=== PATIENT | female | born 1945 | race Caucasian/White ===

== ENCOUNTER → 2017-07-08 08:20 | Outpatient (CLI) | payer MEDICARE, SELFPAY ==
[2017-07-08 13:17] LABS: Absolute Lymphocyte Count 3.07 X10^3/ul (0.83-4.51); Absolute Neutrophil Count 3.6 X10^3/uL (2.0-7.7); Basophil# 0.02 X10^3/uL; Basophil% 0.3 % (0-1); Eosinophil# 0.11 X10^3/uL; Eosinophils% 1.4 % (0-5); Hematocrit 42.1 % (37-47); Hemoglobin 13.4 g/dl (12.0-15.0); Lymphocyte # 3.07 X10^3/ul (4.0); Lymphocyte % 39.2 % (19-41); Mean Corp Hgb Conc 31.8 g/gl (32-36); Mean Corpuscular Hgb 28.9 pg (27.0-32.0); Mean Corpuscular Volume 90.9 fL (81-99); Mean Platelet Vol. 11.3 fl (6.2-12.0); Monocyte# 1.02 X10^3/uL; Neutrophil # 3.61 X10^3/uL (2.7-7.7); Platelet Count 270 K/mm3 (150-450); RBC Distribution Width CV 14.2 % (11.6-14.6); RBC Distribution Width SD 46.9 fl (35.1-43.9); Red Blood Count 4.63 M/mm3 (4.2-5.4); White Blood Count 7.8 K/mm3 (4.4-11.0)
[2017-07-08 13:20] LABS: POSITIVE COUNT NO; POSITIVE DIFFERENTIAL NO; POSITIVE MORPHOLOGY NO
[2017-07-08 13:24] LABS: Vitamin D,25 Hydroxy 22.6 ng/mL (29.95-100.01)
[2017-07-08 13:27] LABS: ALB/GLOB Ratio 0.8 RATIO (0.9-2.4); AST(SGOT) 20 U/L (15-37); Alanine Aminotransfer ALT/SGPT 28 U/L (13-56); Albumin, Serum 3.5 g/dL (3.2-5.0); Alkaline Phosphatase 62 U/L (45-117); Anion Gap 8 (5-15); BUN 11 mg/dL (7-18); BUN/Creat Ratio 15.7 RATIO (10-20); Calcium,Total 8.4 mg/dL (8.5-10.1); Chloride 104 mmol/L (98-107); Cholesterol 199 mg/dL (200); EST Glomerular Filtration Rate 87 mL/min (>60); Est Glom Filt Rate - Afr Amer 106 mL/min (>60); Globulin 4.2 g/dL (2.2-4.2); Glucose 97 mg/dL (74-106); High Density Lipoprotein 60 mg/dL; Potassium 3.9 mmol/L (3.5-5.1); Protein, Total 7.7 g/dL (6.4-8.2); Sodium Level 141 mmol/L (136-145); Thyroid Stim Hormone (TSH) 3.62 uIU/mL (0.358-3.74); Triglycerides 157 mg/dL; Very Low Density Lipoprotein 31 mg/dL (5-40)
[2017-07-09 14:37] LABS: Hep C Antibodies <0.1 s/co ratio (0.0-0.9)
== END ==
PROVIDERS: Family Provider Student in an Organized Health Care Education/Training Program; PCP Student in an Organized Health Care Education/Training Program; Visit Provider Nurse Practitioner Adult Health
DX: E78.5 Hyperlipidemia, unspecified (principal); E55.9 Vitamin D deficiency, unspecified; Z11.59 Encounter for screening for other viral diseases; Z79.899 Other long term (current) drug therapy
CPT/HCPCS: 80053; 80061; 82306; 84443; 85025; 86803

== ENCOUNTER → 2018-04-23 10:14 | Outpatient (CLI) | payer MEDICARE, SELFPAY ==
--- NOTE | 2018-04-23 10:21 | BI_ITS ---
MAMMOGRAPHY - BILATERAL SCREENING REASON FOR EXAM: Female, 72 years old. Routine annual screening examination. PERTINENT HISTORY: Non-contributory. TECHNIQUE: Digital bilateral breast rodrigo (3D mammographic acquisition) in the CC and MLO projections. 2-D mediolateral oblique (MLO) and craniocaudad (CC) views of both breasts were obtained. CAD: Full Field Digital Mammography with Computer Added Detection was performed. COMPARISON: Comparison is made with prior study dated December 14, 2016 and November 09, 2015. FINDINGS: Breast Composition: There are scattered areas of fibroglandular density. There are no dominant masses or suspicious calcifications. Stable bilateral axillary lymph nodes. This morning at 7 No other significant abnormalities are identified. There has been no significant change since the prior study. BI/SCREENING MAMM (CAD), BILAT IMPRESSION: Stable bilateral screening mammogram. Yearly follow-up mammogram recommended. (A) ASSESSMENT CATEGORY: BIRADS Category 2: Benign. A letter regarding these results will be sent to the patient by the facility within 30 days. Approximately 10% of breast cancers are not detected by mammography. A normal mammogram should not delay biopsy of a clinically suspicious abnormality. [id number] Electronically Signed: Ricardo Brenner MD at 11:29 EST Tel [phone], Service support ,
--- OUTSIDE RECORDS SUMMARY | 2018-06-28 04:49 | XMS RPT_ITS ---
:1945 Author Organization OHIP Care Team Providers Name Role Phone ROSEY LEYVA (COBOL APPLICATION DEVELOPER) Referring Unavailable ROSEY LEYVA (COBOL APPLICATION DEVELOPER) Attending Unavailable SHIRLENE JUAN (APPLE PEELER OPERATOR) Attending Unavailable ANGIE SERRATO Admitting Unavailable ANGIE SERRATO Attending Unavailable ROSEY CHRISTIE (PA) Referring Unavailable ROSEY CHRISTIE (PA) Attending Unavailable GALILEO LOPES Referring Unavailable LOPES GALILEO L Attending Unavailable LOPES GALILEO L Referring Unavailable LOPES GALILEO L Referring Unavailable Lopes Galileo Attending Unavailable Lopes, Galileo Primary Care Unavailable Rosey Leyva AUTOMOBILE DAMAGE APPRAISER-C Attending Unavailable Rosey Leyva AUTOMOBILE DAMAGE APPRAISER-C Referring Unavailable Fredi, Galileo Primary Care Unavailable PROBLEMS PROBLEMS DATE TYPE CONDITION / CODE ATTENDING STATUS SOURCE 01/10/2018 Active Unspecified NA Active [facility] injury of right [place] wrist, hand and Repository finger(s), initial encounter / S69.91XA(ICD-10) 09/11/2017 Active Encounter for ANGIE SERRATO Active [facility] screening for [facility] malignant Repository neoplasm of colon / Z12.11(ICD-10) 03/14/2015 Active Hyperlipidemia, NA Active [facility] unspecified / [place] E78.5(ICD-10) Repository 12/21/2009 Active Vitamin D NA Active [facility] deficiency, [place] unspecified / Repository E55.9(ICD-10) 07/08/2017 Active Other long term care administrator NA Active [facility] (current) drug [place] therapy / Repository Z79.899(ICD-10) 07/08/2017 Active Encounter for NA Active [facility] screening for [place] other viral Repository diseases / Z11.59(ICD-10) 07/08/2017 Unknown E78.5 - [place], Active [facility] Hyperlipidemia, Rosey AUTOMOBILE DAMAGE APPRAISER-C Community unspecified / Hospital E78.5(ICD-10) Repository 07/08/2017 Unknown E55.9 - Vitamin D [place], Active [place] deficiency, Rosey AUTOMOBILE DAMAGE APPRAISER-C Community unspecified / Hospital E55.9(ICD-10) Repository PROCEDURES PROCEDURES No Procedure Records FoundRESULTS RESULTS SCREENING MAMM (CAD), Observed: 04/23/2018 Status: F Source: [place] BILAT 10:21 AM [facility] Imaging Services [address] [place] [address] SCREENING MAMM (CAD), BILAT MR#: [id number] Acct: [id number] Name: LAISHA SANDERSON Rep #: [id number] : 1945 F 72 From: Ricardo Brenner MD PCP: Galileo Rosales DO Status: REG CLI Study: SCREENING MAMM (CAD), BILAT Date of Exam: 04/23/18 Exam# [id number] Ordering Dr: Galileo Lopes DO MAMMOGRAPHY - BILATERAL SCREENING REASON FOR EXAM: Female, 72 years old. Routine annual screening examination. PERTINENT HISTORY: Non-contributory. TECHNIQUE: Digital bilateral breast rodrigo (3D mammographic acquisition) in the CC and MLO projections. 2-D mediolateral oblique (MLO) and craniocaudad (CC) views of both breasts were obtained. CAD: Full Field Digital Mammography with Computer Added Detection was performed. COMPARISON: Comparison is made with prior study dated December 14, 2016 and November 09, 2015. FINDINGS: Breast Composition: There are scattered areas of fibroglandular density. There are no dominant masses or suspicious calcifications. Stable bilateral axillary lymph nodes. This morning at 7 No other significant abnormalities are identified. There has been no significant change since the prior study. BI/SCREENING MAMM (CAD), BILAT IMPRESSION: Stable bilateral screening mammogram. Yearly follow-up mammogram recommended. (A) ASSESSMENT CATEGORY: BIRADS Category 2: Benign. A letter regarding these results will be sent to the patient by the facility within 30 days. Approximately 10% of breast cancers are not detected by mammography. A normal mammogram should not delay biopsy of a clinically suspicious abnormality. [id number] Electronically Signed: Ricardo Brenner MD at 11:29 EST Tel [phone], Service support , CC: Galileo Rosales DO Medicare Nurse: Signed XR HAND 3V PA/LAT/OBL Observed: 01/10/2018 Status: F Source: [facility] 3:00 PM [facility] REPOSITORY * * *Final Report* * * DATE OF EXAM: Jan 10 2018 3:00PM WOX [id number] - XR HAND 3V PA/LAT/OBL RT / PROCEDURE REASON: Injury of right hand, initial encounter * * * * Physician Interpretation * * * * Right hand HISTORY: 72 years old Clinical information: Injury of right hand, initial encounter pt states was at a golf range couple of weeks ago and jammed the iron into the ground pain is prox 3rd MC dorsal side marked by the arrow TECHNIQUE: Images: XR HAND 3V PA/LAT/OBL RT Comparison: None. RESULT: Findings: Moderate narrowing involving interphalangeal joints. Moderate narrowing of the radiocarpal joint. No fractures or dislocations are seen. IMPRESSION: Degenerative changes as discussed. Medicare Nurse: LASHONDA Transcribe Date/Time: Jan 10 2018 3:10P Dictated by : CAROL MUÑIZ DO This examination was interpreted and the report reviewed and electronically signed by: CAROL MUÑIZ DO on Jan 10 2018 3:11PM EST [id number] PROGRESS Observed: 01/10/2018 Status: COMPLETED Source: [place] 2:50 PM [facility] REPOSITORY HNO ID: [id number] Author: Kristen Arceo (Rt) Emiliana Galeano Service: (none) Author Type: Furniture Inspector Type: Progress Notes Filed: 01/10/2018 3:00 PM Note Text: Radiology Service Progress Note PATIENT NAME: Laisha Sanderson DATE OF SERVICE: January 10, 2018 TIME: 2:50 PM PATIENT IDENTITY VERIFICATION COMPLETED USING TWO (2) METHODS: Patient confirmed name verbally and Date of . PATIENT GENDER DATA: Female. status: : No status: NO. PATIENT RELEVANT IMPLANT DATA REVIEWED: Not Applicable RADIOLOGY DEPARTMENT: General X-ray: Exam(s) Completed: Upper Extremity X-Ray(s): Hand, right : PERIPHERAL IV DATA: Not applicable SIGNED BY: RT Gautam January 10, 2018 2:50 PM PROGRESS Observed: 01/10/2018 Status: COMPLETED Source: [place] 2:46 PM [facility] REPOSITORY HNO ID: [id number] Author: Rosey Leyva Service: (none) Author Type: Nurse Practitioner Type: Progress Notes Filed: 01/10/2018 2:55 PM Note Text: HPI/CC: Laisha Sanderson is a 72 year old female who presents for R wrist pain x 3 weeks. Jammed hand during golf. Pain is achy 2/10 with sharp pain at times. Bump to area. Decreased grasp and strength, + numbness and tingling noted over the last week. Had attempted nothing. ROS as above, otherwise non-contributory. Reviewed PMHx, PSHx, social Hx, medications and allergies. PHYSICAL EXAMINATION: BP 138/100 Pulse 96 Resp 16 Wt 76.2 kg (168 lb) BMI 30.24 kg/m? General appearance: Well appearing, alert, in no acute distress, well-hydrated, well nourished. Right hand+ lump to 2-3rd metacarpal space at wrist, no erythema or edema. +Point tenderness ASSESSMENT/PLAN: 1. Injury of right hand, initial encounter - ICD9: 959.4, ICD10: S69.91XA - XR HAND GENERAL 3V PA/LAT/OBL RT Rosey Leyva APRN.TONY CNOV Observed: 01/10/2018 Status: COMPLETED Source: [place] 2:40 PM [facility] REPOSITORY Office Visit (FAMPWS) LAISHA SANDERSON ([id number]) 1945 F Date Time Provider Department 01/10/18 2:40 PM ROESY LEYVA (TONY) SOLANGEPWS During your visit today, we recorded the following information about you: Pulse Respiration Blood pressure Weight 96/minute 16/minute 138/100 76.2 kg Rosey Leyva APRN.CNP 01/10/2018 2:55 PM Addendum HPI/CC: Laisha Sanderson is a 72 year old female who presents for R wrist pain x 3 weeks. Jammed hand during golf. Pain is achy 2/10 with sharp pain at times. Bump to area. Decreased grasp and strength, + numbness and tingling noted over the last week. Had attempted nothing. ROS as above, otherwise non-contributory. Reviewed PMHx, PSHx, social Hx, medications and allergies. PHYSICAL EXAMINATION: BP 138/100 Pulse 96 Resp 16 Wt 76.2 kg (168 lb) BMI 30.24 kg/m? General appearance: Well appearing, alert, in no acute distress, well-hydrated, well nourished. Right hand+ lump to 2-3rd metacarpal space at wrist, no erythema or edema. +Point tenderness ASSESSMENT/PLAN: 1. Injury of right hand, initial encounter - ICD9: 959.4, ICD10: S69.91XA - XR HAND GENERAL 3V PA/LAT/OBL RT Rosey Leyva APRN.CNP Referring Provider: SELF [200] Allergies As of Date: 01/10/2018 Noted Allergy Reaction AMOXIL (AMOXICILLIN) 01/06/2007 2 - Rash Comments: gets bright red rash BEE STING 11/09/2014 10 - Anaphylaxis TOPICAL AGENT COMBINATION NO.1 06/17/2013 2 - Rash Comments: Hair treatment - Date Reviewed: 01/10/2018 Reviewed by: Chente Diaz LPN - Fully Assessed Reason for Visit: Wrist Pain [1580] Cmt: R wrist x 3 weeks; Primary Visit Diagnosis:Injury of right hand, initial encounter [S69.91XA] Order(s):XR HAND GENERAL 3V PA/LAT/OBL RT [[id number]] Order #: [id number] FUTURE Prescriptions as of 01/10/2018 Sig: CETIRIZINE 10 MG TABLET Take 1 tablet by mouth once d* CHOLECALCIFEROL (VITAMIN D3) * Take 2,000 Units by mouth onc* CALCIUM CARB-ERGOCALCIFEROL (* Take 1 tablet by mouth twice * POTASSIUM 99 MG TABLET Take by mouth. EPINEPHRINE 0.3 MG/0.3 ML INJ* Inject 0.3 mL intramuscularly* TRIAMCINOLONE ACETONIDE 0.1 %* Apply 1 application to affect* PROBIOTIC AND ACIDOPHILUS ORAL Take by mouth. RESTASIS OPHTHALMIC Use in eyes. * COQ-10 100 MG CAPSULE one tablet daily * OMEGA-3 FATTY ACIDS 1,250 MG * one tablet daily Problem List As Of Date 01/10/2018 Noted Resolved GASTRITIS NEC W/O HEMORRH [K29.60] More... DDD (degenerative disc disease), lumbar [M51.36] More... BONE AND CARTILAGE DIS NOS [M89.9, M94.9] More... 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] INVALID FOR* Obstructive sleep apnea syndrome [G47.33] INVALID FOR* Psoriasis of scalp [L40.9] INVALID FOR* Actinic keratoses [L57.0] INVALID FOR* Encounter Status:Closed by ROSEY LEYVA CNP on 01/10/18 PROGRESS Observed: 09/20/2017 Status: COMPLETED Source: [place] 3:27 PM [facility] REPOSITORY HNO ID: [id number] Author: Shirlene Juan (Cns) Service: (none) Author Type: Nurse Specialist Type: Progress Notes Filed: 09/20/2017 3:32 PM Note Text: OUTPATIENT VISIT DATE September 20, 2017 OUTPATIENT VISIT TYPE ESTABLISHED PRIMARY CARE PHYSICIAN: Galileo Lopes DO CHIEF COMPLAINT: Patient presents with: Insect Bite History of Present Illness: Laisha Sanderson is a 71 year old female who was last seen 07/2017 by Galileo Lopes DO. She has been seen in the past for ACTIVE PROBLEM LIST Other Specified Gastritis Without Mention of Hemorrhage Ddd (Degenerative Disc Disease), Lumbar Disorder of Bone and Cartilage, Unspecified Vitamin D Deficiency Sleep Apnea Hyperlipidemia With Target Ldl Less Than 130 Female Pattern Hair Loss Obstructive Sleep Apnea Syndrome Psoriasis of Scalp Actinic Keratoses Presents today for bug bites, likely mosquito, that are red and swollen and itchy. Hive type rash surrounding bites on right forearm x 3. . She has taken Benadryl and use topical triamcinolone cream with minimal results. No recent hospital or ED visits. No new medical problems or medications. Able to obtain medications. No problems with taking medications or note side effects. PAST MEDICAL HISTORY Diagnosis Date - Abnormal mammogram, unspecified 05/2007 right breast, due for repeat 11/13 - Degeneration of intervertebral disc, site unspecified 1999 cervical and lumbar; not having any pain now - Disorder of bone and cartilage, unspecified osteopenia on DXA in 2001, but was normal in 2007 so bisphosphonates stopped - Other and unspecified hyperlipidemia 2001 - Other specified acquired hypothyroidism 2005 ?borderline - Other specified gastritis without mention of hemorrhage 2007 found on EGD, symptom free on PPI - Sleep apnea 10/02/2011 on CPAP - Snoring - Vitamin D deficiency 12/21/2009 PAST SURGICAL HISTORY Procedure Laterality Date - COLONOSCOP W/ OR W/O [facility] SPEC 09/11/2017 Colonoscopy - LASER SURGERY OF EYE 1995 vision correction - VAGINAL HYSTERECTOMY 1985 precancerous pap smear - no cancer on path from surgery FAMILY HISTORY Problem Relation Age of Onset - Stroke Mother - Hypertension Mother age 89 - Heart Father CHF - age 63 - impaired fasting glucose [OTHER] Sister - Lipids Sister - Hypertension Sister Social History Substance Use Topics - Smoking status: Never Smoker - Smokeless tobacco: Never Used - Alcohol use 4.5 oz/week 3 Glasses of Wine (5oz) per week ALLERGIES: ALLERGIES Allergen Reactions - Amoxil [Amoxicillin] Rash gets bright red rash - Bee Sting Anaphylaxis - Topical Agent Combi* Rash Hair treatment - MEDICATIONS cetirizine (ZYRTEC) 10 mg tablet Take 1 tablet by mouth once daily. famotidine (PEPCID) 20 mg tablet Take 1 tablet by mouth at bedtime as needed. Cholecalciferol, Vitamin D3, (VITAMIN D-3) 2,000 unit cap Take 2,000 Units by mouth once daily. calcium carbonate-vitamin D (OS-EMMA 250 W/D) 250 (625)-125 mg-unit tab Take 1 tablet by mouth twice daily. Potassium 99 mg tab Take by mouth. EPINEPHrine (EPIPEN 2-TREMAYNE) 0.3 mg/0.3 mL auto-injector Inject 0.3 mL intramuscularly as needed. triamcinolone acetonide (KENALOG) 0.1 % cream Apply 1 application to affected area twice daily as needed. Use only for 14 days at a time, Apply sparingly to area for rash/itching. LACTOBAC CMB #3/FOS/PANTETHINE (PROBIOTIC AND ACIDOPHILUS ORAL) Take by mouth. CYCLOSPORINE (RESTASIS OPHTHALMIC) Use in eyes. ubidecarenone(COQ-10 100 MG CAP) one tablet daily OMEGA-3 FATTY ACIDS 1,250 MG CAP one tablet daily REVIEW OF SYSTEMS: GENERAL: Negative for: Weight loss or gain, Fever or Chills, Weakness and Sleep difficulties. Physical Examination: BP 138/84 Pulse 84 Resp 12 BP w/Orthostatic Vitals Date and Time Orthostatic BP Orthostatic Pulse BP Pulse BP Position BP Site BP Cuff Size 09/20/17 1513 -- -- 138/84 84 Sitting Left Arm Regular Adult Peak Flow Date and Time PF Resp 09/20/17 1513 -- 12 General appearance: Well appearing, alert, in no acute distress, well-hydrated, well nourished. Skin: Skin color, texture, turgor normal, + erythema surrounding three bites right forearm, ~2 diameter Lungs: Lungs clear to auscultation. No wheezing, rhonchi, rales Heart: RRR without murmur, gallop, or rubs. No ectopy Neuro: Gait normal.Sensation grossly intact. Reviewed chart, outside records, tests I personally interviewed, confirmed and edited the above information if obtained by others. TESTING: Glucose (mg/dL) Date Value 07/08/2017 Test sent to [facility]. Potassium (mmol/L) Date Value 07/08/2017 Test sent to [facility]. Sodium (mmol/L) Date Value 07/08/2017 Test sent to [facility]. Chloride (mmol/L) Date Value 07/08/2017 Test sent to [facility]. CO2 (mmol/L) Date Value 07/08/2017 Test sent to [facility]. Creatinine (mg/dL) Date Value 07/08/2017 Test sent to [facility]. BUN (mg/dL) Date Value 07/08/2017 Test sent to [facility]. Anion Gap (mmol/L) Date Value 07/08/2017 Test sent to [facility]. Calcium (mg/dL) Date Value 07/08/2017 Test sent to [facility]. Glucose (mg/dL) Date Value 07/08/2017 Test sent to [facility]. Potassium (mmol/L) Date Value 07/08/2017 Test sent to [facility]. Sodium (mmol/L) Date Value 07/08/2017 Test sent to [facility]. Chloride (mmol/L) Date Value 07/08/2017 Test sent to [facility]. CO2 (mmol/L) Date Value 07/08/2017 Test sent to [facility]. Creatinine (mg/dL) Date Value 07/08/2017 Test sent to [facility]. BUN (mg/dL) Date Value 07/08/2017 Test sent to [facility]. Anion Gap (mmol/L) Date Value 07/08/2017 Test sent to [facility]. Calcium (mg/dL) Date Value 07/08/2017 Test sent to [facility]. Protein, Total (g/dL) Date Value 07/08/2017 Test sent to [facility]. Albumin (g/dL) Date Value 07/08/2017 Test sent to [facility]. Bilirubin, Total (mg/dL) Date Value 07/08/2017 Test sent to [facility]. Alkaline Phosphatase (U/L) Date Value 07/08/2017 Test sent to [facility]. AST (U/L) Date Value 07/08/2017 Test sent to [facility]. ALT (U/L) Date Value 07/08/2017 Test sent to [facility]. Hemoglobin (g/dL) Date Value 07/08/2017 Test sent to [facility]. Hematocrit (%) Date Value 07/08/2017 Test sent to [facility]. WBC (k/uL) Date Value 07/08/2017 Test sent to [facility]. Cholesterol, Total (mg/dL) Date Value 07/08/2017 Test sent to [facility]. HDL Cholesterol (mg/dL) Date Value 07/08/2017 Test sent to [facility]. LDL Cholesterol (mg/dL) Date Value 07/08/2017 Test sent to [facility]. Triglyceride (mg/dL) Date Value 07/08/2017 Test sent to [facility]. No results found for: HBA1C Ejection Fraction: No results found IMPRESSION: Ms. Sanderson is a 71 year old woman presents for bug bites not helped with home treatments After my examination and review of data, I make the following recommendations. PLAN AND RECOMMENDATIONS: 1. Insect bite, initial encounter - ICD9: 919.4, E906.4, ICD10: W57.XXXA (primary diagnosis) Prefers to avoid prednisone oral if she can - CETIRIZINE 10 MG TABLET - FAMOTIDINE 20 MG TABLET 2. Bee sting allergy - ICD9: V15.06, ICD10: Z91.038 - CONSULT TO ALLERGY/IMMUNOLOGY 3. Family history of severe allergy - ICD9: V19.6, ICD10: Z84.89 - CONSULT TO ALLERGY/IMMUNOLOGY Advise: Take cetirizine once daily for redness swelling and itching at the bite sites If not improving may add famotidine once daily. Continue with triamcinolone cream If not improving call office, may need to add prednisone To ER for severe symptoms if occur Consider appointment with slasher operator. Consult placed Advised to go to ER if develops chest pain, shortness of breath, or severe worsening of symptoms. Discussed risks, benefits, alternatives, and potential side effects of medications. Ms. Sanderson expressed understanding and agreed with the plan. Shirlene Juan APRN.CNS CNOV Observed: 09/20/2017 Status: COMPLETED Source: [place] 3:00 PM [facility] REPOSITORY Office Visit (INTMWS) LAISHA SANDERSON ([id number]) 1945 F Date Time Provider Department 09/20/17 3:00 PM SHIRLENE JUAN ([facility]) INTMWS During your visit today, we recorded the following information about you: Pulse Respiration Blood pressure 84/minute 12/minute 138/84 Shirlene Juan APRN.CNS 09/20/2017 3:15 PM Signed Take cetirizine once daily for redness swelling and itching at the bite sites If not improving may add famotidine once daily. Continue with triamcinolone cream If not improving call office, may need to add prednisone To ER for severe symptoms if occur Consider appointment with slasher operator. Consult placed Shirlene Juan APRN.CNS 09/20/2017 3:32 PM Signed OUTPATIENT VISIT DATE September 20, 2017 OUTPATIENT VISIT TYPE ESTABLISHED PRIMARY CARE PHYSICIAN: Galileo Lopes DO CHIEF COMPLAINT: Patient presents with: Insect Bite History of Present Illness: Laisha Sanderson is a 71 year old female who was last seen 07/2017 by Galileo Lopes DO. She has been seen in the past for ACTIVE PROBLEM LIST Other Specified Gastritis Without Mention of Hemorrhage Ddd (Degenerative Disc Disease), Lumbar Disorder of Bone and Cartilage, Unspecified Vitamin D Deficiency Sleep Apnea Hyperlipidemia With Target Ldl Less Than 130 Female Pattern Hair Loss Obstructive Sleep Apnea Syndrome Psoriasis of Scalp Actinic Keratoses Presents today for bug bites, likely mosquito, that are red and swollen and itchy. Hive type rash surrounding bites on right forearm x 3. . She has taken Benadryl and use topical triamcinolone cream with minimal results. No recent hospital or ED visits. No new medical problems or medications. Able to obtain medications. No problems with taking medications or note side effects. PAST MEDICAL HISTORY Diagnosis Date - Abnormal mammogram, unspecified 05/2007 right breast, due for repeat 11/13 - Degeneration of intervertebral disc, site unspecified 1999 cervical and lumbar; not having any pain now - Disorder of bone and cartilage, unspecified osteopenia on DXA in 2001, but was normal in 2007 so bisphosphonates stopped - Other and unspecified hyperlipidemia 2001 - Other specified acquired hypothyroidism 2005 ?borderline - Other specified gastritis without mention of hemorrhage 2007 found on EGD, symptom free on PPI - Sleep apnea 10/02/2011 on CPAP - Snoring - Vitamin D deficiency 12/21/2009 PAST SURGICAL HISTORY Procedure Laterality Date - COLONOSCOP W/ OR W/O [facility] SPEC 09/11/2017 Colonoscopy - LASER SURGERY OF EYE 1995 vision correction - VAGINAL HYSTERECTOMY 1985 precancerous pap smear - no cancer on path from surgery FAMILY HISTORY Problem Relation Age of Onset - Stroke Mother - Hypertension Mother age 89 - Heart Father CHF - age 63 - impaired fasting glucose [OTHER] Sister - Lipids Sister - Hypertension Sister Social History Substance Use Topics - Smoking status: Never Smoker - Smokeless tobacco: Never Used - Alcohol use 4.5 oz/week 3 Glasses of Wine (5oz) per week ALLERGIES: ALLERGIES Allergen Reactions - Amoxil [Amoxicillin] Rash gets bright red rash - Bee Sting Anaphylaxis - Topical Agent Combi* Rash Hair treatment - MEDICATIONS cetirizine (ZYRTEC) 10 mg tablet Take 1 tablet by mouth once daily. famotidine (PEPCID) 20 mg tablet Take 1 tablet by mouth at bedtime as needed. Cholecalciferol, Vitamin D3, (VITAMIN D-3) 2,000 unit cap Take 2,000 Units by mouth once daily. calcium carbonate-vitamin D (OS-EMMA 250 W/D) 250 (625)-125 mg-unit tab Take 1 tablet by mouth twice daily. Potassium 99 mg tab Take by mouth. EPINEPHrine (EPIPEN 2-TREMAYNE) 0.3 mg/0.3 mL auto-injector Inject 0.3 mL intramuscularly as needed. triamcinolone acetonide (KENALOG) 0.1 % cream Apply 1 application to affected area twice daily as needed. Use only for 14 days at a time, Apply sparingly to area for rash/itching. LACTOBAC CMB #3/FOS/PANTETHINE (PROBIOTIC AND ACIDOPHILUS ORAL) Take by mouth. CYCLOSPORINE (RESTASIS OPHTHALMIC) Use in eyes. ubidecarenone(COQ-10 100 MG CAP) one tablet daily OMEGA-3 FATTY ACIDS 1,250 MG CAP one tablet daily REVIEW OF SYSTEMS: GENERAL: Negative for: Weight loss or gain, Fever or Chills, Weakness and Sleep difficulties. Physical Examination: BP 138/84 Pulse 84 Resp 12 BP w/Orthostatic Vitals Date and Time Orthostatic BP Orthostatic Pulse BP Pulse BP Position BP Site BP Cuff Size 09/20/17 1513 -- -- 138/84 84 Sitting Left Arm Regular Adult Peak Flow Date and Time PF Resp 09/20/17 1513 -- 12 General appearance: Well appearing, alert, in no acute distress, well-hydrated, well nourished. Skin: Skin color, texture, turgor normal, + erythema surrounding three bites right forearm, ~2 diameter Lungs: Lungs clear to auscultation. No wheezing, rhonchi, rales Heart: RRR without murmur, gallop, or rubs. No ectopy Neuro: Gait normal.Sensation grossly intact. Reviewed chart, outside records, tests I personally interviewed, confirmed and edited the above information if obtained by others. TESTING: Glucose (mg/dL) Date Value 07/08/2017 Test sent to [facility]. Potassium (mmol/L) Date Value 07/08/2017 Test sent to [facility]. Sodium (mmol/L) Date Value 07/08/2017 Test sent to [facility]. Chloride (mmol/L) Date Value 07/08/2017 Test sent to [facility]. CO2 (mmol/L) Date Value 07/08/2017 Test sent to [facility]. Creatinine (mg/dL) Date Value 07/08/2017 Test sent to [facility]. BUN (mg/dL) Date Value 07/08/2017 Test sent to [facility]. Anion Gap (mmol/L) Date Value 07/08/2017 Test sent to [facility]. Calcium (mg/dL) Date Value 07/08/2017 Test sent to [facility]. Glucose (mg/dL) Date Value 07/08/2017 Test sent to [facility]. Potassium (mmol/L) Date Value 07/08/2017 Test sent to [facility]. Sodium (mmol/L) Date Value 07/08/2017 Test sent to [facility]. Chloride (mmol/L) Date Value 07/08/2017 Test sent to [facility]. CO2 (mmol/L) Date Value 07/08/2017 Test sent to [facility]. Creatinine (mg/dL) Date Value 07/08/2017 Test sent to [facility]. BUN (mg/dL) Date Value 07/08/2017 Test sent to [facility]. Anion Gap (mmol/L) Date Value 07/08/2017 Test sent to [facility]. Calcium (mg/dL) Date Value 07/08/2017 Test sent to [facility]. Protein, Total (g/dL) Date Value 07/08/2017 Test sent to [facility]. Albumin (g/dL) Date Value 07/08/2017 Test sent to [facility]. Bilirubin, Total (mg/dL) Date Value 07/08/2017 Test sent to [facility]. Alkaline Phosphatase (U/L) Date Value 07/08/2017 Test sent to [facility]. AST (U/L) Date Value 07/08/2017 Test sent to [facility]. ALT (U/L) Date Value 07/08/2017 Test sent to [facility]. Hemoglobin (g/dL) Date Value 07/08/2017 Test sent to [facility]. Hematocrit (%) Date Value 07/08/2017 Test sent to [facility]. WBC (k/uL) Date Value 07/08/2017 Test sent to [facility]. Cholesterol, Total (mg/dL) Date Value 07/08/2017 Test sent to [facility]. HDL Cholesterol (mg/dL) Date Value 07/08/2017 Test sent to [facility]. LDL Cholesterol (mg/dL) Date Value 07/08/2017 Test sent to [facility]. Triglyceride (mg/dL) Date Value 07/08/2017 Test sent to [facility]. No results found for: HBA1C Ejection Fraction: No results found IMPRESSION: Ms. Sanderson is a 71 year old woman presents for bug bites not helped with home treatments After my examination and review of data, I make the following recommendations. PLAN AND RECOMMENDATIONS: 1. Insect bite, initial encounter - ICD9: 919.4, E906.4, ICD10: W57.XXXA (primary diagnosis) Prefers to avoid prednisone oral if she can - CETIRIZINE 10 MG TABLET - FAMOTIDINE 20 MG TABLET 2. Bee sting allergy - ICD9: V15.06, ICD10: Z91.038 - CONSULT TO ALLERGY/IMMUNOLOGY 3. Family history of severe allergy - ICD9: V19.6, ICD10: Z84.89 - CONSULT TO ALLERGY/IMMUNOLOGY Advise: Take cetirizine once daily for redness swelling and itching at the bite sites If not improving may add famotidine once daily. Continue with triamcinolone cream If not improving call office, may need to add prednisone To ER for severe symptoms if occur Consider appointment with slasher operator. Consult placed Advised to go to ER if develops chest pain, shortness of breath, or severe worsening of symptoms. Discussed risks, benefits, alternatives, and potential side effects of medications. Ms. Sanderson expressed understanding and agreed with the plan. Shirlene Juan APRN.APPLE PEELER OPERATOR Referring Provider: SELF [[id number]] Allergies As of Date: 09/20/2017 Noted Allergy Reaction AMOXIL (AMOXICILLIN) 01/06/2007 2 - Rash Comments: gets bright red rash BEE STING 11/09/2014 10 - Anaphylaxis TOPICAL AGENT COMBINATION NO.1 06/17/2013 2 - Rash Comments: Hair treatment - Date Reviewed: 09/20/2017 Reviewed by: Radu Cifuentes LPN - Fully Assessed Reason for Visit: Insect Bite [929] Primary Visit Diagnosis:Insect bite, initial encounter [W57.XXXA] Other Visit Diagnoses:Bee sting allergy [Z91.038] Family history of severe allergy [Z84.89] Order(s):cetirizine (ZYRTEC) 10 mg tabletTake 1 tablet by mouth once daily.Disp: 30 tabletRfl: 2 famotidine (PEPCID) 20 mg tabletTake 1 tablet by mouth at bedtime as needed.Disp: 30 tabletRfl: 2 CONSULT TO ALLERGY/IMMUNOLOGY [9001] Order #: [id number]: 1 Prescriptions as of 09/20/2017 Sig: CETIRIZINE 10 MG TABLET Take 1 tablet by mouth once d* FAMOTIDINE 20 MG TABLET Take 1 tablet by mouth at bed* CHOLECALCIFEROL (VITAMIN D3) * Take 2,000 Units by mouth onc* CALCIUM CARB-ERGOCALCIFEROL (* Take 1 tablet by mouth twice * POTASSIUM 99 MG TABLET Take by mouth. EPINEPHRINE 0.3 MG/0.3 ML INJ* Inject 0.3 mL intramuscularly* TRIAMCINOLONE ACETONIDE 0.1 %* Apply 1 application to affect* PROBIOTIC AND ACIDOPHILUS ORAL Take by mouth. RESTASIS OPHTHALMIC Use in eyes. * COQ-10 100 MG CAPSULE one tablet daily * OMEGA-3 FATTY ACIDS 1,250 MG * one tablet daily Problem List As Of Date 09/20/2017 Noted Resolved GASTRITIS NEC W/O HEMORRH [K29.60] More... DDD (degenerative disc disease), lumbar [M51.36] More... BONE AND CARTILAGE DIS NOS [M89.9, M94.9] More... 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 Continue with triamcinolone cream If not improving call office, may need to add prednisone To ER for severe symptoms if occur Consider appointment with slasher operator. Consult placed Prescriptions ordered this encounter Disp Refills Start End CETIRIZINE 10 MG TABLET 30 t* 2 09/20/2017 Route: ORAL Sig: Take 1 tablet by mouth once daily. FAMOTIDINE 20 MG TABLET 30 t* 2 09/20/2017 2017 Route: ORAL Sig: Take 1 tablet by mouth at bedtime as needed. Encounter Status:Closed by SHIRLENE CONDE on 09/20/17 NURSING PROG Observed: 09/11/2017 Status: COMPLETED Source: [place] 8:59 AM [facility] REPOSITORY HNO ID: [id number] Author: Nathaniel (Rn) Ken RN Service: Nursing Author Type: Registered Nurse Type: Nursing Progress Note Filed: 09/11/2017 8:59 AM Note Text: Dressed to go home with spouse, no complaints, all safety maintained. NURSING PROG Observed: 09/11/2017 Status: COMPLETED Source: [place] 8:59 AM [facility] REPOSITORY HNO ID: [id number] Author: Nathaniel OrdonezRn) Ken, RN Service: Nursing Author Type: Registered Nurse Type: Nursing Progress Note Filed: 09/11/2017 9:03 AM Note Text: Patient did not experience a fall prior to discharge. Patient did not experience a burn prior to discharge. Nathaniel Rogers RN NURSING PROG Observed: 09/11/2017 Status: COMPLETED Source: [place] 8:42 AM [facility] REPOSITORY HNO ID: [id number] Author: Nathaniel OrdonezRn) AISHA Rogers Service: Nursing Author Type: Registered Nurse Type: Nursing Progress Note Filed: 09/11/2017 8:45 AM Note Text: Dr Serrato to visit. PT ED Observed: 09/11/2017 Status: COMPLETED Source: [place] 8:36 AM [facility] REPOSITORY HNO ID: [id number] Author: Nathaniel OrdonezRn) AISHA Rogers Service: Nursing Author Type: Registered Nurse Type: Patient Education Filed: 09/11/2017 8:37 AM Note Text: POST OP LEARNING RESPONSE INSTRUCTION PROVIDED TO: Patient and family member METHOD OF INSTRUCTION: Individual instruction Written instruction - handouts Verbal instruction PATIENT / FAMILY RESPONSE: Information received as demonstrated by interest and questions FOLLOW-UP PLAN: Patient instructed to call with any further issues SUPPLEMENTAL MATERIAL: None REFERRAL (RECOMMENDATION): None Electronically Signed By: Nathaniel Rogers RN In Department: AMBULATORY SURGERY NURSING PROG Observed: 09/11/2017 Status: COMPLETED Source: [place] 8:36 AM [facility] REPOSITORY HNO ID: [id number] Author: Nathaniel OrdonezRn) AISHA Rogers Service: Nursing Author Type: Registered Nurse Type: Nursing Progress Note Filed: 09/11/2017 8:36 AM Note Text: Spouse, William to her side, tolerating snack, waiting to talk to Dr Serrato. NURSING PROG Observed: 09/11/2017 Status: COMPLETED Source: [place] 8:10 AM [facility] REPOSITORY HNO ID: [id number] Author: Nathaniel Bello) AISHA Rogers Service: Nursing Author Type: Registered Nurse Type: Nursing Progress Note Filed: 09/11/2017 8:14 AM Note Text: Pt into Endo recovery room in satisfactory condition. Resting on left side. Pt. sleepy but arousable. Abdomen soft, no complaints, all safety maintained. Will continue to monitor. NURSING PROG Observed: 09/11/2017 Status: COMPLETED Source: [place] 8:08 AM [facility] REPOSITORY HNO ID: [id number] Author: Marianne Schwartz RN Service: Nursing Author Type: Registered Nurse Type: Nursing Progress Note Filed: 09/11/2017 8:08 AM Note Text: Patient did not experience a fall within the Intraoperative area. Patient did not experience a burn within the Intraoperative area. Marianne Schwartz RN PT ED Observed: 09/11/2017 Status: COMPLETED Source: [place] 7:35 AM [facility] REPOSITORY HNO ID: [id number] Author: Mary Ang RN Service: (none) Author Type: Registered Nurse Type: Patient Education Filed: 09/11/2017 7:36 AM Note Text: Discharge Instructions were reviewed pre-operatively with the patient. All questions and concerns were addressed. Mary Ang RN PRE OP LEARNING ASSESSMENT PROCEDURE/SURGERY: GI PROCEDURES: Colonoscopy READINESS TO LEARN COGNITIVE ABILITY: Alert and oriented MOTIVATION TO LEARN: Interested FAMILY SUPPORT: Unable to assess - Family not present PATIENT LEARNS BEST BY: Multiple Methods FACTORS AFFECTING LEARNING: None PHYSICAL LIMITATIONS AFFECTING LEARNING: None Electronically Signed By: Mary Ang RN In Department: AMBULATORY SURGERY NURSING PROG Observed: 09/11/2017 Status: COMPLETED Source: [place] 7:33 AM [facility] REPOSITORY HNO ID: [id number] Author: Mary Ang RN Service: (none) Author Type: Registered Nurse Type: Nursing Progress Note Filed: 09/11/2017 7:37 AM Note Text: [facility] PRE-OP NURSING HAND OFF NOTE SBAR Hand off given to Marianne Schwartz RN. Hand off was communicated verbally and at the patient's bedside and all questions were answered. FALLS/POLK Patient did not experience a fall within the Preoperative area. Patient did not experience a burn within the Preoperative area. Mary Ang RN HISTORY PHYSICAL Observed: 09/10/2017 Status: COMPLETED Source: [place] 8:08 PM [facility] REPOSITORY HNO ID: [id number] Author: Angie Serrato Service: (none) Author Type: Physician Type: HANDP Filed: 09/10/2017 8:08 PM Note Text: HISTORY AND PHYSICAL ? Laisha Sanderson 1945 ? REFERRING PHYSICIAN: Galileo Lopes, DO ? CHIEF COMPLAINT: Consult ? HPI: The patient is a 71 year old female referred for endoscopy. Laisha notes no major colon complaints. She does note that she will sometimes have very small BMs in the morning which regulate later in the day. Notes a history of acid reflux which is well controlled. Notes she takes a probiotic which helps with this. Denies any blood in stools, black stools or abdominal pain. ? Laisha has undergone prior endoscopy 10 years ago in [place], we do not currently have access to these records. Patient denies a history of polyps or other colon abnormalities. ? The patient is being seen by me today at the request of Dr. Lopes for my opinion and advice regarding screening colonoscopy. Past medical history is significant for hyperlipidemia, sleep apnea, degenerative disc disease. Denies any cardiac issues. Denies problems with sedation in the past. ? ? PAST MEDICAL HISTORY PAST MEDICAL HISTORY Diagnosis Date - Abnormal mammogram, unspecified 05/2007 ? right breast, due for repeat 11/13 - Degeneration of intervertebral disc, site unspecified 1999 ? cervical and lumbar; not having any pain now - Disorder of bone and cartilage, unspecified ? ? osteopenia on DXA in 2001, but was normal in 2007 so bisphosphonates stopped - Other and unspecified hyperlipidemia 2001 - Other specified acquired hypothyroidism 2005 ? ?borderline - Other specified gastritis without mention of hemorrhage 2007 ? found on EGD, symptom free on PPI - Sleep apnea 10/02/2011 ? on CPAP - Vitamin D deficiency 12/21/2009 ? PAST SURGICAL HISTORY PAST SURGICAL HISTORY Procedure Laterality Date - LASER SURGERY OF EYE ? 1995 ? vision correction - VAGINAL HYSTERECTOMY ? 1985 ? precancerous pap smear - no cancer on path from surgery ? ? ? CURRENT MEDICATIONS ? Current Outpatient Prescriptions: Cholecalciferol, Vitamin D3, (VITAMIN D-3) 2,000 unit cap Take 2,000 Units by mouth once daily. calcium carbonate-vitamin D (OS-EMMA 250 W/D) 250 (625)-125 mg-unit tab Take 1 tablet by mouth twice daily. Potassium 99 mg tab Take by mouth. EPINEPHrine (EPIPEN 2-TREMAYNE) 0.3 mg/0.3 mL auto-injector Inject 0.3 mL intramuscularly as needed. LACTOBAC CMB #3/FOS/PANTETHINE (PROBIOTIC AND ACIDOPHILUS ORAL) Take by mouth. CYCLOSPORINE (RESTASIS OPHTHALMIC) Use in eyes. ubidecarenone(COQ-10 100 MG CAP) one tablet daily OMEGA-3 FATTY ACIDS 1,250 MG CAP one tablet daily cholecalciferol, Vitamin D3, (VITAMIN D3) 50,000 unit cap capsule Take 1 capsule by mouth once each week. (Patient not taking: Reported on 08/28/2017 ) triamcinolone acetonide (KENALOG) 0.1 % cream Apply 1 application to affected area twice daily as needed. Use only for 14 days at a time, Apply sparingly to area for rash/itching. (Patient not taking: Reported on 08/28/2017 ) Cyanocobalamin (VITAMIN B-12) 1,000 mcg subl Dissolve under the tongue. PEG 400-Propylene Glycol (SYSTANE) 0.4-0.3 % drop ? ? No current facility-administered medications for this visit. ? ALLERGIES: Amoxil [Amoxicillin]; Bee Sting; Topical Agent Combination No.1 ? PERSONAL HISTORY: SOCIAL HISTORY Social History Marital status: Spouse name: Years of education: Number of children: 1 ? Social History Main Topics Smoking status: Never Smoker ? Smokeless tobacco: Never Used Alcohol use: Yes 4.5 oz/week Glasses of Wine (5oz): 3 per week Drug use: No ? FAMILY HISTORY: FAMILY HISTORY FAMILY HISTORY Problem Relation Age of Onset - Stroke Mother ? - Hypertension Mother ? ? ? age 89 - Heart Father ? ? ? CHF - age 63 - impaired fasting glucose [OTHER] Sister ? - Lipids Sister ? - Hypertension Sister ? ? ? REVIEW OF SYMPTOMS: The review of systems data was entered by the nurse and reviewed by me ? Nursing Notes: Veronica Del Castillo LPN 08/30/2017 3:36 PM Signed REVIEW OF SYSTEMS: General: The patient denies fatigue, denies weight loss, denies weight gain, denies feeling hot, and denies feelings of cold. Eyes: The patient denies glaucoma, NOTES eye injury/surgery, wears glasses or contacts. Ear/Nose/Throat: The patient denies allergies, denies hayfever, denies ear infections, and denies bloody noses. Cardiovascular: The patient denies chest pain, denies heart disease, denies high blood pressure,denies cardiac stent, denies prior heart attack, denies irregular heart beat, denies high cholesterol, denies poor circulation, denies heart failure, other cardiac issues, denies claudication, denies cold feet, denies peripheral arterial stent. Respiratory: The patient denies tuberculosis, denies pneumonia, denies frequent cough, denies pulmonary embolism, denies shortness of breath, and denies coughing up blood. Gastrointestinal: The patient denies difficulty swallowing, denies acid reflux, denies ulcers, denies vomiting, denies jaundice/hepatitis, denies gallbladder problems, denies black or tarry stools, denies hemorrhoids, denies bleeding from rectum, denies diverticulitis, denies constipation, denies diarrhea, denies loss of stool control, and denies hernias. Kidney/Bladder: The patient denies kidney stones, denies urine infections, and denies bloody urine. Skin: The patient denies a history of skin cancer, denies bleeding/changing moles, and denies a history of skin rash. Neurologic: The patient denies a history of epilepsy/convulsions, denies headaches, denies head/spinal injuries, and denies stroke/TIA. Psychiatric: The patient denies psychiatric medications, denies depression, and denies voices, denies substance abuse. Endocrine: The patient denies thyroid disorders, denies diabetes, and denies hormonal problems. Hematologic: The patient denies a history of bruising, denies bleeding, and denies anemia, denies blood clots. Infections: The patient denies a history of measles and mumps, denies rheumatic fever, and denies sexually transmitted diseases. Musculoskeletal: The patient denies back pain/injury, denies back problems, denies sciatica, denies knee/foot trouble, denies arthritis, or denies gout. ? ? When was patient's last Mammogram screening? N/A ? Last Colonoscopy: none ? Veronica Del Castillo LPN I have confirmed and edited as necessary, the PFSH and ROS obtained by others. ? ? PHYSICAL EXAMINATION: ? General: The patient is 71 year old female, well nourished, well hydrated in no acute distress. The patient is oriented to time, place, and person. ? VITALS: Blood pressure 132/84, pulse 78, weight 74.6 kg (164 lb 6.4 oz). Body mass index is 29.59 kg/m?. ? HEENT: Normal cephalic, ataumatic, pupils are equally round, sclera are anicteric, mucous membranes are moist, oropharynx is clear. Neck has no masses, asymmetry or lymphadenopathy. ? Respiratory: Clear to auscultation and percussion. Normal respiratory excursion and pattern. ? Cardiac: Examination is regular rate and rhythm. ? Abdominal exam: Soft, nontender, with no palpable masses. No hepatosplenomegaly. No palpable hernias. ? Rectal exam: exam deferred ? Extremities: no clubbing, cyanosis or edema. No adenopathy. ? Other: ? LABORATORY VALUES: As Noted ? RADIOLOGIC STUDIES: As Noted ? Assessment IMPRESSION: encounter for screening colonoscopy ? PLAN: We will plan for screening colonoscopy. We discussed the risks and benefits of the planned endoscopy. I have informed the patient that complications can occur including failure to complete the endoscopy and perforation. The patient had the opportunity to ask questions concerning the planned endoscopy. My staff has also explained the procedure to the patient in understandable terms and has given the patient printed material concerning the procedure. The patient freely consents to surgery. ? I plan to use golytely bowel preparation for endoscopy ? Diagnoses: (Z12.11) Encounter for screening for malignant neoplasm of colon (primary encounter diagnosis) ? My findings have been communicated to Dr. Lopes via shared medical record. This note will be forwarded to Dr. Galileo Lopes DO. Return to Clinic: The patient is instructed to follow-up with me 1 week post operatively. ? Rosey Christie PA-C PROGRESS Observed: 09/06/2017 Status: COMPLETED Source: [place] 5:37 PM [facility] REPOSITORY HNO ID: [id number] Author: Luz Bach) [facility] Service: (none) Author Type: Nurse Practitioner Type: Progress Notes Filed: 09/06/2017 5:49 PM Note Text: Subjective HPI Laisha Sanderson is a 71 year old female who presents with an insect bite on her right elbow that is swollen, red, and warm since yesterday. She has taken Benadryl and used anti itch cream. Review of Systems Constitutional: Negative. Negative for chills and fever. Musculoskeletal: Negative. Negative for myalgias. Skin: Positive for itching and rash. BP 130/84 Pulse 84 Temp 37.2 ?C (98.9 ?F) (Left Tympanic) Resp 16 Wt 74.8 kg (165 lb) BMI 29.70 kg/m? PAST MEDICAL HISTORY Diagnosis Date - Abnormal mammogram, unspecified 05/2007 right breast, due for repeat 11/13 - Degeneration of intervertebral disc, site unspecified 1999 cervical and lumbar; not having any pain now - Disorder of bone and cartilage, unspecified osteopenia on DXA in 2001, but was normal in 2007 so bisphosphonates stopped - Other and unspecified hyperlipidemia 2001 - Other specified acquired hypothyroidism 2005 ?borderline - Other specified gastritis without mention of hemorrhage 2007 found on EGD, symptom free on PPI - Sleep apnea 10/02/2011 on CPAP - Vitamin D deficiency 12/21/2009 PAST SURGICAL HISTORY Procedure Laterality Date - LASER SURGERY OF EYE 1995 vision correction - VAGINAL HYSTERECTOMY 1985 precancerous pap smear - no cancer on path from surgery ALLERGIES Amoxil [Amoxicillin]; Bee Sting; Topical Agent Combination No.1 MEDICATIONS Cholecalciferol, Vitamin D3, (VITAMIN D-3) 2,000 unit cap Take 2,000 Units by mouth once daily. calcium carbonate-vitamin D (OS-EMMA 250 W/D) 250 (625)-125 mg-unit tab Take 1 tablet by mouth twice daily. Potassium 99 mg tab Take by mouth. EPINEPHrine (EPIPEN 2-TREMAYNE) 0.3 mg/0.3 mL auto-injector Inject 0.3 mL intramuscularly as needed. cholecalciferol, Vitamin D3, (VITAMIN D3) 50,000 unit cap capsule Take 1 capsule by mouth once each week. triamcinolone acetonide (KENALOG) 0.1 % cream Apply 1 application to affected area twice daily as needed. Use only for 14 days at a time, Apply sparingly to area for rash/itching. Cyanocobalamin (VITAMIN B-12) 1,000 mcg subl Dissolve under the tongue. LACTOBAC CMB #3/FOS/PANTETHINE (PROBIOTIC AND ACIDOPHILUS ORAL) Take by mouth. CYCLOSPORINE (RESTASIS OPHTHALMIC) Use in eyes. PEG 400-Propylene Glycol (SYSTANE) 0.4-0.3 % drop ubidecarenone(COQ-10 100 MG CAP) one tablet daily OMEGA-3 FATTY ACIDS 1,250 MG CAP one tablet daily FAMILY HISTORY Problem Relation Age of Onset - Stroke Mother - Hypertension Mother age 89 - Heart Father CHF - age 63 - impaired fasting glucose [OTHER] Sister - Lipids Sister - Hypertension Sister Social History Substance Use Topics - Smoking status: Never Smoker - Smokeless tobacco: Never Used - Alcohol use 4.5 oz/week 3 Glasses of Wine (5oz) per week Objective Physical Exam Constitutional: She is well-developed, well-nourished, and in no distress. Musculoskeletal: Right elbow: She exhibits swelling. No tenderness found. Arms: Neurological: She is alert. Skin: Skin is warm and dry. No rash noted. There is erythema. Nursing note and vitals reviewed. ASSESSMENT/PLAN: 1. Insect bite, initial encounter - ICD9: 919.4, E906.4, ICD10: W57.XXXA - PREDNISONE 20 MG TABLET - may use triamcinolone cream that she has at home - cool compresses/epsom salt soaks TID. - Observe for increasing redness, pain, fever and seek care if occurs - Follow-up with your PCP in 3-5 days if symptoms have not improved or sooner if symptoms worsen - Discussed red flags and need for immediate medical evaluation if any occur. - Discussed supportive care treatment with fluids, rest and analgesia. - Discussed expected course of illness Luz Jimenez APRN.CNP CNOV Observed: 09/06/2017 Status: COMPLETED Source: [place] 5:30 PM [facility] REPOSITORY Office Visit ([facility]) KINLAISHA Nancie ([id number]) 1945 F Date Time Provider Department 09/06/17 5:30 PM LUZ JIMENEZ ([facility] During your visit today, we recorded the following information about you: Temperature Pulse Respiration Blood pressure 98.9 degrees 84/minute 16/minute 130/84 Weight 74.8 kg Luz Jimenez APRN.CNP 09/06/2017 5:49 PM Signed Subjective HPI Laishaazael Sanderson is a 71 year old female who presents with an insect bite on her right elbow that is swollen, red, and warm since yesterday. She has taken Benadryl and used anti itch cream. Review of Systems Constitutional: Negative. Negative for chills and fever. Musculoskeletal: Negative. Negative for myalgias. Skin: Positive for itching and rash. BP 130/84 Pulse 84 Temp 37.2 ?C (98.9 ?F) (Left Tympanic) Resp 16 Wt 74.8 kg (165 lb) BMI 29.70 kg/m? PAST MEDICAL HISTORY Diagnosis Date - Abnormal mammogram, unspecified 05/2007 right breast, due for repeat 11/13 - Degeneration of intervertebral disc, site unspecified 1999 cervical and lumbar; not having any pain now - Disorder of bone and cartilage, unspecified osteopenia on DXA in 2001, but was normal in 2007 so bisphosphonates stopped - Other and unspecified hyperlipidemia 2001 - Other specified acquired hypothyroidism 2005 ?borderline - Other specified gastritis without mention of hemorrhage 2007 found on EGD, symptom free on PPI - Sleep apnea 10/02/2011 on CPAP - Vitamin D deficiency 12/21/2009 PAST SURGICAL HISTORY Procedure Laterality Date - LASER SURGERY OF EYE 1995 vision correction - VAGINAL HYSTERECTOMY 1985 precancerous pap smear - no cancer on path from surgery ALLERGIES Amoxil [Amoxicillin]; Bee Sting; Topical Agent Combination No.1 MEDICATIONS Cholecalciferol, Vitamin D3, (VITAMIN D-3) 2,000 unit cap Take 2,000 Units by mouth once daily. calcium carbonate-vitamin D (OS-EMMA 250 W/D) 250 (625)-125 mg-unit tab Take 1 tablet by mouth twice daily. Potassium 99 mg tab Take by mouth. EPINEPHrine (EPIPEN 2-TREMAYNE) 0.3 mg/0.3 mL auto-injector Inject 0.3 mL intramuscularly as needed. cholecalciferol, Vitamin D3, (VITAMIN D3) 50,000 unit cap capsule Take 1 capsule by mouth once each week. triamcinolone acetonide (KENALOG) 0.1 % cream Apply 1 application to affected area twice daily as needed. Use only for 14 days at a time, Apply sparingly to area for rash/itching. Cyanocobalamin (VITAMIN B-12) 1,000 mcg subl Dissolve under the tongue. LACTOBAC CMB #3/FOS/PANTETHINE (PROBIOTIC AND ACIDOPHILUS ORAL) Take by mouth. CYCLOSPORINE (RESTASIS OPHTHALMIC) Use in eyes. PEG 400-Propylene Glycol (SYSTANE) 0.4-0.3 % drop ubidecarenone(COQ-10 100 MG CAP) one tablet daily OMEGA-3 FATTY ACIDS 1,250 MG CAP one tablet daily FAMILY HISTORY Problem Relation Age of Onset - Stroke Mother - Hypertension Mother age 89 - Heart Father CHF - age 63 - impaired fasting glucose [OTHER] Sister - Lipids Sister - Hypertension Sister Social History Substance Use Topics - Smoking status: Never Smoker - Smokeless tobacco: Never Used - Alcohol use 4.5 oz/week 3 Glasses of Wine (5oz) per week Objective Physical Exam Constitutional: She is well-developed, well-nourished, and in no distress. Musculoskeletal: Right elbow: She exhibits swelling. No tenderness found. Arms: Neurological: She is alert. Skin: Skin is warm and dry. No rash noted. There is erythema. Nursing note and vitals reviewed. ASSESSMENT/PLAN: 1. Insect bite, initial encounter - ICD9: 919.4, E906.4, ICD10: W57.XXXA - PREDNISONE 20 MG TABLET - may use triamcinolone cream that she has at home - cool compresses/epsom salt soaks TID. - Observe for increasing redness, pain, fever and seek care if occurs - Follow-up with your PCP in 3-5 days if symptoms have not improved or sooner if symptoms worsen - Discussed red flags and need for immediate medical evaluation if any occur. - Discussed supportive care treatment with fluids, rest and analgesia. - Discussed expected course of illness DONNY Manriquez APRN.CNP 09/06/2017 5:42 PM Signed Take medications as prescribed. Use topical cream as directed. If not improving in 3-5 days, or you have worsening symptoms, see your primary care provider for recheck. Insect Bites Insect bites can cause red bumps in people who are allergic to them, but they cause no visible skin changes in people who are not allergic. Therefore, only one or two people in a family usually get red bumps from insect bites, even though everyone may have been bitten. Children are especially likely to react to insect bites. Although red bumps are the most common sign of' insect bites, people who are very allergic and people with tender skin, such as children, may develop blisters over the bites as well. Most often, insect bites are itchy. The most common insects to cause bites are fleas and mosquitoes. Flea bites are usually painless, so people are often unaware of being bitten. Mosquito bites are often noticed by adults but are sometimes overlooked by busy children until the bumps and itching appear. Horseflies and deerflies can cause insect bites, but the bite is painful, so most people notice and remember being bitten. The treatment of insect bites includes avoidance of the insects in the future. Defleaing an animal rids the animal of the fleas, but then fleas may be more likely to bite people. Be sure to deflea the house and yard as well. Susceptible people should wear an insect repellant such as Off, Cutter, or 6-12 until the fleas are gone. People sensitive to mosquito bites should avoid being outdoors in the evening, when mosquitoes are most active. Insect repellents can be useful for the prevention of the bites as well. Removal of obvious breeding areas of standing water can be helpful. Insect bites, especially flea bites, can sometimes be very long lasting, with bumps persisting for several weeks. This is especially common when the spots are being scratched. Also, bites can become infected when scratched often, especially in children. You may have been given a cortisone cream to put on the bumps to help stop the itching, or an antibiotic if your bites look infected. If you have problems sleeping at night because of itching, you can take diphenhydramine (Benadryl), an kumm-ort-denptho medication. Adults may need 50 or 75 mg, and children may need two or three times the child's dose printed on the bottle. Often, brown spots remain after the bumps heal. This is just a temporary color change, and scarring generally does not occur except when bites become infected. Referring Provider: SELF [[id number]] Allergies As of Date: 09/06/2017 Noted Allergy Reaction AMOXIL (AMOXICILLIN) 01/06/2007 2 - Rash Comments: gets bright red rash BEE STING 11/09/2014 10 - Anaphylaxis TOPICAL AGENT COMBINATION NO.1 06/17/2013 2 - Rash Comments: Hair treatment - Date Reviewed: 09/06/2017 Reviewed by: Luz ([facility]) Barbara - Fully Assessed Reason for Visit: Insect Bite [929] Primary Visit Diagnosis:Insect bite, initial encounter [W57.XXXA] Order(s):predniSONE (DELTASONE) 20 mg tabletTake 1 tablet by mouth once daily for 4 days. Take daily with food.Disp: 4 tabletRfl: 0 Prescriptions as of 09/06/2017 Sig: CHOLECALCIFEROL (VITAMIN D3) * Take 2,000 Units by mouth onc* CALCIUM CARB-ERGOCALCIFEROL (* Take 1 tablet by mouth twice * POTASSIUM 99 MG TABLET Take by mouth. EPINEPHRINE 0.3 MG/0.3 ML INJ* Inject 0.3 mL intramuscularly* CHOLECALCIFEROL (VITAMIN D3) * Take 1 capsule by mouth once * TRIAMCINOLONE ACETONIDE 0.1 %* Apply 1 application to affect* CYANOCOBALAMIN (VIT B-12) 1,0* Dissolve under the tongue. PROBIOTIC AND ACIDOPHILUS ORAL Take by mouth. RESTASIS OPHTHALMIC Use in eyes. PEG 400-PROPYLENE GLYCOL 0.4 * * COQ-10 100 MG CAPSULE one tablet daily * OMEGA-3 FATTY ACIDS 1,250 MG * one tablet daily PREDNISONE 20 MG TABLET Take 1 tablet by mouth once d* Problem List As Of Date 09/06/2017 Noted Resolved GASTRITIS NEC W/O HEMORRH [K29.60] More... DDD (degenerative disc disease), lumbar [M51.36] More... BONE AND CARTILAGE DIS NOS [M89.9, M94.9] More... 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 Use topical cream as directed. If not improving in 3-5 days, or you have worsening symptoms, see your primary care provider for recheck. Insect Bites Insect bites can cause red bumps in people who are allergic to them, but they cause no visible skin changes in people who are not allergic. Therefore, only one or two people in a family usually get red bumps from insect bites, even though everyone may have been bitten. Children are especially likely to react to insect bites. Although red bumps are the most common sign of' insect bites, people who are very allergic and people with tender skin, such as children, may develop blisters over the bites as well. Most often, insect bites are itchy. The most common insects to cause bites are fleas and mosquitoes. Flea bites are usually painless, so people are often unaware of being bitten. Mosquito bites are often noticed by adults but are sometimes overlooked by busy children until the bumps and itching appear. Horseflies and deerflies can cause insect bites, but the bite is painful, so most people notice and remember being bitten. The treatment of insect bites includes avoidance of the insects in the future. Defleaing an animal rids the animal of the fleas, but then fleas may be more likely to bite people. Be sure to deflea the house and yard as well. Susceptible people should wear an insect repellant such as Off, Cutter, or 6-12 until the fleas are gone. People sensitive to mosquito bites should avoid being outdoors in the evening, when mosquitoes are most active. Insect repellents can be useful for the prevention of the bites as well. Removal of obvious breeding areas of standing water can be helpful. Insect bites, especially flea bites, can sometimes be very long lasting, with bumps persisting for several weeks. This is especially common when the spots are being scratched. Also, bites can become infected when scratched often, especially in children. You may have been given a cortisone cream to put on the bumps to help stop the itching, or an antibiotic if your bites look infected. If you have problems sleeping at night because of itching, you can take diphenhydramine (Benadryl), an ypck-vgf-cbatsfa medication. Adults may need 50 or 75 mg, and children may need two or three times the child's dose printed on the bottle. Often, brown spots remain after the bumps heal. This is just a temporary color change, and scarring generally does not occur except when bites become infected. Prescriptions ordered this encounter Disp Refills Start End PREDNISONE 20 MG TABLET 4 ta* 0 09/06/2017 09/10/2017 Route: ORAL Sig: Take 1 tablet by mouth once daily for 4 days. Take daily with food. Encounter Status:Closed by LUZ JIMENEZ on 09/06/17 PROGRESS Observed: 08/30/2017 Status: COMPLETED Source: [place] 3:24 PM [facility] REPOSITORY HNO ID: [id number] Author: Rosey Christie (Pa) Service: (none) Author Type: Physician Custodial Foreman Type: Progress Notes Filed: 08/30/2017 4:42 PM Note Text: HISTORY AND PHYSICAL Laisha Sanderson 1945 REFERRING PHYSICIAN: Galileo Lopes DO CHIEF COMPLAINT: Consult HPI: The patient is a 71 year old female referred for endoscopy. Laisha notes no major colon complaints. She does note that she will sometimes have very small BMs in the morning which regulate later in the day. Notes a history of acid reflux which is well controlled. Notes she takes a probiotic which helps with this. Denies any blood in stools, black stools or abdominal pain. Laisha has undergone prior endoscopy 10 years ago in [place], we do not currently have access to these records. Patient denies a history of polyps or other colon abnormalities. The patient is being seen by me today at the request of Dr. Lopes for my opinion and advice regarding screening colonoscopy. Past medical history is significant for hyperlipidemia, sleep apnea, degenerative disc disease. Denies any cardiac issues. Denies problems with sedation in the past. PAST MEDICAL HISTORY Diagnosis Date - Abnormal mammogram, unspecified 05/2007 right breast, due for repeat 11/13 - Degeneration of intervertebral disc, site unspecified 1999 cervical and lumbar; not having any pain now - Disorder of bone and cartilage, unspecified osteopenia on DXA in 2001, but was normal in 2007 so bisphosphonates stopped - Other and unspecified hyperlipidemia 2001 - Other specified acquired hypothyroidism 2005 ?borderline - Other specified gastritis without mention of hemorrhage 2007 found on EGD, symptom free on PPI - Sleep apnea 10/02/2011 on CPAP - Vitamin D deficiency 12/21/2009 PAST SURGICAL HISTORY Procedure Laterality Date - LASER SURGERY OF EYE 1995 vision correction - VAGINAL HYSTERECTOMY 1985 precancerous pap smear - no cancer on path from surgery Current Outpatient Prescriptions: Cholecalciferol, Vitamin D3, (VITAMIN D-3) 2,000 unit cap Take 2,000 Units by mouth once daily. calcium carbonate-vitamin D (OS-EMMA 250 W/D) 250 (625)-125 mg-unit tab Take 1 tablet by mouth twice daily. Potassium 99 mg tab Take by mouth. EPINEPHrine (EPIPEN 2-TREMAYNE) 0.3 mg/0.3 mL auto-injector Inject 0.3 mL intramuscularly as needed. LACTOBAC CMB #3/FOS/PANTETHINE (PROBIOTIC AND ACIDOPHILUS ORAL) Take by mouth. CYCLOSPORINE (RESTASIS OPHTHALMIC) Use in eyes. ubidecarenone(COQ-10 100 MG CAP) one tablet daily OMEGA-3 FATTY ACIDS 1,250 MG CAP one tablet daily cholecalciferol, Vitamin D3, (VITAMIN D3) 50,000 unit cap capsule Take 1 capsule by mouth once each week. (Patient not taking: Reported on 08/28/2017 ) triamcinolone acetonide (KENALOG) 0.1 % cream Apply 1 application to affected area twice daily as needed. Use only for 14 days at a time, Apply sparingly to area for rash/itching. (Patient not taking: Reported on 08/28/2017 ) Cyanocobalamin (VITAMIN B-12) 1,000 mcg subl Dissolve under the tongue. PEG 400-Propylene Glycol (SYSTANE) 0.4-0.3 % drop No current facility-administered medications for this visit. ALLERGIES: Amoxil [Amoxicillin]; Bee Sting; Topical Agent Combination No.1 PERSONAL HISTORY: Social History Marital status: Spouse name: Years of education: Number of children: 1 Social History Main Topics Smoking status: Never Smoker Smokeless tobacco: Never Used Alcohol use: Yes 4.5 oz/week Glasses of Wine (5oz): 3 per week Drug use: No FAMILY HISTORY: FAMILY HISTORY Problem Relation Age of Onset - Stroke Mother - Hypertension Mother age 89 - Heart Father CHF - age 63 - impaired fasting glucose [OTHER] Sister - Lipids Sister - Hypertension Sister REVIEW OF SYMPTOMS: The review of systems data was entered by the nurse and reviewed by ma Nursing Notes: Veronica Del Castillo LPN 08/30/2017 3:36 PM Signed REVIEW OF SYSTEMS: General: The patient denies fatigue, denies weight loss, denies weight gain, denies feeling hot, and denies feelings of cold. Eyes: The patient denies glaucoma, NOTES eye injury/surgery, wears glasses or contacts. Ear/Nose/Throat: The patient denies allergies, denies hayfever, denies ear infections, and denies bloody noses. Cardiovascular: The patient denies chest pain, denies heart disease, denies high blood pressure,denies cardiac stent, denies prior heart attack, denies irregular heart beat, denies high cholesterol, denies poor circulation, denies heart failure, other cardiac issues, denies claudication, denies cold feet, denies peripheral arterial stent. Respiratory: The patient denies tuberculosis, denies pneumonia, denies frequent cough, denies pulmonary embolism, denies shortness of breath, and denies coughing up blood. Gastrointestinal: The patient denies difficulty swallowing, denies acid reflux, denies ulcers, denies vomiting, denies jaundice/hepatitis, denies gallbladder problems, denies black or tarry stools, denies hemorrhoids, denies bleeding from rectum, denies diverticulitis, denies constipation, denies diarrhea, denies loss of stool control, and denies hernias. Kidney/Bladder: The patient denies kidney stones, denies urine infections, and denies bloody urine. Skin: The patient denies a history of skin cancer, denies bleeding/changing moles, and denies a history of skin rash. Neurologic: The patient denies a history of epilepsy/convulsions, denies headaches, denies head/spinal injuries, and denies stroke/TIA. Psychiatric: The patient denies psychiatric medications, denies depression, and denies voices, denies substance abuse. Endocrine: The patient denies thyroid disorders, denies diabetes, and denies hormonal problems. Hematologic: The patient denies a history of bruising, denies bleeding, and denies anemia, denies blood clots. Infections: The patient denies a history of measles and mumps, denies rheumatic fever, and denies sexually transmitted diseases. Musculoskeletal: The patient denies back pain/injury, denies back problems, denies sciatica, denies knee/foot trouble, denies arthritis, or denies gout. When was patient's last Mammogram screening? N/A Last Colonoscopy: none Veronica Del Castillo LPN I have confirmed and edited as necessary, the PFSH and ROS obtained by others. PHYSICAL EXAMINATION: General: The patient is 71 year old female, well nourished, well hydrated in no acute distress. The patient is oriented to time, place, and person. VITALS: Blood pressure 132/84, pulse 78, weight 74.6 kg (164 lb 6.4 oz). Body mass index is 29.59 kg/m?. HEENT: Normal cephalic, ataumatic, pupils are equally round, sclera are anicteric, mucous membranes are moist, oropharynx is clear. Neck has no masses, asymmetry or lymphadenopathy. Respiratory: Clear to auscultation and percussion. Normal respiratory excursion and pattern. Cardiac: Examination is regular rate and rhythm. Abdominal exam: Soft, nontender, with no palpable masses. No hepatosplenomegaly. No palpable hernias. Rectal exam: exam deferred Extremities: no clubbing, cyanosis or edema. No adenopathy. Other: LABORATORY VALUES: As Noted RADIOLOGIC STUDIES: As Noted Assessment IMPRESSION: encounter for screening colonoscopy PLAN: We will plan for screening colonoscopy. We discussed the risks and benefits of the planned endoscopy. I have informed the patient that complications can occur including failure to complete the endoscopy and perforation. The patient had the opportunity to ask questions concerning the planned endoscopy. My staff has also explained the procedure to the patient in understandable terms and has given the patient printed material concerning the procedure. The patient freely consents to surgery. I plan to use golytely bowel preparation for endoscopy Diagnoses: (Z12.11) Encounter for screening for malignant neoplasm of colon (primary encounter diagnosis) My findings have been communicated to Dr. Lopes via shared medical record. This note will be forwarded to Dr. Galileo Lopes DO. Return to Clinic: The patient is instructed to follow-up with me 1 week post operatively. FÉLIX Bray Observed: 08/28/2017 Status: COMPLETED Source: [place] 8:00 AM [facility] REPOSITORY Office Visit (GENSWS) LAISHA SANDERSON ([id number]) 1945 F Date Time Provider Department 08/28/17 8:00 ROSEY LY (PA) During your visit today, we recorded the following information about you: Pulse Blood pressure Weight 78/minute 132/84 74.6 kg Rosey Christie PA-C 08/30/2017 4:42 PM Signed HISTORY AND PHYSICAL Laisha Sanderson 1945 REFERRING PHYSICIAN: Galileo Lopes DO CHIEF COMPLAINT: Consult HPI: The patient is a 71 year old female referred for endoscopy. Laisha notes no major colon complaints. She does note that she will sometimes have very small BMs in the morning which regulate later in the day. Notes a history of acid reflux which is well controlled. Notes she takes a probiotic which helps with this. Denies any blood in stools, black stools or abdominal pain. Laisha has undergone prior endoscopy 10 years ago in [place], we do not currently have access to these records. Patient denies a history of polyps or other colon abnormalities. The patient is being seen by me today at the request of Dr. Lopes for my opinion and advice regarding screening colonoscopy. Past medical history is significant for hyperlipidemia, sleep apnea, degenerative disc disease. Denies any cardiac issues. Denies problems with sedation in the past. PAST MEDICAL HISTORY Diagnosis Date - Abnormal mammogram, unspecified 05/2007 right breast, due for repeat 11/13 - Degeneration of intervertebral disc, site unspecified 1999 cervical and lumbar; not having any pain now - Disorder of bone and cartilage, unspecified osteopenia on DXA in 2001, but was normal in 2007 so bisphosphonates stopped - Other and unspecified hyperlipidemia 2001 - Other specified acquired hypothyroidism 2005 ?borderline - Other specified gastritis without mention of hemorrhage 2007 found on EGD, symptom free on PPI - Sleep apnea 10/02/2011 on CPAP - Vitamin D deficiency 12/21/2009 PAST SURGICAL HISTORY Procedure Laterality Date - LASER SURGERY OF EYE 1995 vision correction - VAGINAL HYSTERECTOMY 1985 precancerous pap smear - no cancer on path from surgery Current Outpatient Prescriptions: Cholecalciferol, Vitamin D3, (VITAMIN D-3) 2,000 unit cap Take 2,000 Units by mouth once daily. calcium carbonate-vitamin D (OS-EMMA 250 W/D) 250 (625)-125 mg-unit tab Take 1 tablet by mouth twice daily. Potassium 99 mg tab Take by mouth. EPINEPHrine (EPIPEN 2-TREMAYNE) 0.3 mg/0.3 mL auto-injector Inject 0.3 mL intramuscularly as needed. LACTOBAC CMB #3/FOS/PANTETHINE (PROBIOTIC AND ACIDOPHILUS ORAL) Take by mouth. CYCLOSPORINE (RESTASIS OPHTHALMIC) Use in eyes. ubidecarenone(COQ-10 100 MG CAP) one tablet daily OMEGA-3 FATTY ACIDS 1,250 MG CAP one tablet daily cholecalciferol, Vitamin D3, (VITAMIN D3) 50,000 unit cap capsule Take 1 capsule by mouth once each week. (Patient not taking: Reported on 08/28/2017 ) triamcinolone acetonide (KENALOG) 0.1 % cream Apply 1 application to affected area twice daily as needed. Use only for 14 days at a time, Apply sparingly to area for rash/itching. (Patient not taking: Reported on 08/28/2017 ) Cyanocobalamin (VITAMIN B-12) 1,000 mcg subl Dissolve under the tongue. PEG 400-Propylene Glycol (SYSTANE) 0.4-0.3 % drop No current facility-administered medications for this visit. ALLERGIES: Amoxil [Amoxicillin]; Bee Sting; Topical Agent Combination No.1 PERSONAL HISTORY: Social History Marital status: Spouse name: Years of education: Number of children: 1 Social History Main Topics Smoking status: Never Smoker Smokeless tobacco: Never Used Alcohol use: Yes 4.5 oz/week Glasses of Wine (5oz): 3 per week Drug use: No FAMILY HISTORY: FAMILY HISTORY Problem Relation Age of Onset - Stroke Mother - Hypertension Mother age 89 - Heart Father CHF - age 63 - impaired fasting glucose [OTHER] Sister - Lipids Sister - Hypertension Sister REVIEW OF SYMPTOMS: The review of systems data was entered by the nurse and reviewed by ma Nursing Notes: Veronica Del Castillo LPN 08/30/2017 3:36 PM Signed REVIEW OF SYSTEMS: General: The patient denies fatigue, denies weight loss, denies weight gain, denies feeling hot, and denies feelings of cold. Eyes: The patient denies glaucoma, NOTES eye injury/surgery, wears glasses or contacts. Ear/Nose/Throat: The patient denies allergies, denies hayfever, denies ear infections, and denies bloody noses. Cardiovascular: The patient denies chest pain, denies heart disease, denies high blood pressure,denies cardiac stent, denies prior heart attack, denies irregular heart beat, denies high cholesterol, denies poor circulation, denies heart failure, other cardiac issues, denies claudication, denies cold feet, denies peripheral arterial stent. Respiratory: The patient denies tuberculosis, denies pneumonia, denies frequent cough, denies pulmonary embolism, denies shortness of breath, and denies coughing up blood. Gastrointestinal: The patient denies difficulty swallowing, denies acid reflux, denies ulcers, denies vomiting, denies jaundice/hepatitis, denies gallbladder problems, denies black or tarry stools, denies hemorrhoids, denies bleeding from rectum, denies diverticulitis, denies constipation, denies diarrhea, denies loss of stool control, and denies hernias. Kidney/Bladder: The patient denies kidney stones, denies urine infections, and denies bloody urine. Skin: The patient denies a history of skin cancer, denies bleeding/changing moles, and denies a history of skin rash. Neurologic: The patient denies a history of epilepsy/convulsions, denies headaches, denies head/spinal injuries, and denies stroke/TIA. Psychiatric: The patient denies psychiatric medications, denies depression, and denies voices, denies substance abuse. Endocrine: The patient denies thyroid disorders, denies diabetes, and denies hormonal problems. Hematologic: The patient denies a history of bruising, denies bleeding, and denies anemia, denies blood clots. Infections: The patient denies a history of measles and mumps, denies rheumatic fever, and denies sexually transmitted diseases. Musculoskeletal: The patient denies back pain/injury, denies back problems, denies sciatica, denies knee/foot trouble, denies arthritis, or denies gout. When was patient's last Mammogram screening? N/A Last Colonoscopy: none Veronica Del Castillo LPN I have confirmed and edited as necessary, the PFSH and ROS obtained by others. PHYSICAL EXAMINATION: General: The patient is 71 year old female, well nourished, well hydrated in no acute distress. The patient is oriented to time, place, and person. VITALS: Blood pressure 132/84, pulse 78, weight 74.6 kg (164 lb 6.4 oz). Body mass index is 29.59 kg/m?. HEENT: Normal cephalic, ataumatic, pupils are equally round, sclera are anicteric, mucous membranes are moist, oropharynx is clear. Neck has no masses, asymmetry or lymphadenopathy. Respiratory: Clear to auscultation and percussion. Normal respiratory excursion and pattern. Cardiac: Examination is regular rate and rhythm. Abdominal exam: Soft, nontender, with no palpable masses. No hepatosplenomegaly. No palpable hernias. Rectal exam: exam deferred Extremities: no clubbing, cyanosis or edema. No adenopathy. Other: LABORATORY VALUES: As Noted RADIOLOGIC STUDIES: As Noted Assessment IMPRESSION: encounter for screening colonoscopy PLAN: We will plan for screening colonoscopy. We discussed the risks and benefits of the planned endoscopy. I have informed the patient that complications can occur including failure to complete the endoscopy and perforation. The patient had the opportunity to ask questions concerning the planned endoscopy. My staff has also explained the procedure to the patient in understandable terms and has given the patient printed material concerning the procedure. The patient freely consents to surgery. I plan to use golytely bowel preparation for endoscopy Diagnoses: (Z12.11) Encounter for screening for malignant neoplasm of colon (primary encounter diagnosis) My findings have been communicated to Dr. Lopes via shared medical record. This note will be forwarded to Dr. Galileo Lopes DO. Return to Clinic: The patient is instructed to follow-up with me 1 week post operatively. FÉLIX Bray LPN 08/30/2017 3:36 PM Signed REVIEW OF SYSTEMS: General: The patient denies fatigue, denies weight loss, denies weight gain, denies feeling hot, and denies feelings of cold. Eyes: The patient denies glaucoma, NOTES eye injury/surgery, wears glasses or contacts. Ear/Nose/Throat: The patient denies allergies, denies hayfever, denies ear infections, and denies bloody noses. Cardiovascular: The patient denies chest pain, denies heart disease, denies high blood pressure,denies cardiac stent, denies prior heart attack, denies irregular heart beat, denies high cholesterol, denies poor circulation, denies heart failure, other cardiac issues, denies claudication, denies cold feet, denies peripheral arterial stent. Respiratory: The patient denies tuberculosis, denies pneumonia, denies frequent cough, denies pulmonary embolism, denies shortness of breath, and denies coughing up blood. Gastrointestinal: The patient denies difficulty swallowing, denies acid reflux, denies ulcers, denies vomiting, denies jaundice/hepatitis, denies gallbladder problems, denies black or tarry stools, denies hemorrhoids, denies bleeding from rectum, denies diverticulitis, denies constipation, denies diarrhea, denies loss of stool control, and denies hernias. Kidney/Bladder: The patient denies kidney stones, denies urine infections, and denies bloody urine. Skin: The patient denies a history of skin cancer, denies bleeding/changing moles, and denies a history of skin rash. Neurologic: The patient denies a history of epilepsy/convulsions, denies headaches, denies head/spinal injuries, and denies stroke/TIA. Psychiatric: The patient denies psychiatric medications, denies depression, and denies voices, denies substance abuse. Endocrine: The patient denies thyroid disorders, denies diabetes, and denies hormonal problems. Hematologic: The patient denies a history of bruising, denies bleeding, and denies anemia, denies blood clots. Infections: The patient denies a history of measles and mumps, denies rheumatic fever, and denies sexually transmitted diseases. Musculoskeletal: The patient denies back pain/injury, denies back problems, denies sciatica, denies knee/foot trouble, denies arthritis, or denies gout. When was patient's last Mammogram screening? N/A Last Colonoscopy: none Veronica Del Castillo LPN Referring Provider: GALILEO LOPES [[id number]] Allergies As of Date: 08/28/2017 Noted Allergy Reaction AMOXIL (AMOXICILLIN) 01/06/2007 2 - Rash Comments: gets bright red rash BEE STING 11/09/2014 10 - Anaphylaxis TOPICAL AGENT COMBINATION NO.1 06/17/2013 2 - Rash Comments: Hair treatment - Date Reviewed: 08/28/2017 Reviewed by: Rosey Christie (Pa) - Fully Assessed Reason for Visit: Consult [502] Primary Visit Diagnosis:Encounter for screening for malignant neoplasm of colon [Z12.11] Order(s):[] peg 3350-Electrolytes (GOLYTELY) 236-22.74-6.74 -5.86 gram suspensionTake 4,000 mL by mouth one time only for 1 dose.Disp: 1 BottleRfl: 0 COLONOSCOPY SCRN NOT HIGH RISK [[id number]] Order #: [id number] FUTURE Prescriptions as of 08/28/2017 Sig: CHOLECALCIFEROL (VITAMIN D3) * Take 2,000 Units by mouth onc* CALCIUM CARB-ERGOCALCIFEROL (* Take 1 tablet by mouth twice * POTASSIUM 99 MG TABLET Take by mouth. EPINEPHRINE 0.3 MG/0.3 ML INJ* Inject 0.3 mL intramuscularly* PROBIOTIC AND ACIDOPHILUS ORAL Take by mouth. RESTASIS OPHTHALMIC Use in eyes. * COQ-10 100 MG CAPSULE one tablet daily * OMEGA-3 FATTY ACIDS 1,250 MG * one tablet daily PEG 3350-ELECTROLYTES 236 GRA* Take 4,000 mL by mouth one ti* CHOLECALCIFEROL (VITAMIN D3) * Take 1 capsule by mouth once * Patient not taking: Reported on 08/28/2017 TRIAMCINOLONE ACETONIDE 0.1 %* Apply 1 application to affect* Patient not taking: Reported on 08/28/2017 CYANOCOBALAMIN (VIT B-12) 1,0* Dissolve under the tongue. PEG 400-PROPYLENE GLYCOL 0.4 * Problem List As Of Date 08/28/2017 Noted Resolved GASTRITIS NEC W/O HEMORRH [K29.60] More... DDD (degenerative disc disease), lumbar [M51.36] More... BONE AND CARTILAGE DIS NOS [M89.9, M94.9] More... 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 Eyes: The patient denies glaucoma, NOTES eye injury/surgery, wears glasses or contacts. Ear/Nose/Throat: The patient denies allergies, denies hayfever, denies ear infections, and denies bloody noses. Cardiovascular: The patient denies chest pain, denies heart disease, denies high blood pressure,denies cardiac stent, denies prior heart attack, denies irregular heart beat, denies high cholesterol, denies poor circulation, denies heart failure, other cardiac issues, denies claudication, denies cold feet, denies peripheral arterial stent. Respiratory: The patient denies tuberculosis, denies pneumonia, denies frequent cough, denies pulmonary embolism, denies shortness of breath, and denies coughing up blood. Gastrointestinal: The patient denies difficulty swallowing, denies acid reflux, denies ulcers, denies vomiting, denies jaundice/hepatitis, denies gallbladder problems, denies black or tarry stools, denies hemorrhoids, denies bleeding from rectum, denies diverticulitis, denies constipation, denies diarrhea, denies loss of stool control, and denies hernias. Kidney/Bladder: The patient denies kidney stones, denies urine infections, and denies bloody urine. Skin: The patient denies a history of skin cancer, denies bleeding/changing moles, and denies a history of skin rash. Neurologic: The patient denies a history of epilepsy/convulsions, denies headaches, denies head/spinal injuries, and denies stroke/TIA. Psychiatric: The patient denies psychiatric medications, denies depression, and denies voices, denies substance abuse. Endocrine: The patient denies thyroid disorders, denies diabetes, and denies hormonal problems. Hematologic: The patient denies a history of bruising, denies bleeding, and denies anemia, denies blood clots. Infections: The patient denies a history of measles and mumps, denies rheumatic fever, and denies sexually transmitted diseases. Musculoskeletal: The patient denies back pain/injury, denies back problems, denies sciatica, denies knee/foot trouble, denies arthritis, or denies gout. When was patient's last Mammogram screening? N/A Last Colonoscopy: none Veronica Del Castillo LPN Prescriptions ordered this encounter Disp Refills Start End PEG 3350-ELECTROLYTES 236 GRAM-22.74* 1 Melvin* 0 08/28/2017 08/28/2017 Route: ORAL Sig: Take 4,000 mL by mouth one time only for 1 dose. Follow-up and Disposition History Recorded Encounter Status:Closed by ROSEY CHRISTIE PA-C on 08/30/17 HOSP Observed: 08/28/2017 Status: COMPLETED Source: [facility] 12:00 AM [facility] RE[facility] Patient:Laisha Sanderson MRN: <[id number]> Height:5' 2.5(1.588 m) Weight:165 lb (74.844 kg) Outpatient Medications as of 09/11/17: Cholecalciferol, Vitamin D3, (VITAMIN D-3) 2,000 unit cap calcium carbonate-vitamin D (OS-EMMA 250 W/D) 250 (625)-125 mg-unit tab Potassium 99 mg tab EPINEPHrine (EPIPEN 2-TREMAYNE) 0.3 mg/0.3 mL auto-injector triamcinolone acetonide (KENALOG) 0.1 % cream LACTOBAC CMB #3/FOS/PANTETHINE (PROBIOTIC AND ACIDOPHILUS ORAL) CYCLOSPORINE (RESTASIS OPHTHALMIC) ubidecarenone(COQ-10 100 MG CAP) OMEGA-3 FATTY ACIDS 1,250 MG CAP Admission/Clinic Administered Medications as of 09/11/17: lactated ringers infusion Problem List: Other specified gastritis without mention of hemorrhage [K29.60] DDD (degenerative disc disease), lumbar [M51.36] Disorder of bone and cartilage, unspecified [M89.9, M94.9] Vitamin D deficiency [E55.9] Sleep apnea [G47.30] Hyperlipidemia with target LDL less than 130 [E78.5] 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 She has taken Benadryl and used anti itch cream. Review of Systems Constitutional: Negative. Negative for chills and fever. Musculoskeletal: Negative. Negative for myalgias. Skin: Positive for itching and rash. BP 130/84 Pulse 84 Temp 37.2 ?C (98.9 ?F) (Left Tympanic) Resp 16 Wt 74.8 kg (165 lb) BMI 29.70 kg/m? PAST MEDICAL HISTORY Diagnosis Date - Abnormal mammogram, unspecified 05/2007 right breast, due for repeat 11/13 - Degeneration of intervertebral disc, site unspecified 1999 cervical and lumbar; not having any pain now - Disorder of bone and cartilage, unspecified osteopenia on DXA in 2001, but was normal in 2007 so bisphosphonates stopped - Other and unspecified hyperlipidemia 2001 - Other specified acquired hypothyroidism 2005 ?borderline - Other specified gastritis without mention of hemorrhage 2007 found on EGD, symptom free on PPI - Sleep apnea 10/02/2011 on CPAP - Vitamin D deficiency 12/21/2009 PAST SURGICAL HISTORY Procedure Laterality Date - LASER SURGERY OF EYE 1995 vision correction - VAGINAL HYSTERECTOMY 1985 precancerous pap smear - no cancer on path from surgery ALLERGIES Amoxil [Amoxicillin]; Bee Sting; Topical Agent Combination No.1 MEDICATIONS Cholecalciferol, Vitamin D3, (VITAMIN D-3) 2,000 unit cap Take 2,000 Units by mouth once daily. calcium carbonate-vitamin D (OS-EMMA 250 W/D) 250 (625)-125 mg-unit tab Take 1 tablet by mouth twice daily. Potassium 99 mg tab Take by mouth. EPINEPHrine (EPIPEN 2-TREMAYNE) 0.3 mg/0.3 mL auto-injector Inject 0.3 mL intramuscularly as needed. cholecalciferol, Vitamin D3, (VITAMIN D3) 50,000 unit cap capsule Take 1 capsule by mouth once each week. triamcinolone acetonide (KENALOG) 0.1 % cream Apply 1 application to affected area twice daily as needed. Use only for 14 days at a time, Apply sparingly to area for rash/itching. Cyanocobalamin (VITAMIN B-12) 1,000 mcg subl Dissolve under the tongue. LACTOBAC CMB #3/FOS/PANTETHINE (PROBIOTIC AND ACIDOPHILUS ORAL) Take by mouth. CYCLOSPORINE (RESTASIS OPHTHALMIC) Use in eyes. PEG 400-Propylene Glycol (SYSTANE) 0.4-0.3 % drop ubidecarenone(COQ-10 100 MG CAP) one tablet daily OMEGA-3 FATTY ACIDS 1,250 MG CAP one tablet daily FAMILY HISTORY Problem Relation Age of Onset - Stroke Mother - Hypertension Mother age 89 - Heart Father CHF - age 63 - impaired fasting glucose [OTHER] Sister - Lipids Sister - Hypertension Sister Social History Substance Use Topics - Smoking status: Never Smoker - Smokeless tobacco: Never Used - Alcohol use 4.5 oz/week 3 Glasses of Wine (5oz) per week Objective Physical Exam Constitutional: She is well-developed, well-nourished, and in no distress. Musculoskeletal: Right elbow: She exhibits swelling. No tenderness found. Arms: Neurological: She is alert. Skin: Skin is warm and dry. No rash noted. There is erythema. Nursing note and vitals reviewed. ASSESSMENT/PLAN: 1. Insect bite, initial encounter - ICD9: 919.4, E906.4, ICD10: W57.XXXA - PREDNISONE 20 MG TABLET - may use triamcinolone cream that she has at home - cool compresses/epsom salt soaks TID. - Observe for increasing redness, pain, fever and seek care if occurs - Follow-up with your PCP in 3-5 days if symptoms have not improved or sooner if symptoms worsen - Discussed red flags and need for immediate medical evaluation if any occur. - Discussed supportive care treatment with fluids, rest and analgesia. - Discussed expected course of illness DONNY Manriquez APRN.CNP 09/06/2017 5:42 PM Signed Take medications as prescribed. Use topical cream as directed. If not improving in 3-5 days, or you have worsening symptoms, see your primary care provider for recheck. Insect Bites Insect bites can cause red bumps in people who are allergic to them, but they cause no visible skin changes in people who are not allergic. Therefore, only one or two people in a family usually get red bumps from insect bites, even though everyone may have been bitten. Children are especially likely to react to insect bites. Although red bumps are the most common sign of' insect bites, people who are very allergic and people with tender skin, such as children, may develop blisters over the bites as well. Most often, insect bites are itchy. The most common insects to cause bites are fleas and mosquitoes. Flea bites are usually painless, so people are often unaware of being bitten. Mosquito bites are often noticed by adults but are sometimes overlooked by busy children until the bumps and itching appear. Horseflies and deerflies can cause insect bites, but the bite is painful, so most people notice and remember being bitten. The treatment of insect bites includes avoidance of the insects in the future. Defleaing an animal rids the animal of the fleas, but then fleas may be more likely to bite people. Be sure to deflea the house and yard as well. Susceptible people should wear an insect repellant such as Off, Cutter, or 6-12 until the fleas are gone. People sensitive to mosquito bites should avoid being outdoors in the evening, when mosquitoes are most active. Insect repellents can be useful for the prevention of the bites as well. Removal of obvious breeding areas of standing water can be helpful. Insect bites, especially flea bites, can sometimes be very long lasting, with bumps persisting for several weeks. This is especially common when the spots are being scratched. Also, bites can become infected when scratched often, especially in children. You may have been given a cortisone cream to put on the bumps to help stop the itching, or an antibiotic if your bites look infected. If you have problems sleeping at night because of itching, you can take diphenhydramine (Benadryl), an goor-yym-zbgwkae medication. Adults may need 50 or 75 mg, and children may need two or three times the child's dose printed on the bottle. Often, brown spots remain after the bumps heal. This is just a temporary color change, and scarring generally does not occur except when bites become infected. Progress Notes ([facility]): Chente Hutchison Surg Coord 08/28/2017 4:49 PM Signed Kendall Hutchison Surg Coord PROGRESS Observed: 07/13/2017 Status: COMPLETED Source: [facility] 8:24 AM [facility] REPOSITORY HNO ID: [id number] Author: Galileo Lopes Service: (none) Author Type: Physician Type: Progress Notes Filed: 07/13/2017 8:57 AM Note Text: CC Laisha L Sanderson is a 71 year old female who presents to the office for lab follow up HPI: Labs recently including CMP, TSH and Lipid panel, glucose, CBC and hepatitis C were overall all normal limits. Mildly elevated LDL cholesterol, otherwise normal. She is overall feeling well, Some stress recently with her niece passing away and going to visit [place], Had 3 week vacation in [place] recently with her , refreshing get away. Joint pains in neck and right knee resolved with chiropractic adjustments. HM: refusing colonoscopy and Pneumonia vaccines at this time and tdap vaccine PAST MEDICAL HISTORY Diagnosis Date - Abnormal mammogram, unspecified 05/2007 right breast, due for repeat 11/13 - Degeneration of intervertebral disc, site unspecified 1999 cervical and lumbar; not having any pain now - Disorder of bone and cartilage, unspecified osteopenia on DXA in 2001, but was normal in 2007 so bisphosphonates stopped - Other and unspecified hyperlipidemia 2001 - Other specified acquired hypothyroidism 2005 ?borderline - Other specified gastritis without mention of hemorrhage 2007 found on EGD, symptom free on PPI - Sleep apnea 10/02/2011 on CPAP - Vitamin D deficiency 12/21/2009 PAST SURGICAL HISTORY Procedure Laterality Date - LASER SURGERY OF EYE 1995 vision correction - VAGINAL HYSTERECTOMY 1985 precancerous pap smear - no cancer on path from surgery Current Outpatient Prescriptions: calcium carbonate-vitamin D (OS-EMMA 250 W/D) 250 (625)-125 mg-unit tab Take 1 tablet by mouth twice daily. Potassium 99 mg tab Take by mouth. EPINEPHrine (EPIPEN 2-TREMAYNE) 0.3 mg/0.3 mL auto-injector Inject 0.3 mL intramuscularly as needed. cholecalciferol, Vitamin D3, (VITAMIN D3) 50,000 unit cap capsule Take 1 capsule by mouth once each week. LACTOBAC CMB #3/FOS/PANTETHINE (PROBIOTIC AND ACIDOPHILUS ORAL) Take by mouth. CYCLOSPORINE (RESTASIS OPHTHALMIC) Use in eyes. ubidecarenone(COQ-10 100 MG CAP) one tablet daily OMEGA-3 FATTY ACIDS 1,250 MG CAP one tablet daily triamcinolone acetonide (KENALOG) 0.1 % cream Apply 1 application to affected area twice daily as needed. Use only for 14 days at a time, Apply sparingly to area for rash/itching. Cyanocobalamin (VITAMIN B-12) 1,000 mcg subl Dissolve under the tongue. PEG 400-Propylene Glycol (SYSTANE) 0.4-0.3 % drop No current facility-administered medications for this visit. ALLERGIES Allergen Reactions - Amoxil [Amoxicillin] Rash gets bright red rash - Bee Sting Anaphylaxis - Topical Agent Combi* Rash Hair treatment - Social History Marital status: Spouse name: Years of education: Number of children: 1 Social History Main Topics Smoking status: Never Smoker Smokeless status: Never Used Alcohol use: Yes 4.5 oz/week 3 Glasses of Wine (5oz) per week Drug use: No ROS: See hPI. PE: BP 172/98 Pulse 80 Resp 16 Wt 163 lb (73.9kg) Gen: AANDOX3, NAD, non-toxic appearing, cooperative, pleasant HEENT: PERRLA, EOMs intact b/l, nares without drainage, pharynx without erythema, exudate, lesions, or drainage. Uvula midline. MMM, torus tuberious defect upper palate, EAC and TM normal b/l, wearing glasses, Neck: No LAD, no thyromegaly, no meningismus. CV: RRR, 2/6 HSM RUSB murmur, normal s1s2 Lungs: CTA b/l, no wheezing Abd: overweight, NT, ND, normal BS No edema, normal pulses, varicose veins b/l legs Skin: psoriasis scalp, improving ASSESSMENT/PLAN: 1. Vitamin D deficiency - ICD9: 268.9, ICD10: E55.9 (primary diagnosis) - increase dose of supplement to 2,000 IU bid dosing, f/u in office for recheck 2. Obstructive sleep apnea syndrome - ICD9: 327.23, ICD10: G47.33 - continue CPAP 3. Hyperlipidemia with target LDL less than 130 - ICD9: 272.4, ICD10: E78.5 - good control - Encouraged following a low fat, low cholesterol diet. - Discussed the benefits of regular aerobic exercise and weight loss. - Check fasting lipid panel and ALT in 1 year. 4. Psoriasis of scalp - ICD9: 696.1, ICD10: L40.9 - stable, continue topical therpay Galileo Lopes DO Return if no improvement. Follow up with Galileo Lopes DO. Discussed risks, benefits, alternatives, and potential side effects of medications. Patient/Guardian expressed understanding and agreed with the plan. See patient instructions. Galileo Lopes DO [address] [place] [address] TARI Observed: 07/13/2017 Status: COMPLETED Source: [facility] 8:20 AM [facility] REPOSITORY Office Visit (FAMPWS) LAISHA SANDERSON ([id number]) 1945 F Date Time Provider Department 07/13/17 8:20 AM GALILEO LOPES FAMPWS During your visit today, we recorded the following information about you: Pulse Respiration Blood pressure Weight 80/minute 16/minute 138/88 73.9 kg Galileo Lopes DO 07/13/2017 8:57 AM Signed CC Laisha Sanderson is a 71 year old female who presents to the office for lab follow up HPI: Labs recently including CMP, TSH and Lipid panel, glucose, CBC and hepatitis C were overall all normal limits. Mildly elevated LDL cholesterol, otherwise normal. She is overall feeling well, Some stress recently with her niece passing away and going to visit her [place], Had 3 week vacation in [place] recently with her , refreshing get away. Joint pains in neck and right knee resolved with chiropractic adjustments. HM: refusing colonoscopy and Pneumonia vaccines at this time and tdap vaccine PAST MEDICAL HISTORY Diagnosis Date - Abnormal mammogram, unspecified 05/2007 right breast, due for repeat 11/13 - Degeneration of intervertebral disc, site unspecified 1999 cervical and lumbar; not having any pain now - Disorder of bone and cartilage, unspecified osteopenia on DXA in 2001, but was normal in 2007 so bisphosphonates stopped - Other and unspecified hyperlipidemia 2001 - Other specified acquired hypothyroidism 2005 ?borderline - Other specified gastritis without mention of hemorrhage 2007 found on EGD, symptom free on PPI - Sleep apnea 10/02/2011 on CPAP - Vitamin D deficiency 12/21/2009 PAST SURGICAL HISTORY Procedure Laterality Date - LASER SURGERY OF EYE 1995 vision correction - VAGINAL HYSTERECTOMY 1985 precancerous pap smear - no cancer on path from surgery Current Outpatient Prescriptions: calcium carbonate-vitamin D (OS-EMMA 250 W/D) 250 (625)-125 mg-unit tab Take 1 tablet by mouth twice daily. Potassium 99 mg tab Take by mouth. EPINEPHrine (EPIPEN 2-TREMAYNE) 0.3 mg/0.3 mL auto-injector Inject 0.3 mL intramuscularly as needed. cholecalciferol, Vitamin D3, (VITAMIN D3) 50,000 unit cap capsule Take 1 capsule by mouth once each week. LACTOBAC CMB #3/FOS/PANTETHINE (PROBIOTIC ANDamp; ACIDOPHILUS ORAL) Take by mouth. CYCLOSPORINE (RESTASIS OPHTHALMIC) Use in eyes. ubidecarenone(COQ-10 100 MG CAP) one tablet daily OMEGA-3 FATTY ACIDS 1,250 MG CAP one tablet daily triamcinolone acetonide (KENALOG) 0.1 % cream Apply 1 application to affected area twice daily as needed. Use only for 14 days at a time, Apply sparingly to area for rash/itching. Cyanocobalamin (VITAMIN B-12) 1,000 mcg subl Dissolve under the tongue. PEG 400-Propylene Glycol (SYSTANE) 0.4-0.3 % drop No current facility-administered medications for this visit. ALLERGIES Allergen Reactions - Amoxil [Amoxicillin] Rash gets bright red rash - Bee Sting Anaphylaxis - Topical Agent Combi* Rash Hair treatment - Social History Marital status: Spouse name: Years of education: Number of children: 1 Social History Main Topics Smoking status: Never Smoker Smokeless status: Never Used Alcohol use: Yes 4.5 oz/week 3 Glasses of Wine (5oz) per week Drug use: No ROS: See hPI. PE: BP 172/98 Pulse 80 Resp 16 Wt 163 lb (73.9kg) Gen: AANDamp;OX3, NAD, non-toxic appearing, cooperative, pleasant HEENT: PERRLA, EOMs intact b/l, nares without drainage, pharynx without erythema, exudate, lesions, or drainage. Uvula midline. MMM, torus tuberious defect upper palate, EAC and TM normal b/l, wearing glasses, Neck: No LAD, no thyromegaly, no meningismus. CV: RRR, 2/6 HSM RUSB murmur, normal s1s2 Lungs: CTA b/l, no wheezing Abd: overweight, NT, ND, normal BS No edema, normal pulses, varicose veins b/l legs Skin: psoriasis scalp, improving ASSESSMENT/PLAN: 1. Vitamin D deficiency - ICD9: 268.9, ICD10: E55.9 (primary diagnosis) - increase dose of supplement to 2,000 IU bid dosing, f/u in office for recheck 2. Obstructive sleep apnea syndrome - ICD9: 327.23, ICD10: G47.33 - continue CPAP 3. Hyperlipidemia with target LDL less than 130 - ICD9: 272.4, ICD10: E78.5 - good control - Encouraged following a low fat, low cholesterol diet. - Discussed the benefits of regular aerobic exercise and weight loss. - Check fasting lipid panel and ALT in 1 year. 4. Psoriasis of scalp - ICD9: 696.1, ICD10: L40.9 - stable, continue topical therpay Galileo Lopes DO Return if no improvement. Follow up with Galileo Lopes DO. Discussed risks, benefits, alternatives, and potential side effects of medications. Patient/Guardian expressed understanding and agreed with the plan. See patient instructions. Galileo Lopes DO [address] [place] [address] Galileo Lopes DO 07/13/2017 8:36 AM Signed Vitamin D3 2,000 -5,000 IU once a day supplement Referring Provider: GALILEO LOPES [[id number]] Allergies As of Date: 07/13/2017 Noted Allergy Reaction AMOXIL (AMOXICILLIN) 01/06/2007 2 - Rash Comments: gets bright red rash BEE STING 11/09/2014 10 - Anaphylaxis TOPICAL AGENT COMBINATION NO.1 06/17/2013 2 - Rash Comments: Hair treatment - Date Reviewed: 01/05/2017 Reviewed by: Chente Diaz LPN - Fully Assessed Reason for Visit: Recheck [92] Cmt: follow up with review labs Primary Visit Diagnosis:Vitamin D deficiency [E55.9] Other Visit Diagnoses:Obstructive sleep apnea syndrome [G47.33] Hyperlipidemia with target LDL less than 130 [E78.5] Psoriasis of scalp [L40.9] Order(s):CMP (EXTERNAL) [3679511] Order #: [id number] LIPID PANEL (EXTERNAL) [4743155] Order #: [id number] VITAMIN D (OUTSIDE) [3415528] Order #: [id number] TSH (EXTERNAL) [4417466] Order #: [id number] CBC W/DIFF/PLT (EXTERNAL LAB [facility]) [6300252] Order #: [id number] Prescriptions as of 07/13/2017 Sig: CALCIUM CARB-ERGOCALCIFEROL (* Take 1 tablet by mouth twice * POTASSIUM 99 MG TABLET Take by mouth. EPINEPHRINE 0.3 MG/0.3 ML INJ* Inject 0.3 mL intramuscularly* CHOLECALCIFEROL (VITAMIN D3) * Take 1 capsule by mouth once * PROBIOTIC AND ACIDOPHILUS ORAL Take by mouth. RESTASIS OPHTHALMIC Use in eyes. * COQ-10 100 MG CAPSULE one tablet daily * OMEGA-3 FATTY ACIDS 1,250 MG * one tablet daily TRIAMCINOLONE ACETONIDE 0.1 %* Apply 1 application to affect* CYANOCOBALAMIN (VIT B-12) 1,0* Dissolve under the tongue. PEG 400-PROPYLENE GLYCOL 0.4 * Problem List As Of Date 07/13/2017 Noted Resolved GASTRITIS NEC W/O HEMORRH [K29.60] More... DDD (degenerative disc disease), lumbar [M51.36] More... BONE AND CARTILAGE DIS NOS [M89.9, M94.9] More... 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 Result Comment: Account Credited ULISESE CBC AND DIFFERENTIAL Collected: 07/08/2017 Status: F Source: [place] 8:17 AM [facility] REPOSITORY TYPE CODE TESTS RESULT OUT OF REFERENCE UNITS RANGE LAB WBC 3.70-11.00 k/uL Test WBC sent to [facility]. Result Comment: Account Credited HIDE LAB RBC 3.90-5.20 m/uL Test sent RBC to [facility]. Result Comment: Account Credited HIDE LAB HGB 11.5-15.5 g/dL Hemoglobin Test sent to [facility]. Result Comment: Account Credited HIDE LAB HCT 36.0-46.0 % Hematocrit Test sent to [facility]. Result Comment: Account Credited HIDE LAB MCV 80.0-100.0 fL Test sent MCV to [facility]. Result Comment: Account Credited HIDE LAB MCH 26.0-34.0 pG Test sent MCH to [facility]. Result Comment: Account Credited HIDE LAB MCHC 30.5-36.0 g/dL Test MCHC sent to [facility]. Result Comment: Account Credited HIDE LAB RDWCV 11.5-15.0 % Test RDW-CV sent to [facility]. Result Comment: Account Credited HIDE LAB PLTCT 150-400 k/uL Test Platelet Count sent to [facility]. Result Comment: Account Credited HIDE LAB MPV 9.0-12.7 fL Test sent MPV to [facility]. Result Comment: Account Credited HIDE LAB SILKE Recheck Test sent to [facility]. Result Comment: Account Credited HIDE LAB [facility]EUT [facility] Result Comment: Account Credited HIDE LAB AANEUT 1.45-7.50 k/uL Test Abs sent to [facility]. Result Comment: Account Credited HIDE LAB ALYMP % [facility] Result Comment: Account Credited HIDE LAB AALYMP 1.00-4.00 k/uL Test Abs Lymph sent to [facility]. Result Comment: Account Credited HIDE LAB AMONO % [facility] Result Comment: Account Credited HIDE LAB AAMONO <0.87 k/uL Test sent Abs Otoe to [facility]. Result Comment: Account Credited HIDE LAB AEOS % Test sent to Eosin% [facility]. Result Comment: Account Credited HIDE LAB AAEOS <0.46 k/uL Test sent Abs Eosin to [facility]. Result Comment: Account Credited HIDE LAB ABASO % Test sent to Baso% [facility]. Result Comment: Account Credited HIDE LAB AABASO <0.11 k/uL Test sent Abs Baso to [facility]. Result Comment: Account Credited HIDE LAB REVW Test sent to Review [facility]. Result Comment: Account Credited HIDE LAB CBCCOM Comment Test sent to [facility]. Result Comment: Account Credited ULISESE COMP METABOLIC PANEL Collected: 07/08/2017 Status: F Source: [place] 8:17 AM [facility]IN [facility]AMP[facility] REPOSITORY TYPE CODE TESTS RESULT OUT OF REFERENCE UNITS RANGE LAB TP 6.3-8.0 g/dL Test sent to [facility]. Result Comment: Account Credited HIDE LAB ALB 3.9-4.9 g/dL Test Albumin sent to [facility]. Result Comment: Account Credited HIDE LAB CA 8.5-10.2 mg/dL Test Calcium, Total sent to [facility]. Result Comment: Account Credited HIDE LAB TBIL 0.2-1.3 mg/dL Bilirubin, Test Total sent to [facility]. Result Comment: Account Credited HIDE LAB ALKP 32-117 U/L Alkaline Test Phosphatase sent to [facility]. Result Comment: Account Credited HIDE LAB AST 13-35 U/L Test sent AST to [facility]. Result Comment: Account Credited HIDE LAB GLU 74-99 mg/dL Test sent Glucose to [facility]. Result Comment: Account Credited HIDE LAB BUN 7-21 mg/dL Test sent BUN to [facility]. Result Comment: Account Credited HIDE LAB CRET 0.58-0.96 mg/dL Creatinine Test sent to [facility]. Result Comment: Account Credited HIDE LAB NA 136-144 mmol/L Test Sodium sent to [facility]. Result Comment: Account Credited HIDE LAB K 3.7-5.1 mmol/L Test Potassium sent to [facility]. Result Comment: Account Credited ULISESE LAB CL 97-105 mmol/L Test Chloride sent to [facility]. Result Comment: Account Credited ULISESE LAB CO2 22-30 mmol/L Test sent CO2 to [facility]. Result Comment: Account Credited HIDE LAB AGAP 9-18 mmol/L Test sent Anion Gap to [facility]. Result Comment: Account Credited HIDE LAB ALT 7-38 U/L Test sent to ALT [facility]. Result Comment: Account Credited HIDE LAB GFRAA eGFR- Amer. Test sent to [facility]. Result Comment: Account Credited ULISESE LAB GFRNAA . eGFR-All Test sent Other Races to [facility]. Result Comment: Account Credited ULISESE LAB GFRPED eGFR-Ped. Test sent Factor to [facility]. Result Comment: Account Credited THEE LIPID PANEL, BASIC Collected: 07/08/2017 Status: F Source: [place] 8:17 AM [facility] REPOSITORY TYPE CODE TESTS RESULT OUT OF REFERENCE UNITS RANGE LAB CHOL <200 mg/dL Cholesterol Test sent to [facility]. Result Comment: Account Credited ULISESE LAB TRIGLY <150 mg/dL Triglyceride Test sent to [facility]. Result Comment: Account Credited ULISESE LAB HDL >39 mg/dL HDL-Cholesterol Test sent to [facility]. Result Comment: Account Credited ULISESE LAB LDL <100 mg/dL LDL-Cholesterol Test sent to [facility]. Result Comment: Account Credited ULISESE LAB NONHDL 90-159 mg/dL Non HDL Test Cholesterol sent to [facility]. Result Comment: Account Credited ULISESE LAB FT hrs Fasting Time 10 LAB VLDL <30 mg/dL VLDL Cholesterol Test sent to [facility]. Result Comment: Account Credited ULISESE LAB TCHDL <5.10 Test sent TC:HDL Ratio to [facility]. Result Comment: Account Credited ULISESE LAB LDLHDL <2.54 Test sent LDL:HDL Ratio to [facility]. Result Comment: Account Credited ULISESE VITAMIN D 25 HYDROXY Collected: 07/08/2017 Status: F Source: [place] 8:17 AM [facility] REPOSITORY TYPE CODE TESTS RESULT OUT OF REFERENCE UNITS RANGE LAB VITD 31.0-80.0 ng/mL Test Vitamin D 25 sent to [facility]. Result Comment: Account Credited HIDFreya TSH Collected: 07/08/2017 Status: F Source: [place] 8:17 AM [facility] [place] REPOSITORY TYPE CODE TESTS RESULT OUT OF REFERENCE UNITS RANGE LAB TSH 0.400-5.500 uU/mL Test TSH sent to [facility]. Result Comment: Account Credited ULISESE CBC W/DIFF, AUTOMATED Collected: 07/08/2017 Status: F Source: [place] 12:[facility] AM [facility] TYPE CODE TESTS RESULT OUT OF RANGE REFERENCE UNITS LAB L100.1000 4.4-11.0 K/mm3 Normal WBC 7.8 LAB L100.1200 4.2-5.4 M/mm3 Normal RBC 4.63 LAB L100.1300 12.0-15.0 g/dl Normal HGB 13.4 LAB L100.1400 37-47 % Normal HCT 42.1 LAB L100.1500 81-99 fL Normal MCV 90.9 LAB L100.1600 27.0-32.0 pg Normal MCH 28.9 LAB L100.1700 32-36 g/gl Low MCHC 31.8 LAB L100.1810 11.6-14.6 % Normal RDW CV 14.2 LAB L100.1820 35.1-43.9 fl High RDW SD 46.9 LAB L100.1900 150-450 K/mm3 Normal PLT 270 LAB L100.2000 6.2-12.0 fl Normal MPV 11.3 LAB L100.2100 47-70 % Low NEUT% 46.0 LAB L100.2200 19-41 % Normal LY% 39.2 LAB L100.2300 0-10 % High MONO% 13.0 LAB L100.2400 0-5 % Normal EO% 1.4 LAB L100.2500 0-1 % Normal BASO% 0.3 LAB L100.2550 0.0-0.9 % Normal IM GRAN % 0.100 Result Comment: IG% - Immature Granulocytes (promyelocytes, myelocytes and metamyelocytes) > 1% indicates that a LEFT SHIFT is Present. LAB L100.2620 2.0-7.7 X10 3/uL Normal Absolute Neut 3.6 LAB L100.2720 0.83-4.51 X10 3/ul Normal Absolute Lymph 3.07 Performed By: #### L100.0100 #### [facility] [address] [place], [address] VITAMIN D,25 HYDROXY Collected: 07/08/2017 Status: F Source: [place] 12:00 AM [facility] TYPE CODE TESTS RESULT OUT OF REFERENCE UNITS RANGE LAB L506.1000 29.95-100.01 ng/mL Low Vitamin D 22.6 25-OH Result Comment: Vitamin D 25(OH) Status Range Deficiency <20 ng/mL (50nmol/L) Insuffciency 20 - 30 ng/mL (50 - 75 nmol/L) Sufficiency 30 - 100 ng/mL (75 - 250 nmol/L) Toxicity >100 ng/mL (>250 nmol/L) Performed By: #### L506.1000 #### [facility] [address] [place], [address] COMPREHENSIVE METABOLIC Collected: 07/08/2017 Status: F [facility] TYPE CODE TESTS RESULT OUT OF RANGE REFERENCE UNITS LAB L501.0100 74-106 mg/dL Normal GLU 97 Result Comment: Please note revised GLUCOSE reference range effective 2017. LAB L501.1000 7-18 mg/dL Normal BUN 11 LAB L501.1100 0.55-1.02 mg/dL Normal CREAT,SERUM 0.70 Result Comment: The validity of the calculated GFR AND GFRAA in patients over 70 years has not been determined. Clinical correlation is essential. LAB L501.1110 >60 mL/min Normal EST GFR 87 Result Comment: Non- GFR Calc LAB L501.1115 >60 mL/min Normal EST GFR - AA 106 Result Comment: GFR Calc LAB L501.1300 10-20 RATIO Normal BUN/CRE 15.7 LAB L501.1500 6.4-8.2 g/dL T Normal PROT 7.7 LAB L501.1800 3.2-5.0 g/dL Normal ALB 3.5 LAB L501.1950 2.2-4.2 g/dL Normal GLOB 4.2 LAB L501.2000 0.9-2.4 RATIO Low A/G 0.8 LAB L501.2200 8.5-10.1 mg/dL Low CA 8.4 LAB L501.4100 15-37 U/L Normal AST 20 LAB L501.4305 45-117 U/L Normal ALK P 62 LAB L501.4405 13-56 U/L Normal ALT 28 Result Comment: Please note revised ALT reference range effective 2017. LAB L501.4600 0.20-1.00 mg/dL Normal T BILI 0.30 LAB L501.5300 136-145 mmol/L Normal NA 141 LAB L501.5600 3.5-5.1 mmol/L Normal K 3.9 LAB L501.5900 98-107 mmol/L Normal CL 104 LAB L501.6100 21.0-32.0 mmol/L Normal CO2 29.0 LAB L501.6200 5-15 Normal GAP 8 Performed By: #### L500.4050, L500.4100, L501.9520 #### [facility] [address], [place], [id number] LIPID PROFILE Collected: 07/08/2017 Status: F Source: [place] 12:00 AM [facility] TYPE CODE TESTS RESULT OUT OF RANGE REFERENCE UNITS LAB L501.4900 200 mg/dL Normal CHOL 199 Result Comment: <200 mg/dL Desirable 200-240 mg/dL Borderline >240 mg/dL High Risk LAB L501.5000 mg/dL Normal TRIG 157 Result Comment: The drugs N-Acetylcysteine and Metamizole may falsely depress this assay. Serum Triglycerides Reference Interval Normal <150 mg/dL Borderline high 150 - 199 mg/dL High 200 - 499 mg/dL Very High > or = 500 mg/dL LAB L501.6400 mg/dL Normal HDL 60 Result Comment: The drugs N-Acetylcysteine and Metamizole may falsely depress this assay. Reference Range HDL <40 mg/dL Low HDL Cholesterol HDL >or= 60 mg/dL High HDL Cholesterol LAB L501.6500 0-130 mg/dL Normal LDL 108 LAB L501.6600 5-40 mg/dL Normal VLDL 31 Performed By: #### L500.4050, L500.4100, L501.9520 #### [facility] [address], [place], [id number] THYROID STIM HORMONE Collected: 07/08/2017 Status: F Source: [place] ([facility]) 12:00 AM [facility] TYPE CODE TESTS RESULT OUT OF RANGE REFERENCE UNITS LAB L501.9520 0.358-3.74 uIU/mL Normal TSH 3.62 Performed By: #### L500.4050, L500.4100, L501.9520 #### [facility] [address], [place], [address] HEPATITIS C ANTIBODIES Collected: 07/08/2017 Status: F Source: [place] 12:00 AM [facility] TYPE CODE TESTS RESULT OUT OF RANGE REFERENCE UNITS LAB L3100.0650 0.0-0.9 s/co ratio Normal HEP C AB <0.1 Result Comment: Negative: < 0.8 Indeterminate: 0.8 - 0.9 Positive: > 0.9 The CDC recommends that a positive HCV antibody result be followed up with a HCV Nucleic Acid Amplification test ([id number]). Performed at: [facility] [address] [id number] Registered Nurse Cardiac Telemetry: Anant Gordon PhD, Phone: [phone] Performed By: #### L3100.0625 #### [facility] (refer to report for specific site) refer to report for address and phone number CNCO Observed: 06/21/2017 Status: COMPLETED Source: [place] 12:00 AM [facility] REPOSITORY Letter Text Laisha Sanderson [address] [place] [id number] 06/21/2017 CCF #: [id number] Dear JaquelinKin, Due to a change in the provider's schedule it has been necessary to reschedule your Appointment. Your original appointment was scheduled for 07/20/2017 at 8:20 AM with Galileo Lopes DO. Your new appointment is now scheduled on 07/13/2017 at 8:20 AM with Galileo Lopes DO. If this new appointment is not convenient for you, please contact our office at [phone]. Thank you for choosing the [facility] as your Healthcare Provider . Sincerely, Family Medicine Appointment Office PROGRESS Observed: 06/20/2017 Status: COMPLETED Source: [place] 9:58 AM [facility] REPOSITORY HNO ID: [id number] Author: Claudia Ramos [facility] Service: (none) Author Type: (none) Type: Progress Notes Filed: 06/21/2017 9:13 AM Note Text: Spoke with Laisha. Appoingment scheduled 07/20/17. Please file labs so patient can get done prior to appointment. Thanks! The patient has been identified by name and date of : YES I have scheduled the patient for an appointment on 07/20/17 The patient will report to the lab prior to the visit. I have pended the following lab orders: Pended Orders ID Status Description Pended By When Reason [id number] Pended LIPID PANEL BASIC Claudia Ramos [facility] 06/20/17 0954 [id number] Pended HEP C AB IA W/CONF SCRN Claudia Ramos [facility] 06/20/17 0954 PHMA Documentation 06/20/2017 Opts out of [facility] No Appointments Scheduled Scheduled PCP Appt Claudia Ramos [facility] PROGRESS Observed: 06/20/2017 Status: COMPLETED Source: [place] 9:52 AM [facility] [place] RE[facility]ITORY HNO ID: [id number] Author: Claudia Ramos [facility] Service: (none) Author Type: (none) Type: Progress Notes Filed: 06/21/2017 9:13 AM Note Text: PHMA TEAMLET DOCUMENTATION Provider Action/FYI: Last office notes state recheck lipid and ALT around 05/07/17 Labs pending PSR Action/FYI: Teamlet has identified patient by name and date of . Team: Rosey, Chente, Fidelina, Jaz, Myself ? Last Office Visit:Visit date not found ? Next Office Visit: Visit date not found ? Last BP/Labs: Blood Pressure: Last 3 Encounter BP Readings: Date: BP: 01/05/2017 142/80 04/25/2016 134/81[BP Tyler average[ 04/11/2016 160/104 Lipids: Cholesterol, Total (mg/dL) Date Value 04/25/2016 Test sent to [facility]. 06/09/2013 226 HDL Cholesterol (mg/dL) Date Value 04/25/2016 Test sent to [facility]. 06/09/2013 64 LDL Cholesterol (mg/dL) Date Value 04/25/2016 Test sent to [facility]. 06/09/2013 141 Triglyceride (mg/dL) Date Value 04/25/2016 Test sent to [facility]. 06/09/2013 103 HGB A1C: No results found for: HBA1C TSH: TSH (uU/mL) Date Value 06/09/2013 2.340 07/08/2012 4.210 ) Care Gap: BP elevated at last visit Plan: ? 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 Labs, HM and Immunization: Health Maintenance Due: HEPATITIS C SCREENING due on 1988 - order pending TETANUS due on 04/08/2009 ADULT PREVNAR-13 due on 2009 PNEUMOVAX AGE 65 AND OVER WITH 5YR LOOKBACK(1) due on 04/08/2012 INFLUENZA(1) due on 12/07/2016 COLORECTAL CANCER SCREENING,SEE MODIFIER due on 07/05/2017 Claudia Ramos [facility] CNPTOUTREACH Observed: 06/20/2017 Status: COMPLETED Source: [place] 12:00 AM [facility] REPOSITORY Patient Outreach (INTMWS) LAISHA SANDERSON ([id number]) 1945 F Date Time Provider Department 06/20/17 CLAUDIA RAMOS) INTMWS During your visit today, we recorded the following information about you: Claudia Ramos Cma 06/21/2017 9:13 AM Signed PHMA TEAMLET DOCUMENTATION Provider Action/FYI: Last office notes state recheck lipid and ALT around 05/07/17 Labs pending PSR Action/FYI: Teamlet has identified patient by name and date of . Team: Chente Khan, Fidelina, Jaz, Myself ? Last Office Visit:Visit date not found ? Next Office Visit: Visit date not found ? Last BP/Labs: Blood Pressure: Last 3 Encounter BP Readings: Date: BP: 01/05/2017 142/80 04/25/2016 134/81[BP Tyler average[ 04/11/2016 160/104 Lipids: Cholesterol, Total (mg/dL) Date Value 04/25/2016 Test sent to [facility]. 06/09/2013 226 HDL Cholesterol (mg/dL) Date Value 04/25/2016 Test sent to [facility]. 06/09/2013 64 LDL Cholesterol (mg/dL) Date Value 04/25/2016 Test sent to [facility]. 06/09/2013 141 Triglyceride (mg/dL) Date Value 04/25/2016 Test sent to [facility]. 06/09/2013 103 HGB A1C: No results found for: HBA1C TSH: TSH (uU/mL) Date Value 06/09/2013 2.340 07/08/2012 4.210 ) Care Gap: BP elevated at last visit Plan: ? 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 Labs, HM and Immunization: Health Maintenance Due: HEPATITIS C SCREENING due on 1988 - order pending TETANUS due on 04/08/2009 ADULT PREVNAR-13 due on 2009 PNEUMOVAX AGE 65 AND OVER WITH 5YR LOOKBACK(1) due on 04/08/2012 INFLUENZA(1) due on 12/07/2016 COLORECTAL CANCER SCREENING,SEE MODIFIER due on 07/05/2017 Claudia Sebastian [facility] Claudia [facility] 06/21/2017 9:13 AM Signed Spoke with Laisha. Appoingment scheduled 07/20/17. Please file labs so patient can get done prior to appointment. Thanks! The patient has been identified by name and date of : YES I have scheduled the patient for an appointment on 07/20/17 The patient will report to the lab prior to the visit. I have pended the following lab orders: Pended Orders ID Status Description Pended By When Reason [id number] Pended LIPID PANEL BASIC Claudia Sebastian [facility] 06/20/17 0954 [id number] Pended HEP C AB IA W/CONF SCRN Claudia Ramos [facility] 06/20/17 0954 PHMN Documentation 06/20/2017 Opts out of [facility] No Appointments Scheduled Scheduled PCP Appt Claudia Ramos [employer] Allergies As of Date: 06/20/2017 Noted Allergy Reaction AMOXIL (AMOXICILLIN) 01/06/2007 2 - Rash Comments: gets bright red rash BEE STING 11/09/2014 10 - Anaphylaxis TOPICAL AGENT COMBINATION NO.1 06/17/2013 2 - Rash Comments: Hair treatment - Date Reviewed: 01/05/2017 Reviewed by: Chente Diaz LPN - Fully Assessed Reason for Visit: PHMA/Care Gap Outreach [[id number]] Primary Visit Diagnosis:Hyperlipidemia with target LDL less than 130 [E78.5] Other Visit Diagnoses:Need for hepatitis C screening test [Z11.59] Vitamin D deficiency [E55.9] Order(s):LIPID PANEL BASIC [SQLIPB] Order #: [id number] FUTURE HEP C AB IA W/CONF SCRN [ERAADS6K] Order #: [id number] FUTURE COMP METABOLIC PANEL [SQCMP] Order #: [id number] FUTURE VITAMIN D 25 HYDROXY [SQVITD] Order #: [id number] FUTURE CBC + DIFF [SQCBCDIF] Order #: [id number] FUTURE Prescriptions as of 06/20/2017 Sig: CALCIUM CARB-ERGOCALCIFEROL (* Take 1 tablet by mouth twice * POTASSIUM 99 MG TABLET Take by mouth. EPINEPHRINE 0.3 MG/0.3 ML INJ* Inject 0.3 mL intramuscularly* CHOLECALCIFEROL (VITAMIN D3) * Take 1 capsule by mouth once * TRIAMCINOLONE ACETONIDE 0.1 %* Apply 1 application to affect* CYANOCOBALAMIN (VIT B-12) 1,0* Dissolve under the tongue. PROBIOTIC AND ACIDOPHILUS ORAL Take by mouth. RESTASIS OPHTHALMIC Use in eyes. PEG 400-PROPYLENE GLYCOL 0.4 * * COQ-10 100 MG CAPSULE one tablet daily * OMEGA-3 FATTY ACIDS 1,250 MG * one tablet daily Problem List As Of Date 06/20/2017 Noted Resolved GASTRITIS NEC W/O HEMORRH [K29.60] More... DDD (degenerative disc disease), lumbar [M51.36] More... BONE AND CARTILAGE DIS NOS [M89.9, M94.9] More... 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] INVALID FOR* Obstructive sleep apnea syndrome [G47.33] INVALID FOR* Psoriasis of scalp [L40.9] INVALID FOR* Actinic keratoses [L57.0] INVALID FOR* Encounter Status:Closed by CLAUDIA RAMOS CMA on 06/21/17 ALLERGIES ALLERGIES DATE TYPE / NAME / CODE REACTION SEVERITY SOURCE CODE 04/22/2017 Drug Penicillins/F0010 Other Unknown [place] Allergy/41 94941(RXNORM) [facility]ly [facility] [id number]([facility]) Repository 04/22/2017 Drug amoxicillin/F0060 Other Unknown Eyad Allergy/41 47470(RXNORM) Formerly [facility] [id number]([facility]) Repository 11/09/2014 Environ/42 BEE STING ANAPHYLAXIS [facility] [id number]([facility] OME CT) Repository 06/17/2013 DRUG TOPICAL AGENT RASH [facility]/41 COMBINATION [address] Main [place] [id number]( Repository OMED CT) 01/06/2007 DRUG AMOXICILLIN RASH [facility]/ Main [place] [id number]( Repository OMED CT) ENCOUNTERS ENCOUNTERS ADMIT/DISCHARGE ACCOUNT ADMITTING ENCOUNTER LOCATION SOURCE NUMBER CLASS 04/23/2018 [id number] [facility] ing:OPBI Repository 01/10/2018/01/11/20 [id number] Ambulatory [address] [place] Repository 01/10/2018/01/14/20 [id number] Ambulatory [address] [place] Repository 09/20/2017/09/25/19 [id number] Ambulatory [address] [place] Repository 09/11/2017/09/12/19 [id number] ANGIE SERRATO Ambulatory [address] [place] Repository 09/06/2017/09/10/19 [id number] Ambulatory [address] [place] Repository 08/28/2017/09/04/19 [id number] Ambulatory [address] [place] Repository 07/13/2017/07/16/19 [id number] Ambulatory [address] [place] Repository 07/08/2017/07/09/19 [id number] Ambulatory [address] Repository 07/08/2017 [id number] Ambulatory Eyad [facility] ing:LABSPEC Repository PAYERS PAYERS ENCOUNTER GUARANTOR PAYER SUBSCRIBER SOURCE 04/23/2018 LAISHA PEREZ Primary LAISHA L [place] [facility] [facility] [place] [id number] [address]Nca: (239) Number: Repository [phone] () [id number] Date:[id number] [place] [address] [id number]: 04/23/2018 Secondary NOT GIVENUNK [place] Insurance:SELF PAY [facility] Number: Effective Repository Date:2018-02-26 07/08/2017 Laisha Moffettyi231 Primary LAISHA L [place]ad [place] [facility] [place] [id number] [address]Tjd: ([phone]) Number: Repository [phone] () [id number] Date:[id number] [place] [address] [id number]: 07/08/2017 Secondary NOT GIVENUNK [place] Insurance:SELF PAY [facility] Number: Effective Repository Date:2017-07-08
== END ==
PROVIDERS: Family Provider Student in an Organized Health Care Education/Training Program; PCP Student in an Organized Health Care Education/Training Program; Visit Provider Student in an Organized Health Care Education/Training Program
DX: Z12.31 Encounter for screening mammogram for malignant neoplasm of breast (principal)
CPT/HCPCS: 77063; 77067

== ENCOUNTER → 2019-02-06 16:20 | Outpatient (CLI) | payer MEDICARE, SELFPAY ==
[2017-04-22 09:13] VITALS: BMI 30.7
[2019-02-06 16:49] LABS: Bacteria 0 SEEN /hpf (None Seen); Mucous, Urine 0 SEEN /hpf (<or=2+)
[2019-02-06 17:02] LABS: Absolute Lymphocyte Count 3.29 X10^3/uL (0.83-4.51); Absolute Neutrophil Count 3.7 X10^3/uL (2.0-7.7); Basophil# 0.03 X10^3/uL; Basophil% 0.4 % (0-1); Eosinophil# 0.07 X10^3/uL; Eosinophils% 0.9 % (0-5); Hematocrit 41.2 % (37-47); Hemoglobin 12.9 g/dL (12.0-15.0); Lymphocyte # 3.29 X10^3/ul (4.0); Lymphocyte % 41.9 % (19-41); Mean Corp Hgb Conc 31.3 g/dL (32-36); Mean Corpuscular Hgb 28.7 pg (27.0-32.0); Mean Corpuscular Volume 91.6 fL (81-99); Mean Platelet Vol. 11.1 fl (6.2-12.0); Monocyte# 0.76 X10^3/uL; Monocyte% 9.7 % (0-10); NRBC Flagged by Analyzer 0 % (0-5); Neutrophil # 3.68 X10^3/uL (2.7-7.7); Neutrophil % 46.8 % (47-70); Platelet Count 244 K/mm3 (150-450); RBC Distribution Width CV 14.2 % (11.6-14.6); RBC Distribution Width SD 47.8 fl (35.1-43.9); White Blood Count 7.9 K/mm3 (4.4-11.0)
[2019-02-06 17:10] LABS: Color, Urine Yellow (Yellow); Glucose, Dipstick Normal (Normal); Ketone-Dipstick Negative (Negative); Leukocyte Esterase-Dipstick Negative /ul (Negative); Nitrite-Dipstick Negative (Negative); Occult Blood-Urine Negative /ul (Negative); Protein-Dipstick Negative (Negative); Specific Gravity, Urine 1.015 (1.002-1.030); Urine Bilirubin Dipstick Negative (Negative); Urine Clarity Clear (Clear); Urine Urobilinogen Normal (Normal); Urine pH 6.5 (5.0 - 8.0)
[2019-02-06 17:24] LABS: Squamous Epithelial Cells - UA 0-5 SEEN /hpf (5-10)
[2019-02-06 17:25] LABS: White Blood Cells 0-5 SEEN /hpf (0-5)
[2019-02-06 17:26] LABS: ALB/GLOB Ratio 0.9 RATIO (0.9-2.4); AST(SGOT) 30 U/L (15-37); Alanine Aminotransfer ALT/SGPT 49 U/L (13-56); Albumin, Serum 3.7 g/dL (3.2-5.0); Alkaline Phosphatase 56 U/L (45-117); Anion Gap 7 (5-15); BUN 14 mg/dL (7-18); BUN/Creat Ratio 22.4 RATIO (10-20); Calcium,Total 8.8 mg/dL (8.5-10.1); Chloride 104 mmol/L (98-107); Cholesterol 208 mg/dL (200); Creatinine, Serum 0.62 mg/dL (0.55-1.02); EST Glomerular Filtration Rate 99 mL/min (>60); Est Glom Filt Rate - Afr Amer 120 mL/min (>60); Globulin 3.9 g/dL (2.2-4.2); Glucose 87 mg/dL (74-106); High Density Lipoprotein 62 mg/dL; Potassium 3.8 mmol/L (3.5-5.1); Protein, Total 7.6 g/dL (6.4-8.2); Red Blood Cells-Urine 0-5 SEEN /hpf (0-5); Sodium Level 140 mmol/L (136-145); T4 Free Direct 0.81 ng/dL (0.76-1.46); Thyroid Stim Hormone (TSH) 2.71 uIU/mL (0.358-3.74); Triglycerides 91 mg/dL; Very Low Density Lipoprotein 18 mg/dL (5-40)
== END ==
PROVIDERS: Family Provider Student in an Organized Health Care Education/Training Program; PCP Student in an Organized Health Care Education/Training Program; Referring Provider Registered Nurse; Visit Provider Registered Nurse
DX: I10 Essential (primary) hypertension (principal); R53.83 Other fatigue; E78.5 Hyperlipidemia, unspecified
CPT/HCPCS: 80053; 80061; 81001; 84439; 84443; 85025

== ENCOUNTER 2019-03-21 22:22 | Emergency (ER) | payer MEDICARE, SELFPAY ==
[2019-03-21 22:24] VITALS: BP 114/65; PULSE 88; RESP 18; TEMP 36.3; O2SAT 95; BMI 28.4
--- NOTE | 2019-03-21 22:33 | EKG12_ITS ---
Test Reason : DYSRHYTHMIA Blood Pressure : / mmHG Vent. Rate : 084 BPM Atrial Rate : 084 BPM P-R Int : 182 ms QRS Dur : 086 ms QT Int : 414 ms P-R-T Axes : 038 018 045 degrees QTc Int : 489 ms Normal sinus rhythm Normal ECG Confirmed by GHASSAN GARCIA, CONSTANTINE ([id number]), make up editor BOB BENTLEY ([id number]) on 03/25/2019 2:22:31 PM Referred By: Confirmed By:CONSTANTINE FERRELL MD
--- NOTE | 2019-03-21 22:58 | ED.DCSUM_ITS ---
- ER Visit Summary Date of Service: 03/21/19 Chief Complaint: Traumatic left arm and posterior neck History of Present Illness: The patient is a 73 F complaining of atraumatic left bicep tricep and posterior neck pain. No falls injury or trauma. No recent injury of any type or carrying anything heavy in that arm. Never had any like this before. This started around 830 this evening. She is had no chest pain. No shortness of breath. She has had no recent exertional chest pain or exertional shortness of breath. She has no known cardiac history. The only makes the pain worse is trying to lift her arm. She has normal strength. She has no numbness, weakness or tingling in her hand. She is right-hand dominant. Physical Examination: Older female no acute distress vital signs are stable afebrile. Pulse is 95% room air no signs hypoxia. H EENT exam unremarkable. Neck left trapezius tenderness. Trachea midline no lymphadenopathy. Lungs clear to auscultation bilaterally. Heart regular rhythm no murmur. Rate about 85. Chest were nontender. Abdomen soft nontender. Patient is moving all 4 extremities. Neurovascular intact. No edema. The left arm her forearm wrist and hand are nontender. Strong radial pulse. 5/5 access director strength. Normal sensation. No swelling. No discoloration. She has mild biceps and triceps tenderness. But primarily left trapezius tenderness. She can move the arm and hurts more to move it and she can raise it overhead but with more discomfort. There is no redness. There is no lymphadenopathy. There is no swelling. Neurologically she is awake and alert with no focal motor deficits. Test Results: Due to her complaint of left arm pain a EKG was obtained by nursing staff. She was a sinus rhythm rate 84 with no signs of LA or ischemia. Clinically this is not cardiac because it is reproducible pain. Emergency Department Course and Treatment: Discussed with patient and her is a chiropractor. She was started on a Skelaxin as a muscle relax ant. She did not want any ibuprofen and did not want to try Valium. Treatment Plan: Skelaxin 3 times daily. Motrin for pain and inflammation. Hot shower warm bath to the shoulder. Follow-up as needed. Disposition: Discharge Impression: Acute left arm and shoulder pain secondary to muscle spasm This note was generated with Dragon dictation software. It may contain incorrect words, spelling, and punctuation that were not noted in review of the chart prior to signing ED Disposition - Plan for ED Patient: Referrals: Galileo Rai DO [Primary Care Provider] -
--- NOTE | 2019-03-21 23:01 | ED.DEP ---
ED Disposition - Plan for ED Patient: Disposition: Home or Assisted Living Instructions: Muscle Spasm Prescriptions: Metaxalone [Skelaxin] 800 mg PO 4X/DAY #28 tab Prescription Printed Referrals: Galileo Rai DO [Primary Care Provider] - 3-5 Days if not improving Additional Instructions: Hot shower, warm bath, heating pad and massage to the left shoulder. Motrin and Tylenol for pain. Skelaxin as a muscle relaxant. Follow-up if not improving. Return if other symptoms develop or you feel a lot worse.
[2019-03-21 23:14] VITALS: BP 101/87; PULSE 86; RESP 16; O2SAT 94
[2019-03-21] MEDS: Metaxalone 800 MG Tablet PO (23:32)
== END 2019-03-21 23:34 | disposition home or self-care (01) ==
PROVIDERS: Emergency Provider Emergency Medicine; Family Provider Student in an Organized Health Care Education/Training Program; PCP Student in an Organized Health Care Education/Training Program
DX: M62.838 Other muscle spasm (principal); M79.602 Pain in left arm; M25.512 Pain in left shoulder; M54.2 Cervicalgia; I10 Essential (primary) hypertension; Z79.899 Other long term (current) drug therapy
CPT/HCPCS: 93005; 99283

== ENCOUNTER → 2019-12-31 | Outpatient (CLI) | payer MEDICARE, SELFPAY ==
[2019-12-31 12:49] LABS: Vitamin D,25 Hydroxy 63.1 ng/mL
[2019-12-31 12:55] LABS: Cholesterol 192 mg/dL (200); Ferritin 44 ng/mL (8-252); Free T3 2.5 pg/mL (2.18-3.98); High Density Lipoprotein 84 mg/dL; Iron Binding Capacity,Total 330 ug/dL (250-450); Thyroid Stim Hormone (TSH) 4.07 uIU/mL (0.358-3.74); Triglycerides 40 mg/dL; Very Low Density Lipoprotein 8 mg/dL (5-40)
== END | disposition home or self-care (01) ==
LOC: LAB 12:14 → LABSPEC 12:14
PROVIDERS: PCP Student in an Organized Health Care Education/Training Program; Referring Provider Nurse Practitioner Family; Visit Provider Nurse Practitioner Family
DX: R53.83 Other fatigue (principal); E78.5 Hyperlipidemia, unspecified; E55.9 Vitamin D deficiency, unspecified; F41.8 Other specified anxiety disorders; K29.50 Unspecified chronic gastritis without bleeding
CPT/HCPCS: 80061; 82306; 82728; 83550; 84443; 84481

== ENCOUNTER → 2020-01-20 07:43 | Outpatient (CLI) | payer MEDICARE, SELFPAY ==
--- NOTE | 2020-01-20 07:45 | BI_ITS ---
MAMMOGRAPHY - BILATERAL SCREENING REASON FOR EXAM: Female, 74 years old. Routine annual screening examination. PERTINENT HISTORY: Non-contributory. TECHNIQUE: Digital bilateral breast lenka (3D mammographic acquisition) in the CC and MLO projections. 2-D mediolateral oblique (MLO) and craniocaudad (CC) views of both breasts were obtained. CAD: Full Field Digital Mammography with Computer Added Detection was performed. COMPARISON: Comparison is made with prior examination dated 04/23/2018 and 12/14/2016. FINDINGS: Breast Composition: There are scattered areas of fibroglandular density. There are no dominant masses or suspicious calcifications. No other significant abnormalities are identified. There has been no significant change since the prior study. BI/SCREEN MAMM (CAD) W/LENKA BILAT IMPRESSION: Stable bilateral screening mammogram. Yearly follow-up mammogram recommended. (A) ASSESSMENT CATEGORY: BIRADS Category 1: Negative. A letter regarding these results will be sent to the patient by the facility within 30 days. Approximately 10% of breast cancers are not detected by mammography. A normal mammogram should not delay biopsy of a clinically suspicious abnormality. [id number] Electronically Signed: Ricardo Brenner, at 8:33 EDT , Service support ,
== END ==
PROVIDERS: PCP Student in an Organized Health Care Education/Training Program; Referring Provider Student in an Organized Health Care Education/Training Program; Visit Provider Student in an Organized Health Care Education/Training Program
CPT/HCPCS: 77063; 77067

== ENCOUNTER 2020-11-14 07:47 | Day surgery (SDC) | payer MEDICARE, SELFPAY ==
[2020-11-14 08:33] VITALS: BP 142/81; PULSE 75; RESP 16; TEMP 36.6; O2SAT 97; BMI 27.5
[2020-11-14] MEDS: Lactated Ringers 1,000 ML 100 ML IV (08:43)
[2020-11-14 09:54] VITALS: BP 116/66; BP 142/81; PULSE 67; RESP 16; TEMP 36.2; O2SAT 95
[2020-11-14 10:00] VITALS: BP 136/75; BP 142/81; PULSE 65; RESP 16; O2SAT 97
[2020-11-14 10:05] VITALS: BP 140/76; BP 142/81; PULSE 65; RESP 16; O2SAT 94
[2020-11-14 10:10] VITALS: BP 128/69; BP 142/81; PULSE 61; RESP 16; TEMP 36.3; O2SAT 94
[2020-11-14 11:02] VITALS: BP 134/64; BP 142/81; PULSE 73; RESP 16; TEMP 36.6; O2SAT 95
--- NOTE | 2020-11-14 11:51 | OP.PCM_ITS ---
Report of Operation Date of Procedure: 11/14/20 Pre-Operative Diagnosis: Right CTS Post-Operative Diagnosis: same Surgery/Procedure Performed:: RDTCL right Description of Surgical Findings:: Report of Operation Date of Procedure: 11/14/20 Preoperative Diagnosis: Right Carpal Tunnel Syndrome Postoperative Diagnosis: same Procedure Performed: Right Carpal Tunnel Release Anesthesia: Block, Kp Anesthesiologist: Lenny Christina M.D. Description of Procedure: With appropriate informed consent, the patient was taken to the operative suite. After the induction of Kp block, the right upper extremity was prepared and draped sterilely. Subsequently, a midline longitudinal incision was made in the base of the right palm, in line with the fourth ray with #15 blade scalpel. Hemostasis was perfected with bipolar electrocautery. Scissor dissection was carried down through the subcutaneous tissue to the palmar fascia. A self-retaining retractor was placed. In sequence, the hernandez fascia, then the deep transverse carpal ligament was divided with the scalpel under direct visualization. Thereafter, the most proximal and distal aspects of the deep transverse carpal ligament were divided with scissors under direct visualization. The wound was copiously irrigated and closed with interrupted sutures of 4-0 nylon. A sterile well-padded dressing and Rex wrap were applied. The tourniquet was released. Excellent blood flow was returned to the right upper extremity. The patient was transferred to the PACU in stable and satisfactory condition. Andreas Crane DO Surgeon: Andreas Crane field support rep: None Type of Anesthesia: Block,Kp Anesthesiologist: Lenny Christina Admit VTE Documentation VTE Present on Admission: No VTE Mechan Device Prophylaxis: SCD's VTE Pharm Prophylaxis ordered?: No Reason prophylaxis not ordered:: Treatment Not Indicated
== END 2020-11-14 11:27 ==
LOC: SDC 07:48 → AC 07:48
PROVIDERS: PCP Student in an Organized Health Care Education/Training Program; Referring Provider Orthopaedic Surgery; Visit Provider Orthopaedic Surgery
PROC: (CPT 64721; principal; 2020-11-14 09:05)
DX: G56.01 Carpal tunnel syndrome, right upper limb (principal); Z20.822 Contact with and (suspected) exposure to COVID-19; I10 Essential (primary) hypertension; M19.90 Unspecified osteoarthritis, unspecified site; G47.30 Sleep apnea, unspecified; Z79.899 Other long term (current) drug therapy
CPT/HCPCS: 64721; 87426; C9803; J7120

== ENCOUNTER 2021-09-17 15:33 | Emergency (ER) | payer MEDICARE, SELFPAY ==
[2021-09-17] VITALS (9 sets, daily range): BP systolic 74–147; BP diastolic 43–85; PULSE 58–96; RESP 14–20; TEMP 36.3; O2SAT 95–100; BMI 28.3
--- NOTE | 2021-09-17 15:46 | RAD_ITS ---
STUDY: X-RAY - LEFT FOOT CLINICAL: Female, 75 years old. fall TECHNIQUE: 3 view(s) of the foot. COMPARISON: None. FINDINGS: Normal talus, and tarsal bones. Small plantar calcaneal spur is noted. Normal visualized subtalar, talonavicular, calcaneocuboid, tarsal and tarsometatarsal articulations. Normal metatarsi. Mild degenerative changes of the metatarsophalangeal joint of the great toe. Normal tibial and fibular sesamoid bones. Normal interphalangeal joint of the great toe. Normal phalanges of the great toe. Normal second through fifth metatarsophalangeal joints. Normal phalanges of the lesser toes. Mild degenerative changes of the DIP joints The soft tissue structures are unremarkable. RAD/Foot min 3 Views IMPRESSION: No acute fracture or dislocation. Electronically Signed: Remigio Qiu MD at 17:23 EDT ,
--- NOTE | 2021-09-17 15:46 | RAD_ITS ---
STUDY: X-RAY - RIGHT WRIST REASON FOR EXAM: Female, 75 years old. fall TECHNIQUE: Tree view(s) of the wrist were obtained. COMPARISON: None. FINDINGS: Acute impacted comminuted fracture of the distal radial shaft with mild overlapping and volar angulation of fracture fragments. There is also transversely oriented fracture of the ulnar styloid with mild separation of fracture fragments.. Normal radiocarpal articulation. Normal distal radioulnar articulation. Normal carpal bones. Normal carpal articulations. Normal carpometacarpal articulation of the thumb. Normal second through fifth carpometacarpal articulations. Normal visualized metacarpal bones. Diffuse soft tissue swelling of the distal forearm.. RAD/Wrist min 3 Views IMPRESSION: Acute fractures of the distal radius and ulna styloid Electronically Signed: Remigio Qiu MD at 17:26 EDT ,
--- NOTE | 2021-09-17 15:46 | RAD_ITS ---
STUDY: X-RAY - RIGHT HAND REASON FOR EXAM: Female, 75 years old. Pain after fall TECHNIQUE: 3 view(s) of the hand. COMPARISON: None. FINDINGS: Please see the impression. RAD/Hand Min 3 Views IMPRESSION: No acute fracture or dislocation in the right hand. Impacted intra-articular fracture of distal radius. Mildly displaced fracture of the ulnar styloid. Polyarticular osteoarthritis. Diffuse osteopenia. No radiopaque foreign body. Electronically Signed: Buster Mcmahan MD at 18:22 EDT ,
--- NOTE | 2021-09-17 15:47 | CT_ITS ---
STUDY: CT BRAIN WITHOUT CONTRAST REASON FOR EXAM: Female, 75 years old. fall RADIATION DOSAGE (If Supplied By Facility): CTDIvol = ( 44.99 ) mGy, DLP = ( 796.11 ) mGycm TECHNIQUE: Transaxial CT imaging of the brain was performed without administration of intravenous contrast material. Individualized dose optimization techniques were used for this CT. COMPARISON: 04/22/2017. FINDINGS: Normal soft tissue structures. Normal calvarium. Mild atrophy and periventricular white matter ischemic changes.. Normal basal ganglia and thalami. Normal brainstem. Normal cerebellum. There is no intracranial hemorrhage. There are no findings of an acute ischemic infarction. 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 No evidence for acute intracranial hemorrhage. Electronically Signed: Remigio Qiu MD at 17:21 EDT ,
--- NOTE | 2021-09-17 15:49 | EDS_ITS ---
HPI <URIEL Escalante - Last Filed: 09/17/21 18:26> History of Present Illness Chief Complaint: Fall Narrative Narrative: 75-year-old female with history of hypertension presents to the emergency department after mechanical fall. Patient states that she tripped over a cord, falling forwards. She had braced her fall with her right hand. Patient is deformity of the right wrist, pain to the right hand, she also is pain of the right elbow. Patient does have a superficial laceration to the chin. She denies any LOC however states when she got up she did feel lightheaded and did have some vision changes. Patient on arrival felt dizzy, did have a low blood pressure 74/43. Once patient was back to the room her pressure increased to 97/65. Patient is alert and orient x4. Patient did have 1 beer today. Patient denies any neck pain, back pain. PFSH <URIEL Escalante - Last Filed: 09/17/21 18:26> [facility] Medical History (Updated 09/17/21 @ 18:23 by URIEL Escalante) Alcohol use Arthritis CPAP (continuous positive airway pressure) dependence History of echocardiogram History of stress test Hypertension Injury of head and neck Non-smoker Sleep apnea Wears contact lenses Wears glasses Home Medications amlodipine 10 mg PO DAILY 03/21/19 [History Last Taken 11/14/20 07:15] Lactobacillus acidophilus [Probiotic] 10,000 mmu cells PO DAILY 11/07/20 [History Last Taken Unknown] calcium acetate-magnesium carb 1 tab PO DAILY 11/07/20 [History Last Taken Unknown] cholecalciferol (vitamin D3) [Vitamin D3] 250 mcg PO DAILY 11/07/20 [History Last Taken Unknown] coenzyme Q10 [CoQ-10] 200 mg PO DAILY 11/07/20 [History Last Taken Unknown] rftqtnpf-karhn-lhc5-C-giuliana-bor [Ogzklrqa-Ofyuu-MOP(with boron)] 1 tab PO DAILY 11/07/20 [History Last Taken Unknown] multivitamin with minerals 1 cap PO DAILY 11/07/20 [History Last Taken Unknown] omega 0-gjr-dfl-fish oil [[place]-3] 2 cap PO DAILY 11/07/20 [History Last Taken Unknown] hydrocodone-acetaminophen 1 tab PO Q6H PRN 3 Days #10 tab 09/17/21 [Rx Last Taken Unknown] Allergy/AdvReac Type Severity Reaction Status Date / Time amoxicillin [Amoxicillin] Allergy Other Verified 09/17/21 15:37 bee venom protein (honey bee) Allergy Swelling Verified 09/17/21 15:37 Penicillins Allergy Other Verified 09/17/21 15:37 LOTION Allergy Rash Uncoded 09/17/21 15:37 SHAMPOO Allergy Rash Uncoded 09/17/21 15:37 Surgical History History of partial hysterectomy Hx of colonoscopy Social History Smoking Status: Never smoker ROS <URIEL Escalante - Last Filed: 09/17/21 18:26> ROS ED ROS Narrative Constitutional: Negative for fever, chills, weight loss, weakness Eyes: Negative for vision loss, vision change, double vision ENT: Negative for any sore throat, ear pain, congestion. Positive for chin pain Cardiovascular: Negative for any chest pain, tightness, palpitations Respiratory: Negative for any cough, sputum production, hemoptysis, dyspnea, dyspnea on exertion, orthopnea Gastrointestinal: Negative for any abdominal pain, nausea, vomiting, diarrhea, constipation, blood in stool, blood in vomit : Negative for any urinary frequency, dysuria, retention, blood in urine Muscle skeletal: Negative for any muscle joint pain, stiffness, myalgias, arthralgias, neck pain, back pain. Positive right wrist pain, right hand pain, right elbow, left foot Neurological: Negative for any syncope, numbness or tingling, dizziness. Positive for headache Skin: Negative for any rashes, lumps, itching, abrasions, lacerations Psychiatric: Negative for any depression, anxiety, stress, suicidal ideation, homicidal ideation Hematologic: Negative for any easy bruising, excessive bruising, easy bleeding Allergies: Negative for any eczema, hives, rash EXAM <URIEL Esclaante - Last Filed: 09/17/21 18:26> Physical Exam Narrative Exam Narrative: Vital signs reviewed. Alert and orient x4. GCS 15 HEET: Head normocephalic atraumatic, TMs clear bilaterally. Posterior pharynx is clear, moist mucous membranes. Nares clear bilaterally. Pupils are equal round reactive to light. Negative for any hemotympanum, septal hematoma. Patient does have a superficial laceration to the chin. Neck: Supple with no lymphadenopathy or tenderness. No signs of meningismus, negative jolt sign. Cardiac: Regular rate and rhythm no murmurs gallops or rubs, equal peripheral pulses bilaterally. Respiratory: Lungs clear to auscultation bilaterally. No chest tenderness. Abdomen: Soft, nontender, nondistended. No abdominal bruit or pulsatile masses. No hepatosplenomegaly Extremities: Patient does have deformity to the distal radial ulnar. +2 radial pulse. Patient is full range of motion of the hand. Patient also planes of pain to the right thumb. Patient has pain to the dorsal aspect of the left foot, patient has no ecchymosis or edema in that area. Painful on palpation. +2 pedal pulse. Able to dorsiflex, plantarflex left foot. Neuro: Cranial nerves II through XII intact, no focal neurological deficits. Skin: Clean dry and intact with no rash, purpura, petechiae, vesicles or pustules. Backs/flank: No CVA tenderness, no midline spinal tenderness, no deformity. Psych: Normal mood and affect. No SI, HI or acute psychosis. Const Vital Signs: 09/17/21 15:34 09/17/21 15:41 09/17/21 17:17 Temperature 97.4 F L Temperature Source Temporal Pulse Rate 58 L 75 89 Pulse Rate [1 (Initial Baseline)] Pulse Rate [2] Respiratory Rate 14 16 18 Respiratory Rate [1 (Initial Baseline)] Respiratory Rate [2] Blood Pressure 74/43 L 97/65 142/74 H Blood Pressure [1 (Initial Baseline)] Blood Pressure [2] Blood Pressure Mean 53 75 96 Pulse Ox 99 97 96 Oxygen Delivery Method Room Air Room Air Room Air Oxygen Delivery Method [1 (Initial Baseline)] Oxygen Delivery Method [2] Oxygen Flow Rate (L/min) Oxygen Flow Rate (L/min) [1 (Initial Baseline)] Oxygen Flow Rate (L/min) [2] 09/17/21 17:44 09/17/21 17:52 09/17/21 18:03 Temperature Temperature Source Pulse Rate 88 Pulse Rate [1 (Initial Baseline)] 93 Pulse Rate [2] 89 Respiratory Rate 18 Respiratory Rate [1 (Initial Baseline)] 16 Respiratory Rate [2] 20 H Blood Pressure 147/75 H Blood Pressure [1 (Initial Baseline)] 132/72 H Blood Pressure [2] 143/77 H Blood Pressure Mean Pulse Ox 100 Oxygen Delivery Method Nasal Cannula Room Air Oxygen Delivery Method [1 (Initial Baseline)] Nasal Cannula Oxygen Delivery Method [2] Nasal Cannula Oxygen Flow Rate (L/min) 6 Oxygen Flow Rate (L/min) [1 (Initial Baseline)] 6 Oxygen Flow Rate (L/min) [2] 6 09/17/21 18:08 09/17/21 18:13 Temperature Temperature Source Pulse Rate Pulse Rate [1 (Initial Baseline)] Pulse Rate [2] Respiratory Rate Respiratory Rate [1 (Initial Baseline)] Respiratory Rate [2] Blood Pressure Blood Pressure [1 (Initial Baseline)] Blood Pressure [2] Blood Pressure Mean Pulse Ox Oxygen Delivery Method Room Air Room Air Oxygen Delivery Method [1 (Initial Baseline)] Oxygen Delivery Method [2] Oxygen Flow Rate (L/min) Oxygen Flow Rate (L/min) [1 (Initial Baseline)] Oxygen Flow Rate (L/min) [2] Positive well nourished and well developed General Appearance ED: well developed <Dr. Amanda Hickey, DO - Last Filed: 09/17/21 18:36> Physical Exam Const Vital Signs: 09/17/21 15:34 09/17/21 15:41 09/17/21 17:17 Temperature 97.4 F L Temperature Source Temporal Pulse Rate 58 L 75 89 Pulse Rate [1 (Initial Baseline)] Pulse Rate [2] Respiratory Rate 14 16 18 Respiratory Rate [1 (Initial Baseline)] Respiratory Rate [2] Blood Pressure 74/43 L 97/65 142/74 H Blood Pressure [1 (Initial Baseline)] Blood Pressure [2] Blood Pressure Mean 53 75 96 Pulse Ox 99 97 96 Oxygen Delivery Method Room Air Room Air Room Air Oxygen Delivery Method [1 (Initial Baseline)] Oxygen Delivery Method [2] Oxygen Flow Rate (L/min) Oxygen Flow Rate (L/min) [1 (Initial Baseline)] Oxygen Flow Rate (L/min) [2] 09/17/21 17:44 09/17/21 17:52 09/17/21 18:03 Temperature Temperature Source Pulse Rate 88 Pulse Rate [1 (Initial Baseline)] 93 Pulse Rate [2] 89 Respiratory Rate 18 Respiratory Rate [1 (Initial Baseline)] 16 Respiratory Rate [2] 20 H Blood Pressure 147/75 H Blood Pressure [1 (Initial Baseline)] 132/72 H Blood Pressure [2] 143/77 H Blood Pressure Mean Pulse Ox 100 Oxygen Delivery Method Nasal Cannula Room Air Oxygen Delivery Method [1 (Initial Baseline)] Nasal Cannula Oxygen Delivery Method [2] Nasal Cannula Oxygen Flow Rate (L/min) 6 Oxygen Flow Rate (L/min) [1 (Initial Baseline)] 6 Oxygen Flow Rate (L/min) [2] 6 09/17/21 18:08 09/17/21 18:13 Temperature Temperature Source Pulse Rate Pulse Rate [1 (Initial Baseline)] Pulse Rate [2] Respiratory Rate Respiratory Rate [1 (Initial Baseline)] Respiratory Rate [2] Blood Pressure Blood Pressure [1 (Initial Baseline)] Blood Pressure [2] Blood Pressure Mean Pulse Ox Oxygen Delivery Method Room Air Room Air Oxygen Delivery Method [1 (Initial Baseline)] Oxygen Delivery Method [2] Oxygen Flow Rate (L/min) Oxygen Flow Rate (L/min) [1 (Initial Baseline)] Oxygen Flow Rate (L/min) [2] [facility] <URIEL Escalante - Last Filed: 09/17/21 18:26> [facility] Narrative Medical decision making narrative: Patient arrives in moderate distress secondary to right wrist pain. Patient mechanical fall, deformity to the right wrist, left foot pain, patient does have laceration to the chin. Patient did receive multiple x-rays and CT scans. Patient's vital signs remained stable. Patient foot x-ray shows no acute fracture. Brain CT was unremarked for any acute process. Patient's elbow x-ray was a normal x-ray, read by ER attending. Patient's x-ray of the right wrist shows an acute fracture the distal radius and ulnar styloid, this was read by ER attending, radiology agrees. I was able to place 2 sutures to the patient's chin for closure, edges approximated nicely, patient tolerated well. ER attending did speak with orthopedic, they prefer that the patient be reduced for better splinting. Patient will need to follow- up outpatient. Patient again refuses analgesia at this time Patient did receive procedural sedation for closed reduction of the right wrist. This was completed by ER attending. Post reduction x-rays were completed, markedly improved and of the distal radius. Patient will follow up with Dr. Hutchison orthopedics. She will be given pain medicine for home. She will also be given a sling. Patient was placed in a fiberglass AP splint. She is instructed to maintain elevation, to continue to ice. She is instructed to return here for any worsening pain, fever chills nausea vomit. She will have the sutures removed from her chin in 5 to 7 days. Patient is happy with the plan of care and is stable for discharge. Patient will be discharged for: 1. Fall 2. Right wrist fracture 3. Left foot contusion 4. Chin laceration Radiography Diagnostic Testing: Clinical Impression(s) from Imaging Studies Foot X-Ray 09/17/21 15:46 IMPRESSION: No acute fracture or dislocation. Electronically Signed: Remigio Qiu MD at 17:23 EDT , Hand X-Ray 09/17/21 15:46 IMPRESSION: No acute fracture or dislocation in the right hand. Impacted intra-articular fracture of distal radius. Mildly displaced fracture of the ulnar styloid. Polyarticular osteoarthritis. Diffuse osteopenia. No radiopaque foreign body. Electronically Signed: Buster Mcmahan MD at 18:22 EDT , Wrist X-Ray 09/17/21 15:46 IMPRESSION: Acute fractures of the distal radius and ulna styloid Electronically Signed: Remigio Qiu MD at 17:26 EDT , Brain CT 09/17/21 15:47 IMPRESSION: Mild atrophy and periventricular white matter ischemic change. No evidence for acute intracranial hemorrhage. Electronically Signed: Remigio Qiu MD at 17:21 EDT , Elbow X-Ray 09/17/21 15:49 IMPRESSION: Normal x-ray examination of the elbow. Electronically Signed: Remigio Qiu MD at 17:21 EDT , <Dr. Amanda Hickey, DO - Last Filed: 09/17/21 18:36> [facility] Narrative Medical decision making narrative: I have personally performed a face to face assessment of the patient and have reviewed the JULIETA Note. I performed a substantive portion of the visit including all aspects of the following. My silva findings include: History is [patient presents with a fall after tripping over the chains of her dog. Patient did hit her chin and sustained a small laceration. She also injured her right wrist. She complains of right elbow pain left foot pain. She denies neck pain. She denies chest pain or abdominal pain. She denies recent illness. Her last tetanus shot was about 6 years ago.] Exam is [HEENT-PERRLA, EOMI. Cranial nerves II through XII grossly intact. TMs clear. Mucous membranes moist. No adenopathy. Patient has a 1.5 cm laceration underneath her chin. No bony tenderness to the mandible and no malocclusion. Cardiovascular-regular rate and rhythm without murmur or ectopy Lungs-clear to auscultation, chest wall stable without crepitus or subcu emphysema Abdomen-normoactive bowel sounds, soft, nontender, no rebound or rigidity, no peritoneal signs. Extremities-intact ?4, normal range of motion, normal pulses. Left wrist- patient does have diffuse soft tissue swelling with some pain ecchymosis noted. There is mild deformity noted. She has normal range of motion of all digits. She is neurovascular intact distally. She has some mild diffuse tenderness palpation over the elbow and some mild pain with flexion extension of the elbow.] Medical Decison Making [patient had a CT scan of her brain that was unremarkable. X-rays of the left foot and right elbow were unremarkable. Patient had x-ray of the right wrist that showed a distal radius fracture that was displaced. I did discuss case with orthopedics Dr. Néstor Hutchison who recommended attempted reduction and splinting in outpatient follow-up with him. Patient was consented for procedural sedation with propofol. Patient received 120 mg total of propofol with good sedation obtained. I was able to easily reduce the fracture. Patient was placed in an AP splint. Post reduction x-rays obtained interpreted by myself as good reduction. Patient neurovascular intact afterwards. Patient will be given a prescription for [place] for pain and referral to Dr. Néstor Hutchison. Patient was seen in conjunction with physician document control assistant who repaired the patient's laceration under her chin. She is to have sutures removed in 5 to 7 days. Time for procedural sedation of 20 minutes.] Other additions or changes: [None] Radiography Diagnostic Testing: Clinical Impression(s) from Imaging Studies Foot X-Ray 09/17/21 15:46 IMPRESSION: No acute fracture or dislocation. Electronically Signed: Remigio Qiu MD at 17:23 EDT , Hand X-Ray 09/17/21 15:46 IMPRESSION: No acute fracture or dislocation in the right hand. Impacted intra-articular fracture of distal radius. Mildly displaced fracture of the ulnar styloid. Polyarticular osteoarthritis. Diffuse osteopenia. No radiopaque foreign body. Electronically Signed: Buster Mcmahan MD at 18:22 EDT , Wrist X-Ray 09/17/21 15:46 IMPRESSION: Acute fractures of the distal radius and ulna styloid Electronically Signed: Remigio Qiu MD at 17:26 EDT , Brain CT 09/17/21 15:47 IMPRESSION: Mild atrophy and periventricular white matter ischemic change. No evidence for acute intracranial hemorrhage. Electronically Signed: Remigio Qiu MD at 17:21 EDT , Elbow X-Ray 09/17/21 15:49 IMPRESSION: Normal x-ray examination of the elbow. Electronically Signed: Remigio Qiu MD at 17:21 EDT Reading Location ID and State: [address] [place] [address] , Service support , Procedures <URIEL Escalante - Last Filed: 09/17/21 18:26> Lacerations Laceration: Length: 0.59 in Depth: Skin Shape: Flap Prep: Sterile Conditions and Shure-Clens Laceration repair: Lidocaine Irrigated (ml): 200 Number of Sutures/Qasim: 2 Suture Information: Ethilon Comment: Sterile gloves, sterile drapes were used. No foreign body noted. Edges approximate nicely. Discharge Plan Triage Chief Complaint: Fall ED Midlevel Provider: Nikhil Carney ED Provider: Amanda Hickey Dx/Rx/DC Orders Clinical Impression: Fracture of wrist, Chin laceration, Contusion of foot Instructions: Treating Wrist Fractures, ED Foot Contusion, ED Laceration, Face: Skin Glue, ED Fracture, Wrist, General Prescriptions: New hydrocodone-acetaminophen 5-325 mg tablet 1 tab PO Q6H PRN (Reason: pain) 3 Days Qty: 10 RF: 0 No Action amlodipine 5 MG tablet 10 mg PO DAILY RF: 0 calcium acetate-magnesium carb 450-200 mg Tablet 1 tab PO DAILY RF: 0 multivitamin with minerals Capsule 1 cap PO DAILY RF: 0 coenzyme Q10 [CoQ-10] 100 mg Capsule 200 mg PO DAILY RF: 0 cholecalciferol (vitamin D3) [Vitamin D3] 125 mcg (5,000 unit) Tablet 250 mcg PO DAILY RF: 0 ryjutvju-tknsa-jml4-C-giuliana-bor [Unusnkoy-Glwsv-BUH(with boron)] 398-709-77-1 mg Tablet 1 tab PO DAILY RF: 0 Probiotic 10 billion cell Capsule 10,000 mmu cells PO DAILY RF: 0 [place]-3 350 mg-235 mg- 90 mg-597 mg Capsule,Delayed Release(Dr/Ec) 2 cap PO DAILY RF: 0 Primary Care Provider: Galielo Rai Referrals: Galileo Rai DO [Primary Care Provider] - Néstor Hutchison MD [STAFF PHYSICIAN] - Activity Restrictions/Additional Instructions: Please take [place] for any severe pain. Keep the extremity elevated, you may ice. Use in a sling when ambulatory. The sutures on your chin need to come out in 5 to 7 days. He will follow-up with orthopedics. Please return here for any pain out of proportion, numbness or tingling. Print Language: Persian Disposition Disposition: Home, Self Care
--- NOTE | 2021-09-17 15:49 | RAD_ITS ---
STUDY: X-RAY - RIGHT ELBOW REASON FOR EXAM: Female, 75 years old. fall TECHNIQUE: 3 view(s) of the elbow. COMPARISON: None. FINDINGS: Normal visualized humerus, radius and ulna. Normal radiocapitellar and ulnotrochlear articulations. The soft tissue structures are unremarkable. RAD/Elbow min 3 Views IMPRESSION: Normal x-ray examination of the elbow. Electronically Signed: Remigio Qiu MD at 17:21 EDT ,
--- NOTE | 2021-09-17 18:10 | RAD_ITS ---
STUDY: X-RAY - RIGHT WRIST REASON FOR EXAM: Female, 75 years old. post reduction TECHNIQUE: 3 view(s) of the wrist were obtained. COMPARISON: Earlier same day FINDINGS: Please see the impression. RAD/Wrist min 3 Views IMPRESSION: Osseous details obscured by the overlying cast. Interval reduction of distal radial fracture. Fracture fragments in anatomic alignment. No significant change in alignment of the fracture fragments involving the ulnar styloid. Diffuse osteopenia. Electronically Signed: Buster Mcmahan MD at 19:27 EDT ,
[2021-09-17] MEDS: Propofol 200 MG/20 ML Vial IV BOLUS (18:16)
[2021-09-17] MEDS: Diphth,Pertuss(Acell),Tet Vac 0.5 ML Vial IM (18:38)
== END 2021-09-17 19:00 | disposition home or self-care (01) ==
PROVIDERS: Emergency Provider Emergency Medicine; PCP Student in an Organized Health Care Education/Training Program; Visit Provider Emergency Medicine
DX: S52.301A Unspecified fracture of shaft of right radius, initial encounter for closed fracture (principal); S52.611A Displaced fracture of right ulna styloid process, initial encounter for closed fracture; S01.81XA Laceration without foreign body of other part of head, initial encounter; S90.32XA Contusion of left foot, initial encounter; Z23 Encounter for immunization; M79.641 Pain in right hand; M25.521 Pain in right elbow; M25.532 Pain in left wrist; I10 Essential (primary) hypertension; I95.9 Hypotension, unspecified; G47.30 Sleep apnea, unspecified
CPT/HCPCS: 25605; 12011; 70450; 73080; 73110; 73130; 73630; 90715; 99284; J7030; A4216; J2405

== ENCOUNTER 2021-10-04 09:58 | Day surgery (SDC) | payer MEDICARE, SELFPAY ==
--- NOTE | 2021-10-03 12:59 | EKG12_ITS ---
Test Reason : PREOP Blood Pressure : / mmHG Vent. Rate : 073 BPM Atrial Rate : 073 BPM P-R Int : 180 ms QRS Dur : 084 ms QT Int : 420 ms P-R-T Axes : 014 037 041 degrees QTc Int : 462 ms Normal sinus rhythm Normal ECG Confirmed by GHASSAN GARCIA, CONSTANTINE ([id number]), editor dictionary ROSEY OBRIEN ([id number]) on 10/04/2021 8:52:49 AM Referred By: Kei Monge Confirmed By:CONSTANTINE FERRELL MD
--- NOTE | 2021-10-03 12:59 | RAD_ITS ---
EXAM: XR CHEST, 2 VIEWS CLINICAL INDICATION: PRE OP TECHNIQUE: Frontal and lateral views of the chest. This report was created using [employer] report generation technology. COMPARISON: 04/22/2017 FINDINGS: LUNGS AND PLEURAL SPACES: Unremarkable. No consolidation or edema. No pneumothorax. No effusion. HEART: Unremarkable. Cardiac silhouette not enlarged. MEDIASTINUM: Central airways and mediastinal contour are unremarkable. BONES/JOINTS: Unremarkable. SOFT TISSUES: Unremarkable. RAD/Chest PA and Lateral IMPRESSION: No radiographic evidence of acute cardiopulmonary disease. Electronically Signed: Ramin Vaz MD at 0:50 EDT ,
[2021-10-03 13:44] LABS: Absolute Lymphocyte Count 2.44 X10^3/uL (0.83-4.51); Absolute Neutrophil Count 3.4 X10^3/uL (2.0-7.7); Basophil# 0.04 X10^3/uL; Basophil% 0.6 % (0-1); Eosinophil# 0.05 X10^3/uL; Eosinophils% 0.7 % (0-5); Hematocrit 42.3 % (37-47); Hemoglobin 13.5 g/dL (12.0-15.0); Lymphocyte # 2.44 X10^3/ul (0.83-4.51); Lymphocyte % 36.4 % (19-41); Mean Corp Hgb Conc 31.9 g/dL (32-36); Mean Corpuscular Hgb 29.2 pg (27.0-32.0); Mean Corpuscular Volume 91.6 fL (81-99); Mean Platelet Vol. 10.4 fl (6.2-12.0); Monocyte# 0.73 X10^3/uL; Monocyte% 10.9 % (0-10); NRBC Flagged by Analyzer 0 % (0-5); Neutrophil # 3.42 X10^3/uL (2.7-7.7); Neutrophil % 51.1 % (47-70); Platelet Count 335 K/mm3 (150-450); RBC Distribution Width CV 14.4 % (11.6-14.6); RBC Distribution Width SD 48.4 fl (35.1-43.9); Red Blood Count 4.62 M/mm3 (4.2-5.4); White Blood Count 6.7 K/mm3 (4.4-11.0)
[2021-10-03 14:01] LABS: Anion Gap 7 (5-15); BUN 12 mg/dL (7-18); Calcium,Total 9.2 mg/dL (8.5-10.1); Chloride 104 mmol/L (98-107); Creatinine, Serum 0.67 mg/dL (0.55-1.02); EST Glomerular Filtration Rate 91 mL/min (>60); Est Glom Filt Rate - Afr Amer 110 mL/min (>60); Glucose 98 mg/dL (74-106); Potassium 3.9 mmol/L (3.5-5.1); Sodium Level 138 mmol/L (136-145)
[2021-10-04] VITALS (7 sets, daily range): BP systolic 120–132; BP diastolic 67–91; PULSE 72–84; RESP 16–18; TEMP 36.1–36.8; O2SAT 92–98; BMI 28.2
[2021-10-04] MEDS: Lactated Ringers 1,000 ML 15 ML IV ×2 (10:48→14:03)
--- NOTE | 2021-10-04 11:00 | RAD_ITS ---
EXAM: XR RIGHT WRIST, 2 VIEWS CLINICAL INDICATION: FX TECHNIQUE: Frontal and lateral views of the right wrist. This report was created using [employer] report generation technology. COMPARISON: None. FINDINGS: BONES/JOINTS: Intraoperative images show placement of an orthopedic plate and screw across a distal radius fracture. Alignment is anatomic. Preservation of the joint space. No sclerotic or destructive changes observed. SOFT TISSUES: Unremarkable. No soft tissue swelling or gas. No radiopaque foreign body. RAD/Wrist 2 Views IMPRESSION: ORIF of a distal radius fracture. Electronically Signed: Ramin Vaz MD at 23:20 EDT ,
[2021-10-04] MEDS: Cefazolin 2 GM in 0.9% Normal Saline 100 ML IV (12:16)
--- NOTE | 2021-10-04 13:23 | DCINST_ITS ---
Discharge Instructions Follow Up Care Test Results: Test results from this visit will be discussed in further detail at your follow- up appointment, if applicable. Discharge Plan Admission Attending Provider: Kei Monge Primary Care Provider: Galileo Rai Instructions Additional Instructions / Restrictions: Follow preprinted instructions from your surgeons office. Discharge Orders/Prescriptions Prescriptions: No Action amlodipine 5 MG tablet 10 mg PO DAILY Label Comments: TAKE 1 TABLET BY MOUTH EVERY DAY ibuprofen [Advil] 200 mg Tablet 400 mg PO Q6H PRN (Reason: Pain) Referrals / Follow Up: Galileo Rai DO [Primary Care Provider] - Kei Monge DO [STAFF PHYSICIAN] - Within 2 Weeks Disposition Disposition (needs filled in before D/C Order can be placed): Home, Self Care
--- NOTE | 2021-10-04 13:30 | OP.PCM_ITS ---
Report of Operation Date of Procedure: 10/04/21 Description of Surgical Findings:: Preoperative diagnosis: Right extra-articular distal radius fracture Postoperative diagnosis: Right extra-articular distal radius fracture Procedure: Open reduction internal fixation right distal radius fracture Surgeon: Kei Monge DO Anesthesia: General LMA with postoperative axillary block Anesthesiologist: Dr. Lee Schwartz CRNA Complications: None apparent Drains: None Estimated blood loss: 25 cc Urinary output: None recorded IV fluids: 1 L crystalloid Specimens: None Surgical implants: Arthrex narrow right volar locking distal radius plate and screws Surgical indications: This is a 75-year-old [id number] female who sustained a fall on an outstretched right hand on 09/17/2021. Closed reduction in the emergency department was performed at that time. Patient was seen in our office. There was slight dorsal angulation with significant dorsal comminution noted. Operative versus nonoperative management were reviewed with the patient at that time. I recommended initial management with nonoperative management with a well molded splint, but given the dorsal comminution I explained that loss of reduction may occur. We followed the patient in the coming weeks and worsening dorsal angulation was noted with the carpus drifting dorsal to the volar cortex of the distal radius. I explained that the fracture may continue to settle in a worsened position and this is likely to limit her long-term function. We again discussed the risk, benefits, alternatives to operative versus nonoperative management. Joint decision making was utilized to settle on operative intervention in the form of distal radius open reduction internal fixation. We reviewed the risks. The risks included but were not limited to bleeding, flexion, loss of life or limb, persistent pain, nonhealing wound or bone, neurovascular injury, DVT or PE. Patient expressed understands risk versus proceed with surgery. Description of procedure: Patient was seen in preoperative holding area. He was identified by name, medical record number, date of . The operative extremity was marked with a surgical marker. We confirmed informed consent with the patient and all questions were answered to his satisfaction. At time of her procedure, patient was brought to the operative suite and positioned supine on a standard operating table. All bony prominences were well-padded. General anesthesia was administered. After adequate anesthesia, a well-padded pneumatic tourniquet was applied to the upper arm of the operative extremity. We then spun the bed 90 degrees. We prepped and draped the op erative extremity in a normal, sterile orthopedic fashion. We then performed a timeout with all parties in attendance in agreement the side, site, and operation be performed. No concerns were voiced and we elected to proceed. 2 g Ancef was administered for antibiotic prophylaxis prior to the incision by anesthesia staff. I first exsanguinated the operative extremity with an Esmarch bandage. T ourniquet was inflated to 250 mmHg. Esmarch was removed. I planned a standard FCR approach over the flexor carpi radialis tendon along the volar wrist. Skin was sharply incised with a 15 blade scalpel down to the level of the tendon sheath. The FCR tendon sheath was identified and split longitudinally in line with the incision. I then retracted the FCR tendon ulnarly, split the floor of the tendon sheath in line with the incision. The flexor pollicis longus muscle belly was then encountered and retracted ulnarly. The pronator quadratus was then encountered. A self-retaining retractor was placed deep. Performed an L- shaped tenotomy of the pronator quadratus and subperiosteally elevated it ulnarly. This exposed the fracture site. Fracture was significantly dorsally angulated and slightly dorsally translated. I placed a freer elevator through the fracture site to free any early callus. I then utilized a freer to lever on the distal segment and regain volar tilt. Acceptable reduction was confirmed on fluoroscopy. I then selected a narrow volar locking plate from [employer]. This was pinned in appropriate position. There was still approximately 5 degrees of dorsal angulation. I then proceeded with a kickstand technique by locking the distal segment with locking screws prior to compressing the plate to bone in the metadiaphysis. Distal row locking screws were placed in appropriate position unit cortically. After securing the distal segment, I drilled a bicortical cortex screw through the oblong hole of the shaft. This levered the plate down to bone bringing the sagittal tilt to neutral. I then proceeded with variable angle locking guide under fluoroscopic guidance through the radial styloid x2. I then placed a locking screw in the distalmost shaft screw and had additional cortical screw in the proximalmost hole of the plate. Final fluoroscopic images were obtained. Acceptable alignment was noted. Appropriate size hardware and position was noted. To urniquet was deflated. Hemostasis was achieved with bipolar cautery. The pronator quadratus was allowed to lay over top of the plate. Dermis was reapproximated buried 3-0 Vicryl suture. Skin was finally closed with 4-0 running subcuticular Monocryl and skin glue. Sterile compression dressing was then applied. A well-padded volar fiberglass splint was then applied to the wrist with the fingers free. Patient tolerated procedure well without apparent complication. She was safely extubated in the operative suite and transferred to PACU in stable condition. Patient is to receive an axillary block in the PACU for postoperative analgesia. Need for skilled entry level assistant manager: Naty Simons PA-C was critical to the outcome of the case. During the course of the procedure the physician entry level assistant manager played a vital role. Her intimate knowledge of my steps in the procedure aided in safe and expedient completion of the procedure. The PA played a vital role in positioning particularly in obtaining the appropriate positioning. The PA was also vital in the retraction of soft tissues during the exposure and protecting vital structures. She was also critical during times of fracture reduction and hardware positioning. She participated in supervised wound closure and splint application with myself. Post Operative Plan: Weightbearing: Nonweightbearing operative extremity Antibiotics: 2 g Ancef x 1 dose preoperatively DVT Prophylaxis: None indicated [place]: None Dressing: Maintain splint, keep it clean dry and intact until follow-up X-Rays: 2 weeks postop in the office Pain Medication: Prescription for oxycodone provided, otherwise [id number] analgesics as needed Follow-up: 2 weeks post-operatively with me in the office
--- NOTE | 2021-10-04 14:38 | SUR.PHASEI ---
family updated via community youth secretary. patient denies pain or nausea. requests more time to rest in pacu.
== END 2021-10-04 15:55 | disposition home or self-care (01) ==
LOC: SDC 09:59 → AC 10:16
PROVIDERS: PCP Student in an Organized Health Care Education/Training Program; Referring Provider Student in an Organized Health Care Education/Training Program; Visit Provider Student in an Organized Health Care Education/Training Program
PROC: (CPT 25607; principal; 2021-10-04 11:40)
DX: S52.551A Other extraarticular fracture of lower end of right radius, initial encounter for closed fracture (principal); W01.0XXA Fall on same level from slipping, tripping and stumbling without subsequent striking against object, initial encounter; Y93.K1 Activity, walking an animal; I10 Essential (primary) hypertension; G47.30 Sleep apnea, unspecified; Z79.899 Other long term (current) drug therapy
CPT/HCPCS: 25607; 01830; 64418; 36415; 71046; 73100; 76000; 80048; 85025; 93005; C1713; J7120; J2405

== ENCOUNTER 2024-02-06 08:25 | Emergency (ER) | payer MEDICARE, SELFPAY ==
[2024-02-06 08:26] VITALS: BP 139/81; PULSE 86; RESP 18; TEMP 36.6; O2SAT 98; BMI 29.4
--- NOTE | 2024-02-06 08:51 | EDS_ITS ---
HPI History of Present Illness Chief Complaint: Allergic Reaction Informant: patient Narrative Narrative: 78-year-old female presenting to the emergency room with a wasp sting right thumb. Patient states that she was in the bathroom today and went to use the washcloth and felt a sting on her hand. 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 She states that she has some mild swelling and redness of the right thumb and feels a little bit hoarse. She has not taken any medications for this. She denies any vomiting or diarrhea. No hives that she is noticed. [facility] Medical History Skin tear History of edema Wears contact lenses Wears glasses Alcohol use Arthritis Injury of head and neck Non-smoker CPAP (continuous positive airway pressure) dependence History of echocardiogram History of stress test Hypertension Home Medications ?Medication ?Instructions ?Recorded ?Last Taken ?Type amlodipine 5 mg tablet 10 mg PO DAILY 03/21/19 10/04/21 History ibuprofen 200 mg tablet (Advil) 400 mg PO Q6H PRN Pain 10/03/21 Unknown History oxycodone 5 mg tablet 5 mg PO Q6H PRN pain 3 days #12 10/04/21 Unknown Rx tabs Allergy/AdvReac Type Severity Reaction Status Date / Time amoxicillin (Amoxicillin) Allergy Other Verified 02/06/24 08:25 bee venom protein (honey bee) Allergy Swelling Verified 02/06/24 08:25 Environmental Allergies: Allergy Rash Verified 02/06/24 08:25 Uncoded Penicillins Allergy Other Verified 02/06/24 08:25 Surgical History History of carpal tunnel surgery of right wrist Hx of colonoscopy History of partial hysterectomy Social History Smoking Status: Never smoker ROS ROS ED Constitutional Constitutional ED: Denies chills or weight loss Eyes Eyes: Denies change in vision or diplopia ENT ENT ED: Reports other Details: Intermittent hoarse voice ; Denies ear pain, rhinorrhea or sore throat Cardiovascular Cardiovascular: Denies chest pain, orthopnea, palpitations or racing heartbeat Respiratory/Chest Respiratory/Chest: Denies cough, dyspnea or orthopnea Gastrointestinal Gastrointestinal: Denies abdominal pain, diarrhea, nausea or vomiting Genitourinary Genitourinary ED: Denies dysuria, hematuria or urinary frequency Musculoskeletal Musculoskeletal: Denies arthralgias or myalgias Integumentary Reports other Details: See history of present illness ; Denies abscess or rash Neurologic Neurologic: Denies headache(s) or weakness Psychiatric Psychiatric: Denies anxiety, depression, suicidal ideation or suicidal thoughts Endocrine Endocrinology: Denies polydipsia, polyphagia or polyuria Allergic/Immunologic Allergic/Immunologic ED: Denies mouth swelling, tongue swelling or urticaria EXAM Physical Exam Const Vital Signs: 02/06/24 08:26 02/06/24 09:25 02/06/24 10:00 Temperature 97.8 F Temperature Source Oral Pulse Rate 86 70 71 Respiratory Rate 18 16 16 Blood Pressure 139/81 H 134/70 H 136/73 H Blood Pressure Mean 100 91 94 Pulse Ox 98 94 93 Oxygen Delivery Method Room Air Room Air Room Air 02/06/24 11:00 02/06/24 11:39 Temperature 98.4 F 98.9 F Temperature Source Temporal Pulse Rate 84 78 Respiratory Rate 16 16 Blood Pressure 126/76 H 142/76 H Blood Pressure Mean 92 98 Pulse Ox 98 99 Oxygen Delivery Method Room Air Positive well nourished and well developed General Appearance ED: well developed HEENT Reports normocephalic, head/scalp atraumatic and moist mucous membranes HEENT Narrative: No stridor. No uvular swelling. No lip or tongue swelling. Handling sec retions normally. Voice sounds normal. Occasionally there is a phlegmy sound to her voice which clears with cough Eyes PERRL and EOMs intact bilaterally Neck no lymphadenopathy, supple and no JVD Resp normal respiratory effort and clear to auscultation bilaterally Cardio regular rate, regular rhythm and no murmurs GI normal to inspection, nondistended, normoactive bowel sounds and non-tender Palpation: soft Back/Spine no CVA tenderness and normal ROM Extremity normal to inspection General Extremety ED: Negative for edema General Extremity: Negative for edema Neuro oriented x3 and CN's II-XII intact bilaterally Sensorium / Orientation: alert Motor Exam: strength 5/5 throughout Psych mental status grossly normal Mood & Affect: Negative for depressed or tearful Skin no wounds Skin Narrative: There is some mild redness along the lateral dorsal surface of the right thumb. Neurovascularly appears intact. I do not appreciate hives. MDM MDM MDM Narrative Medical decision making narrative: Differential diagnosis includes but not limited to localized reaction to insect bite anaphylaxis bronchospasm cellulitis Patient received Benadryl as well as Solu-Medrol. She was observed for 3 hours. She has not developed any more symptomology and is appeared stable. I will recommend oral Benadryl as needed as well as topical hydrocortisone cream. Ice as needed. Return if worsening or concerns History & Record Review Discussion w/independent historian: Patient and Significant other Discharge Plan Triage Chief Complaint: Allergic Reaction ED Provider: Terrance Vences Dx/Rx/DC Orders Clinical Impression: Local reaction to insect sting Instructions: ED Insect Sting, Local Reaction Prescriptions: No Action amlodipine 5 MG tablet 10 mg PO DAILY Patient Comments: TAKE 1 TABLET BY MOUTH EVERY DAY ibuprofen [Advil] 200 mg Tablet 400 mg PO Q6H PRN (Reason: Pain) oxycodone 5 mg tablet 5 mg PO Q6H PRN (Reason: pain) 3 Days Qty: 12 0RF Primary Care Provider: Galileo Rai Referrals: Galileo Rai DO [Primary Care Provider] - As Needed Activity Restrictions/Additional Instructions: I would recommend oral Benadryl as needed for itching and redness. Local hydrocortisone cream as needed Monitor for any late findings of allergic reaction such as hives difficulty breathing throat swelling Ice as needed for swelling Return if any concerns or worsening Print Language: Anguillan Disposition Disposition: Home, Self Care Discharge Date/Time: 02/06/24 11:40
[2024-02-06] MEDS: DiphenhydrAMINE 50 MG/ML Syringe 25 MG IV (08:56)
[2024-02-06] MEDS: MethylPREDNISolone 125 MG/2 ML Vial 60 MG IV (08:58)
[2024-02-06 09:25] VITALS: BP 134/70; PULSE 70; RESP 16; O2SAT 94
[2024-02-06 10:00] VITALS: BP 136/73; PULSE 71; RESP 16; O2SAT 93
[2024-02-06 11:00] VITALS: BP 126/76; PULSE 84; RESP 16; TEMP 36.9; O2SAT 98
[2024-02-06 11:39] VITALS: BP 142/76; PULSE 78; RESP 16; TEMP 37.2; O2SAT 99
== END 2024-02-06 11:40 | disposition home or self-care (01) ==
PROVIDERS: Emergency Provider Emergency Medicine; PCP Student in an Organized Health Care Education/Training Program; Visit Provider Emergency Medicine
DX: T63.461A Toxic effect of venom of wasps, accidental (unintentional), initial encounter (principal); I10 Essential (primary) hypertension; Z79.899 Other long term (current) drug therapy; Z90.711 Acquired absence of uterus with remaining cervical stump
CPT/HCPCS: 96374; 96375; 99283; A4216

== ENCOUNTER 2024-12-27 12:27 | Emergency (ER) | payer MEDICARE, SELFPAY ==
[2024-12-27 12:29] VITALS: BP 124/79; PULSE 68; RESP 18; TEMP 36.3; O2SAT 96; BMI 27.2
[2024-12-27 12:39] VITALS: O2SAT 98
--- NOTE | 2024-12-27 12:45 | RAD_ITS ---
PROCEDURE: HAND MIN 3 VIEWS 12/27/2024 REASON FOR EXAM: TRAUMA TECHNIQUE: Procedure Code: HIWOT Modality: DX Procedure: HAND MIN 3 VIEWS Laterality: Right COMPARISON: 09/17/2021 FINDINGS: BONES: Intra-articular fracture in the head of the 2nd metacarpal with minimal medial displacement of the distal fracture fragment. Fixation hardware in the distal radius. Old ulnar styloid process and 5th proximal phalanx fractures. JOINTS: No dislocation. Arthritic changes in the 1st to 5th interphalangeal joints. SOFT TISSUES: Mild diffuse swelling of the 2nd finger. RAD/Hand Min 3 Views IMPRESSION: Acute 2nd metacarpal head fracture. Reading Location: [id number]
--- NOTE | 2024-12-27 12:46 | EDS_ITS ---
HPI History of Present Illness Chief Complaint: Fall Narrative Narrative: 79-year-old female presents with pain and swelling of her right hand after fall. She states that she was rushing around getting ready to leave the house with her for minda. Her shoe got stuck on the hardwood floor and she tripped forward falling into the end table next to her 's recliner. While she hit her head, she denies any loss of consciousness or neck pain. She does not take blood thinners. She sustained a superficial laceration to her left forehead/christianity area by her orbit. She states she is not concerned about that but she noticed that at brun her right hand started swelling at the base of the right second digit. She denies any wrist pain. Pain is worse with movement of the second digit. She relates history that she has a remote Colles' fracture that she has seen Dr. Monge with orthopedics for previously. Tetanus immunization is current from 2 months ago for cataract surgery. [facility] Medical History Skin tear History of edema Wears contact lenses Wears glasses Alcohol use Arthritis Injury of head and neck Non-smoker CPAP (continuous positive airway pressure) dependence History of echocardiogram History of stress test Hypertension Home Medications ?Medication ?Instructions ?Recorded ?Last Taken ?Type amlodipine 5 mg tablet 10 mg PO DAILY 03/21/1909/07 History ibuprofen 200 mg tablet (Advil) 400 mg PO Q6H PRN Pain 10/03/21 Unknown History oxycodone 5 mg tablet 5 mg PO Q6H PRN pain 3 days #12 10/04/21 Unknown Rx tabs Allergy/AdvReac Type Severity Reaction Status Date / Time amoxicillin (Amoxicillin) Allergy Other Verified 12/27/24 12:29 bee venom protein (honey bee) Allergy Swelling Verified 12/27/24 12:29 Environmental Allergies: Allergy Rash Verified 12/27/24 12:29 Uncoded Penicillins Allergy Other Verified 12/27/24 12:29 Surgical History History of carpal tunnel surgery of right wrist Hx of colonoscopy History of partial hysterectomy Social History Smoking Status: Never smoker ROS ROS ED ROS Narrative Review of systems positive for pain and swelling of right second digit/metacarpal joint. Positive laceration to left forehead. Tetanus immunization current. Denies neck pain, no loss of consciousness, no oral intake of blood thinners. Patient states that she is only concerned with the swelling of her right knuckle second digit. EXAM Physical Exam Narrative Exam Narrative: GCS 15. ABCs are intact. HEENT examination does show a superficial 1.5 cm laceration on the left forehead/molar area without active bleeding. Neck soft and supple without meningismus. Focused examination of the right hand does show mild swelling and tenderness at the base of the right second digit and the metacarpal phalangeal joint area. She appears neurovascular intact distally. Full range of motion of wrist without pain. Const Vital Signs: 12/27/24 12:29 12/27/24 12:39 12/27/24 13:26 Temperature 97.4 F L 98.0 F Temperature Source Temporal Pulse Rate 68 67 Respiratory Rate 18 16 Respiratory Effort Normal Respiratory Depth Normal Respiratory Pattern Normal Blood Pressure 124/79 H 135/72 H Blood Pressure Mean 94 93 Pulse Ox 96 98 100 Oxygen Delivery Method Room Air Room Air PROC Procedures Upper Extremity Splints Upper Extremity Splint: Orthoglass and Volar Splint Fabrication: Fabricated Location: Right MDM MDM MDM Narrative Medical decision making narrative: Differential diagnosis includes but not limited to hand contusion versus fracture versus finger sprain. Regarding the laceration on her christianity, she requested that butterfly bandage to be applied/Steri-Strips. I find is reasonable and I do not feel that suture closure is indicated. X-rays were obtained of the right hand and 3 views and interpreted by myself independently. I had offered the patient analgesia but she declined as well. On my individual interpretation of the x-ray of the right hand, there is an intra-articular fracture of the second digit metacarpal head. There is minimal displacement of the fracture segment medially. I reviewed the radiology report which confirms my independent interpretation. At this point in time, she will be placed in a volar resting splint and follow-up with her orthopedic surgeon, Dr. Kei Monge. She declined any stronger pain medications for her fractured hand and will take [id number] medications as needed. Continue ice and elevation at home. Return instructions reviewed. Disposition is discharged home in stable condition. History & Record Review Discussion w/independent historian: Patient and Family Radiography Diagnostic Testing: Clinical Impression(s) from Imaging Studies Hand X-Ray 12/27/24 12:45 IMPRESSION: Acute 2nd metacarpal head fracture. Reading Location: [facility] Discharge Plan Triage Chief Complaint: Fall ED Provider: Alan Lorenzo Dx/Rx/DC Orders Clinical Impression: Closed fracture of head of metacarpal bone, Forehead laceration Instructions: ED Closed Hand Fracture (Adult), ED Laceration Superficial No Stitch Prescriptions: No Action amlodipine 5 MG tablet 10 mg PO DAILY Patient Comments: TAKE 1 TABLET BY MOUTH EVERY DAY ibuprofen [Advil] 200 mg Tablet 400 mg PO Q6H PRN (Reason: Pain) oxycodone 5 mg tablet 5 mg PO Q6H PRN (Reason: pain) 3 Days Qty: 12 0RF Primary Care Provider: Galileo Rai Referrals: Galileo Rai DO [Primary Care Provider, Medical] Kei Monge DO [Med Staff - Active Staff, Orthopedics] - 5-7 Days Activity Restrictions/Additional Instructions: Do not get splint wet. Follow-up with Dr. Monge with orthopedics in the next 3 to 7 days. Tylenol as needed for pain. Print Language: Turkmen Disposition Disposition: Home, Self Care
--- OUTSIDE RECORDS SUMMARY | 2024-12-27 13:08 | XMS RPT_ITS | CCD ---
Author Organization [facility] Care Team Providers Care Yard Associate Name Role Phone Galileo Rai DO Primary Care Provider Fredi Galileo Primary Care Unavailable Terrance Vences Attending Unavailable Galileo Rai DO Primary Care Provider Samayoa METROLOGY MANAGER.BANQUET COORDINATOR, Sarah Beth Ballard Unavailable Brissa METROLOGY MANAGER.BANQUET COORDINATORBryce Unavailable Harshad METROLOGY MANAGER.Claudia JIMENEZ Unavailable RAI, GALILEO L Primary Care Unavailable JUAN ALBERTO DEVI Attending Unavailable RAI, GALILEO L Primary Care Unavailable FREDIS LUGO Attending Unavailable JAKE KAY Referring Unavailable RAI, GALILEO L Primary Care Unavailable RAI, GALILEO L Primary Care Unavailable RAI, GALILEO L Primary Care Unavailable BRISSA, BRYCE Attending Unavailable RAI, GALILEO L Primary Care Unavailable RAI, GALILEO L Primary Care Unavailable BRANDON ORO Referring Unavailable RAI, GALILEO L Primary Care Unavailable BRANDON ORO Referring Unavailable BRISSA, BRYCE Referring Unavailable RAI, GALILEO L Primary Care Unavailable BRISSA, BRYCE Referring Unavailable RAI, GALILEO L Primary Care Unavailable BRISSA, BRYCE Referring Unavailable RAI, GALILEO L Primary Care Unavailable RAI, GALILEO L Primary Care Unavailable BRISSA, BRYCE Referring Unavailable BRISSA, BRYCE Attending Unavailable RAI, GALILEO L Primary Care Unavailable Allergies Allergy Classification Reported Allergen(s) Allergy Type Date of Onset Reaction(s) Facility Penicillins (antibiotic) (1 source) Amoxicillin Drug Allergy 7 Rash [facility] Work Phone: (20 sources) Amoxicillin; Translations: [AMOXICILLIN] Drug Allergy 7 Rash [facility] Work Phone: (20 sources) Bee Sting; Translations: [BEE STING] Allergy to substance 5 Anaphylaxis [facility] Work Phone: (20 sources) Topical Agent Combination No.1; Translations: [TOPICAL AGENT COMBINATION NO.1] Drug Intolerance 4 [facility] (3 sources) Penicillins; Translations: [Penicillins] Allergy to substance 2 Other [facility] (2 sources) bee venom protein (honey bee) Allergy to substance 2 Swelling [facility] Work Phone: (2 sources) LOTION Allergy to substance 2 Rash [facility] Work Phone: (2 sources) SHAMPOO Allergy to substance 2 Rash [facility] Work Phone: (1 source) Amoxicillin Drug Allergy 4 [facility] (1 source) Environmental Allergies: Uncoded; Translations: [Environmental Allergies: Uncoded] Propensity to adverse reactions (disorder) 4 [facility] (1 source) bee venom protein (honey bee) Drug allergy (disorder) 4 [facility] (3 sources) Enbucrilate; Translations: [ENBUCRILATE] Drug Allergy 5 [facility] Medications Current Medications Medication Drug Class(es) Dates Sig (Normalized) Sig (Original) acetaminophen 325 mg / HYDROcodone bitartrate 5 mg oral tablet (1 source) Opioid Agonist Start: 09-17-2021 take 1 tablet by mouth every six hours Hydrocodone-Aceta minophen Active 1 TABLET PO EVERY 6 HOURS 10 3 September 17, 2021 6:23pm amLODIPine 10 mg oral tablet (20 sources) Dihydropyridine Calcium Channel Micky Start: 11-12-2024 take 1 tablet by mouth once daily amLODIPine (NORVASC) 10 mg tablet Indications: Essential hypertension Take 1 tablet by mouth once daily. 90 tablet 1 11/12/2024 Active Start: 05-16-2021 End: 04-24-2024 take 1 tablet by mouth once daily amLODIPine (NORVASC) 10 mg tablet Indications: Essential hypertension Take 1 tablet by mouth once daily. 90 tablet 1 04/24/2024 Active Start: 06-01-2020 End: 10-12-2020 take 1 tablet by mouth once daily amLODIPine (NORVASC) 10 mg tablet Indications: Essential hypertension Take 1 tablet by mouth once daily. 30 tablet 3 06/01/2020 10/12/2020 Discontinued Start: 03-21-2019 take 10 mg by mouth once daily Amlodipine Active 10 MG PO DAILY March 21, 2019 11:43pm Comment on above: Take 1 tablet by ruth th once daily. Calcium Acetate-Magnesium Carb (1 source) Start: 11-08-19 take 1 tablet by mouth once daily Calcium Acetate-Magnesium Carb Active 1 TABLET PO DAILY November 07, 2020 1:33pm cetirizine hydrochloride 10 mg oral tablet (1 source) Histamine-1 Receptor Antagonist Start: 08-16-19 End: 08-30-19 take 1 tablet by mouth once daily cetirizine (ZYRTEC) 10 mg tablet Indications: Irritant contact dermatitis due to other agents Take 1 tablet by mouth once daily for 14 days. 14 tablet 08/15/2024 08/29/2024 Active cholecalciferol 0.125 mg oral tablet (6 sources) Vitamin D Start: 11-08-19 take 1 tablet by mouth once daily Cholecalciferol (Vitamin D3) (Vitamin D3) 125 mcg (5,000 unit) Tablet Active 250 MCG PO DAILY November 07, 2020 1:33pm End: 09-28-2021 take 1 capsule by mouth once daily Cholecalciferol, Vitamin D3, (VITAMIN D-3) 2,000 unit cap Take 2,000 Units by mouth once daily. 09/28/2021 Discontinued Comment on above: Take 2,000 Units by mouth once daily. [id number] 0.3 ml EPINEPHrine 1 mg/ml auto-injector (20 sources) alpha-Adrenergic Agonist, beta-Adrenergic Agonist, Catecholamine Star t: 12-08 End: 10-25 EPINEPHrine (EPIPEN 2-TREMAYNE) 0.3 mg/0.3 mL auto-injector Inject 0.3 mL intramuscularly as needed. 1 Each 1 09/13/2023 Active Comment on above: Inject 0.3 mL intram uscularly as needed. Scqlrloe-Plfch-Ldw2-C-M ang-Bor (Ixolwipz-Oennm-Csf( h [place])) 368-499-11-1 mg Tablet (1 source) Star t: 08- 21 take 1 tablet by mouth once daily Olwepftd-Coqzt-Vsg4-C- Luis Armando-Bor (Iokhhjnu-Qgpio-Tfo( th [place])) 219-201-43-1 mg Tablet Active 1 TABLET PO DAILY November 07, 2020 1:33pm ibuprofen 200 mg oral tablet (1 source) Nonsteroidal Anti-inflammatory Drug Star t: 09-07 22 take 2 tablets by mouth every six hours Ibuprofen (Advil) 200 mg Tablet Active 400 MG PO EVERY 6 HOURS October 03, 2021 12:00am iv contrast (will be provided with radiology test) (1 source) Star t: 11-06 End: 11-07 24 inject 1 dose intravenously once iv contrast (will be provided with radiology test) MRI Brain Inject, intravenously, once for 1 dose.No IV access, insert saline lock prior to beginning of sedation, infusion, injection of imaging exam.Discontinue saline lock post exam. If Pt. has a central line or IVAD, may access for administration according to line specific nursing protocol.Once exam is complete flush line and de-access according to line specific nursing protocol in the MR contrast administration guidelines link 1 Each 11/25/2023 11/26/2023 Active lactobacillus acidophilus [id number] unt oral capsule (1 source) Star t: 05-28 21 take 10 capsules by mouth once daily Lactobacillus Acidophilus (Probiotic) 10 billion cell Capsule Active 06766 MMU CELLS PO DAILY November 07, 2020 1:33pm methylPREDNISolone (1 source) Corticosteroid Star t: 10-25 25 End: 05-09 25 methylPREDNISolone (MEDROL, TREMAYNE,) 4 mg Dose-Pack Follow dosing instructions, take with food. 21 tablet 05/15/2024 05/21/2024 Active Miscellaneous Medical Supply (BLOOD PRESSURE CUFF) (20 sources) Star t: 05-10 21 Miscellaneous Medical Supply (BLOOD PRESSURE CUFF) Indications: Essential hypertension 1 Each once daily. 1 Each 06/01/2020 Active Start: 06-01-2020 Miscellaneous Medical Supply (BLOOD PRESSURE CUFF) Indications: Essential hypertension 1 Each once daily. 1 Each 0 06/01/2020 Active Comment on above: 1 Each once daily. Multivitamin With Minerals (1 source) Start: 1 take 1 capsule by mouth once daily Multivitamin With Minerals Active 1 CAP PO DAILY November 07, 2020 1:33pm [place] 0-Wmf-Wfn-Fish Oil (Eml[place]-3) 350 mg-235 mg- 90 mg-597 mg Capsule,Delayed Release(Dr/Ec) (1 source) Start: 1 take 2 capsules by mouth once daily [place] 5-Kbw-Wjd-Fish Oil (Eml[place]-3) 350 mg-235 mg- 90 mg-597 mg Capsule,Delayed Release(Dr/Ec) Active 2 CAP PO DAILY November 07, 2020 1:33pm oxyCODONE hydrochloride 5 mg oral tablet (1 source) Opioid Agonist Start: 2 take 5 mg by mouth every six hours Oxycodone Active 5 MG PO EVERY 6 HOURS 12 3 October 04, 2021 perflutren lipid microspheres 1.3 mL in NaCl (PF) 0.9% 10 mL injection (DEFINITY) (6 sources) Start: 2 End: 3 perflutren lipid microspheres 1.3 mL in NaCl (PF) 0.9% 10 mL injection (DEFINITY) predniSONE 20 mg oral tablet (1 source) Start: 5 End: 5 take 2 tablets by mouth once daily predniSONE (DELTASONE) 20 mg tablet Indications: Irritant contact dermatitis due to other agents Take 2 tablets by mouth once daily for 5 days. 10 tablet 08/15/2024 08/20/2024 Active 125 ml sodium chloride 9 mg/ml prefilled syringe (6 sources) Start: 2 End: 3 sodium chloride 0.9 % (flush) 10 mL (BD POSIFLUSH) Completed/Discontinued Medications Medication Drug Class(es) Dates Sig (Normalized) Sig (Original) benzonatate 100 mg oral capsule (5 sources) Non-narcotic Antitussive Start: 05-15-2024 End: 11-25-2024 take 1 capsule by mouth every eight hours as needed benzonatate (TESSALON PERLE) 100 mg capsule Take 1 capsule by mouth three times a day as needed. 21 capsule 05/15/2024 11/25/2024 Discontinued calcium carbonate 625 mg / ergocalciferol 125 unt oral tablet (5 sources) Provitamin D2 Compound Start: 01-05-2017 End: 09-28-2021 take 1 tablet by mouth twice daily calcium carbonate-vitamin D (OS-EMMA 250 W/D) 250 (625)-125 mg-unit tab Take 1 tablet by mouth twice daily. 0 01/05/2017 09/28/2021 Discontinued Comment on above: [facility] cycloSPORINE (5 sources) Calcineurin Inhibitor Immunosuppressant End: 09-28-2021 CYCLOSPORINE (RESTASIS OPHTHALMIC) Use in eyes. 09/28/2021 Discontinued End: 09-28-2021 CYCLOSPORINE (RESTASIS OPHTH ALMIC) Use in eyes. 0 09/28/2021 Discontinued CYCLOSPORINE (RE STASIS OPHTHALMIC) Use in eyes. 0 Active Comment on above: Use in eyes. LACTOBAC CMB #3/FOS/PANTETHINE (PROBIOTIC & ACIDOPHILUS ORAL) (5 sources) End: 09-28-2021 LACTOBAC CMB #3/FOS/PANTETHINE (PROBIOTIC & ACIDOPHILUS ORAL) Take by mouth. 09/28/2021 Discontinued End: 09-28-2021 LACTOBAC CMB #3/FOS/PANTETHI NE (PROBIOTIC & ACIDOPHILUS ORAL) Take by mouth. 0 09/28/2021 Discontinued LACTOBAC CMB #3/ FOS/PANTETHINE (PROBIOTIC & ACIDOPHILUS ORAL) Take by mouth. 0 Active Comment on above: Take by mouth. magnesium oxide 400 mg oral capsule (5 sources) Start: 02-06-2019 End: 09-28-2021 take 1 capsule by mouth once daily magnesium oxide 400 mg magnesium cap Take 1 capsule by mouth once daily. 02/06/2019 09/28/2021 Discontinued Comment on above: Take 1 capsule by mo [facility] once daily. OMEGA-3 FATTY ACIDS 1,250 MG CAP (5 sources) Start: 12-04-2007 End: 09-28-2021 OMEGA-3 FATTY ACIDS 1,250 MG CAP one tablet daily 0 0 12/04/2007 09/28/2021 Discontinued Start: 12-04-2007 OMEGA-3 FATTY ACIDS 1,250 MG CAP one tablet daily 0 0 12/04/2007 Active Comment on above: one tablet daily potassium gluconate 2.5 meq oral tablet (5 sources) Start: 01-05-2017 End: 09-28-2021 Potassium 99 mg tab Take by mouth. 0 01/05/2017 09/28/2021 Discontinued Comment on above: Take by mouth. ubidecarenone 100 mg oral capsule (6 sources) Start: 10-08-2008 End: 09-28-2021 ubidecarenone(COQ-10 100 MG CAP) one tablet daily 0 0 10/08/2008 09/28/2021 Discontinued Comment on above: one tablet daily Problems Active Problems Problem Classification Problem Date Documented Da te Episodic/Chronic Cardiac dysrhythmias (3 sources) Premature beats; Translations: [Other premature depolarization] Onset: 12-02-2023 09-18-2023 Chronic Disorders of lipid metabolism (20 sources) Hyperlipidemia; Translations: [Hyperlipidemia, unspecified] Onset: 06-17-2013 Chronic E Codes: Fall (1 source) Fall; Translations: [Unspecified fall, initial encounter] Episodic Essential hypertension (20 sources) Essential hypertension; Translations: [Essential (primary) hypertension] Onset: 06-01-2020 Chronic Fracture of upper limb (2 sources) Fracture at wrist and/or hand level; Translations: [Fracture of unspecified carpal bone, unspecified wrist, initial encounter for closed fracture] Episodic Gastritis and duodenitis (20 sources) Gastritis; Translations: [Gastritis, unspecified, without bleeding] 01-06-2020 Episodic Genitourinary symptoms and ill-defined conditions (20 sources) Genuine stress incontinence; Translations: [Stress incontinence (female) (male)] Onset: 07-26-2021 Chronic Nutritional deficiencies (20 sources) Vitamin D deficiency; Translations: [Vitamin D deficiency, unspecified] Onset: 12-21-2009 Chronic Open wounds of extremities (2 sources) Laceration of finger without foreign body; Translations: [Laceration without foreign body of right index finger without damage to nail, initial encounter] Onset: 10-10-2024 10-10-2024 Episodic Open wounds of head; neck; and trunk (2 sources) Laceration of chin; Translations: [Laceration without foreign body of other part of head, initial encounter] Episodic Other aftercare (1 source) Removal of sutures done; Translations: [Encounter for removal of sutures] Episodic Other aftercare (1 source) Wound finding; Translations: [Encounter for other specified aftercare] 10-10-2024 Episodic Other aftercare (1 source) Encounter for other specified aftercare; Translations: [Visit for wound check] Onset: 10-10-2024 Episodic Other and ill-defined heart disease (20 sources) Diastolic dysfunction; Translations: [Other ill-defined heart diseases] Onset: 07-26-2021 Chronic Other bone disease and musculoskeletal deformities (20 sources) Disorder of skeletal system; Translations: [Disorder of bone, unspecified] 12-04-2007 Episodic Other connective tissue disease (1 source) Pain in right hand; Translations: [Pain in right hand] 07-02-2020 Episodic Other ear and sense organ disorders (2 sources) Decreased hearing ; Translations: [Unspecified hearing loss, bilateral] 09-18-2023 Chronic Other ear and sense organ disorders (3 sources) Sensorineural hearing loss, unilateral, left ear, with unrestricted hearing on the contralateral side; Translations: [Sensorineural hearing loss, unilateral] Onset: 12-25-2023 11-25-2023 Chronic Other ear and sense organ disorders (1 source) Asymmetrical sensorineural hearing loss; Translations: [Sensorineural hearing loss, bilateral] 11-29-2023 Chronic Other gastrointestinal disorders (4 sources) Acute constipation; Translations: [Constipation, unspecified] 09-18-2023 Episodic Other inflammatory condition of skin (20 sources) Scalp psoriasis; Translations: [Psoriasis, unspecified] Onset: 01-05-2017 01-05-2017 Chronic Other lower respiratory disease (4 sources) Dyspnea on exertion; Translations: [Shortness of breath] 09-18-2023 Episodic Other lower respiratory disease (1 source) Dyspnea; Translations: [Shortness of breath] 09-18-2023 Episodic Other lower respiratory disease (2 sources) Cough; Translations: [Acute cough] 05-15-2024 Episodic Other nervous system disorders (1 source) Postoperative pain ; Translations: [Other acute postprocedural pain] Episodic Other non-traumatic joint disorders (1 source) Acute ankle pain; Translations: [Pain in left ankle and joints of left foot] Episodic Other screening for suspected conditions (not mental disorders or infectious disease) (4 sources) Patient encounter status; Translations: [Encounter for screening for other suspected endocrine disorder] Onset: 11-25-2024 11-25-2024 Episodic Other skin disorders (20 sources) Actinic keratosis; Translations: [Actinic keratosis] Onset: 01-05-2017 Episodic Other upper respiratory infections (1 source) Acute upper respiratory infection; Translations: [Acute upper respiratory infection, unspecified] 05-09-2024 Episodic Residual codes; unclassified (20 sources) Sleep apnea; Translations: [Sleep apnea, unspecified] Onset: 10-02-2011 10-02-2011 Chronic Residual codes; unclassified (20 sources) Obstructive sleep apnea syndrome; Translations: [Obstructive sleep apnea (adult) (pediatric)] Onset: 04-11-2016 04-11-2016 Chronic Residual codes; unclassified (5 sources) Bilateral lower limb edema; Translations: [Localized edema] 09-18-2023 Episodic Screening and history of mental health and substance abuse codes (2 sources) Encounter for screening for depression; Translations: [Encounter for screening examination for other mental health and behavioral disorders] Onset: 11-25-2024 Episodic Spondylosis; intervertebral disc disorders; other back problems (20 sources) Degeneration of lumbar intervertebral disc; Translations: [Other intervertebral disc degeneration, lumbar region] 03-14-2015 Chronic Superficial injury; contusion (2 sources) Contusion of foot; Translations: [Contusion of unspecified foot, initial encounter] Episodic Unclassified (1 source) Acute cough; Translations: [Acute cough] Onset: 05-15-2024 Past or Other Problems Problem Classification Problem Date Documented Da te Episodic/Chronic Allergic reactions (3 sources) Allergy, unspecified, initial encounter; Translations: [Irritant contact dermatitis] Onset: 02-26-2024 08-15-2024 Episodic Cardiac dysrhythmias (5 sources) Tachycardia; Translations: [Tachycardia, unspecified] Onset: 12-02-2023 09-18-2023 Episodic Diabetes mellitus without complication (20 sources) Hyperglycemia; Translations: [Hyperglycemia, unspecified] Onset: 02-27-2023 Episodic Genitourinary symptoms and ill-defined conditions (12 sources) Increased frequency of urination; Translations: [Frequency of micturition] Onset: 12-02-2023 09-18-2023 Episodic Other connective tissue disease (20 sources) Supraspinatus tendinitis; Translations: [Shoulder lesion, unspecified, unspecified shoulder] Onset: 10-02-2011 Resolved: 06-17-2013 06-17-2013 Episodic Other gastrointestinal disorders (20 sources) Chronic constipation; Translations: [Other constipation] Onset: 07-26-2021 Episodic Other gastrointestinal disorders (1 source) Constipation, unspecified; Translations: [Acute constipation] Onset: 12-02-2023 Episodic Other lower respiratory disease (1 source) Shortness of breath; Translations: [SOB (shortness of breath) on exertion] Onset: 12-02-2023 Episodic Other skin disorders (20 sources) Female pattern alopecia; Translations: [Other specified nonscarring hair loss] Onset: 06-17-2013 06-17-2013 Episodic Other skin disorders (1 source) Multiple actinic keratoses; Translations: [Actinic keratosis] Onset: 01-05-2017 01-05-2017 Episodic Other skin disorders (1 source) Actinic keratosis; Translations: [Actinic keratosis] Onset: 07-26-2021 Episodic Residual codes; unclassified (1 source) Localized edema; Translations: [Bilateral leg edema] Onset: 12-02-2023 Episodic Results Test Name Value Interpretation Reference Range Facility HbA1c (Bld)on 11-26-2024 Average glucose Estimated from glycated hemoglobin (Bld) [Mass/Vol] 114 mg/dL [facility] Comment on above: eAG: (Estimated aver age glucose) is a calculated value from HgbA1c and is service support representative of the average blood glucose level in the last 2-3 month period. HbA1c (Bld) [Mass fraction] 5.6 % 4.3 - 5.6 % [facility] Comment on above: Stateless Diabetes As sociation guidelines indicate that patients with HgbA1c in the range 5.7-6.4% are at increased risk for development of diabetes, and intervention by lifestyle modification may be beneficial. HgbA1c greater or equal to 6.5% is considered diagnostic of diabetes. [facility] 25(OH)D3 Chadwick-Babar 2024 25-hydroxyvitamin D3 [Mass/Vol] 33.5 ng/mL Normal 31.0-80.0 [facility] Comment on above: Order Comment: Speci men Type: BLOOD SPECIMENOrdering Facility: [facility] Address: [address] [place] [address] Result Comment: Clas sification of 25 [place] Vitamin D status: Deficiency/Insufficiency: < or = 30 ng/ml. Sufficiency/Optimal Levels: 31-80 ng/mL Toxicity: > 100 ng/mL. Test performed by chemiluminescent immunoassay. Performed By: #### 1 989-3 ####[facility] [id number] [place] [address] [place] 25-hydroxyvitamin D3 [Mass/V ol]on 11-25-2024 Interpretation and review of laboratory results Normal [facility] The reference range interval was based on an analysis of samples from healthy adults and may not pertain to children from 0-18 years old. [facility] CBC panel Auto (Bld)on 11-25 Erythrocyte distribution width (RBC) [Ratio] 14.3 % 11.5 - 15.0 % [facility] Hematocrit (Bld) [Volume fraction] 43.0 % 36.0 - 46.0 % [facility] Hemoglobin (Bld) [Mass/Vol] 13.3 g/dL 11.5 - 15.5 g/dL [facility] Interpretation and review of laboratory results Normal [facility] MCH (RBC) [Entitic mass] 28.9 pg 26.0 - 34.0 pg [facility] MCHC (RBC) [Mass/Vol] 30.9 g/dL 30.5 - 36.0 g/dL [facility] MCV (RBC) [Entitic vol] 93.3 fL 80.0 - 100.0 fL [facility] Nucleated RBC (Bld) [#/Vol] NINF [facility] Platelet mean volume (Bld) [Entitic vol] 11.3 fL 9.0 - 12.7 fL [facility] Platelets (Bld) [#/Vol] 281 10*3/uL [facility] RBC (Bld) [#/Vol] 4.61 10*6/uL 3.90 - 5.2 0 m/uL [facility] WBC (Bld) [#/Vol] 6.15 10*3/uL [facility] Erythrocyte distribution width (RBC) [Ratio] 14.3 % Normal 11.5-15.0 [facility] Comment on above: Order Comment: Speci men Type: BLOOD SPECIMENOrdering Facility: [facility] Address: [address] [place] [address] Performed By: #### 5 8410-2 ####[facility] LABIA [id number] [place] [address] [place] Hematocrit (Bld) [Volume fraction] 43.0 % Normal 36.0-46.0 [facility] Comment on above: Order Comment: Speci men Type: BLOOD SPECIMENOrdering Facility: [facility] Address: [address] [place] [address] Performed By: #### 5 8410-2 ####[facility]IA [id number] [place] [address] [place] Hemoglobin (Bld) [Mass/Vol] 13.3 g/dL Normal 11.5-15.5 [facility] Comment on above: Order Comment: Speci men Type: BLOOD SPECIMENOrdering Facility: [facility] Address: [address] [place] [address] Performed By: #### 5 8410-2 ####[facility]IA [id number] [place] [address] [place] MCH (RBC) [Entitic mass] 28.9 pg Normal 26.0-34.0 [facility] Comment on above: Order Comment: Speci men Type: BLOOD SPECIMENOrdering Facility: [facility] Address: [address] [place] [address] Performed By: #### 5 8410-2 ####[facility] LABIA [id number] [place] [address] [place] MCHC (RBC) [Mass/Vol] 30.9 g/dL Normal 30.5-36.0 [facility] Comment on above: Order Comment: Speci men Type: BLOOD SPECIMENOrdering Facility: [facility] Address: [address] [place] [address] Performed By: #### 5 8410-2 ####[facility] [id number] [address], [facility] [place] MCV (RBC) [Entitic vol] 93.3 fL Normal 80.0-100.0 [facility] Comment on above: Order Comment: Speci men Type: BLOOD SPECIMENOrdering Facility: [facility] Address: [address] [place] [address] Performed By: #### 5 8410-2 ####[facility]IA [id number] [address], [facility] [place] Nucleated RBC (Bld) [#/Vol] 10*3/uL Normal <0.01 [facility] Comment on above: Order Comment: Speci men Type: BLOOD SPECIMENOrdering Facility: [facility] Address: [address] [place] [address] Performed By: #### 5 8410-2 ####[facility] LABIA [id number] [address], [place] [address] [place] Platelet mean volume (Bld) [Entitic vol] 11.3 fL Normal 9.0-12.7 [facility] Comment on above: Order Comment: Speci men Type: BLOOD SPECIMENOrdering Facility: [facility] Address: [address] [place] [address] Performed By: #### 5 8410-2 ####[facility] LABIA [id number] [address], [facility]95 [place] Platelets (Bld) [#/Vol] 281 10*3/uL Normal 150-400 [facility] Comment on above: Order Comment: Speci men Type: BLOOD SPECIMENOrdering Facility: [facility] Address: [address] [place] [address] Performed By: #### 5 8410-2 ####[facility] LABIA [id number] [address], [facility]95 [place] RBC (Bld) [#/Vol] 4.61 10*6/uL Normal 3.90-5.20 [facility] Comment on above: Order Comment: Speci men Type: BLOOD SPECIMENOrdering Facility: [facility] Address: [address] [place] [address] Performed By: #### 5 8410-2 ####[facility] LABCLIA [id number] [address] [place] WBC (Bld) [#/Vol] 6.15 10*3/uL Normal 3.70-11.00 [facility] Comment on above: Order Comment: Speci men Type: BLOOD SPECIMENOrdering Facility: [facility] Address: [address] [place] [address] Performed By: #### 5 8410-2 ####[facility] LABCLIA [id number] [address] [place] CNOVon 11-25-2024 CNOV Office Visit [facility] SANDERSONLAISHA ([id number]) 1945 F Date Time Provider Department 11/25/24 9:00 AM BRYCE BRUMFIELD [facility] During your visit today, we recorded the following information about you: Pulse Blood pressure Weight Height 73/minute 136/78 67.1 kg 1.57 m Bryce Brumfield APRN.BANQUET COORDINATOR 11/27/2024 6:32 AM Signed Laisha Canada Kin is a 78 year old female here for a Medicare wellness visit. Medicare Health Risk Assessment General Health Very good Exercise: Minutes/Day Patient declined Exercise: Days/Week Patient declined Alcohol: Daily Use 2-3 times a week Alcohol: Drinks/Day 1 or 2 Alcohol: 6 or more drinks Never Feel off balance Yes Concerns: Teeth/Dentures Yes Concerns: Sexual function No Troubled by feelings Stressed Frequency: Eating healthy diet Nearly every day ADLs requiring help None of the above Safety precautions in home/vehicle Yes Smoke, vape, chews tobacco No Difficulty hearing Yes Difficulty seeing No (follows up with eye doc) Current Providers Specialists: I have reviewed specialist-related care of the patient in the medical record. Medical/Family history review Reviewed and updated problem list, medical/surgical/famil y/social history, medications, and allergies. Opioid use review Opioid Medications (last 90 days) No data to display Anxiety/Depression screening PHQ-2 Score: 0 (Lower risk for depression) MAURY-7 Score: 0. Recommendation: no further intervention at this time Cognitive screening Mini Cog Score: 5 Cognitive screening reviewed and No further action needed (score 3-5). Functional Observation Was the patient's Timed Up AND Go test unsteady or >= 12 seconds? No Advance Care Planning Sister-Viviana Gutierrez Measurements BP 136/78 (BP Site: Left Arm, BP Position: Sitting, BP Cuff Size: Regular Adult) Pulse 73 Ht 157 cm (5' 1.81) Wt 67.1 kg (148 lb) SpO2 97% BMI 27.24 kg/m? Vision Screening: Follows with optometry/ophthalmolog y Just had cataract surgery last month-only needs readers occasionally. Excited about this because she has had to wear glasses since the fourth grade. Assessment/Plan Medicare annual wellness visit, subsequent (Z00.00) - Counseled on healthy diet and regular exercise - Fall avoidance information provided - Personalized prevention plan provided Bryce Brumfield APRN.TONY 11/27/2024 6:32 AM Signed Chief Complaint Patient presents with: Medicare Wellness Exam Request for general health review and updated labs HPI Laisha Sanderson is a 78 year old female who presents here today for Above Complaints.. Denies c/o concerns today. Would like her normal labs updated. BP-checks periodically at home and BP runs around 130's/80's. Denies CP, Shortness of Breath, h/a, palpitations, dizziness/lightheadedn ess. Diet, Exercise-eating healthy fresher foods, higher protein foods. Does walk regularly for exercise. 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 This seems to be returning and is becoming a bit itchy and flaky. Requesting for this to be frozen off today. Past medical history, appointments, medications, allergies reviewed. Previous Medical History PAST MEDICAL HISTORY Diagnosis Date Abnormal mammogram, unspecified 05/2007 right breast, due for repeat 11/13 Degeneration of intervertebral disc, site unspecified 1999 cervical and lumbar; not having any pain now Disorder of bone and cartilage, unspecified osteopenia on DXA in 2001, but was normal in 2007 so bisphosphonates stopped Other and unspecified hyperlipidemia 2001 Other specified acquired hypothyroidism 2005 ?borderline Other specified gastritis without mention of hemorrhage 2007 found on EGD, symptom free on PPI Sleep apnea 10/02/2011 on CPAP Snoring Vitamin D deficiency 12/21/2009 Previous Surgical History PAST SURGICAL HISTORY Procedure Laterality Date COLONOSCOPY FLX DX W/COLLJ SPEC WHEN PFRMD 09/11/2017 Colonoscopy TRABECULOPLASTY BY LASER SURGERY 1995 vision correction VAGINAL HYSTERECTOMY UTERUS 250 GM/< 1986 precancerous pap smear - no cancer on path from surgery Family History FAMILY HISTORY Problem Relation Age of Onset Stroke Mother Hypertension Mother age 89 Heart Father CHF - age 63 other (impaired fasting glucose) Sister Lipids Sister Hypertension Sister Patient Allergies ALLERGIES Allergen Reactions Bee Sting Anaphylaxis Liquid Bandage [Enb* Rash Topical Agent Combi* Rash Hair treatment Amoxil [Amoxicillin] Rash Current Medications Current Outpatient Medications on File Prior to Visit Medication Sig amLODIPine (NORVASC) 10 mg tablet Take 1 tablet by mouth once daily. EPINEPHrine (EPIPEN 2-TREMAYNE) 0.3 mg/0.3 mL auto-injector Inject 0.3 mL intramuscularly as needed. Miscellaneous Medical Supply (BLOOD PRESSURE C (more content not included)... Normal [facility] Comprehensive metabolic 2000 panelon 11-25-2024 Albumin [Mass/Vol] 4.5 g/dL 3.9 - 4.9 g/dL [facility] ALP [Catalytic activity/Vol] 49 U/L 34 - 123 U/L [facility] ALT [Catalytic activity/Vol] 13 U/L 7 - 38 U/L [facility] Anion gap [Moles/Vol] 13 mmol/L 8 - 15 mmol/L [facility] AST [Catalytic activity/Vol] 19 U/L 13 - 35 U/L [facility] Bilirubin [Mass/Vol] 0.4 mg/dL 0.2 - 1 .3 mg/dL [facility] Calcium [Mass/Vol] 9.2 mg/dL 8.5 - 10. 2 mg/dL [facility] Chloride [Moles/Vol] 103 mmol/L 98 - 10 7 mmol/L [facility] CO2 [Moles/Vol] 25 mmol/L 22 - 30 mmol/L [facility] Creatinine [Mass/Vol] 0.56 mg/dL Low 0.58 - 0.96 mg/dL [facility] GFR/1.73 sq M.predicted among non-blacks MDRD (S/P/Bld) [Vol rate/Area] 93 mL/min/{1.73_m2} - PINF [facility] Comment on above: Estimated Glomerular Filtration Rate (eGFR) is calculated using the 2020 CKD-EPI creatinine equation. This equation utilizes serum creatinine, sex, and age as parameters. The creatinine assay has traceable calibration to isotope dilution-mass spectrometry. Refer to KDIGO guidelines for clinical interpretation. In patients with unstable renal function, e.g. those with acute kidney injury, the eGFR may not accurately reflect actual GFR. Glucose [Mass/Vol] 98 mg/dL 74 - 99 mg/dL [facility] Comment on above: The Stateless Diabete s Association (ADA) provides guidance for cutoff values for fasting glucose and random glucose. The ADA defines fasting as no caloric intake for at least 8 hours. Fasting plasma glucose results between 100 to 125 mg/dL indicate increased risk for diabetes (prediabetes). Fasting plasma glucose results greater than or equal to 126 mg/dL meet the criteria for diagnosis of diabetes. In the absence of unequivocal hyperglycemia, results should be confirmed by repeat testing. In a patient with classic symptoms of hyperglycemia or hyperglycemic crisis, random plasma glucose results greater than or equal to 200 mg/dL meet the criteria for diagnosis of diabetes. Reference: Standards of Medical Care in Diabetes 2016, Stateless Diabetes Association. Diabetes Care. 2016.39(Suppl 1). Potassium [Moles/Vol] 3.9 mmol/L 3.7 - 5.1 mmol/L [facility] Protein [Mass/Vol] 7.7 g/dL 6.3 - 8.0 g/dL [facility] Sodium [Moles/Vol] 141 mmol/L 136 - 144 mmol/L [facility] Urea nitrogen [Mass/Vol] 11 mg/dL 7 - 21 mg/dL [facility] Albumin [Mass/Vol] 4.5 g/dL Normal 3.9-4.9 [facility] Comment on above: Order Comment: Speci men Type: BLOOD SPECIMENOrdering Facility: [facility] Address: [address] [place] [address] Performed By: #### 2 4323-8, 42647-9, 3015-3 ####[facility] LABCLIA [id number] [place] [id number] [place] ALP [Catalytic activity/Vol] 49 U/L Normal 34-123 [facility] Comment on above: Order Comment: Speci men Type: BLOOD SPECIMENOrdering Facility: [facility] Address: [address] [place] [address] Performed By: #### 2 4323-8, 30333-6, 3 ####[facility] LABCLIA [id number] [place] [address] [place] ALT [Catalytic activity/Vol] 13 U/L Normal 7-38 [facility] Comment on above: Order Comment: Speci men Type: BLOOD SPECIMENOrdering Facility: [facility] Address: [address] [place] [address] Performed By: #### 2 4323-8, 58085-3, 3 ####[facility] LABCLIA [id number] [place] [id number] [place] Anion gap [Moles/Vol] 13 mmol/L Normal 8-15 [facility] Comment on above: Order Comment: Speci men Type: BLOOD SPECIMENOrdering Facility: [facility] Address: [address] [place] [address] Performed By: #### 2 4323-8, 01611-1, 3015-3 ####[facility] LABCLIA [id number] [facility] [address] [address] [place] AST [Catalytic activity/Vol] 19 U/L Normal 13-35 [facility] Comment on above: Order Comment: Speci men Type: BLOOD SPECIMENOrdering Facility: [facility] Address: [address] [place] [address] Performed By: #### 2 4323-8, 37017-8, 6-3 ####[facility] LABCLIA [id number] [address] [address] [place] Bilirubin [Mass/Vol] 0.4 mg/dL Normal 0.2-1.3 [facility] Comment on above: Order Comment: Speci men Type: BLOOD SPECIMENOrdering Facility: [facility] Address: [address] [place], [place] [address] Performed By: #### 2 4323-8, 91674-0, 3015-3 ####[facility] LABCLIA [id number] [address] [address] [place] Calcium [Mass/Vol] 9.2 mg/dL Normal 8.5-10.2 [facility] Comment on above: Order Comment: Speci men Type: BLOOD SPECIMENOrdering Facility: [facility] Address: [address] [place], [place] [address] Performed By: #### 2 4323-8, 12335-3, 3 ####[facility] LABCLIA [id number] [address] [address] [place] Chloride [Moles/Vol] 103 mmol/L Normal 98-107 [facility] Comment on above: Order Comment: Speci men Type: BLOOD SPECIMENOrdering Facility: [facility] Address: [address] [place] [address] Performed By: #### 2 4323-8, 03936-9, 3015-3 ####[facility] LABCLIA [id number] [address] [address] [place] CO2 [Moles/Vol] 25 mmol/L Normal 22-30 [facility] Comment on above: Order Comment: Speci men Type: BLOOD SPECIMENOrdering Facility: [facility] Address: [address] [place] [address] Performed By: #### 2 4323-8, 32837-4, 6-3 ####[facility] [id number] [address] [address] [place] Creatinine [Mass/Vol] 0.56 mg/dL Low 0.58-0.96 [facility] Comment on above: Order Comment: Speci men Type: BLOOD SPECIMENOrdering Facility: [facility] Address: [address] [place] [address] Performed By: #### 2 4323-8, 51132-2, 3015-3 ####[facility] [id number] [place] [address] [place] eGFRcr SerPlBld CKD-EPI 2020 93 mL/min/1.73m??? Normal >=60 [facility] Comment on above: Order Comment: Ez men Type: BLOOD SPECIMENOrdering Facility: [facility] Address: [address] [place] [address] Result Comment: Mehreen mated Glomerular Filtration Rate (eGFR) is calculated using the 2020 CKD-EPI creatinine equation. This equation utilizes serum creatinine, sex, and age as parameters. The creatinine assay has traceable calibration to isotope dilution-mass spectrometry. Refer to KDIGO guidelines for clinical interpretation. In patients with unstable renal function, e.g. those with acute kidney injury, the eGFR may not accurately reflect actual GFR. Performed By: #### 2 4323-8, 27354-8, 3015-3 ####[facility] [id number] [address] [address] [place] Glucose [Mass/Vol] 98 mg/dL Normal 74-99 [facility] Comment on above: Order Comment: Speci men Type: BLOOD SPECIMENOrdering Facility: [facility] Address: [address] [place] [address] Result Comment: The Stateless Diabetes Association (ADA) provides guidance for cutoff values for fasting glucose and random glucose. The ADA defines fasting as no caloric intake for at least 8 hours. Fasting plasma glucose results between 100 to 125 mg/dL indicate increased risk for diabetes (prediabetes). Fasting plasma glucose results greater than or equal to 126 mg/dL meet the criteria for diagnosis of diabetes. In the absence of unequivocal hyperglycemia, results should be confirmed by repeat testing. In a patient with classic symptoms of hyperglycemia or hyperglycemic crisis, random plasma glucose results greater than or equal to 200 mg/dL meet the criteria for diagnosis of diabetes. Reference: Standards of Medical Care in Diabetes 2016, Stateless Diabetes Association. Diabetes Care. 2016.39(Suppl 1). Performed By: #### 2 4323-8, 03694-3, 3 ####[facility] LABIA [id number] [place] [address] [place] Potassium [Moles/Vol] 3.9 mmol/L Normal 3.7-5.1 [facility] Comment on above: Order Comment: Speci men Type: BLOOD SPECIMENOrdering Facility: [facility] Address: [address] [place] [address] Performed By: #### 2 4323-8, 37712-7, 3 ####[facility] LABIA [id number] [place] [address] [place] Protein [Mass/Vol] 7.7 g/dL Normal 6.3-8.0 [facility] Comment on above: Order Comment: Speci men Type: BLOOD SPECIMENOrdering Facility: [facility] Address: [address] [place] [address] Performed By: #### 2 4323-8, 88333-8, 3 ####[facility] [id number] [place] [id number] [place] Sodium [Moles/Vol] 141 mmol/L Normal 136-144 [facility] Comment on above: Order Comment: Speci men Type: BLOOD SPECIMENOrdering Facility: [facility] Address: [address] [place], [place] [address] Performed By: #### 2 4323-8, 19666-8, 3016-3 ####[facility] LABCLIA [id number] [address] [address] [place] Urea nitrogen [Mass/Vol] 11 mg/dL Normal 7-21 [facility] Comment on above: Order Comment: Ez iniguez Type: BLOOD SPECIMENOrdering Facility: [facility] Address: [address] [place] [address] Performed By: #### 2 4323-8, 69306-0, 3016-3 ####[facility] LABCLIA [id number] [facility] [address] [address] [place] HbA1c (Bld)on 11-25-2024 Average glucose Estimated from glycated hemoglobin (Bld) [Mass/Vol] 114 mg/dL Normal [facility] Comment on above: Order Comment: Ez [facility] Type: BLOOD SPECIMENOrdering Facility: [facility] Address: [address] [place] [address] Result Comment: eAG: (Estimated average glucose) is a calculated value from HgbA1c and is service support representative of the average blood glucose level in the last 2-3 month period. Performed By: #### 5 5454-3 ####[facility] LABCLIA [id number] [place] [id number] [place] HbA1c (Bld) [Mass fraction] 5.6 % Normal 4.3-5.6 [facility] Comment on above: Order Comment: Ez [facility] Type: BLOOD SPECIMENOrdering Facility: [facility] Address: [address] [place] [address] Result Comment: Amer [place] Diabetes Association guidelines indicate that patients with HgbA1c in the range 5.7-6.4% are at increased risk for development of diabetes, and intervention by lifestyle modification may be beneficial. HgbA1c greater or equal to 6.5% is considered diagnostic of diabetes. Performed By: #### 5 5454-3 ####[facility] LABCLIA [id number] [address] [address] [place] Lipid 1996 panelon 5 Cholesterol [Mass/Vol] 205 mg/dL High NINF - 200 mg/dL [facility] Comment on above: <200 mg/dL, Desirabl e 200-239 mg/dL, Borderline high >239 mg/dL, High Cholesterol in HDL [Mass/Vol] 73 mg/dL 39 - PINF mg/dL [facility] Comment on above: 40-59 mg/dL, Accepta ble >59 mg/dL, High: Negative risk factor for coronary heart disease <40 mg/dL, Low: Positive risk factor for coronary heart disease Cholesterol in LDL [Mass/Vol] 120 mg/dL High NINF - 100 mg/dL [facility] Comment on above: <100 mg/dL, Optimal 100-129 mg/dL, Near optimal/above optimal 130-159 mg/dL, Borderline high 160-189 mg/dL, High >189 mg/dL, Very high Secondary prevention optimal LDL Cholesterol levels are recommended to be <70 mg/dL LDL cholesterol is calculated using the Castro-NIH equation. Cholesterol in LDL/Cholesterol in HDL [Mass ratio] 1.64 {ratio} NINF - 2.54 [facility] Comment on above: Reference: 1. National Cholesterol Education Program ATP III Guideline At-A-Glance Quick Desk Reference: National Heart, Lung, and Blood [place]. National Institutes of Health. 2001: NIH Publication No. 01-3305. 2. An International Atherosclerosis Society position paper: global recommendations for the management of dyslipidemia: executive summary, Atherosclerosis. 2014: 232(2):410-413. Cholesterol in VLDL [Mass/Vol] 11 mg/dL NINF - 30 mg/dL [facility] Cholesterol non HDL [Mass/Vol] 132 mg/dL High NINF - 130 mg/dL [facility] Comment on above: <130 mg/dL, Optimal 130-159 mg/dL, Near optimal/above optimal 160-189 mg/dL, Borderline high 190-219 mg/dL, High >219 mg/dL, Very high Secondary prevention optimal non HDL Cholesterol levels are recommended to be <100 mg/dL Cholesterol.total/Ch olesterol in HDL [Mass ratio] 2.81 {ratio} NINF - 5.10 [facility] Fasting Time 13 hrs [facility] Triglyceride [Mass/Vol] 66 mg/dL NINF - 150 mg/dL [facility] Comment on above: <150 mg/dL, Normal 150-199 mg/dL, Borderline high 200-499 mg/dL, High >499 mg/dL, Very high Cholesterol [Mass/Vol] 205 mg/dL High <200 [facility] Comment on above: Order Comment: Ez iniguez Type: BLOOD SPECIMENOrdering Facility: [facility] Address: [address] [place] [address] Result Comment: <200 mg/dL, Desirable 200-239 mg/dL, Borderline high >239 mg/dL, High Performed By: #### 2 4323-8, 30038-1, 3015-3 ####[facility] LABCLIA [id number] [address] STATES OF [facility] Cholesterol in HDL [Mass/Vol] 73 mg/dL Normal >39 [facility] Comment on above: Order Comment: Ez iniguez Type: BLOOD SPECIMENOrdering Facility: [facility] Address: [address] [place] [address] Result Comment: 40-5 9 mg/dL, Acceptable >59 mg/dL, High: Negative risk factor for coronary heart disease <40 mg/dL, Low: Positive risk factor for coronary heart disease Performed By: #### 2 4323-8, 41997-3, 3015-3 ####[facility] LABCLIA [id number] [address] [place] Cholesterol in LDL [Mass/Vol] 120 mg/dL High <100 [facility] Comment on above: Order Comment: Rosannei hira Type: BLOOD SPECIMENOrdering Facility: [facility] Address: [address] [place] [address] Result Comment: <100 mg/dL, Optimal 100-129 mg/dL, Near optimal/above optimal 130-159 mg/dL, Borderline high 160-189 mg/dL, High >189 mg/dL, Very high Secondary prevention optimal LDL Cholesterol levels are recommended to be <70 mg/dL LDL cholesterol is calculated using the Castro-NIH equation. Performed By: #### 2 4323-8, 10530-9, 3015-3 ####[facility] LABCLIA [id number] [address] OF [facility] Cholesterol in LDL/Cholesterol in HDL [Mass ratio] 1.64 {ratio} Normal <2.54 [facility] Comment on above: Order Comment: Rosannei men Type: BLOOD SPECIMENOrdering Facility: [facility] Address: [address] [place] [address] Result Comment: Refe rence: 1. National Cholesterol Education Program ATP III Guideline At-A-Glance Quick Desk Reference: National Heart, Lung, and Blood [place]. National Institutes of Health. 2001: NIH Publication No. 01-3305. 2. An International Atherosclerosis Society position paper: global recommendations for the management of dyslipidemia: executive summary, Atherosclerosis. 2014: 232(2):410-413. Performed By: #### 2 4323-8, 54650-5, 6-3 ####[facility] LABCLIA [id number] [address] [place] Cholesterol in VLDL [Mass/Vol] 11 mg/dL Normal <30 [facility] Comment on above: Order Comment: Rosannei men Type: BLOOD SPECIMENOrdering Facility: [facility] Address: [address] [place] [address] Performed By: #### 2 4323-8, 06159-8, 3015-3 ####[facility] LABCLIA [id number] [address] [place] Cholesterol non HDL [Mass/Vol] 132 mg/dL High <130 [facility] Comment on above: Order Comment: Speci men Type: BLOOD SPECIMENOrdering Facility: [facility] Address: [address] [place] [address] Result Comment: <130 mg/dL, Optimal 130-159 mg/dL, Near optimal/above optimal 160-189 mg/dL, Borderline high 190-219 mg/dL, High >219 mg/dL, Very high Secondary prevention optimal non HDL Cholesterol levels are recommended to be <100 mg/dL Performed By: #### 2 4323-8, 65848-4, 3016-3 ####[facility] LABCLIA [id number] [address] [place] [address] [place] Cholesterol.total/Ch olesterol in HDL [Mass ratio] 2.81 {ratio} Normal <5.10 [facility] Comment on above: Order Comment: Speci men Type: BLOOD SPECIMENOrdering Facility: [facility] Address: [address] [place] [address] Performed By: #### 2 4323-8, 06100-4, 3016-3 ####[facility] LABIA [id number] [address] [place] [address] [place] FASTING TIME 13 hrs Normal [facility] Comment on above: Order Comment: Speci men Type: BLOOD SPECIMENOrdering Facility: [facility] Address: [address] [place] [address] Performed By: #### 2 4323-8, 25044-8, 6-3 ####[facility] [facility] [id number] [address] [place] [address] [place] Triglyceride [Mass/Vol] 66 mg/dL Normal <150 [facility] Comment on above: Order Comment: Speci men Type: BLOOD SPECIMENOrdering Facility: [facility] Address: [address] [place] [address] Result Comment: <150 mg/dL, Normal 150-199 mg/dL, Borderline high 200-499 mg/dL, High >499 mg/dL, Very high Performed By: #### 2 4323-8, 25458-2, 6-3 ####[facility] [id number] [address] [place] [address] [place] No Panel Informationon 11-25 Interpretation and review of laboratory results Abnormal [facility] THYROID STIMULATING HORMONEo n 11-25-2024 TSH Qn 2.630 m[IU]/L [facility] TSH Qnon 11-25-2024 Interpretation and review of laboratory results Normal [facility] TSH SerPl-aCncon 11-25-2024 TSH Qn 2.630 m[IU]/L Normal 0.270-4.200 [facility] Comment on above: Order Comment: Speci men Type: BLOOD SPECIMENOrdering Facility: [facility] Address: [address] [place] [address] Performed By: #### 2 4323-8, 05291-0, 3016-3 ####[facility] [id number] [address] [facility] [place] [address] [place] VITAMIN D 25 HYDROXYon 11-25 25-hydroxyvitamin D3 [Mass/Vol] 33.5 ng/mL 31.0 - 80.0 ng/mL [facility] Comment on above: Classification of 25 [place] Vitamin D status: Deficiency/Insufficiency: < or = 30 ng/ml. Sufficiency/Optimal Levels: 31-80 ng/mL Toxicity: > 100 ng/mL. Test performed by chemiluminescent immunoassay. CNOVon 10-10-2024 CNOV Office Visit (UCWSTR ) LAISHA SANDERSON ([id number]) 1945 F Date Time Provider Department 10/10/24 11:45 AM JUAN ALBERTO DEVI [facility] During your visit today, we recorded the following information about you: Temperature Pulse Respiration Blood pressure 98.5 degrees 78/minute 18/minute 121/73 Weight 70 kg Juan Alberto Devi PA-C 10/10/2024 12:08 PM Signed This note was created using NoteWriter. Subjective Laisha Sanderson is a 78 year old female. Patient is a 78-year-old female who arrives for evaluation of laceration to the dorsal aspect of her right index finger that she sustained last evening at approximately 1700. Patient reports that she was slicing onions when her distal right index finger struck the sharp edge of a mandolin. Patient cleaned the wound immediately and states she noted no foreign body. Patient applied a bandage last evening which she replaced this morning. Patient does not take anticoagulant medication and has no history of diabetes. Patient states that her last tetanus immunization was received approximately 3 years ago. Patient denies paresthesia or paralysis to right index finger and states she is able to flex and extend same without difficulty. Patient has no additional complaints of pain or injury. Patient is right-hand dominant. Laceration Review of Systems Skin: Positive for wound. Laceration Right Index Finger All other systems reviewed and are negative. Objective BP 121/73 Pulse 78 Temp 36.9 ?C (98.5 ?F) Resp 18 Wt 70 kg (154 lb 5.2 oz) SpO2 97% BMI 28.04 kg/m? Physical Exam Vitals and nursing note reviewed. Constitutional: Appearance: Normal appearance. She is normal weight. HENT: Head: Normocephalic and atraumatic. Nose: Nose normal. Mouth/Throat: Mouth: Mucous membranes are moist. Pharynx: Oropharynx is clear. Eyes: Extraocular Movements: Extraocular movements intact. Conjunctiva/sclera: Conjunctivae normal. Pupils: Pupils are equal, round, and reactive to light. Cardiovascular: Rate and Rhythm: Normal rate. Pulses: Normal pulses. Pulmonary: Effort: Pulmonary effort is normal. Breath sounds: Normal breath sounds. Musculoskeletal: Cervical back: Normal range of motion and neck supple. Skin: General: Skin is warm and dry. Capillary Refill: Capillary refill takes less than 2 seconds. Comments: Superficial 0.5 cm curvilinear laceration is noted to the distal tip of the right and proximal finger. Fingernail to the right index finger is atraumatic and there is no evidence of subungual hematoma. Wound depth is superficial and the underlying fascial structures are fully intact. No bleeding, serous appearing fluid is noted. No foreign bodies present. MSP to the right index finger is fully intact and muscle strength is 5/5. Patient demonstrates full range of motion to the right index finger. Remainder of exam to the right fingers and hand is unremarkable. Neurological: General: No focal deficit present. Mental Status: She is alert and oriented to person, place, and time. Psychiatric: Mood and Affect: Mood normal. Behavior: Behavior normal. Thought Content: Thought content normal. Judgment: Judgment normal. Assessment and Plan Physical exam findings as noted above. Wound is superficial and no suture repair or other intervention is required. Wound care instructions were discussed the patient verbalizes good understanding of same. CLINICAL IMPRESSION: 0.5 cm Superficial Laceration Distal Right Index Finger ASSESSMENT/PLAN: 1. Laceration of right index finger without foreign body without damage to nail, initial encounter - ICD9: 883.0, ICD10: S61.210A (primary diagnosis) 2. Visit for wound check - ICD9: V58.89, ICD10: Z51.89 MDM Risk of Complications, Morbidity, and/or Mortality Presenting problems: low Diagnostic procedures: low Management options: angelita Devi PA-C Allergies As of Date: 10/10/2024 Noted Allergy Reaction BEE STING 11/09/2014 10 - Anaphylaxis LIQUID BANDAGE (ENBUCRILATE) 10/10/2024 2 - Rash TOPICAL AGENT COMBINATION NO.1 06/17/2013 2 - Rash Comments: Hair treatment AMOXIL (AMOXICILLIN) 01/06/2007 2 - Rash Date Reviewed: 10/10/2024 Reviewed by: Katlyn Shepard MA - Fully Assessed Reason for Visit: Laceration [1747] Cmt: R index finger x 5pm last night Primary Visit Diagnosis:Laceration of right index finger without foreign body without damage to nail, initial encounter [S61.210A] Other Visit Diagnosis:Visit for wound check [Z51.89] Prescriptions as of 10/10/2024 - benzonatate (TESSALON PERLE) 100 mg capsule Take 1 capsule by mouth three times a day as needed. - amLODIPine (NORVASC) 10 mg tablet Take 1 tablet by mouth once daily. - EPINEPHrine (EPIPEN 2-TREMAYNE) 0.3 mg/0.3 mL auto-injector Inject 0.3 mL intramuscularly as needed. - Miscellaneous Medical Supply (BLOOD PRESSURE CUFF) (more content not included)... Normal [facility] CNOVon 08-15-2024 CNOV Office Visit (UCWSTR ) LAISHA SANDERSON ([id number]) 1945 F Date Time Provider Department 08/15/24 10:30 AM FREDIS LUGO [facility] During your visit today, we recorded the following information about you: Temperature Pulse Respiration Blood pressure 99.1 degrees 80/minute 18/minute 128/82 Weight 71.3 kg Fredis Lugo APRN.CNP 08/15/2024 10:47 AM Signed This note was created using iWarda. Subjective Laisha Sanderson is a 78 year old female. HPI Patient states she has a history of contact dermatitis. About 2 days ago she wore a T-shirt that she has not worn in the last 10 years and subsequently developed a diffuse urticarial rash over her chest and bilateral armpits. She otherwise denies any fever rash in her mouth difficulty swallowing or breathing. Review of Systems As above Objective BP 128/82 Pulse 80 Temp 37.3 ?C (99.1 ?F) (Tympanic) Resp 18 Wt 71.3 kg (157 lb 3 oz) SpO2 94% BMI 28.56 kg/m? Physical Exam Vitals and nursing note reviewed. Constitutional: General: She is not in acute distress. Appearance: Normal appearance. She is not ill-appearing. HENT: Head: Normocephalic. Mouth/Throat: Mouth: Mucous membranes are moist. Comments: No involvement of the mouth, lips, or tongue. Eyes: Conjunctiva/sclera: Conjunctivae normal. Cardiovascular: Rate and Rhythm: Normal rate and regular rhythm. Pulmonary: Effort: Pulmonary effort is normal. Breath sounds: Normal breath sounds. Musculoskeletal: General: Normal range of motion. Cervical back: Normal range of motion. Skin: General: Skin is warm and dry. Comments: Diffuse urticarial rash over the chest Neurological: General: No focal deficit present. Mental Status: She is alert. Psychiatric: Mood and Affect: Mood normal. Behavior: Behavior normal. Assessment and Plan ASSESSMENT/PLAN: 1. Irritant contact dermatitis due to other agents - ICD9: 692.89, ICD10: L24.89 Patient's presentation does appear consistent with contact dermatitis. She was given prescriptions as noted below. She will ensure that her clothing has been washed thoroughly and will follow-up with PCP if symptoms not improving. - PREDNISONE 20 MG TABLET - CETIRIZINE 10 MG TABLET Fredis Lugo APRN.CNP Allergies As of Date: 08/15/2024 Noted Allergy Reaction BEE STING 11/09/2014 10 - Anaphylaxis TOPICAL AGENT COMBINATION NO.1 06/17/2013 2 - Rash Comments: Hair treatment AMOXIL (AMOXICILLIN) 01/06/2007 2 - Rash Date Reviewed: 08/15/2024 Reviewed by: Fredis Lugo APRN.BANQUET COORDINATOR - Fully Assessed Reason for Visit: Rash [1087] Cmt: Rash on chest x 2 days Primary Visit Diagnosis:Irritant contact dermatitis due to other agents [L24.89] Order(s):predniSONE (DELTASONE) 20 mg tabletTake 2 tablets by mouth once daily for 5 days.Disp: 10 tabletRfl: 0 cetirizine (ZYRTEC) 10 mg tabletTake 1 tablet by mouth once daily for 14 days.Disp: 14 tabletRfl: 0 Prescriptions as of 08/15/2024 - predniSONE (DELTASONE) 20 mg tablet Take 2 tablets by mouth once daily for 5 days. - cetirizine (ZYRTEC) 10 mg tablet Take 1 tablet by mouth once daily for 14 days. - benzonatate (TESSALON PERLE) 100 mg capsule Take 1 capsule by mouth three times a day as needed. - amLODIPine (NORVASC) 10 mg tablet Take 1 tablet by mouth once daily. - EPINEPHrine (EPIPEN 2-TREMAYNE) 0.3 mg/0.3 mL auto-injector Inject 0.3 mL intramuscularly as needed. - Miscellaneous Medical Supply (BLOOD PRESSURE CUFF) 1 Each once daily. 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 CETIRIZINE 10 MG TABLET 14 t* 0 08/15/2024 08/29/2024 Route: ORAL Sig: Take 1 tablet by mouth once daily for 14 days. Encounter Status:Closed by FREDIS LUGO on 08/15/24 [facility] 08-15-2024 [facility] LAISHA SANDERSON ([id number]) 1945 F Date Time Provider Department 08/15/24 [facility] During your visit today, we recorded the following information about you: Nanette Hurst RN 08/15/2024 9:19 AM Signed Patient calls and states that she has history of contact dermatitis. Patient has used a milder detergent because of this. Patient reports that she had pulled out an old t-shirt that she had not worn for a couple of years. Patient reports that she wore shirt which was previously washed by a different detergent. Patient now has a rash under her armpits and across her chest. Patient reports that rash auguste and stings. Advised patient that she should get rash looked at and that she can come into express care and they will look at rash. Patient voiced understanding. Nanetet Hurst RN Allergies As of Date: 08/15/2024 Noted Allergy Reaction BEE STING 11/09/2014 10 - Anaphylaxis TOPICAL AGENT COMBINATION NO.1 06/17/2013 2 - Rash Comments: Hair treatment AMOXIL (AMOXICILLIN) 01/06/2007 2 - Rash Date Reviewed: 05/15/2024 Reviewed by: Katlyn Shepard MA - Fully Assessed Reason for Visit: Patient Update [1234] Prescriptions as of 08/15/2024 - benzonatate (TESSALON PERLE) 100 mg capsule Take 1 capsule by mouth three times a day as needed. - amLODIPine (NORVASC) 10 mg tablet Take 1 tablet by mouth once daily. - EPINEPHrine (EPIPEN 2-TREMAYNE) 0.3 mg/0.3 mL auto-injector Inject 0.3 mL intramuscularly as needed. - Miscellaneous Medical Supply (BLOOD PRESSURE CUFF) 1 Each once daily. 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] 06/17/2013 Obstructive sleep apnea syndrome [G47.33] 04/11/2016 Psoriasis of scalp [L40.9] 01/05/2017 Actinic keratosis [L57.0] 01/05/2017 Essential hypertension [I10] 06/01/2020 Stress incontinence of urine [N39.3] 07/26/2021 Chronic constipation [K59.09] 07/26/2021 Grade I diastolic dysfunction [I51.89] 07/26/2021 IFG (impaired fasting glucose) [R73.01] 02/27/2023 Encounter Status:Closed by NANETTE HURST on 08/15/24 [facility] CNOVon 05-15-2024 CNOV Office Visit (UCWSTR ) LAISHA SANDERSON ([id number]) 1945 F Date Time Provider Department 05/15/24 11:00 AM JAKE KAY [facility] During your visit today, we recorded the following information about you: Temperature Pulse Respiration Blood pressure 97.7 degrees 70/minute 18/minute 139/75 Weight 71.1 kg Jake Kay PA 05/15/2024 11:48 AM Signed This note was created using iWarda. Subjective Laisha Sanderson is a 78 year old female. HPI 78-year-old female presents for cough. Patient states that she has had a cough for the past 10 days. She was here on Saturday for cough and states that she was told it was viral. She states that cough has gotten worse. It seems like it is settled more into her chest. She states cough is dry. No chest pain or shortness of breath. No history of COPD or asthma. She has not had fevers. No nasal congestion. She has taken [place] DM [id number] with some improvement in symptoms. No other complaint. PAST MEDICAL HISTORY Diagnosis Date Abnormal mammogram, unspecified 05/2007 right breast, due for repeat 11/13 Degeneration of intervertebral disc, site unspecified 1999 cervical and lumbar; not having any pain now Disorder of bone and cartilage, unspecified osteopenia on DXA in 2001, but was normal in 2007 so bisphosphonates stopped Other and unspecified hyperlipidemia 2001 Other specified acquired hypothyroidism 2005 ?borderline Other specified gastritis without mention of hemorrhage 2007 found on EGD, symptom free on PPI Sleep apnea 10/02/2011 on CPAP Snoring Vitamin D deficiency 12/21/2009 PAST SURGICAL HISTORY Procedure Laterality Date COLONOSCOPY FLX DX W/COLLJ SPEC WHEN PFRMD 09/11/2017 Colonoscopy TRABECULOPLASTY BY LASER SURGERY 1995 vision correction VAGINAL HYSTERECTOMY UTERUS 250 GM/< 1986 precancerous pap smear - no cancer on path from surgery ALLERGIES Bee Sting, Topical Agent Combination No.1, and Amoxil [Amoxicillin] MEDICATIONS amLODIPine (NORVASC) 10 mg tablet Take 1 tablet by mouth once daily. EPINEPHrine (EPIPEN 2-TREMAYNE) 0.3 mg/0.3 mL auto-injector Inject 0.3 mL intramuscularly as needed. Miscellaneous Medical Supply (BLOOD PRESSURE CUFF) 1 Each once daily. FAMILY HISTORY Problem Relation Age of Onset Stroke Mother Hypertension Mother age 89 Heart Father CHF - age 63 other (impaired fasting glucose) Sister Lipids Sister Hypertension Sister Social History Tobacco Use Smoking status: Never Smokeless tobacco: Never Substance Use Topics Alcohol use: Yes Alcohol/week: 3.0 standard drinks of alcohol Types: 3 Glasses of Wine (5oz) per week Drug use: No Review of Systems Constitutional: Negative for chills and fever. HENT: Negative for congestion, ear pain and sore throat. Respiratory: Positive for cough. Negative for shortness of breath. Cardiovascular: Negative for chest pain. Gastrointestinal: Negative for diarrhea and vomiting. Objective BP 139/75 Pulse 70 Temp 36.5 ?C (97.7 ?F) Resp 18 Wt 71.1 kg (156 lb 12 oz) SpO2 97% BMI 28.48 kg/m? Physical Exam Vitals and nursing note reviewed. Constitutional: General: She is not in acute distress. Appearance: Normal appearance. She is not toxic-appearing. HENT: Right Ear: Tympanic membrane and ear canal normal. Left Ear: Ear canal normal. Nose: Nose normal. Mouth/Throat: Mouth: Mucous membranes are moist. Pharynx: Oropharynx is clear. Eyes: Conjunctiva/sclera: Conjunctivae normal. Cardiovascular: Rate and Rhythm: Normal rate and regular rhythm. Pulmonary: Effort: Pulmonary effort is normal. Breath sounds: Normal breath sounds. No wheezing, rhonchi or rales. Skin: General: Skin is warm and dry. Neurological: Mental Status: She is alert. Assessment and Plan ASSESSMENT/PLAN: 1. Acute cough - ICD9: 786.2, ICD10: R05.1 - XR CHEST 2V FRONTAL/LAT-no acute radiographic abnormality. -Rx for Tessalon Perles, Rx Medrol Dosepak -Advise chest x-ray clear, no pneumonia. No indication for antibiotics at this time. Follow-up with PCP for persistent symptoms Diagnosis and treatment plan were discussed and questions were answered to the patient's satisfaction. Pt acknowledged understanding of concepts and follow up plan. Specific signs and symptoms that would indicate the need for higher level of care were discussed in detail warranting prompt ER evaluation. YRIS Walker Allergies As of Date: 05/15/2024 Noted Allergy Reaction BEE STING 11/09/2014 10 - Anaphylaxis TOPICAL AGENT COMBINATION NO.1 06/17/2013 2 - Rash Comments: Hair treatment AMOXIL (AMOXICILLIN) 01/06/2007 2 - Rash Date Reviewed: 05/15/2024 Reviewed by: Katlyn Shepard MA - Fully Assessed Reason for Visit: Cough [28] Cmt: Chest congestion x11 days, seen 05/09 for same Primary Visit Diagnosis:Acute cough [R05.1] Order(s):XR C (more content not included)... Normal [facility] XR CHEST 2V FRONTAL/LATon XR CHEST 2V FRONTAL/LAT * * *Final Report* * * DATE OF EXAM: May 15 2024 11:16AM WOX [id number] - XR CHEST 2V FRONTAL/LAT / PROCEDURE REASON: Acute cough * * * * Physician Interpretation * * * * EXAMINATION: CHEST RADIOGRAPH (2 VIEW FRONTAL and LATERAL) CLINICAL HISTORY: Acute cough MQ: XC2_6 EXAM DATE/TIME: 05/15/2024 11:16 AM COMPARISON: Chest x-ray 09/18/2023 RESULT: Lines, tubes, and devices: None. Lungs and pleura: No consolidation. No lung mass. No pleural effusion. No pneumothorax. Cardiomediastinal silhouette: Normal cardiomediastinal silhouette. Bones and soft tissues: Unremarkable. IMPRESSION: No acute radiographic abnormality. House Player: [facility] Transcribe Date/Time: May 15 2024 11:38A Dictated by : YUDITH PELAEZ MD This examination was interpreted and the report reviewed and electronically signed by: YUDITH PELAEZ MD on May 15 2024 11:41AM EST [id number] Normal [facility] XR Chest PA and Lateralon IMPRESSION: No acute radiographic abnormality. House Player: [facility] Transcribe Date/Time: May 15 2024 11:38A Dictated by : YUDITH PELAEZ MD This examination was interpreted and the report reviewed and electronically signed by: YUDITH PELAEZ MD on May 15 2024 11:41AM EST DIVISION OF RADIOLOGY * * *Final Report* * * DATE OF EXAM: May 15 2024 11:16AM WOX [id number] - XR CHEST 2V FRONTAL/LAT / PROCEDURE REASON: Acute cough * * * * Physician Interpretation * * * * EXAMINATION: CHEST RADIOGRAPH (2 VIEW FRONTAL & LATERAL) CLINICAL HISTORY: Acute cough MQ: XC2_6 EXAM DATE/TIME: 05/15/2024 11:16 AM COMPARISON: Chest x-ray 09/18/2023 RESULT: Lines, tubes, and devices: None. Lungs and pleura: No consolidation. No lung mass. No pleural effusion. No pneumothorax. Cardiomediastinal silhouette: Normal cardiomediastinal silhouette. Bones and soft tissues: Unremarkable. DIVISION [facility] * * *Final Report* * * DATE OF EXAM: May 15 2024 11:16AM WOX [id number] - XR CHEST 2V FRONTAL/LAT / PROCEDURE REASON: Acute cough * * * * Physician Interpretation * * * * EXAMINATION: CHEST RADIOGRAPH (2 VIEW FRONTAL & LATERAL) CLINICAL HISTORY: Acute cough MQ: XC2_6 EXAM DATE/TIME: 05/15/2024 11:16 AM COMPARISON: Chest x-ray 09/18/2023 RESULT: Lines, tubes, and devices: None. Lungs and pleura: No consolidation. No lung mass. No pleural effusion. No pneumothorax. Cardiomediastinal silhouette: Normal cardiomediastinal silhouette. Bones and soft tissues: Unremarkable. IMPRESSION IMPRESSION: No acute radiographic abnormality. House Player: [facility] Transcribe Date/Time: May 15 2024 11:38A Dictated by : YUDITH PELAEZ MD This examination was interpreted and the report reviewed and electronically signed by: YUDITH PELAEZ MD on May 15 2024 11:41AM EST [facility] Radiology Study observation (narrative) [facility] XR Chest PA and LateralOrder ed By: Cc Provider on 05-15-2024 [facility] CNOVon 05-09-2024 CNOV Office Visit (UCWSTR ) LAISHA SANDERSON ([id number]) 1945 F Date Time Provider Department 05/09/24 12:45 PM MICHELE ALLEN [facility] During your visit today, we recorded the following information about you: Temperature Pulse Respiration Blood pressure 99.1 degrees 85/minute 18/minute 126/77 Weight 74 kg Michele Allne APRN.BANQUET COORDINATOR 05/09/2024 1:01 PM Signed CC: Patient presents with: Cough: Sinus congestion x3 days HPI: Laisha Sanderson is a 78 year old female who presents to the office with complaint of head congestion and cough, nonproductive for 5 days. Symptoms are staying the same. Associated symptoms includes cough. Denies sore throat, ear pain, wheezing, dyspnea, fatigue, nausea, vomiting , and diarrhea. Treatments tried include nothing so far. with no relief of symptoms. Sick contacts: unknown. History of asthma, frequent episodes of bronchitis, chronic bronchitis, bronchiectasis or COPD: No Smoker: No Seasonal/environmental allergies: No The ROS is otherwise negative. The patient's pmh, medications, allergies, and past visits are reviewed. PHYSICAL EXAM: BP 126/77 Pulse 85 Temp 37.3 ?C (99.1 ?F) Resp 18 Wt 74 kg (163 lb 2.3 oz) SpO2 99% BMI 29.64 kg/m? General appearance: alert, cooperative, pleasant, in no acute distress Head: Normocephalic Eyes: EOM's intact, conjunctiva pink and moist, no icterus, sclera white, non-injected Ears: Right ear: External ear/canal- Normal, TM - clear with good landmarks. Left ear: External ear/canal- Normal, TM - clear with good landmarks Oropharynx:moist without lesions, No erythema, exudates or tonsillar hypertrophy. Heart: Negative. RRR without obvious murmur, gallop, or rubs. No ectopy. Lungs: clear to auscultation, without rales or wheeze, good air exchange PAST MEDICAL HISTORY Diagnosis Date Abnormal mammogram, unspecified 05/2007 right breast, due for repeat 11/13 Degeneration of intervertebral disc, site unspecified 2000 cervical and lumbar; not having any pain now Disorder of bone and cartilage, unspecified osteopenia on DXA in 2001, but was normal in 2007 so bisphosphonates stopped Other and unspecified hyperlipidemia 2001 Other specified acquired hypothyroidism 2005 ?borderline Other specified gastritis without mention of hemorrhage 2007 found on EGD, symptom free on PPI Sleep apnea 10/02/2011 on CPAP Snoring Vitamin D deficiency 12/21/2009 PAST SURGICAL HISTORY Procedure Laterality Date COLONOSCOPY FLX DX W/COLLJ SPEC WHEN PFRMD 09/11/2017 Colonoscopy TRABECULOPLASTY BY LASER SURGERY 1995 vision correction VAGINAL HYSTERECTOMY UTERUS 250 GM/< 1986 precancerous pap smear - no cancer on path from surgery ALLERGIES Bee Sting, Topical Agent Combination No.1, and Amoxil [Amoxicillin] MEDICATIONS amLODIPine (NORVASC) 10 mg tablet Take 1 tablet by mouth once daily. EPINEPHrine (EPIPEN 2-TREMAYNE) 0.3 mg/0.3 mL auto-injector Inject 0.3 mL intramuscularly as needed. Miscellaneous Medical Supply (BLOOD PRESSURE CUFF) 1 Each once daily. FAMILY HISTORY Problem Relation Age of Onset Stroke Mother Hypertension Mother age 89 Heart Father CHF - age 63 other (impaired fasting glucose) Sister Lipids Sister Hypertension Sister Social History Tobacco Use Smoking status: Never Smokeless tobacco: Never Substance Use Topics Alcohol use: Yes Alcohol/week: 3.0 standard drinks of alcohol Types: 3 Glasses of Wine (5oz) per week Drug use: No ASSESSMENT/PLAN: 1. URI, acute - ICD9: 465.9, ICD10: J06.9 Supportive care. Viral at this time. Out of window for treatment. Potential red flag symptoms discussed with the patient. Reviewed appropriate action plan to take if red flag symptoms occur. Patient agreeable to treatment plan. Michele Allen APRN.BANQUET COORDINATOR Allergies As of Date: 05/09/2024 Noted Allergy Reaction BEE STING 11/09/2014 10 - Anaphylaxis TOPICAL AGENT COMBINATION NO.1 06/17/2013 2 - Rash Comments: Hair treatment - AMOXIL (AMOXICILLIN) 01/06/2007 2 - Rash Date Reviewed: 05/09/2024 Reviewed by: Katlyn Shepard MA - Fully Assessed Reason for Visit: Cough [28] Cmt: Sinus congestion x3 days Primary Visit Diagnosis:URI, acute [J06.9] Prescriptions as of 05/09/2024 - amLODIPine (NORVASC) 10 mg tablet Take 1 tablet by mouth once daily. - EPINEPHrine (EPIPEN 2-TREMAYNE) 0.3 mg/0.3 mL auto-injector Inject 0.3 mL intramuscularly as needed. - Miscellaneous Medical Supply (BLOOD PRESSURE CUFF) 1 Each once daily. Problem List As Of Date 05/09/2024 Noted Resolved Gastritis [K29.70] DDD (degenerative disc disease), lumbar [M51.36* BONE AND CARTILAGE DIS NOS [M89.9, M94.9] Vitamin D Deficiency [E55.9] 12/21/2009 Sleep apnea [G47.30] 10/02/2011 Supraspinatus tendonitis [M75.90] 10/02/2011 06/17/2013 Hyperlipidemia with target LDL less than 130 [E*06/17/2013 Female pattern moraima (more content not included)... Normal [facility] Emergency Department Summary on 02-06-2024 Emergency Department Summary [facility] Medical Records Department [address] [place] [address] Emergency Department Summary 02/06/24 MR#: [id number] Acct: [id number] Name: LAISHA SANDERSON Rep #: [id number] : 1945 78 From: Terrance Vences DO PCP: Dr. Galileo Rai DO Status:DEP ER Location: ED HPI History of Present Illness Chief Complaint: Allergic Reaction Informant: patient Narrative Narrative: 78-year-old female presenting to the emergency room with a wasp sting right thumb. Patient states that she was in the bathroom today and went to use the washcloth and felt a sting on her hand. 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 She states that she has some mild swelling and redness of the right thumb and feels a little bit hoarse. She has not taken any medications for this. She denies any vomiting or diarrhea. No hives that she is noticed. [facility] Medical History Skin tear History of edema Wears contact lenses Wears glasses Alcohol use Arthritis Injury of head and neck Non-smoker CPAP (continuous positive airway pressure) dependence History of echocardiogram History of stress test Hypertension Home Medications ???Medication ???Instructions ???Recorded ???Last Taken ???Type amlodipine 5 mg tablet 10 mg PO DAILY 03/21/19 10/04/21 History ibuprofen 200 mg tablet (Advil) 400 mg PO Q6H PRN Pain 10/03/21 Unknown History oxycodone 5 mg tablet 5 mg PO Q6H PRN pain 3 days #12 10/04/21 Unknown Rx tabs Allergy/AdvReac Type Severity Reaction Status Date / Time amoxicillin (Amoxicillin) Allergy Other Verified 02/06/24 08:25 bee venom protein (honey bee) Allergy Swelling Verified 02/06/24 08:25 Environmental Allergies: Allergy Rash Verified 02/06/24 08:25 Uncoded Penicillins Allergy Other Verified 02/06/24 08:25 Surgical History History of carpal tunnel surgery of right wrist Hx of colonoscopy History of partial hysterectomy Social History Smoking Status: Never smoker ROS ROS ED Constitutional Constitutional ED: Denies chills or weight loss Eyes Eyes: Denies change in vision or diplopia ENT ENT ED: Reports other Details: Intermittent hoarse voice ; Denies ear pain, rhinorrhea or sore throat Cardiovascular Cardiovascular: Denies chest pain, orthopnea, palpitations or racing heartbeat Respiratory/Chest Respiratory/Chest: Denies cough, dyspnea or orthopnea Gastrointestinal Gastrointestinal: Denies abdominal pain, diarrhea, nausea or vomiting Genitourinary Genitourinary ED: Denies dysuria, hematuria or urinary frequency Musculoskeletal Musculoskeletal: Denies arthralgias or myalgias Integumentary Reports other Details: See history of present illness ; Denies abscess or rash Neurologic Neurologic: Denies headache(s) or weakness Psychiatric Psychiatric: Denies anxiety, depression, suicidal ideation or suicidal thoughts Endocrine Endocrinology: Denies polydipsia, polyphagia or polyuria Allergic/Immunologic Allergic/Immunologic ED: Denies mouth swelling, tongue swelling or urticaria EXAM Physical Exam Const Vital Signs: 02/06/24 08:26 02/06/24 09:25 02/06/24 10:00 Temperature 97.8 F Temperature Source Oral Pulse Rate 86 70 71 Respiratory Rate 18 16 16 Blood Pressure 139/81 H 134/70 H 136/73 H Blood Pressure Mean 100 91 94 Pulse Ox 98 94 93 Oxygen Delivery Method Room Air Room Air Room Air 02/06/24 11:00 02/06/24 11:39 Temperature 98.4 F 98.9 F Temperature Source Temporal Pulse Rate 84 78 Respiratory Rate 16 16 Blood Pressure 126/76 H 142/76 H Blood Pressure Mean 92 98 Pulse Ox 98 99 Oxygen Delivery Method Room Air Positive well nourished and well developed General Appearance ED: well developed HEENT Reports normocephalic, head/scalp atraumatic and moist mucous membranes HEENT Narrative: No stridor. No uvular swelling. No lip or tongue swelling. Handling secretions normally. Voice sounds normal. Occasionally there is a phlegmy sound to her voice which clears with cough Eyes PERRL and EOMs intact bilaterally Neck no lymphadenopathy, supple and no JVD Resp normal respiratory effort and clear to auscultation bilaterally Cardio regular rate, regular rhythm and no murmurs GI normal to inspection, nondistended, normoactive bowel sounds and non-tender Palpation: soft Back/Spine no CVA tenderness and normal ROM Extremity normal to inspection General Extremety ED: Negative for edema General Extremity: Negative for edema Neuro oriented x3 and CN's II-XII intact bilaterally Sensorium / Orientation: alert Motor Exam: strength 5/5 thro (more content not included)... Normal [facility] Bacteria Ur Culton Bacteria identified Cx Nom (U) ORGANISM ID: 1 <10,000 CFU/ml Normal urogenital kayla Normal [facility] Comment on above: Performed By: #### 6 30-4 ####[facility] [id number] [place] [address] [place] CNOVon 02-05-2024 CNOV Office Visit (FAMPWS ) LAISHA SANDERSON ([id number]) 1945 F Date Time Provider Department 02/05/24 12:00 PM BRYCE BRUMFIELD During your visit today, we recorded the following information about you: Pulse Respiration Blood pressure Weight 73/minute 16/minute 128/84 74.5 kg Bryce Brumfield APRN.CNP 02/05/2024 12:42 PM Signed Chief Complaint Patient presents with: Urinary Problem: Urinary Urgency, frequency, itching x 5 days Hair/Scalp Problem HPI Laisha Sanderson is a 78 year old female who presents here today for Above Complaints.. Hair/scalp lesion-area to right side of her scalp, has had this frozen off by PCP Dr. Rai in the past and this goes away for a year or so and then seems to come back. Is dry and itchy. Wants to catch it before it gets too bad. Urine-frequency, urgency, itching x5 days. Getting up at least 2-3x/night and is pretty urgent. About 6 months ago did have some incontinence but was attributed to dehydration and has since resolved. No drainage. Strong odor but no foul odor. Taking amlodipine, started taking it at nighttime rather than the morning and her leg swelling doesn't happen anymore. Past medical history, appointments, medications, allergies reviewed. Previous Medical History PAST MEDICAL HISTORY Diagnosis Date Abnormal mammogram, unspecified 05/2007 right breast, due for repeat 11/13 Degeneration of intervertebral disc, site unspecified 1999 cervical and lumbar; not having any pain now Disorder of bone and cartilage, unspecified osteopenia on DXA in 2001, but was normal in 2007 so bisphosphonates stopped Other and unspecified hyperlipidemia 2001 Other specified acquired hypothyroidism 2005 ?borderline Other specified gastritis without mention of hemorrhage 2007 found on EGD, symptom free on PPI Sleep apnea 10/02/2011 on CPAP Snoring Vitamin D deficiency 12/21/2009 Previous Surgical History PAST SURGICAL HISTORY Procedure Laterality Date COLONOSCOPY FLX DX W/COLLJ SPEC WHEN PFRMD 09/11/2017 Colonoscopy TRABECULOPLASTY BY LASER SURGERY 1995 vision correction VAGINAL HYSTERECTOMY UTERUS 250 GM/< 1986 precancerous pap smear - no cancer on path from surgery Family History FAMILY HISTORY Problem Relation Age of Onset Stroke Mother Hypertension Mother age 89 Heart Father CHF - age 63 other (impaired fasting glucose) Sister Lipids Sister Hypertension Sister Patient Allergies ALLERGIES Allergen Reactions Amoxil [Amoxicillin] Rash gets bright red rash Bee Sting Anaphylaxis Topical Agent Combi* Rash Hair treatment - Current Medications Current Outpatient Medications on File Prior to Visit Medication Sig amLODIPine (NORVASC) 10 mg tablet Take 1 tablet by mouth once daily. EPINEPHrine (EPIPEN 2-TREMAYNE) 0.3 mg/0.3 mL auto-injector Inject 0.3 mL intramuscularly as needed. Miscellaneous Medical Supply (BLOOD PRESSURE CUFF) 1 Each once daily. No current facility-administered medications on file prior to visit. Social History Social History Tobacco Use Smoking status: Never Smokeless tobacco: Never Substance Use Topics Alcohol use: Yes Alcohol/week: 3.0 standard drinks of alcohol Types: 3 Glasses of Wine (5oz) per week Drug use: No Review of Symptoms REVIEW OF SYSTEMS See HPI, otherwise negative EXAM: BP 128/84 (BP Site: Left Arm, BP Position: Sitting, BP Cuff Size: Regular Adult) Pulse 73 Resp 16 Wt 74.5 kg (164 lb 3.2 oz) SpO2 95% BMI 29.83 kg/m? General Appearance: Well appearing, alert, in no acute distress, well-hydrated, well nourished.. Skin: small whitish scaly patch to right occipital scalp. Lungs: Lungs clear to auscultation. No wheezing, rhonchi, rales.. Heart: RRR without murmur, gallop, or rubs. No ectopy. Psychiatric: pleasant, cooperative. Health Maintenance List Depression Screening Never done Anxiety Screening Never done Shingrix Vaccine(1 of 2) Never done Pneumococcal Vaccine: 65+(2 of 2 - PCV) due on 06/14/2012 RSV Vaccine(1 - 1-dose 75+ series) Never done Influenza Vaccine(1) due on 12/08/2023 Covid-19 Vaccine( - 2023- season) Never done Annual PCP Team Chronic Disease Visit due on 09/17/2024 BP Controlled (<130/80) due on 09/17/2024 Diabetes Screening due on 09/17/2026 DTaP,Tdap,Td Vaccine(2 - Td or Tdap) due on 09/18/2031 Bone Density Screening Completed Mammogram Screening Discontinued Colorectal Cancer Screening Discontinued Advance Directive Discussion Discontinued Data reviewed Previous records, office notes ASSESSMENT/PLAN: 1. Urinary urgency - ICD9: 788.63, ICD10: R39.15 (primary diagnosis) Small protein present. Will send for culture. - UA DIP, URINE (POC) - URINE CULTURE 2. Urinary frequency - ICD9: 788.41, ICD10: R35.0 Small protein present. Will send for culture. - UA DIP, URINE (POC) - URINE CULTURE 3. (more content not included)... Normal [facility] UA DIP, URINE (POC)on 2023 BILIRUBIN UA (POCT) Negative Negative [facility] CLARITY UA (POCT) Clear [facility] COLOR UA (POCT) Yellow [facility] GLUCOSE UA (POCT) Negative Negative mg/dL [facility] Hemoglobin Ql (U) Negative Negative [facility] Interpretation and review of laboratory results Abnormal [facility] KETONE UA (POCT) Negative Negative mg/dL [facility] LEUKOCYTES UA (POCT) Negative Negative [facility] NITRITE UA (POCT) Negative Negative [facility] PH UA (POCT) 7.0 4.5 - 8.0 [facility] Protein Ql (U) Trace Abnormal Negative mg/dL [facility] SPECIFIC GRAVITY UA (POCT) 1.015 1.005 - 1.030 [facility] UROBILINOGEN UA (POCT) 0.2 Normal E.U./dL [facility] Location:[address], [place], [place], [id number] [place] [address] POINT OF CARE [facility] CNPKassandra 01-17-2024 [facility] Tele[facility] ([facility] LAISHA SANDERSON ([id number]) 1945 F Date Time Provider Department 01/17/24 GALILEO RAI [facility] During your visit today, we recorded the following information about you: Meghna Long LPN 01/17/2024 11:47 AM Signed Pt was evaluated regarding hearing loss and there were not further recommendations from them. Pt reports still has hearing loss. Where does she go from here. Please advise pt. STEFANO Josue Bernadette, PA-C 01/21/2024 6:00 PM Signed After reviewing notes. It looks like patient would benefit from a hearing aid evaluation. I would advise contacting the ENT office for guidance on being scheduled for this evaluation. Sherrill Grace PA-C 01/21/2024 Angie Fleming LPN 01/22/2024 9:49 AM Signed Spoke with pt gave information provided. Pt voices understanding. Allergies As of Date: 01/17/2024 Noted Allergy Reaction AMOXIL (AMOXICILLIN) 01/06/2007 2 - Rash Comments: gets bright red rash BEE STING 11/09/2014 10 - Anaphylaxis TOPICAL AGENT COMBINATION NO.1 06/17/2013 2 - Rash Comments: Hair treatment - Date Reviewed: 12/02/2023 Reviewed by: Geetha Roman RT(R) - Partially Assessed Reason for Visit: Hearing Problem [53] Prescriptions as of 01/22/2024 - amLODIPine (NORVASC) 10 mg tablet Take 1 tablet by mouth once daily. - EPINEPHrine (EPIPEN 2-TREMAYNE) 0.3 mg/0.3 mL auto-injector Inject 0.3 mL intramuscularly as needed. - Miscellaneous Medical Supply (BLOOD PRESSURE CUFF) 1 Each once daily. 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] 06/17/2013 Obstructive sleep apnea syndrome [G47.33] 04/11/2016 Psoriasis of scalp [L40.9] 01/05/2017 Actinic keratosis [L57.0] 01/05/2017 Essential hypertension [I10] 06/01/2020 Stress incontinence of urine [N39.3] 07/26/2021 Chronic constipation [K59.09] 07/26/2021 Grade I diastolic dysfunction [I51.89] 07/26/2021 IFG (impaired fasting glucose) [R73.01] 02/27/2023 Encounter Status:Closed by ANGIE FLEMING on 01/22/24 Normal [facility] MR Brain WO and W contrast I Von 12-25-2023 IMPRESSION: Mild chronic supratentorial microvascular ischemic changes and mild right maxillary sinus inflammatory changes. Otherwise normal study. House Player: LASHONDA Transcribe Date/Time: Dec 25 2023 9:50A Dictated by : CONSTANTINE BHATT MD This examination was interpreted and the report reviewed and electronically signed by: CONSTANTINE BHATT MD on Dec 25 2023 9:55AM [facility] DIVISION OF RADIOLOGY * * *Final Report* * * DATE OF EXAM: Dec 25 2023 9:43AM [facility] 0295 - MRI BRAIN WO/W IVCON / PROCEDURE REASON: Sensorineural hearing loss (SNHL) of left ear with unrestricted hearing of right * * * * Physician Interpretation * * * * EXAMINATION: MRI BRAIN WO/W IVCON CLINICAL HISTORY: Left sensorineural hearing loss. TECHNIQUE: IAC protocol with and without gadolinium. MQ: MRBWOW_2 Contrast: 15 mL Dotarem IV COMPARISON: None. RESULT: Acute Change: There is no evidence of an acute intracranial process. Hemorrhage: No clear evidence of prior parenchymal hemorrhage within the constraints of acquisition. Mass Lesion/ Mass Effect: There is no evidence of a soft tissue mass in either IAC region. No abnormal enhancement is noted otherwise along the course of the 7/8 cranial nerve complexes or the region of the inner ear complexes. No abnormal leptomeningeal enhancement is noted in the basilar cisterns. No abnormal parenchymal or leptomeningeal enhancement is noted otherwise following gadolinium administration. Chronic Change: A few scattered small patchy foci of hyperintensity are noted in the supratentorial white matter on FLAIR which are nonspecific but likely represent mild chronic microvascular ischemia in view of the patient's chronologic age. The white matter is otherwise normal in signal intensity characteristics. Parenchyma: No significant volume loss for age. The brain parenchyma is otherwise within normal limits of signal intensity and morphology. Ventricles: Normal caliber and morphology. Skull Base: Hypothalamic and pituitary region are normal. Craniocervical junction is normal. No significant marrow replacement process. The inner ear structures are within normal limits of morphology on the high-resolution 3-D axial T2 images. Vasculature: Major intracranial arterial structures, and dural venous sinuses show typical flow void, suggesting patency by spin echo criteria. No evidence of vascular compression of the 7/8 cranial nerve complexes on the high-resolution axial 3-D T2 images. Other: Incidental note is made of small polyps in the right maxillary antrum. DIVISION OF RADIOLOGY [facility] * * *Final Report* * * DATE OF EXAM: Dec 25 2023 9:43AM [facility] 0295 - MRI BRAIN WO/W IVCON / PROCEDURE REASON: Sensorineural hearing loss (SNHL) of left ear with unrestricted hearing of right * * * * Physician Interpretation * * * * EXAMINATION: MRI BRAIN WO/W IVCON CLINICAL HISTORY: Left sensorineural hearing loss. TECHNIQUE: IAC protocol with and without gadolinium. MQ: MRBWOW_2 Contrast: 15 mL Dotarem IV COMPARISON: None. RESULT: Acute Change: There is no evidence of an acute intracranial process. Hemorrhage: No clear evidence of prior parenchymal hemorrhage within the constraints of acquisition. Mass Lesion/ Mass Effect: There is no evidence of a soft tissue mass in either IAC region. No abnormal enhancement is noted otherwise along the course of the 7/8 cranial nerve complexes or the region of the inner ear complexes. No abnormal leptomeningeal enhancement is noted in the basilar cisterns. No abnormal parenchymal or leptomeningeal enhancement is noted otherwise following gadolinium administration. Chronic Change: A few scattered small patchy foci of hyperintensity are noted in the supratentorial white matter on FLAIR which are nonspecific but likely represent mild chronic microvascular ischemia in view of the patient's chronologic age. The white matter is otherwise normal in signal intensity characteristics. Parenchyma: No significant volume loss for age. The brain parenchyma is otherwise within normal limits of signal intensity and morphology. Ventricles: Normal caliber and morphology. Skull Base: Hypothalamic and pituitary region are normal. Craniocervical junction is normal. No significant marrow replacement process. The inner ear structures are within normal limits of morphology on the high-resolution 3-D axial T2 images. Vasculature: Major intracranial arterial structures, and dural venous sinuses show typical flow void, suggesting patency by spin echo criteria. No evidence of vascular compression of the 7/8 cranial nerve complexes on the high-resolution axial 3-D T2 images. Other: Incidental note is made of small polyps in the right maxillary antrum. IMPRESSION IMPRESSION: Mild chronic supratentorial microvascular ischemic changes and mild right maxillary sinus inflammatory changes. Otherwise normal study. House Player: LASHONDA Transcribe Date/Time: Dec 25 2023 9:50A Dictated by : CONSTANTINE BHATT MD This examination was interpreted and the report reviewed and electronically signed by: CONSTANTINE BHATT MD on Dec 25 2023 9:55AM EST [facility] Radiology Study observation (narrative) [facility] MR Brain WO and W contrast I VOrdered By: [facility] Provider on 12-25-2023 [facility] MRI BRAIN WO/W IVCONon 12-24 MRI BRAIN WO/W IVCON * * *Final Report* * * DATE OF EXAM: Dec 25 2023 9:43AM [facility] 0295 - MRI BRAIN WO/W IVCON / PROCEDURE REASON: Sensorineural hearing loss (SNHL) of left ear with unrestricted hearing of right * * * * Physician Interpretation * * * * EXAMINATION: MRI BRAIN WO/W IVCON CLINICAL HISTORY: Left sensorineural hearing loss. TECHNIQUE: IAC protocol with and without gadolinium. MQ: MRBWOW_2 Contrast: 15 mL Dotarem IV COMPARISON: None. RESULT: Acute Change: There is no evidence of an acute intracranial process. Hemorrhage: No clear evidence of prior parenchymal hemorrhage within the constraints of acquisition. Mass Lesion/ Mass Effect: There is no evidence of a soft tissue mass in either IAC region. No abnormal enhancement is noted otherwise along the course of the 7/8 cranial nerve complexes or the region of the inner ear complexes. No abnormal leptomeningeal enhancement is noted in the basilar cisterns. No abnormal parenchymal or leptomeningeal enhancement is noted otherwise following gadolinium administration. Chronic Change: A few scattered small patchy foci of hyperintensity are noted in the supratentorial white matter on FLAIR which are nonspecific but likely represent mild chronic microvascular ischemia in view of the patient's chronologic age. The white matter is otherwise normal in signal intensity characteristics. Parenchyma: No significant volume loss for age. The brain parenchyma is otherwise within normal limits of signal intensity and morphology. Ventricles: Normal caliber and morphology. Skull Base: Hypothalamic and pituitary region are normal. Craniocervical junction is normal. No significant marrow replacement process. The inner ear structures are within normal limits of morphology on the high-resolution 3-D axial T2 images. Vasculature: Major intracranial arterial structures, and dural venous sinuses show typical flow void, suggesting patency by spin echo criteria. No evidence of vascular compression of the 7/8 cranial nerve complexes on the high-resolution axial 3-D T2 images. Other: Incidental note is made of small polyps in the right maxillary antrum. IMPRESSION: Mild chronic supratentorial microvascular ischemic changes and mild right maxillary sinus inflammatory changes. Otherwise normal study. House Player: LASHONDA Transcribe Date/Time: Dec 25 2023 9:50A Dictated by : CONSTANTINE BHATT MD This examination was interpreted and the report reviewed and electronically signed by: CONSTANTINE BHATT MD on Dec 25 2023 9:55AM EST [id number] Normal [facility] CREATININE BLDon 12-02-2023 Creatinine [Mass/Vol] 0.61 mg/dL Normal 0.58-0.96 [facility] Comment on above: Order Comment: Speci men Type: BLOOD SPECIMENOrdering Facility: [facility] Address: [address] [place] [address] Performed By: #### C RET1 ####[facility] [id number] [place] [address] [place] Creatinine and Glomerular filtration rate.predicted panel (S/P/Bld) 92 mL/min/1.73m??? Normal >=60 [facility] Comment on above: Order Comment: Speci men Type: BLOOD SPECIMENOrdering Facility: [facility] Address: [address] [place] [address] Result Comment: Mehreen mated Glomerular Filtration Rate (eGFR) is calculated using the 2020 CKD-EPI creatinine equation. This equation utilizes serum creatinine, sex, and age as parameters. The creatinine assay has traceable calibration to isotope dilution-mass spectrometry. Refer to KDIGO guidelines for clinical interpretation. In patients with unstable renal function, e.g. those with acute kidney injury, the eGFR may not accurately reflect actual GFR. Performed By: #### C RET1 ####[facility] [id number] [place] [address] [place] NM CARDIAC PERF STRESS/EXERC ISEon 12-02-2023 NM CARDIAC PERF STRESS/EXERCISE * * *Final Report* * * DATE OF EXAM: Dec 02 2023 10:35AM [facility]ON 0004 - NM CARDIAC PERF STRESS/EXERCISE / PROCEDURE REASON: multiple diagnoses * * * * Physician Interpretation * * * * PATIENT: Name: MRS. 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 SPECT Perfusion Study: Normal. 2. There is no scintigraphic evidence for inducible ischemia. 3. No evidence of scarred myocardium. 4. Left ventricle is normal in size. The left ventricle systolic function is normal. 5. Right ventricle is normal in size. The right ventricle systolic function is normal. 6. This is a low risk scan. Gated Stress FBP LVEF % 70 Prior Study Comparison No prior nuclear cardiology exam available for comparison. Nuclear Med Report:1-Day Gated SPECT Myocardial Perfusion with Exercise Stress: Myocardial perfusion imaging was performed at rest 30 to 60 minutes following the IV injection of the radiotracer. One minute prior to peak exercise, the patient was injected IV with the radiotracer. Gated post stress tomographic imaging was performed 10 to 20 minutes later. See administered radiotracer and doses below. [facility] Date of service: 12/02/2023 6:32:48 AM Ordering Physician: BRYCE BRUMFIELD. Requesting Physician: BRYCE BRUMFIELD Indication: Assessment for suspected CAD, Dyspnea and ECG uniterpretable OR unable to exercise Interpreting physician: Bernardino Devi MD Height: 157.48 cm BSA: 1.81 m? Weight: 75.30 kg BMI: 30.4 kg/m? Exam Type: Rest Stress Radiopharm: Tc-99m Tetrofosmin Tc-99m Tetrofosmin Dosage(mCi): 13.3 34.4 Stress Agent: Treadmill Resting Blood Press: 160/86 mmHg Image Quality The overall study imaging quality was deemed to be excellent. FINDINGS: Left Ventricle Wall Motion: Stress IR:3D - All segments are normal. Rest IR:3D - Gated Stress FBP - Reversibility - Stress IR:3D Stress IR:3D Gated Stress FBP LVEF: 70 % ED Volume: 94 ml ES Volume: 28 ml TID: 0.89 Perfusion Findings Stress IR:3D - Summed Score=0 All segments demonstrate normal perfusion. Rest IR:3D - Summed Score=0 All segments demonstrate normal perfusion. Stress IR:3D Rest IR:3D Summed Score=0 Summed Score=0 LEFT VENTRICLE The left ventricle is normal in size. Left ventricular systolic function is normal. Right Ventricle The right ventricle is normal in size. Right ventricle systolic function is normal. Stress Test Findings: There is no scintigraphic evidence for inducible ischemia. There is no evidence of scarring. * * * Final * * * ------ Stress ECG Report: [facility] Date of service: 12/02/2023 6:32:48 AM Ordering physician: BRYCE BRUMFIELD materials specialist: Hazel Fox RN Interpreting physician: Jose Mc MD Patient name: MRS. LAISHA SANDERSON Age: 77 years Gender: F Height: 157.48 cm BSA: 1.81 m? Weight: 75.30 kg BMI: 30.4 kg/m? Indication: Shortness of breath, Dyspnea on exertion and Abnormal resting ECG Stress ECG Conclusion: Conclusion: Normal with exception due to abnormal Briceno treadmill score Prior exam comparison: No prior CC exam Stress ECG Summary: The patient's resting heart rate was 75 bpm and blood pressure was 160/86 mmHg. The patient exercised according to the [place] 10% protocol. The estimated end-exercise MET level achieved using the FRIEND equation * * * was 5.7, which is within the 50th to 75th percentile for age and sex. The estimated end-exercise MET level achieved using the previous ACSM equation was 6.6. The test was terminated due to general fatigue and the total exercise time was 5 minutes and 19 seconds. No symptoms provoked during stress. The maximum heart rate was 139 bpm, which is 99% of the predicted heart rate for age. This is an adequate heart rate response. Peak blood pressure was 182/88 mmHg. The double product [place] was [address]. Medications: Last Used AMLODIPINE 2 Days EPINEPHRINE PRN Resting ECG: Normal Sinus Rhythm Symptoms at rest: No symptoms Exercise Protocol: [place] 10% Stress Exercise Table: +-----+ +--- -----+ +---+- --+---+----+---+----+ Stage Speed (MPH) Grade(%) Time (min) HR SYS ANNE MARIE RPE SOB METS +-----+ +--- -----+ +---+- --+---+----+---+----+ 1 1.7 10.0 2.0 111 172 84 11.0 2.0 4.2 +-----+ +--- -----+ +---+- --+---+----+---+----+ 2 2.1 11.0 4.0 122 178 88 15.0 4.0 5.1 +-----+ +--- -----+ +---+- --+---+----+---+----+ +-----+ +--- ------+ +---+ ---+---+----+---+----+ Speed (MPH) Grade (%) Time (min) HR SYS ANNE MARIE RPE SOB METS +-----+ +--- ------+ +---+ ---+---+----+---+----+ Final 2.5 12 (more content not included)... Normal [facility] Heart Perfusion W multipl e states of exerciseon 12-02-2023 * * *Final Report* * * DATE OF EXAM: Dec 02 2023 10:35AM [facility] 0004 - [place] CARDIAC PERF STRESS/EXERCISE / PROCEDURE REASON: multiple diagnoses * * * * Physician Interpretation * * * * PATIENT: Name: MRS. 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 SPECT Perfusion Study: Normal. 2. There is no scintigraphic evidence for inducible ischemia. 3. No evidence of scarred myocardium. 4. Left ventricle is normal in size. The left ventricle systolic function is normal. 5. Right ventricle is normal in size. The right ventricle systolic function is normal. 6. This is a low risk scan. Gated Stress FBP LVEF % 70 Prior Study Comparison No prior nuclear cardiology exam available for comparison. Nuclear Med Report:1-Day Gated SPECT Myocardial Perfusion with Exercise Stress: Myocardial perfusion imaging was performed at rest 30 to 60 minutes following the IV injection of the radiotracer. One minute prior to peak exercise, the patient was injected IV with the radiotracer. Gated post stress tomographic imaging was performed 10 to 20 minutes later. See administered radiotracer and doses below. [facility] Date of service: 12/02/2023 6:32:48 AM Ordering Physician: BRYCE BRUMFIELD. Requesting Physician: BRYCE BRUMFIELD Indication: Assessment for suspected CAD, Dyspnea and ECG uniterpretable OR unable to exercise Interpreting physician: Bernardino Devi MD Height: 157.48 cm BSA: 1.81 m Weight: 75.30 kg BMI: 30.4 kg/m Exam Type: Rest Stress Radiopharm: Tc-99m Tetrofosmin Tc-99m Tetrofosmin Dosage(mCi): 13.3 34.4 Stress Agent: Treadmill Resting Blood Press: 160/86 mmHg Image Quality The overall study imaging quality was deemed to be excellent. FINDINGS: Left Ventricle Wall Motion: Stress IR:3D - All segments are normal. Rest IR:3D - Gated Stress FBP - Reversibility - Stress IR:3D Stress IR:3D Gated Stress FBP LVEF: 70 % ED Volume: 94 ml ES Volume: 28 ml TID: 0.89 Perfusion Findings Stress IR:3D - Summed Score=0 All segments demonstrate normal perfusion. Rest IR:3D - Summed Score=0 All segments demonstrate normal perfusion. Stress IR:3D Rest IR:3D Summed Score=0 Summed Score=0 LEFT VENTRICLE The left ventricle is normal in size. Left ventricular systolic function is normal. Right Ventricle The right ventricle is normal in size. Right ventricle systolic function is normal. Stress Test Findings: There is no scintigraphic evidence for inducible ischemia. There is no evidence of scarring. 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 The patient exercised according to the [place] 10% protocol. The estimated end-exercise MET level achieved using the FRIEND equation * * * was 5.7, which is within the 50th to 75th percentile for age and sex. The estimated end-exercise MET level achieved using the previous ACSM equation was 6.6. The test was terminated due to general fatigue and the total exercise time was 5 minutes and 19 seconds. No symptoms provoked during stress. The maximum heart rate was 139 bpm, which is 99% of the predicted heart rate for age. This is an adequate heart rate response. Peak blood pressure was 182/88 mmHg. The double product achieved was [address]. Medications: Last Used AMLODIPINE 2 Days EPINEPHRINE PRN Resting ECG: Normal Sinus Rhythm Symptoms at rest: No symptoms Exercise Protocol: [place] 10% Stress Exercise Table: +-----+ +--- -----+ +---+- --+---+----+---+----+ Stage Speed (MPH) Grade(%) Time (min) HR SYS ANNE MARIE RPE SOB METS +-----+ +--- -----+ +---+- --+---+----+---+----+ 1 1.7 10.0 2.0 111 172 84 11.0 2.0 4.2 +-----+ +--- -----+ +---+- --+---+----+---+----+ 2 2.1 11.0 4.0 (more content not included)... 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 SPECT Perfusion Study: Normal. 2. There is no scintigraphic evidence for inducible ischemia. 3. No evidence of scarred myocardium. 4. Left ventricle is normal in size. The left ventricle systolic function is normal. 5. Right ventricle is normal in size. The right ventricle systolic function is normal. 6. This is a low risk scan. Gated Stress FBP LVEF % 70 Prior Study Comparison No prior nuclear cardiology exam available for comparison. Nuclear Med Report:1-Day Gated SPECT Myocardial Perfusion with Exercise Stress: Myocardial perfusion imaging was performed at rest 30 to 60 minutes following the IV injection of the radiotracer. One minute prior to peak exercise, the patient was injected IV with the radiotracer. Gated post stress tomographic imaging was performed 10 to 20 minutes later. See administered radiotracer and doses below. [facility] Date of service: 12/02/2023 6:32:48 AM Ordering Physician: BRYCE BRUMFIELD. Requesting Physician: BRYCE BRUMFIELD Indication: Assessment for suspected CAD, Dyspnea and ECG uniterpretable OR unable to exercise Interpreting physician: Bernardino Devi MD Height: 157.48 cm BSA: 1.81 m Weight: 75.30 kg BMI: 30.4 kg/m Exam Type: Rest Stress Radiopharm: Tc-99m Tetrofosmin Tc-99m Tetrofosmin Dosage(mCi): 13.3 34.4 Stress Agent: Treadmill Resting Blood Press: 160/86 mmHg Image Quality The overall study imaging quality was deemed to be excellent. FINDINGS: Left Ventricle Wall Motion: Stress IR:3D - All segments are normal. Rest IR:3D - Gated Stress FBP - Reversibility - Stress IR:3D Stress IR:3D Gated Stress FBP LVEF: 70 % ED Volume: 94 ml ES Volume: 28 ml TID: 0.89 Perfusion Findings Stress IR:3D - Summed Score=0 All segments demonstrate normal perfusion. Rest IR:3D - Summed Score=0 All segments demonstrate normal perfusion. Stress IR:3D Rest IR:3D Summed Score=0 Summed Score=0 LEFT VENTRICLE The left ventricle is normal in size. Left ventricular systolic function is normal. Right Ventricle The right ventricle is normal in size. Right ventricle systolic function is normal. Stress Test Findings: There is no scintigraphic evidence for inducible ischemia. There is no evidence of scarring. 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 The patient exercised according to the [place] 10% protocol. The estimated end-exercise MET level achieved using the FRIEND equation * * * was 5.7, which is within the 50th to 75th percentile for age and sex. The estimated end-exercise MET level achieved using the previous ACSM equation was 6.6. The test was terminated due to general fatigue and the total exercise time was 5 minutes and 19 seconds. No symptoms provoked during stress. The maximum heart rate was 139 bpm, which is 99% of the predicted heart rate for age. This is an adequate heart rate response. Peak blood pressure was 182/88 mmHg. The double product achieved was [id number]. Medications: Last Used AMLODIPINE 2 Days EPINEPHRINE PRN Resting ECG: Normal Sinus Rhythm Symptoms at rest: No symptoms Exercise Protocol: [place] 10% Stress Exercise Table: +-----+ +--- -----+ +---+- --+---+----+---+----+ Stage Speed (MPH) Grade(%) Time (min) HR SYS ANNE MARIE RPE SOB METS +-----+ +--- -----+ +---+- --+---+----+---+----+ 1 1.7 10.0 2.0 111 172 84 11.0 2.0 4.2 +-----+ +--- -----+ +---+- --+---+----+---+----+ 2 2.1 11.0 4.0 122 178 88 15.0 4.0 5.1 +-----+ +--- -----+ +---+- --+---+----+---+----+ +-----+ +--- ------+ +---+ ---+---+----+---+ (more content not included)... [facility] Radiology Study observation (narrative) [facility] NM Heart Perfusion W multipl e states of exerciseOrdered By: [facility] Provider on 12-02-2023 [facility] HEARING TEST/AUDIOGRAMon [facility] XR Chest PA and Lateralon IMPRESSION: Unremarkable exam with no acute radiographic abnormality. House Player: [facility] Transcribe Date/Time: Sep 21 2023 3:50P Dictated by : ROSALBA RIVERA MD This examination was interpreted and the report reviewed and electronically signed by: ROSALBA RIVERA MD on Sep 21 2023 3:50PM [facility] DIVISION OF RADIOLOGY * * *Final Report* * * DATE OF EXAM: Sep 18 2023 1:23PM WOX [id number] - XR CHEST 2V FRONTAL/LAT / PROCEDURE REASON: multiple diagnoses * * * * Physician Interpretation * * * * EXAMINATION: CHEST RADIOGRAPH (2 VIEW FRONTAL & LATERAL) CLINICAL HISTORY: SOB (shortness of breath) on exertion Tachycardia MQ: XC2_6 EXAM DATE/TIME: 09/18/2023 1:23 PM COMPARISON: No relevant prior studies available. RESULT: Lines, tubes, and devices: None. Lungs and pleura: No consolidation. No lung mass. No pleural effusion. No pneumothorax. Cardiomediastinal silhouette: Normal cardiomediastinal silhouette. Bones and soft tissues: Unremarkable. DIVISION OF RADIOLOGY Provider, Teresa [facility] - 09/21/2023 * * *Final Report* * * DATE OF EXAM: Sep 18 2023 1:23PM WOX 5291 - XR CHEST 2V FRONTAL/LAT / PROCEDURE REASON: multiple diagnoses * * * * Physician Interpretation * * * * EXAMINATION: CHEST RADIOGRAPH (2 VIEW FRONTAL & LATERAL) CLINICAL HISTORY: SOB (shortness of breath) on exertion Tachycardia MQ: XC2_6 EXAM DATE/TIME: 09/18/2023 1:23 PM COMPARISON: No relevant prior studies available. RESULT: Lines, tubes, and devices: None. Lungs and pleura: No consolidation. No lung mass. No pleural effusion. No pneumothorax. Cardiomediastinal silhouette: Normal cardiomediastinal silhouette. Bones and soft tissues: Unremarkable. IMPRESSION IMPRESSION: Unremarkable exam with no acute radiographic abnormality. [facility] Transcribe Date/Time: Sep 21 2023 3:50P Dictated by : ROSALBA RIVERA MD This examination was interpreted and the report reviewed and electronically signed by: ROSALBA RIVERA MD on Sep 21 2023 3:50PM EST [facility] XR Chest PA and LateralOrder ed By: [facility] Provider on 09-21-2023 [facility] CBC panel Auto (Bld)on 09-17 Erythrocyte distribution width (RBC) [Ratio] 15.0 % 11.5 - 15.0 % [facility] Hematocrit (Bld) [Volume fraction] 43.3 % 36.0 - 46.0 % [facility] Hemoglobin (Bld) [Mass/Vol] 13.5 g/dL 11.5 - 15.5 g/dL [facility] Interpretation and review of laboratory results Normal [facility] MCH (RBC) [Entitic mass] 29.0 pg 26.0 - 34.0 pg [facility] MCHC (RBC) [Mass/Vol] 31.2 g/dL 30.5 - 36.0 g/dL [facility] MCV (RBC) [Entitic vol] 93.1 fL 80.0 - 100.0 fL [facility] Nucleated RBC (Bld) [#/Vol] NINF [facility] Platelet mean volume (Bld) [Entitic vol] 10.6 fL 9.0 - 12.7 fL [facility] Platelets (Bld) [#/Vol] 287 10*3/uL [facility] RBC (Bld) [#/Vol] 4.65 10*6/uL 3.90 - 5.2 0 m/uL [facility] WBC (Bld) [#/Vol] 6.44 10*3/uL [facility] UA DIP, URINE (POC)on 2023 BILIRUBIN UA (POCT) Negative Negative [facility] CLARITY UA (POCT) Cloudy [facility] COLOR UA (POCT) Other [facility] GLUCOSE UA (POCT) Negative Negative mg/dL [facility] Hemoglobin Ql (U) Negative Negative [facility] Interpretation and review of laboratory results Abnormal [facility] KETONE UA (POCT) Negative Negative mg/dL [facility] LEUKOCYTES UA (POCT) Trace Abnormal Negative [facility] NITRITE UA (POCT) Negative Negative [facility] PH UA (POCT) 7.0 4.5 - 8.0 [facility] Protein Ql (U) Negative Negative mg/dL [facility] SPECIFIC GRAVITY UA (POCT) 1.020 1.005 - 1.030 [facility] UROBILINOGEN UA (POCT) 0.2 Normal E.U./dL [facility] Location:[facility], [address] [place] [address], [place], [place], [id number] [place] [address] POINT OF CARE [facility] XR Chest PA and Lateralon Radiology Study observation (narrative) [facility] Absolute lymphocyte counton 10-03-2021 Lymphocytes Auto (Unsp spec) [#/Vol] 2.44 10*3/uL 0.83-4.51 [facility] Work Phone: Basophil percentageon 2021 Basophils/100 WBC (Bld) 0.6 % 0-1 [facility] Work Phone: Chloride [Moles/Vol] 104 mmol/L 98-107 [facility] Work Phone: Eosinophils/100 WBC (Bld) 0.7 % 0-5 [facility] Work Phone: Glucose [Mass/Vol] 98 mg/dL 74-106 [facility] Work Phone: Neutrophils (Bld) [#/Vol] 3.4 10*3/uL 2.0-7.7 [facility] Work Phone: Neutrophils/100 WBC (Bld) 51.1 % 47-70 [facility] Work Phone: Potassium [Moles/Vol] 3.9 mmol/L 3.5-5.1 [facility] Work Phone: Sodium [Moles/Vol] 138 mmol/L 136-145 [facility] Work Phone: WBC (Bld) [#/Vol] 6.7 10*3/uL 4.4-11.0 [facility] Work Phone: Blood erythrocytes count (nu mber/volume)on 10-03-2021 RBC (Bld) [#/Vol] 4.62 10*6/uL 4.2-5.4 [facility] Work Phone: Blood hemoglobin measurement (mass/volume)on 10-03-2021 Hemoglobin (Bld) [Mass/Vol] 13.5 g/dL 12.0-15.0 [facility] Work Phone: Blood lymphocytes/100 leukoc yteson 10-03-2021 Lymphocytes/100 WBC (Bld) 36.4 % 19-41 [facility] Work Phone: Blood monocytes/100 leukocyt eson 10-03-2021 Monocytes/100 WBC (Bld) 10.9 % 0-10 [facility] Work Phone: Blood platelet mean volumeon 10-03-2021 Platelet mean volume (Bld) [Entitic vol] 10.4 fL 6.2-12.0 [facility] Work Phone: Determination of erythrocyte mean corpuscular volume (MCV)on 10-03-2021 MCV (RBC) [Entitic vol] 91.6 fL 81-99 [facility] Work Phone: Hematocrit Auto (Bld) [Volum e fraction]on 10-03-2021 Hematocrit (Bld) [Volume fraction] 42.3 % 37-47 [facility] Work Phone: Laboratory - Chemistry and C hemistry - challengeon 10-03-2021 CO2 [Moles/Vol] 27.0 mmol/L 21.0-32.0 [facility] Work Phone: Urea nitrogen/Creatinine [Mass ratio] 18.0 mg/mg 10-20 [facility] Work Phone: Laboratory - Hematology and Cell countson 10-03-2021 Erythrocyte distribution width (RBC) [Entitic vol] 48.4 fL 35.1-43.9 [facility] Work Phone: Erythrocyte distribution width (RBC) [Ratio] 14.4 % 11.6-14.6 [facility] Work Phone: Immature granulocytes/100 WBC (Bld) 0.300 % 0.0-0.9 [facility] Work Phone: Comment on above: IG% - Immature Granu locytes (promyelocytes, myelocytes and metamyelocytes) > 1% indicates that a LEFT SHIFT is Present. MCH (RBC) [Entitic mass] 29.2 pg 27.0-32.0 [facility] Work Phone: Nucleated RBC/100 WBC (Bld) [Ratio] 0 % 0-5 [facility] Work Phone: MCHC Auto (RBC) [Mass/Vol]on 10-03-2021 MCHC (RBC) [Mass/Vol] 31.9 g/dL 32-36 [facility] Work Phone: No Panel Informationon 10-03 Estimated GFR (MDRD) Amer 110 mL/min >60 [facility] Work Phone: Comment on above: GFR Calc Estimated GFR (MDRD) Non-Af Amer 91 mL/min >60 [facility] Work Phone: Comment on above: Non- GFR Calc Platelets bldon 10-03-2021 Platelets (Bld) [#/Vol] 335 10*3/uL 150-450 [facility] Work Phone: Serum or plasma calcium lizzie urement (mass/volume)on 10-03-2021 Calcium [Mass/Vol] 9.2 mg/dL 8.5-10.1 [facility] Work Phone: Serum or plasma creatinine m easurement (mass/volume)on 10-03-2021 Creatinine [Mass/Vol] 0.67 mg/dL 0.55-1.02 [facility] Work Phone: Comment on above: The validity of the calculated GFR & GFRAA in patients over 70 years has not been determined. Clinical correlation is essential. Serum or plasma urea nitroge n measurement (mass/volume)on 10-03-2021 Urea nitrogen [Mass/Vol] 12 mg/dL 7-18 [facility] Work Phone: Thin prep Papanicolaou smear with manual screeningon 10-03-2021 Thin prep Papanicolaou smear with manual screening 7 5-15 [facility] Work Phone: UA DIP, URINE (POC)on 2021 BILIRUBIN UA (POCT) Negative Negative [facility] CLARITY UA (POCT) Clear [facility] COLOR UA (POCT) Yellow [facility] GLUCOSE UA (POCT) Negative Negative mg/dL [facility] HEMOGLOBIN/BLOOD UA (POCT) Negative Negative [facility] KETONE UA (POCT) Negative Negative mg/dL [facility] LEUKOCYTES UA (POCT) Negative Negative [facility] NITRITE UA (POCT) Negative Negative [facility] PH UA (POCT) 7.0 4.5 - 8.0 [facility] Protein Ql (U) Negative Negative mg/dL [facility] SPECIFIC GRAVITY UA (POCT) 1.015 1.005 - 1.030 [facility] UROBILINOGEN UA (POCT) 0.2 E.U./dL Normal E.U./dL [facility] XR Hand - right PA and Later al and Obliqueon 07-02-2020 IMPRESSION: Acute/subacute displaced articular fracture base of the fifth proximal phalanx. Overlying soft tissue swelling. Otherwise unchanged appearance of the hand and wrist House Player: [facility] Transcribe Date/Time: Jul 02 2020 10:43A Dictated by : RODRIGUEZ BOWDEN MD This examination was interpreted and the report reviewed and electronically signed by: RODRIGUEZ BOWDEN MD on Jul 02 2020 10:47AM [facility] DIVISION OF RADIOLOGY * * *Final Report* * * DATE OF EXAM: Jul 02 2020 9:52AM WOX 5346 - XR HAND 3V PA/LAT/OBL RT / PROCEDURE REASON: Right hand pain * * * * Physician Interpretation * * * * EXAMINATION: XR HAND 3V PA/LAT/OBL RT HISTORY: pt states right hand started hurting last night pain and bruising to 4-5th fingers and denies inj Right hand pain . TECHNIQUE: XR HAND 3V PA/LAT/OBL RT Laterality: RIGHT Number of different views (projections): 3 M: XB_1 COMPARISON: Hand radiograph 01/10/2018 RESULT: 3 images. There is a new mildly displaced corner articular fracture at the ulnar, dorsal base of the fifth proximal phalanx. Overlying soft tissue swelling. No changes otherwise. DIVISION OF RADIOLOGY Provider, [facility] - 07/02/2020 * * *Final Report* * * DATE OF EXAM: Jul 02 2020 9:52AM WOX 5346 - XR HAND 3V PA/LAT/OBL RT / PROCEDURE REASON: Right hand pain * * * * Physician Interpretation * * * * EXAMINATION: XR HAND 3V PA/LAT/OBL RT HISTORY: pt states right hand started hurting last night pain and bruising to 4-5th fingers and denies inj Right hand pain . TECHNIQUE: XR HAND 3V PA/LAT/OBL RT Laterality: RIGHT Number of different views (projections): 3 M: XB_1 COMPARISON: Hand radiograph 01/10/2018 RESULT: 3 images. There is a new mildly displaced corner articular fracture at the ulnar, dorsal base of the fifth proximal phalanx. Overlying soft tissue swelling. No changes otherwise. IMPRESSION IMPRESSION: Acute/subacute displaced articular fracture base of the fifth proximal phalanx. Overlying soft tissue swelling. Otherwise unchanged appearance of the hand and wrist House Player: [facility] Transcribe Date/Time: Jul 02 2020 10:43A Dictated by : RODRIGUEZ BOWDEN MD This examination was interpreted and the report reviewed and electronically signed by: RODRIGUEZ BOWDEN MD on Jul 02 2020 10:47AM EST [facility] Radiology Study observation (narrative) [facility] XR Hand - right PA and Later al and ObliqueOrdered By: Ccf Provider on 07-02-2020 [facility] Vital Signs Date Time Vital Sign Value Performing Clinician Facility 11-25-2024 09:25-0400 Body height 157 cm Bryce Mobleyman METROLOGY MANAGER.BANQUET COORDINATOR Work Phone: [facility] 11-25-2024 09:25-0400 Body mass index (BMI) [Ratio] 27.24 kg/m2 Bryce Brissa METROLOGY MANAGER.BANQUET COORDINATOR Work Phone: [facility] 11-25-2024 09:25-0400 Body weight 67.13 kg Bryce Mobleyman METROLOGY MANAGER.BANQUET COORDINATOR Work Phone: [facility] 11-25-2024 09:25-0400 Diastolic blood pressure 78 mm[Hg] Bryce Brissa METROLOGY MANAGER.BANQUET COORDINATOR Work Phone: [facility] 11-25-2024 09:25-0400 Heart rate 73 /min Bryce Mobleyman METROLOGY MANAGER.BANQUET COORDINATOR Work Phone: [facility] 11-25-2024 09:25-0400 SaO2% (BldA) [Mass fraction] 97 % Bryce Brissa METROLOGY MANAGER.BANQUET COORDINATOR Work Phone: [facility] 11-25-2024 09:25-0400 Systolic blood pressure 136 mm[Hg] Bryce Brissa METROLOGY MANAGER.BANQUET COORDINATOR Work Phone: [facility] 10-10-2024 11:51-0400 Body mass index (BMI) [Ratio] 28.04 kg/m2 Juan Alberto Jacksonutter PA-C Work Phone: [facility] 10-10-2024 11:51-0400 Body temperature 98.49 [degF] Juan Alberto Clutter PA-C Work Phone: [facility] 10-10-2024 11:51-0400 Body weight 70 kg Juan Alberto Clutter PA-C Work Phone: [facility] 10-10-2024 11:51-0400 Diastolic blood pressure 73 mm[Hg] Juan Alberto Clutter PA-C Work Phone: [facility] 10-10-2024 11:51-0400 Heart rate 78 /min Juan Alberto Clutter PA-C Work Phone: [facility] 10-10-2024 11:51-0400 Respiratory rate 18 /min Juan Alberto Clutter PA-C Work Phone: [facility] 10-10-2024 11:51-0400 SaO2% (BldA) [Mass fraction] 97 % Juan Alberto Clutter PA-C Work Phone: [facility] 10-10-2024 11:51-0400 Systolic blood pressure 121 mm[Hg] Juan Alberto Clutter PA-C Work Phone: [facility] 08-15-2024 10:26-0400 Body mass index (BMI) [Ratio] 28.56 kg/m2 Fredis Moomaw METROLOGY MANAGER.BANQUET COORDINATOR Work Phone: [facility] 08-15-2024 10:26-0400 Body temperature 99.1 [degF] Fredis Moomaw METROLOGY MANAGER.BANQUET COORDINATOR Work Phone: [facility] 08-15-2024 10:26-0400 Body weight 71.3 kg Fredis Moomaw METROLOGY MANAGER.BANQUET COORDINATOR Work Phone: [facility] 08-15-2024 10:26-0400 Diastolic blood pressure 82 mm[Hg] Fredis Moomaw METROLOGY MANAGER.BANQUET COORDINATOR Work Phone: [facility] 08-15-2024 10:26-0400 Heart rate 80 /min Fredis Moomaw METROLOGY MANAGER.BANQUET COORDINATOR Work Phone: [facility] 08-15-2024 10:26-0400 Respiratory rate 18 /min Fredis Moomaw METROLOGY MANAGER.BANQUET COORDINATOR Work Phone: [facility] 08-15-2024 10:26-0400 SaO2% (BldA) [Mass fraction] 94 % Fredis Moomaw METROLOGY MANAGER.BANQUET COORDINATOR Work Phone: [facility] 08-15-2024 10:26-0400 Systolic blood pressure 128 mm[Hg] Fredis Moomaw METROLOGY MANAGER.BANQUET COORDINATOR Work Phone: [facility] 05-15-2024 10:54-0500 Body mass index (BMI) [Ratio] 28.48 kg/m2 Krislyn Aberegg PA Work Phone: [facility] 05-15-2024 10:54-0500 Body temperature 97.7 [degF] Krislyn Aberegg PA Work Phone: [facility] 05-15-2024 10:54-0500 Body weight 71.1 kg Krislyn Aberegg PA Work Phone: [facility] 05-15-2024 10:54-0500 Diastolic blood pressure 75 mm[Hg] Krislyn Aberegg PA Work Phone: [facility] 05-15-2024 10:54-0500 Heart rate 70 /min Krislyn Aberegg PA Work Phone: [facility] 05-15-2024 10:54-0500 Respiratory rate 18 /min Krislyn Aberegg PA Work Phone: [facility] 05-15-2024 10:54-0500 SaO2% (BldA) [Mass fraction] 97 % Krislyn Aberegg PA Work Phone: [facility] 05-15-2024 10:54-0500 Systolic blood pressure 139 mm[Hg] Krislyn Aberegg PA Work Phone: [facility] 05-09-2024 12:50-0500 Body mass index (BMI) [Ratio] 29.64 kg/m2 Michele Allen APRN.BANQUET COORDINATOR Work Phone: [facility] 05-09-2024 12:50-0500 Body temperature 99.1 [degF] Michele Allen APRN.BANQUET COORDINATOR Work Phone: [facility] 05-09-2024 12:50-0500 Body weight 74 kg Michele Reji METROLOGY MANAGER.BANQUET COORDINATOR Work Phone: [facility] 05-09-2024 12:50-0500 Diastolic blood pressure 77 mm[Hg] Michele Reji METROLOGY MANAGER.BANQUET COORDINATOR Work Phone: [facility] 05-09-2024 12:50-0500 Heart rate 85 /min Michele Allen METROLOGY MANAGER.BANQUET COORDINATOR Work Phone: [facility] 05-09-2024 12:50-0500 Respiratory rate 18 /min Michele Allen METROLOGY MANAGER.BANQUET COORDINATOR Work Phone: [facility] 05-09-2024 12:50-0500 SaO2% (BldA) [Mass fraction] 99 % Michele Allen METROLOGY MANAGER.BANQUET COORDINATOR Work Phone: [facility] 05-09-2024 12:50-0500 Systolic blood pressure 126 mm[Hg] Michele Reji METROLOGY MANAGER.BANQUET COORDINATOR Work Phone: [facility] 02-05-2024 11:58-0400 Body mass index (BMI) [Ratio] 29.83 kg/m2 Bryce Brissa METROLOGY MANAGER.BANQUET COORDINATOR Work Phone: [facility] 02-05-2024 11:58-0400 Body weight 74.48 kg Bryce Brissa METROLOGY MANAGER.BANQUET COORDINATOR Work Phone: [facility] 02-05-2024 11:58-0400 Diastolic blood pressure 84 mm[Hg] Bryce Brissa METROLOGY MANAGER.BANQUET COORDINATOR Work Phone: [facility] 02-05-2024 11:58-0400 Heart rate 73 /min Bryce Brissa METROLOGY MANAGER.BANQUET COORDINATOR Work Phone: [facility] 02-05-2024 11:58-0400 Respiratory rate 16 /min Bryce Brissa METROLOGY MANAGER.BANQUET COORDINATOR Work Phone: [facility] 02-05-2024 11:58-0400 SaO2% (BldA) [Mass fraction] 95 % Bryce Brissa METROLOGY MANAGER.BANQUET COORDINATOR Work Phone: [facility] 02-05-2024 11:58-0400 Systolic blood pressure 128 mm[Hg] Bryce Brissa METROLOGY MANAGER.BANQUET COORDINATOR Work Phone: [facility] 09-18-2023 12:02-0400 Body mass index (BMI) [Ratio] 30.16 kg/m2 Bryce Brissa METROLOGY MANAGER.BANQUET COORDINATOR Work Phone: [facility] 09-18-2023 12:02-0400 Body weight 75.3 kg Bryce Brissa METROLOGY MANAGER.BANQUET COORDINATOR Work Phone: [facility] 09-18-2023 12:02-0400 Diastolic blood pressure 78 mm[Hg] Bryce Brissa METROLOGY MANAGER.BANQUET COORDINATOR Work Phone: [facility] 09-18-2023 12:02-0400 Heart rate 76 /min Bryce Brissa METROLOGY MANAGER.BANQUET COORDINATOR Work Phone: [facility] 09-18-2023 12:02-0400 Respiratory rate 16 /min Bryce Birssa METROLOGY MANAGER.BANQUET COORDINATOR Work Phone: [facility] 09-18-2023 12:02-0400 SaO2% (BldA) [Mass fraction] 96 % Bryce Brissa METROLOGY MANAGER.BANQUET COORDINATOR Work Phone: [facility] 09-18-2023 12:02-0400 Systolic blood pressure 124 mm[Hg] Bryce Brissa METROLOGY MANAGER.BANQUET COORDINATOR Work Phone: [facility] 02-27-2023 08:49-0500 Body temperature 97 [degF] Galileo Rai DO Work Phone: [facility] 02-27-2023 08:49-0500 Body weight 73.94 kg Galileo Rai DO Work Phone: [facility] 02-27-2023 08:49-0500 Diastolic blood pressure 60 mm[Hg] Galileo Rai DO Work Phone: [facility] 02-27-2023 08:49-0500 Heart rate 64 /min Galileo Rai DO Work Phone: [facility] 02-27-2023 08:49-0500 Respiratory rate 16 /min Galileo Rai DO Work Phone: [facility] 02-27-2023 08:49-0500 Systolic blood pressure 118 mm[Hg] Galileo Rai DO Work Phone: [facility] 02-28-2022 11:34-0500 Body weight 71.85 kg Bryce Brissa METROLOGY MANAGER.BANQUET COORDINATOR Work Phone: [facility] 02-28-2022 11:34-0500 Diastolic blood pressure 86 mm[Hg] Bryce Brissa METROLOGY MANAGER.BANQUET COORDINATOR Work Phone: [facility] 02-28-2022 11:34-0500 Heart rate 87 /min Bryce Brissa METROLOGY MANAGER.BANQUET COORDINATOR Work Phone: [facility] 02-28-2022 11:34-0500 Respiratory rate 16 /min Bryce Brissa METROLOGY MANAGER.BANQUET COORDINATOR Work Phone: [facility] 02-28-2022 11:34-0500 SaO2% (BldA) [Mass fraction] 98 % Bryce Brissa METROLOGY MANAGER.BANQUET COORDINATOR Work Phone: [facility] 02-28-2022 11:34-0500 Systolic blood pressure 130 mm[Hg] Bryce Brissa METROLOGY MANAGER.BANQUET COORDINATOR Work Phone: [facility] 10-04-2021 15:46-0400 Body temperature 98.3 [degF] [facility] Work Phone: 10-04-2021 15:46-0400 Diastolic blood pressure 67 mm[Hg] [facility] Work Phone: 10-04-2021 15:46-0400 Heart rate 84 /min [facility] Work Phone: 10-04-2021 15:46-0400 Respiratory rate 16 /min [facility] Work Phone: 10-04-2021 15:46-0400 SaO2% (BldA) [Mass fraction] 92 % [facility] Work Phone: 10-04-2021 15:46-0400 Systolic blood pressure 120 mm[Hg] [facility] Work Phone: 10-04-2021 14:30-0400 Inhaled oxygen flow rate 2 L/min [facility] Work Phone: 10-04-2021 10:28-0400 Body height 157.48 cm [facility] Work Phone: 10-04-2021 10:28-0400 Body mass index (BMI) [Ratio] 28.2 kg/m2 [facility] Work Phone: 10-04-2021 10:28-0400 Body weight 70 kg [facility] Work Phone: 09-27-2021 11:17-0400 Diastolic blood pressure 86 mm[Hg] Bryce Brissa METROLOGY MANAGER.BANQUET COORDINATOR Work Phone: [facility] 09-27-2021 11:17-0400 Heart rate 75 /min Bryce Brissa METROLOGY MANAGER.BANQUET COORDINATOR Work Phone: [facility] 09-27-2021 11:17-0400 Respiratory rate 16 /min Bryce Brissa METROLOGY MANAGER.BANQUET COORDINATOR Work Phone: [facility] 09-27-2021 11:17-0400 SaO2% (BldA) [Mass fraction] 97 % Bryce Brissa METROLOGY MANAGER.BANQUET COORDINATOR Work Phone: [facility] 09-27-2021 11:17-0400 Systolic blood pressure 134 mm[Hg] Bryce Brissa METROLOGY MANAGER.BANQUET COORDINATOR Work Phone: [facility] 09-17-2021 18:31-0400 Diastolic blood pressure 85 mm[Hg] [facility] Work Phone: 09-17-2021 18:31-0400 Heart rate 96 /min [facility] Work Phone: 09-17-2021 18:31-0400 Respiratory rate 16 /min [facility] Work Phone: 09-17-2021 18:31-0400 SaO2% (BldA) [Mass fraction] 97 % [facility] Work Phone: 09-17-2021 18:31-0400 Systolic blood pressure 134 mm[Hg] [facility] Work Phone: 09-17-2021 17:52-0400 Inhaled oxygen flow rate 6 L/min [facility] Work Phone: 09-17-2021 15:34-0400 Body height 157.48 cm [facility] Work Phone: 09-17-2021 15:34-0400 Body mass index (BMI) [Ratio] 28.3 kg/m2 [facility] Work Phone: 09-17-2021 15:34-0400 Body temperature 97.4 [degF] [facility] Work Phone: 09-17-2021 15:34-0400 Body weight 70.3 kg [facility] Work Phone: 07-26-2021 13:11-0400 Body height 158 cm Galileo Rai DO Work Phone: [facility] 07-26-2021 13:11-0400 Body temperature 97 [degF] Galileo Rai DO Work Phone: [facility] 07-26-2021 13:11-0400 Body weight 72.58 kg Galileo Rai DO Work Phone: [facility] 07-26-2021 13:11-0400 Diastolic blood pressure 80 mm[Hg] Galileo Rai DO Work Phone: [facility] 07-26-2021 13:11-0400 Heart rate 68 /min Galileo Rai DO Work Phone: [facility] 07-26-2021 13:11-0400 Respiratory rate 20 /min Galileo Rai DO Work Phone: [facility] 07-26-2021 13:11040 Systolic blood pressure 120 mm[Hg] Galileo Rai DO Work Phone: [facility] Encounters Encounter Date Encounter Type Care Provider Facility Start: 11-25-2024 End: 11-25-2024 ambulatory GALILEO RAI Facility:[facility] Start: 11-25-2024 Encounter for zander l adult medical examination without abnormal findings GALILEO RAI [facility] Start: 11-25-2024 End: 11-25-2024 Office outpatient visit 25 minutes Bryce Brumfield APRN.CNP Work Phone: [facility] Comment on above: Well adult exam ([facility] aleksander Dx); Essential hypertension; Actinic keratosis; IFG (impaired fasting glucose); Vitamin D deficiency; Hyperlipidemia with target LDL less than 130; Screening for thyroid disorder; Encounter for screening examination for other mental health and behavioral disorders; Screening for depression Start: 11-25-2024 End: 11-25-2024 Patient encounter status Bryce Brumfield APRN.CNP Work Phone: [facility] Work Phone: Start: 11-25-2024 End: 11-25-2024 ambulatory BRYCE BRUMFIELD Facility:[facility] Start: 10-10-2024 End: 10-10-2024 Office outpatient visit 15 minutes Juan Alberto Devi PA-C Work Phone: [facility] Comment on above: Laceration of right index finger without foreign body without damage to nail, initial encounter (Primary Dx); Visit for wound check Start: 10-10-2024 End: 10-10-2024 ambulatory GALILEO RAI Facility:[facility] Start: 08-15-2024 End: 08-15-2024 Telephone encounter Galileo Rai DO Work Phone: [facility] Comment on above: Patient Update Start: 08-15-2024 End: 08-15-2024 Patient encounter procedure Fredis Lugo APRN.BANQUET COORDINATOR Work Phone: [facility] Comment on above: Irritant contact taras matitis due to other agents (Primary Dx) Start: 08-15-2024 End: 08-15-2024 ambulatory GALILEO REYESON Facility:[facility] Start: 05-15-2024 End: 05-15-2024 Subsequent hospital visit by physician Shani [facility] Work Phone: Radiology Comment on above: Acute cough [R05.1] Start: 05-15-2024 End: 05-15-2024 ambulatory JAKE KAY Facility:[facility] Start: 05-15-2024 End: 05-15-2024 Patient encounter procedure Jake Kay PA Work Phone: [facility] Comment on above: Acute cough (Primary Dx) Start: 05-09-2024 End: 05-09-2024 ambulatory GALILEO RAI Facility:[facility] Start: 05-09-2024 End: 05-09-2024 Patient encounter procedure Michele Allen APRN.BANQUET COORDINATOR Work Phone: [facility] Comment on above: URI, acute (Primary Dx) Start: 04-24-2024 End: 04-24-2024 Refill Galileo Rai DO Work Phone: [facility] Comment on above: Refill Request Start: 02-06-2024 End: 02-06-2024 Emergency department patient visit Galileo Rai Facility:[facility] Start: 02-05-2024 End: 02-05-2024 ambulatory BRYCE BRUMFIELD Facility:[facility] Start: 02-05-2024 End: 02-05-2024 Patient encounter procedure Bryce Brumfield APRN.BANQUET COORDINATOR Work Phone: [facility] Comment on above: Urinary urgency (Lauren aleksander Dx); Urinary frequency; Actinic keratosis; Primary hypertension; Bilateral leg edema Start: 01-17-2024 End: 01-22-2024 Telephone encounter Galileo Rai DO Work Phone: [facility] Comment on above: Hearing Problem Start: 12-25-2023 End: 12-25-2023 E-mail encounter from caregiver Brandon Oro MD Work Phone: Otolaryngology Start: 12-25-2023 End: 12-25-2023 ambulatory Brandon Oro MD Work Phone: Otolaryngology Comment on above: mri results Start: 12-25-2023 End: 12-25-2023 Subsequent hospital visit by physician Mri Radio [facility] (I-Stat/1.5t) Work Phone: Radiology Comment on above: 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 [H90.42] Start: 12-02-2023 End: 12-02-2023 ambulatory GALILEO REYESON Facility:[facility] Start: 12-02-2023 End: 12-02-2023 ambulatory BRYCE BRUMFIELD Facility:[facility] Start: 12-02-2023 End: 12-02-2023 Subsequent hospital visit by physician Injection [facility] Work Phone: Nuclear Medicine Comment on above: SOB (shortness of br eath) on exertion [R06.02] Start: 11-28-2023 End: 11-28-2023 ambulatory Nurse Card Admin [facility] Work Phone: Cardiology Comment on above: Stress Test Instruct ions for 12/02/23 Start: 11-28-2023 End: 11-28-2023 E-mail encounter from caregiver Nurse Card Admin [facility] Work Phone: Cardiology Start: 11-27-2023 End: 11-27-2023 Telephone encounter Brandon Oro MD Work Phone: Otolaryngology Start: 11-25-2023 End: 11-25-2023 Patient encounter procedure Brandon Oro MD Work Phone: Otolaryngology Comment on above: 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 (Primary Dx) Sensorineural hearin g loss, asymmetrical (Primary Dx); Decreased hearing of both ears; SOB (shortness of breath) on exertion; Tachycardia; Bilateral leg edema; Urine frequency; Urgency of urination; Acute constipation Start: 10-02-2023 Telephone encounter Galileo matuteambar DO Work Phone: [facility] Comment on above: Patient Question; Yris caro Update Start: 09-18-2023 End: 09-18-2023 Subsequent hospital visit by physician Shani [facility] Work Phone: Radiology Comment on above: SOB (shortness of br eath) on exertion [R06.02] Start: 09-18-2023 End: 09-18-2023 Patient encounter procedure Bryce Brumfield APRN.BANQUET COORDINATOR Work Phone: [facility] Comment on above: Decreased hearing of both ears (Primary Dx); SOB (shortness of breath) on exertion; Tachycardia; Bilateral leg edema; Urine frequency; Urgency of urination; Acute constipation; Primary hypertension; Premature beats; Shortness of breath Start: 09-13-2023 Refill Galileo regan DO Work Phone: [facility] Comment on above: Refill Request Start: 03-21-2023 Telephone encounter Galileo [place] Wenceslao jujuambar DO Work Phone: [facility] Comment on above: Results Start: 02-28-2023 Refill Galileo regan DO Work Phone: [facility] Comment on above: Refill Request Start: 02-27-2023 End: 02-27-2023 Patient encounter procedure Galileo Rai DO Work Phone: [facility] Comment on above: Vitamin D deficiency (Primary Dx); Essential hypertension; Hyperlipidemia with target LDL less than 130; Chronic constipation; IFG (impaired fasting glucose); Actinic keratosis; Grade I diastolic dysfunction Start: 09-04-2022 Refill Galileo regan DO Work Phone: [facility] Comment on above: Refill Request Start: 02-28-2022 End: 02-28-2022 Patient encounter procedure Bryce Brumfield APRN.BANQUET COORDINATOR Work Phone: [facility] Comment on above: Essential hypertensi on Start: 10-04-2021 End: 10-04-2021 Admission to same day surgery center [facility] Start: 10-03-2021 Telephone encounter Galileo badillo DO Work Phone: [facility] Comment on above: Fax ECHO report for Pre-surgical clearance Start: 09-27-2021 End: 09-27-2021 Patient encounter procedure Bryce Brumfield APRN.BANQUET COORDINATOR Work Phone: [facility] Comment on above: Visit for suture rem oval (Primary Dx); Fall, initial encounter Start: 09-17-2021 End: 09-17-2021 Emergency department patient visit [facility] Start: 07-28-2021 Telephone encounter Galileo badillo DO Work Phone: [facility] Comment on above: Results Start: 07-26-2021 End: 07-26-2021 Patient encounter procedure Galileo Rai DO Work Phone: [facility] Comment on above: Stress incontinence of urine (Primary Dx); Essential hypertension; Actinic keratosis; Vitamin D deficiency; Hyperlipidemia with target LDL less than 130; Chronic constipation; Grade I diastolic dysfunction; Acute left ankle pain Start: 06-28-2021 Telephone encounter Galileo badillo DO Work Phone: [facility] Comment on above: Lab Orders Start: 07-02-2020 End: 07-02-2020 Subsequent hospital visit by physician Xr [facility] Work Phone: Radiology Comment on above: Right hand pain [M79 .641] Procedures Date Procedure Procedure Detail Performing Clinician Start: 11-25-2024 Adult depression scr eening assessment Bryce Brumfield APRN.BANQUET COORDINATOR Work Phone: Start: 05-15-2024 Radiologic exam ches t 2 views Jake ARNDT Work Phone: Start: 02-05-2024 Urnls dip stick/tabl et rgnt auto w/o microscopy Bryce Brumfield APRN.BANQUET COORDINATOR Work Phone: Start: 12-25-2023 Mri brain brain stem w/o w/contrast material Brandon Oro MD Work Phone: Start: 12-02-2023 Myocardial spect mul tiple studies Bryce Brumfield APRN.[facility] Work Phone: Start: 11-25-2023 HEARING TEST/AUDIOGRAM Camelia Bolanos AUD Work Phone: Start: 09-18-2023 Radiologic exam ches t 2 views Bryce Brumfield METROLOGY MANAGER.[facility] Work Phone: Start: 09-18-2023 Urnls dip stick/tabl et rgnt auto w/o microscopy Bryce Brumfield METROLOGY MANAGER.[facility] Work Phone: Start: 10-04-2021 Fluoroscopic guidance Start: 10-04-2021 Open reduction of fr acture of radius with internal fixation Start: 10-03-2021 Plain chest X-ray Start: 09-17-2021 Plain x-ray of wrist Start: 09-17-2021 Plain x-ray of elbow Start: 09-17-2021 CT of head without contrast Start: 09-17-2021 Plain x-ray of hand Start: 09-17-2021 Plain x-ray of wrist Start: 09-17-2021 X-ray of both feet Start: 07-26-2021 Urnls dip stick/tabl et rgnt auto w/o microscopy Galileo Rai DO Work Phone: Start: 07-26-2021 Adult depression scr eening assessment Glaileo Rai DO Work Phone: Start: 07-02-2020 Radex hand minimum 3 views Luz Jimenez METROLOGY MANAGER.BANQUET COORDINATOR Work Phone: Start: 05-15-2020 Adult depression scr eening assessment Galileo Rai DO Work Phone: Plan of Treatment Date Care Activity Detail Author Start: 09-18-2031 Urine microalbumin profile [facility] Start: 11-26-2027 Diabetes Screening Diabetes Screenin g [facility] Start: 09-17-2026 Diabetes Screening Diabetes Screenin g [facility] Start: 02-27-2026 Diabetes Screening Diabetes Screenin g [facility] Start: 11-25-2025 Annual PCP Team Net Development Manager bean Disease Visit Annual PCP Team Chronic Disease Visit [facility] Start: 11-25-2025 Anxiety Screening Anxiety Screening [facility] Start: 11-25-2025 Depression Screening Depression Scre ening [facility] Start: 05-26-2025 End: 05-26-2025 Patient encounter procedure 05/26/2025 9:00 AM EST Office Visit Family [facility] [place] [address] [facility], [place] [id number] Galileo Rai DO [address] [facility], [place] [id number] 6 month Family Medicine [facility] Comment on above: 6 month Start: 05-09-2025 BP Controlled (<130/80) BP Controlle d (<130/80) [facility] Start: 02-04-2025 Annual PCP Team Net Development Manager bean Disease Visit Annual PCP Team Chronic Disease Visit [facility] Start: 12-07-2024 Influenza vaccination C [facility] Start: 09-17-2024 Annual PCP Team Net Development Manager bean Disease Visit Annual PCP Team Chronic Disease Visit [facility] Start: 09-17-2024 BP Controlled (<130/80) BP Controlle d (<130/80) [facility] Start: 07-19-2024 DIABETES SCREEN DIABETES SCREEN [facility] Start: 07-19-2024 Diabetes Screening Diabetes Screenin g [facility] Start: 04-08-2024 Medicare Advantage A nnual Wellness Visit Medicare Advantage Annual Wellness Visit [facility] Start: 02-28-2024 Annual PCP Team Net Development Manager bean Disease Visit Annual PCP Team Chronic Disease Visit [facility] Start: 02-28-2024 BP Controlled (<130/80) BP Controlle d (<130/80) [facility] Start: 02-28-2024 Covid-19 Vaccine (#1) Covid-19 Vacci ne (#1) [facility] Comment on above: Postponed from 06/18 (Declined at this time) Start: 02-28-2024 Covid-19 Vaccine (2022- season) Covid-19 Vaccine ( season) [facility] Comment on above: Postponed from 12/07 (Declined at this time) Start: 02-05-2024 End: 02-05-2024 Patient encounter procedure 02/05/2024 12:00 PM EDT Office Visit Family Medicine [place] [address] [place] [address] Bryce Brumfield APRN.BANQUET COORDINATOR [address] [place] [id number] spot on scalp that needs looked at. It has been fozen a couple times ofver 2 year period Family [facility] [place] Comment on above: spot on scalp that n eeds looked at. It has been fozen a couple times ofver 2 year period Start: 12-25-2023 End: 12-25-2023 Patient encounter procedure 12/25/2023 9:20 AM EDT Appointment Radiology [address] [place] [id number] Sensorineural hearing loss (SNHL) of left 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 [H90.42] Radiology Comment on above: 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 [H90.42] Start: 12-08-2023 Covid-19 Vaccine ( season) Covid-19 Vaccine ( season) [facility] Start: 12-08-2023 Covid-19 Vaccine ( season) Covid-19 Vaccine ( season) [facility] Start: 12-08-2023 Influenza vaccination C [facility] Start: 12-02-2023 End: 12-02-2023 Nursing evaluation of patient and report 12/02/2023 8:45 AM EDT Nurse Visit Cardiology [address] [place] [id number] Wstr, Nurse Card Admin [facility] [address] [place] [id number] SOB (shortness of breath) on exertion [R06.02] Cardiology Comment on above: SOB (shortness of br eath) on exertion [R06.02] Start: 12-02-2023 End: 12-02-2023 Patient encounter procedure Nuclear Medicine Comment on above: SOB (shortness of br eath) on exertion [R06.02] Start: 11-25-2023 End: 02-24-2024 CREATININE BLD CREATININE BLD Lab Routine Sensorineural hearing loss (SNHL) of left 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 Expected: 11/25/2023, Expires: 02/24/2024 [facility] Comment on above: Expected: 11/25/2023 , Expires: 02/24/2024 Start: 11-25-2023 End: 11-25-2023 Patient encounter procedure Audiology Comment on above: Reduced hearing in b oth ears Start: 10-11-2023 End: 10-11-2023 Patient encounter procedure 10/11/2023 3:30 PM EDT Office Visit Cardiology [address] [place] [address] SOB (shortness of breath) on exertion [R06.02] Cardiology Comment on above: SOB (shortness of br eath) on exertion [R06.02] Start: 10-06-2023 Influenza vaccination Influenza Vacc ine (#1) [facility] Comment on above: Postponed from 12/07 (Declined at this time) Start: 09-18-2023 End: 12-18-2023 Comprehensive metabolic 2000 panel - Serum or Plasma [facility] Comment on above: Expected: 09/18/2023 , Expires: 12/18/2023 Start: 09-18-2023 End: 12-18-2023 Hemoglobin A1c in Blood [facility] Comment on above: Expected: 09/18/2023 , Expires: 12/18/2023 Start: 09-18-2023 End: 12-18-2023 Natriuretic peptide.B prohormone N-Terminal [Mass/volume] in Serum or Plasma [facility] Comment on above: Expected: 09/18/2023 , Expires: 12/18/2023 Start: 09-18-2023 End: 12-18-2023 Thyrotropin [Units/volume] in Serum or Plasma [facility] Comment on above: Expected: 09/18/2023 , Expires: 12/18/2023 Start: 09-18-2023 End: 12-18-2023 Thyroxine (T4) free [Mass/volume] in Serum or Plasma [facility] Comment on above: Expected: 09/18/2023 , Expires: 12/18/2023 Start: 09-18-2023 End: 09-18-2023 Patient encounter procedure 09/18/2023 12:00 PM EDT Office Visit Family Medicine [place] [address] [facility] [place] [address] Bryce Brumfield, METROLOGY MANAGER.BANQUET COORDINATOR [address] [place] [address] Last 2 weeks swelling in feet / ankles. Elevated HR at rest 101-109 somtimes. [facility] Comment on above: Last 2 weeks swellin g in feet / ankles. Elevated HR at rest 101-109 somtimes. Start: 04-08-2023 Behavioral Health Screening Behavioral Health Screening [facility] Start: 02-28-2023 ANNUAL PCP TEAM PEDICURIST BEAN DISEASE VISIT ANNUAL PCP TEAM CHRONIC DISEASE VISIT [facility] Start: 02-28-2023 BP CONTROLLED (<130/80) BP CONTROLLE D (<130/80) [facility] Start: 02-27-2023 End: 05-29-2023 25-hydroxyvitamin D3 [Mass/volume] in Serum or Plasma VITAMIN D 25 HYDROXY Lab Routine Vitamin D deficiency Expected: 02/27/2023, Expires: 05/29/2023 [facility] Work Phone: Comment on above: Expected: 02/27/2023 , Expires: 05/29/2023 Start: 02-27-2023 End: 05-29-2023 CBC W Auto Differential panel - Blood [facility] Work Phone: Comment on above: Expected: 02/27/2023 , Expires: 05/29/2023 Start: 02-27-2023 End: 05-29-2023 Comprehensive metabolic 2000 panel - Serum or Plasma [facility] Work Phone: Comment on above: Expected: 02/27/2023 , Expires: 05/29/2023 Start: 02-27-2023 End: 05-29-2023 Hemoglobin A1c in Blood [facility] Work Phone: Comment on above: Expected: 02/27/2023 , Expires: 05/29/2023 Start: 02-27-2023 End: 05-29-2023 Lipid 1996 panel - Serum or Plasma [facility] Work Phone: Comment on above: Expected: 02/27/2023 , Expires: 05/29/2023 Start: 02-27-2023 End: 05-29-2023 Thyrotropin [Units/volume] in Serum or Plasma [facility] Work Phone: Comment on above: Expected: 02/27/2023 , Expires: 05/29/2023 Start: 02-27-2023 End: 05-29-2023 Thyroxine (T4) free [Mass/volume] in Serum or Plasma [facility] Work Phone: Comment on above: Expected: 02/27/2023 , Expires: 05/29/2023 Start: 02-27-2023 End: 05-29-2023 Triiodothyronine (T3) Free [Mass/volume] in Serum or Plasma [facility] Work Phone: Comment on above: Expected: 02/27/2023 , Expires: 05/29/2023 Start: 12-30-2022 DIABETES SCREEN DIABETES SCREEN [facility] Start: 12-07-2022 Influenza vaccination INFLUENZ A (Season Ended) [facility] Start: 09-27-2022 ANNUAL PCP TEAM PEDICURIST BEAN DISEASE VISIT ANNUAL PCP TEAM CHRONIC DISEASE VISIT [facility] Start: 07-26-2022 [facility] Start: 07-26-2022 ANNUAL PCP TEAM PEDICURIST BEAN DISEASE VISIT ANNUAL PCP TEAM CHRONIC DISEASE VISIT [facility] Start: 07-26-2022 COVID-19 VACCINE (#1) COVID-19 VACCI NE (#1) [facility] Comment on above: Postponed from 12/19 (Declined at this time) Postponed from 06/18 (Declined at this time) Start: 07-26-2022 COVID-19 VACCINE (1) COVID-19 VACCIN E (1) [facility] Comment on above: Postponed from 12/19 (Declined at this time) Start: 04-08-2022 ADVANCE DIRECTIVE DISCUSSION ADVANCE DIRECTIVE DISCUSSION [facility] Start: 04-08-2022 DEPRESSION ASSESSMENT DEPRESSION ASS ESSMENT [facility] Start: 12-07-2021 Influenza vaccination C [facility] Start: 10-12-2021 BP CONTROLLED (<130/80) BP CONTROLLE D (<130/80) [facility] Start: 10-04-2021 Patient discharge [facility] Work Phone: Start: 10-04-2021 Application of ice c ollar, cap or bag [facility] Work Phone: Start: 10-04-2021 Catheterization of vein [facility] Work Phone: Start: 10-04-2021 Following clinical p [place] protocol [facility] Work Phone: Start: 10-04-2021 Procedure discontinued [facility] Work Phone: Start: 10-04-2021 Taking patient vital signs [facility] Work Phone: Start: 10-04-2021 Vital signs measurements [facility] Work Phone: Start: 10-04-2021 [facility] Work Phone: Start: 10-04-2021 Plain x-ray of wrist Wrist 2 Views [facility] Work Phone: Start: 10-04-2021 XR Wrist 2 Views [facility] Work Phone: Start: 10-04-2021 Medication education [facility] Work Phone: Start: 09-17-2021 Plain x-ray of wrist Wrist min 3 Vie ws [facility] Work Phone: Start: 09-17-2021 Cltx dstl rdl fx/epi physl sep w/manj when perf TREAT FRACTURE RADIUS/ULNA [facility] Work Phone: Start: 09-17-2021 Simple repair f/e/e/ n/l/m 2.5cm/< RPR F/E/E/N/L/M 2.5 CM/< [facility] Work Phone: Start: 06-28-2021 End: 08-28-2021 CBC panel - Blood by Automated count CBC Lab Routine Essential hypertension Hyperlipidemia with target LDL less than 130 Expected: 06/28/2021, Expires: 08/28/2021 [facility] Work Phone: Comment on above: Expected: 06/28/2021 , Expires: 08/28/2021 Start: 06-28-2021 End: 08-28-2021 Comprehensive metabolic 2000 panel - Serum or Plasma COMP METABOLIC PANEL Lab Routine Essential hypertension Hyperlipidemia with target LDL less than 130 Expected: 06/28/2021, Expires: 08/28/2021 [facility] Work Phone: Comment on above: Expected: 06/28/2021 , Expires: 08/28/2021 Start: 06-28-2021 End: 08-28-2021 Hemoglobin A1c/Hemoglobin.total in Blood HGB A1C Lab Routine Hyperglycemia Expected: 06/28/2021 (Approximate), Expires: 08/28/2021 [facility] Work Phone: Comment on above: Expected: 06/28/2021 (Approximate), Expires: 08/28/2021 Start: 06-28-2021 End: 08-28-2021 LIPID PANEL BASIC LIPID PANEL BASIC Lab Routine Hyperlipidemia with target LDL less than 130 Hyperglycemia Expected: 06/28/2021, Expires: 08/28/2021 [facility] Work Phone: Comment on above: Expected: 06/28/2021 , Expires: 08/28/2021 Start: 06-28-2021 End: 08-28-2021 VITAMIN D 25 HYDROXY VITAMIN D 25 HYDROXY Lab Routine Vitamin D deficiency Expected: 06/28/2021, Expires: 08/28/2021 [facility] Work Phone: Comment on above: Expected: 06/28/2021 , Expires: 08/28/2021 Start: 06-01-2021 ANNUAL PCP TEAM PEDICURIST BEAN DISEASE VISIT ANNUAL PCP TEAM CHRONIC DISEASE VISIT [facility] Start: 05-15-2021 Adult depression scr eening assessment DEPRESSION SCREENING [facility] Start: 04-08-2021 ADVANCE DIRECTIVE DISCUSSION ADVANCE DIRECTIVE DISCUSSION [facility] Start: 12-07-2020 Influenza vaccination INFLUENZA (#1) [facility] Start: 12-20-2019 RSV Vaccine (1 - 1-d ose 75+ series) RSV Vaccine (1 - 1-dose 75+ series) [facility] Start: 06-14-2012 Pneumococcal Vaccine : 50+ (2 of 2 - PCV) Pneumococcal Vaccine: 50+ (2 of 2 - PCV) [facility] Start: 06-14-2012 Pneumococcal Vaccine : 65+ (2 - PCV) Pneumococcal Vaccine: 65+ (2 - PCV) [facility] Start: 06-14-2012 Pneumococcal Vaccine : 65+ (2 of 2 - PCV) Pneumococcal Vaccine: 65+ (2 of 2 - PCV) [facility] Start: 04-08-2012 PNEUMOVAX AGE 65 AND OVER WITH 5YR LOOKBACK (#1) PNEUMOVAX AGE 65 AND OVER WITH 5YR LOOKBACK (#1) [facility] Start: 2009 PNEUMOCOCCAL: 65+ (1 - PCV) PNEUMOCOCCAL: 65+ (1 - PCV) [facility] Start: 04-08-2008 PNEUMOCOCCAL: 65+ (2 - PCV) PNEUMOCOCCAL: 65+ (2 - PCV) [facility] Start: 2004 RSV Vaccine (1 - 1-d ose 60+ series) RSV Vaccine (1 - 1-dose 60+ series) [facility] Start: 1994 SHINGRIX VACCINE (1 of 2) WALTERS GRIX VACCINE (1 of 2) [facility] Start: 12-20-1963 Urine microalbumin profile DTAP,TDAP ,TD (1 - Tdap) [facility] Start: 1962 Anxiety Screening Anxiety Screening [facility] Start: 1962 Depression Screening Depression Scre ening [facility] Start: 1949 COVID-19 VACCINE (1) COVID-19 VACCIN E (1) [facility] Start: 06-18-1945 COVID-19 VACCINE (#1) COVID-19 VACCI NE (#1) [facility] Bacteria identified in Urine by Culture URINE CULTURE Microbiology Routine Stress incontinence of urine 07/26/2021 2:47 PM EDT [facility] Work Phone: Bacteria identified in Urine by Culture URINE CULTURE Microbiology Routine Urinary urgency Urinary frequency 02/05/2024 1:40 PM EDT [facility] Work Phone: ECG COMPLETE ECG COMPLETE ECG Routine SOB (shortness of breath) on exertion Tachycardia Bilateral leg edema Urine frequency Urgency of urination Acute constipation Ordered: 09/18/2023 [facility] Work Phone: Comment on above: Ordered: 09/18/2023 End: 07-26-2022 Echocardiography ECHO Cardiology Routine Essential hypertension Hyperlipidemia with target LDL less than 130 Grade I diastolic dysfunction 1 Occurrences starting 07/26/2021 until 07/26/2022 [facility] Work Phone: Comment on above: 1 Occurrences starti ng 07/26/2021 until 07/26/2022 End: 09-17-2024 Echocardiography ECHO Cardiology Routine SOB (shortness of breath) on exertion Tachycardia Bilateral leg edema Urine frequency Urgency of urination Acute constipation Primary hypertension Premature beats 1 Occurrences starting 09/18/2023 until 09/17/2024 [facility] Comment on above: 1 Occurrences starti ng 09/18/2023 until 09/17/2024 End: 12-24-2024 MR Brain WO and W contrast IV MRI BRAIN WO/W IVCON Radiology Routine Sensorineural hearing loss (SNHL) of left 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 1 Occurrences starting 11/25/2023 until 12/24/2024 [facility] Work Phone: Comment on above: 1 Occurrences starti ng 11/25/2023 until 12/24/2024 End: 10-17-2024 NM Heart Perfusion W multiple states of exercise NM CARDIAC PERF STRESS/EXERCISE Radiology Routine SOB (shortness of breath) on exertion Tachycardia Bilateral leg edema Urine frequency Urgency of urination Acute constipation Primary hypertension Premature beats 1 Occurrences starting 09/18/2023 until 10/17/2024 [facility] Comment on above: 1 Occurrences starti ng 09/18/2023 until 10/17/2024 Patient Education Treating Wrist Fractures ED Foot Contusion ED Laceration, Face: Skin Glue ED Fracture, Wrist, General [facility] Work Phone: Patient referral [facility] Work Phone: End: 10-17-2024 XR Chest PA and Lateral XR CHEST 2V FRONTAL/LAT Radiology Routine SOB (shortness of breath) on exertion Tachycardia Bilateral leg edema Urine frequency Urgency of urination Acute constipation 1 Occurrences starting 09/18/2023 until 10/17/2024 [facility] Comment on above: 1 Occurrences starti ng 09/18/2023 until 10/17/2024 XR Chest PA and Lateral XR CHEST 2V FRONTAL/LAT Radiology Routine SOB (shortness of breath) on exertion Tachycardia Bilateral leg edema Urine frequency Urgency of urination Acute constipation 09/18/2023 1:23 PM EDT [facility] Immunizations Immunization Date Immunization Notes Care Provider Michelet ashraf 09-17-2021 tetanus toxoid, redu pascale diphtheria toxoid, and acellular pertussis vaccine, adsorbed [facility] Work Phone: 04-11-2016 influenza virus vacc ine, unspecified formulation Galileo Rai DO Work Phone: [facility] 01-30-2010 influenza virus vacc ine, unspecified formulation Galileo Rai DO Work Phone: [facility] Work Phone: 01-21-2009 influenza virus vacc ine, unspecified formulation Galileo Rai DO Work Phone: [facility] 02-12-2008 influenza virus vacc ine, unspecified formulation Galileo Rai DO Work Phone: [facility] Work Phone: 04-08-2007 pneumococcal polysaccharide vaccine, 23 valent Bryce Brumfield APRN.CNP Work Phone: [facility] Payers Date Payer Category Payer Self-pay [id number] 2015 Medicare [employer] [place] [id number] 2015-Present [phone] [address] [place] [address] O [id number] 2015 Medicare [employer] [place] [id number] 2015-Present [phone] [address] [place] [address] O [id number] 2015 [place] Care[place] [id number] 2015 Medicare [id number] Unknown [id number] Social History Date Type Detail Facility Start: 07-13-2017 End: 02-28-2022 Tobacco smoking status NHIS Never smoked tobacco [facility] Start: 07-02-2020 End: 11-25-2024 Alcohol intake Current drinker of alcohol (finding) [facility] Start: 07-02-2020 End: 02-26-2023 Alcohol intake [facility] Start: 03-06-2019 History SDOH Alcohol Frequency 4 [facility] Start: 03-06-2019 End: 05-15-2020 History SDOH Alcohol Std Drinks 1 [facility] Start: 12-28-2019 End: 12-30-2019 History SDOH Social Connections Phone 5 [facility] Start: 03-06-2019 End: 09-20-2021 History SDOH Social Connections Yazidi 3 [facility] Start: 12-30-2019 End: 05-15-2020 History SDOH Transport Med 2 [facility] Start: 03-06-2019 Education 18 [facility] Start: 1945 Sex Assigned At Not on file [facility] Start: 06-02-2020 End: 02-28-2022 Exposure to SARS-CoV-2 (event) Not sure [facility] Work Phone: Start: 09-17-2021 End: 10-03-2021 Tobacco smoking status NHIS Unknown if ever smoked [facility] Work Phone: Start: 1945 Sex Assigned At Female [facility] Work Phone: Start: 07-13-2017 End: 02-28-2022 Tobacco use and exposure Smokeless tobacco non-user [facility] Start: 02-26-2023 End: 11-18-2024 [facility] [employer] [facility] Has the [employer], or [place] [employer] threatened to shut off services in your home in past 12Mo No [facility] Do you belong to any clubs or organizations such as rastafarian groups, unions, fraternal or athletic groups, or school groups? Yes [facility] Are you now , , , , never or living with a partner? [facility] How often to you hav e a drink containing alcohol? 4 or more times a week [facility] Start: 03-09-2012 Average Number of Drinks Not on file [facility] How often do you hav e 6 or more drinks on 1 occasion? Never [facility] Do you feel stress - tense, restless, nervous, or anxious, or unable to sleep at night because your mind is troubled all the time - these days [OSQ] To some extent [facility] (I/We) worried jerry er (my/our) food would run out before (I/we) got money to buy more. Never true [facility] How often to you hav e a drink containing alcohol? 2-3 time sa week [facility] How many standard dr inks containing alcohol do you have on a typical day? 1 or 2 [facility] Do you feel stress - tense, restless, nervous, or anxious, or unable to sleep at night because your mind is troubled all the time - these days [OSQ] Only a little [facility] Goals Date Patient Goal Desired Activity /State Functional Status Date Assessment Result Facility 11-09-2014 Are you deaf, or do you have serious difficulty hearing No 11/09/2014 8:25 AM EDT Michelle Ring Cma No [facility] 11-09-2014 Are you blind, or do you have serious difficulty seeing, even when wearing glasses No 11/09/2014 8:25 AM EDT Michelle Ring Cma No [facility] 11-09-2014 Do you have serious difficulty walking or climbing stairs No 11/09/2014 8:25 AM EDT Mcihelle Ring Cma No [facility] 11-09-2014 Do you have difficul ty dressing or bathing No 11/09/2014 8:25 AM EDT Michelle Ring Cma No [facility] 11-09-2014 Because of a physica l, mental, or emotional condition, do you have difficulty doing errands alone such as visiting a physician's office or shopping No 11/09/2014 8:25 AM EDT Michelle Ring Cma No [facility] Mental Status Date Assessment Result Facility 10-04-2021 Cognitive function Voice/Name [facility] Work Phone: 09-17-2021 Cognitive function Awake;Alert;A ppropriate; Follows Commands [facility] Work Phone: 11-09-2014 Because of a physica l, mental, or emotional condition, do you have serious difficulty concentrating, remembering, or making decisions No 11/09/2014 8:25 AM EDT Michelle Ring Cma No [facility] Clinical Notes 10-02-2011 to 11-27-2024 Bryce Brumfield APRN.BANQUET COORDINATOR - 11/27/2024 6:25 AM Bryce Hobson APRN.BANQUET COORDINATOR - 11/25/2024 9:39 AM Juan Alberto Carbone PA-C - 10/10/2024 11:59 AM Fredis Sanchez APRN.BANQUET COORDINATOR - 08/15/2024 10:36 AM EDT Note Date & Type Note Facility 11-27-2024 Note HNO ID: [id number] Author: BRYCE BRUMFIELD APRN.BANQUET COORDINATOR Service: ? Author Type: Nurse Practitioner Type: Progress Notes Filed: 11/27/2024 06:32 Note Text: Chief Complaint Patient presents with: Medicare Wellness Exam Request for general health review and updated labs HPI Laisha Sanderson is a 78 year old female who presents here today for Above Complaints.. Denies c/o concerns today. Would like her normal labs updated. BP-checks periodically at home and BP runs around 130's/80's. Denies CP, Shortness of Breath, h/a, palpitations, dizziness/lightheadedness. Diet, Exercise-eating healthy fresher foods, higher protein foods. Does walk regularly for exercise. 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 This seems to be returning and is becoming a bit itchy and flaky. Requesting for this to be frozen off today. Past medical history, appointments, medications, allergies reviewed. Previous Medical History PAST MEDICAL HISTORY Diagnosis Date Abnormal mammogram, unspecified 05/2007 right breast, due for repeat 11/13 Degeneration of intervertebral disc, site unspecified 1999 cervical and lumbar; not having any pain now Disorder of bone and cartilage, unspecified osteopenia on DXA in 2001, but was normal in 2007 so bisphosphonates stopped Other and unspecified hyperlipidemia 2001 Other specified acquired hypothyroidism 2005 ?borderline Other specified gastritis without mention of hemorrhage 2007 found on EGD, symptom free on PPI Sleep apnea 10/02/2011 on CPAP Snoring Vitamin D deficiency 12/21/2009 Previous Surgical History PAST SURGICAL HISTORY Procedure Laterality Date COLONOSCOPY FLX DX W/COLLJ SPEC WHEN PFRMD 09/11/2017 Colonoscopy TRABECULOPLASTY BY LASER SURGERY 1995 vision correction VAGINAL HYSTERECTOMY UTERUS 250 GM/< 1986 precancerous pap smear - no cancer on path from surgery Family History FAMILY HISTORY Problem Relation Age of Onset Stroke Mother Hypertension Mother age 89 Heart Father CHF - age 63 other (impaired fasting glucose) Sister Lipids Sister Hypertension Sister Patient Allergies ALLERGIES Allergen Reactions Bee Sting Anaphylaxis Liquid Bandage [Enb* Rash Topical Agent Combi* Rash Hair treatment Amoxil [Amoxicillin] Rash Current Medications Current Outpatient Medications on File Prior to Visit Medication Sig amLODIPine (NORVASC) 10 mg tablet Take 1 tablet by mouth once daily. EPINEPHrine (EPIPEN 2-TREMAYNE) 0.3 mg/0.3 mL auto-injector Inject 0.3 mL intramuscularly as needed. Miscellaneous Medical Supply (BLOOD PRESSURE CUFF) 1 Each once daily. No current facility-administered medications on file prior to visit. Social History SOCIAL HISTORY[1] Review of Symptoms REVIEW OF SYSTEMS See HPI, otherwise negative EXAM: BP 136/78 (BP Site: Left Arm, BP Position: Sitting, BP Cuff Size: Regular Adult) Pulse 73 Ht 157 cm (5' 1.81) Wt 67.1 kg (148 lb) SpO2 97% BMI 27.24 kg/m? General Appearance: Well appearing, alert, in no acute distress, well-hydrated, well nourished.. Skin: Skin color, texture, turgor normal, no suspicious rashes or lesions. Neck: Supple, no adenopathy; thyroid symmetric, normal size, no bruits. Lungs: Lungs clear to auscultation. No wheezing, rhonchi, rales.. Heart: RRR without murmur, gallop, or rubs. No ectopy. Extremities: No deformities, edema, skin discoloration, clubbing or cyanosis. Good capillary refill. Neurologic: Gait normal. Reflexes normal and symmetric. Sensation grossly intact.. Psychiatric: pleasant, cooperative. Health Maintenance List Influenza Vaccine(1) due on 12/07/2024 Annual PCP Team Chronic Disease Visit due on 11/25/2025 Depression Screening due on 11/25/2025 Anxiety Screening due on 11/25/2025 Diabetes Screening due on 11/26/2027 DTaP,Tdap,Td Vaccine(2 - Td or Tdap) due on 09/18/2031 Bone Density Screening Completed Medicare Advantage Annual Wellness Visit Completed Mammogram Screening Discontinued Colorectal Cancer Screening Discontinued Advance Directive Discussion Discontinued RSV Vaccine Discontinued Shingrix Vaccine Discontinued Pneumococcal Vaccine: 50+ Discontinued Data reviewed Previous records, office notes ASSESSMENT/PLAN: 1. Well adult exam - ICD9: V70.0, ICD10: Z00.00 (primary diagnosis) - Counseled on healthy diet and regular exercise - COMPLETE BLOOD COUNT - COMPREHENSIVE METABOLIC PANEL - LIPID PANEL, FASTING - HEMOGLOBIN A1C - THYROID STIMULATING HORMONE - VITAMIN D 25 HYDROXY 2. Essential hypertension - ICD9: 401.9, ICD10: I10 - Controlled - Continue current medications - Recommend home blood pressure monitoring, to bring results to next visit - Encouraged sodium restriction, DASH or Mediterranean diet - Recommend regular aerobic exercise - BP goal <140/90 given age - COMPLETE BLOOD COUNT - COMPREHENSIVE METABOLIC PANEL 3. (more content not included)... [facility] 11-27-2024 History of Present illness Narrative Chief Complaint Patient presents with: Medicare Wellness Exam Request for general health review and updated labs HPI Laisha Sanderson is a 78 year old female who presents here today for Above Complaints.. Denies c/o concerns today. Would like her normal labs updated. BP-checks periodically at home and BP runs around 130's/80's. Denies CP, Shortness of Breath, h/a, palpitations, dizziness/lightheadedness. Diet, Exercise-eating healthy fresher foods, higher protein foods. Does walk regularly for exercise. 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 This seems to be returning and is becoming a bit itchy and flaky. Requesting for this to be frozen off today. Past medical history, appointments, medications, allergies reviewed. Previous Medical History PAST MEDICAL HISTORY Diagnosis Date Abnormal mammogram, unspecified 05/2007 right breast, due for repeat 11/13 Degeneration of intervertebral disc, site unspecified 1999 cervical and lumbar; not having any pain now Disorder of bone and cartilage, unspecified osteopenia on DXA in 2001, but was normal in 2007 so bisphosphonates stopped Other and unspecified hyperlipidemia 2001 Other specified acquired hypothyroidism 2005 ?borderline Other specified gastritis without mention of hemorrhage 2007 found on EGD, symptom free on PPI Sleep apnea 10/02/2011 on CPAP Snoring Vitamin D deficiency 12/21/2009 Previous Surgical History PAST SURGICAL HISTORY Procedure Laterality Date COLONOSCOPY FLX DX W/COLLJ SPEC WHEN PFRMD 09/11/2017 Colonoscopy TRABECULOPLASTY BY LASER SURGERY 1995 vision correction VAGINAL HYSTERECTOMY UTERUS 250 GM/< 1986 precancerous pap smear - no cancer on path from surgery Family History FAMILY HISTORY Problem Relation Age of Onset Stroke Mother Hypertension Mother age 89 Heart Father CHF - age 63 other (impaired fasting glucose) Sister Lipids Sister Hypertension Sister Patient Allergies ALLERGIES Allergen Reactions Bee Sting Anaphylaxis Liquid Bandage [Enb* Rash Topical Agent Combi* Rash Hair treatment Amoxil [Amoxicillin] Rash Current Medications Current Outpatient Medications on File Prior to Visit Medication Sig amLODIPine (NORVASC) 10 mg tablet Take 1 tablet by mouth once daily. EPINEPHrine (EPIPEN 2-TREMAYNE) 0.3 mg/0.3 mL auto-injector Inject 0.3 mL intramuscularly as needed. Miscellaneous Medical Supply (BLOOD PRESSURE CUFF) 1 Each once daily. No current facility-administered medications on file prior to visit. Social History SOCIAL HISTORY[1] Review of Symptoms REVIEW OF SYSTEMS See HPI, otherwise negative EXAM: BP 136/78 (BP Site: Left Arm, BP Position: Sitting, BP Cuff Size: Regular Adult) Pulse 73 Ht 157 cm (5' 1.81) Wt 67.1 kg (148 lb) SpO2 97% BMI 27.24 kg/m General Appearance: Well appearing, alert, in no acute distress, well-hydrated, well nourished.. Skin: Skin color, texture, turgor normal, no suspicious rashes or lesions. Neck: Supple, no adenopathy; thyroid symmetric, normal size, no bruits. Lungs: Lungs clear to auscultation. No wheezing, rhonchi, rales.. Heart: RRR without murmur, gallop, or rubs. No ectopy. Extremities: No deformities, edema, skin discoloration, clubbing or cyanosis. Good capillary refill. Neurologic: Gait normal. Reflexes normal and symmetric. Sensation grossly intact.. Psychiatric: pleasant, cooperative. Health Maintenance List Influenza Vaccine(1) due on 12/07/2024 Annual PCP Team Chronic Disease Visit due on 11/25/2025 Depression Screening due on 11/25/2025 Anxiety Screening due on 11/25/2025 Diabetes Screening due on 11/26/2027 DTaP,Tdap,Td Vaccine(2 - Td or Tdap) due on 09/18/2031 Bone Density Screening Completed Medicare Advantage Annual Wellness Visit Completed Mammogram Screening Discontinued Colorectal Cancer Screening Discontinued Advance Directive Discussion Discontinued RSV Vaccine Discontinued Shingrix Vaccine Discontinued Pneumococcal Vaccine: 50+ Discontinued Data reviewed Previous records, office notes ASSESSMENT/PLAN: 1. Well adult exam - ICD9: V70.0, ICD10: Z00.00 (primary diagnosis) - Counseled on healthy diet and regular exercise - COMPLETE BLOOD COUNT - COMPREHENSIVE METABOLIC PANEL - LIPID PANEL, FASTING - HEMOGLOBIN A1C - THYROID STIMULATING HORMONE - VITAMIN D 25 HYDROXY 2. Essential hypertension - ICD9: 401.9, ICD10: I10 - Controlled - Continue current medications - Recommend home blood pressure monitoring, to bring results to next visit - Encouraged sodium restriction, DASH or Mediterranean diet - Recommend regular aerobic exercise - BP goal <140/90 given age - COMPLETE BLOOD COUNT - COMPREHENSIVE METABOLIC PANEL 3. Actinic keratosis - ICD9: 702.0, ICD10: L57.0 Informed consent: Discussed the risks (permanent scarring, light or dark discoloration, infection, pain, bleeding, bruising, redness, blister formation, and recurrence of the lesion) and the benefits of the procedure, as well as the alternatives. Informed consent was obtained. The hyperkeratotic portion of the lesion to her right scalp that is chronic and periodically has frozen, was removed with sharp debridement. The lesion was destroyed with liquid nitrogen. It was frozen until the ice ball extended beyond the lesion. 3 freeze/thaw cycles were done. 4. IFG (impaired fasting glucose) - ICD9: 790.21, ICD10: R73.01 - COMPLETE BLOOD COUNT - COMPREHENSIVE METABOLIC PANEL - HEMOGLOBIN A1C 5. Vitamin D deficiency - ICD9: 268.9, ICD10: E55.9 - VITAMIN D 25 HYDROXY 6. Hyperlipidemia with target LDL less than 130 - ICD9: 272.4, ICD10: E78.5 - LIPID PANEL, FASTING 7. Screening for thyroid disorder - ICD9: V77.0, ICD10: Z13.29 - THYROID STIMULATING HORMONE 8. Encounter for screening examination for other mental health and behavioral disorders - ICD9: V79.8, ICD10: Z13.39 - ANXIETY SCREENING 9. Screening for depression - ICD9: V79.0, ICD10: Z13.31 - DEPRESSION SCREENING Bryce Brumfield APRN.TONY [1] Social History Tobacco Use Smoking status: Never Smokeless tobacco: Never Substance Use Topics Alcohol use: Yes Alcohol/week: 3.0 standard drinks of alcohol Types: 3 Glasses of Wine (5oz) per week Drug use: No Images from the original note were not included. Laisha Sanderson is a 78 year old female here for a Medicare wellness visit. Medicare Health Risk Assessment General Health Very good Exercise: Minutes/Day Patient declined Exercise: Days/Week Patient declined Alcohol: Daily Use 2-3 times a week Alcohol: Drinks/Day 1 or 2 Alcohol: 6 or more drinks Never Feel off balance Yes Concerns: Teeth/Dentures Yes Concerns: Sexual function No Troubled by feelings Stressed Frequency: Eating healthy diet Nearly every day ADLs requiring help None of the above Safety precautions in home/vehicle Yes Smoke, vape, chews tobacco No Difficulty hearing Yes Difficulty seeing No (follows up with eye doc) Current Providers Specialists: I have reviewed specialist-related care of the patient in the medical record. Medical/Family history review Reviewed and updated problem list, medical/surgical/family/social history, medications, and allergies. Opioid use review Opioid Medications (last 90 days) No data to display Anxiety/Depression screening PHQ-2 Score: 0 (Lower risk for depression) MAURY-7 Score: 0. Recommendation: no further intervention at this time Cognitive screening Mini Cog Score: 5 Cognitive screening reviewed and No further action needed (score 3-5). Functional Observation Was the patient's Timed Up & Go test unsteady or >= 12 seconds? No Advance Care Planning Sister-Viviana Gutierrez Measurements BP 136/78 (BP Site: Left Arm, BP Position: Sitting, BP Cuff Size: Regular Adult) Pulse 73 Ht 157 cm (5' 1.81) Wt 67.1 kg (148 lb) SpO2 97% BMI 27.24 kg/m Vision Screening: Follows with optometry/ophthalmology Just had cataract surgery last month-only needs readers occasionally. Excited about this because she has had to wear glasses since the fourth grade. Assessment/Plan Medicare annual wellness visit, subsequent (Z00.00) - Counseled on healthy diet and regular exercise - Fall avoidance information provided - Personalized prevention plan provided documented in this encounter [facility] 11-25-2024 Note HNO ID: [id number] Author: BRYCE BRUMFIELD APRN.CNP Service: ? Author Type: Nurse Practitioner Type: Progress Notes Filed: 11/27/2024 06:32 Note Text: Laisha Sanderson is a 78 year old female here for a Medicare wellness visit. Medicare Health Risk Assessment General Health Very good Exercise: Minutes/Day Patient declined Exercise: Days/Week Patient declined Alcohol: Daily Use 2-3 times a week Alcohol: Drinks/Day 1 or 2 Alcohol: 6 or more drinks Never Feel off balance Yes Concerns: Teeth/Dentures Yes Concerns: Sexual function No Troubled by feelings Stressed Frequency: Eating healthy diet Nearly every day ADLs requiring help None of the above Safety precautions in home/vehicle Yes Smoke, vape, chews tobacco No Difficulty hearing Yes Difficulty seeing No (follows up with eye doc) Current Providers Specialists: I have reviewed specialist-related care of the patient in the medical record. Medical/Family history review Reviewed and updated problem list, medical/surgical/family/social history, medications, and allergies. Opioid use review Opioid Medications (last 90 days) No data to display Anxiety/Depression screening PHQ-2 Score: 0 (Lower risk for depression) MAURY-7 Score: 0. Recommendation: no further intervention at this time Cognitive screening Mini Cog Score: 5 Cognitive screening reviewed and No further action needed (score 3-5). Functional Observation Was the patient's Timed Up AND Go test unsteady or >= 12 seconds? No Advance Care Planning Sister-Viviana Gutierrez Measurements BP 136/78 (BP Site: Left Arm, BP Position: Sitting, BP Cuff Size: Regular Adult) Pulse 73 Ht 157 cm (5' 1.81) Wt 67.1 kg (148 lb) SpO2 97% BMI 27.24 kg/m? Vision Screening: Follows with optometry/ophthalmology Just had cataract surgery last month-only needs readers occasionally. Excited about this because she has had to wear glasses since the fourth grade. Assessment/Plan Medicare annual wellness visit, subsequent (Z00.00) - Counseled on healthy diet and regular exercise - Fall avoidance information provided - Personalized prevention plan provided [facility] 10-10-2024 Note HNO ID: [id number] Author: JUAN ALBERTO DEVI PA-C Service: ? Author Type: Physician Supervisor Forming And Tempering Type: Progress Notes Filed: 10/10/2024 12:08 Note Text: This note was created using [employer]. Subjective Laisha Sanderson is a 78 year old female. Patient is a 78-year-old female who arrives for evaluation of laceration to the dorsal aspect of her right index finger that she sustained last evening at approximately 1700. Patient reports that she was slicing onions when her distal right index finger struck the sharp edge of a mandolin. Patient cleaned the wound immediately and states she noted no foreign body. Patient applied a bandage last evening which she replaced this morning. Patient does not take anticoagulant medication and has no history of diabetes. Patient states that her last tetanus immunization was received approximately 3 years ago. Patient denies paresthesia or paralysis to right index finger and states she is able to flex and extend same without difficulty. Patient has no additional complaints of pain or injury. Patient is right-hand dominant. Laceration Review of Systems Skin: Positive for wound. Laceration Right Index Finger All other systems reviewed and are negative. Objective BP 121/73 Pulse 78 Temp 36.9 ?C (98.5 ?F) Resp 18 Wt 70 kg (154 lb 5.2 oz) SpO2 97% BMI 28.04 kg/m? Physical Exam Vitals and nursing note reviewed. Constitutional: Appearance: Normal appearance. She is normal weight. HENT: Head: Normocephalic and atraumatic. Nose: Nose normal. Mouth/Throat: Mouth: Mucous membranes are moist. Pharynx: Oropharynx is clear. Eyes: Extraocular Movements: Extraocular movements intact. Conjunctiva/sclera: Conjunctivae normal. Pupils: Pupils are equal, round, and reactive to light. Cardiovascular: Rate and Rhythm: Normal rate. Pulses: Normal pulses. Pulmonary: Effort: Pulmonary effort is normal. Breath sounds: Normal breath sounds. Musculoskeletal: Cervical back: Normal range of motion and neck supple. Skin: General: Skin is warm and dry. Capillary Refill: Capillary refill takes less than 2 seconds. Comments: Superficial 0.5 cm curvilinear laceration is noted to the distal tip of the right and proximal finger. Fingernail to the right index finger is atraumatic and there is no evidence of subungual hematoma. Wound depth is superficial and the underlying fascial structures are fully intact. No bleeding, serous appearing fluid is noted. No foreign bodies present. MSP to the right index finger is fully intact and muscle strength is 5/5. Patient demonstrates full range of motion to the right index finger. Remainder of exam to the right fingers and hand is unremarkable. Neurological: General: No focal deficit present. Mental Status: She is alert and oriented to person, place, and time. Psychiatric: Mood and Affect: Mood normal. Behavior: Behavior normal. Thought Content: Thought content normal. Judgment: Judgment normal. Assessment and Plan Physical exam findings as noted above. Wound is superficial and no suture repair or other intervention is required. Wound care instructions were discussed the patient verbalizes good understanding of same. CLINICAL IMPRESSION: 0.5 cm Superficial Laceration Distal Right Index Finger ASSESSMENT/PLAN: 1. Laceration of right index finger without foreign body without damage to nail, initial encounter - ICD9: 883.0, ICD10: S61.210A (primary diagnosis) 2. Visit for wound check - ICD9: V58.89, ICD10: Z51.89 MDM Risk of Complications, Morbidity, and/or Mortality Presenting problems: low Diagnostic procedures: low Management options: angelita Devi PA-C [facility] 10-10-2024 History of Present illness Narrative This note was created using [employer]. Subjective Laisha Sanderson is a 78 year old female. Patient is a 78-year-old female who arrives for evaluation of laceration to the dorsal aspect of her right index finger that she sustained last evening at approximately 1700. Patient reports that she was slicing onions when her distal right index finger struck the sharp edge of a mandolin. Patient cleaned the wound immediately and states she noted no foreign body. Patient applied a bandage last evening which she replaced this morning. Patient does not take anticoagulant medication and has no history of diabetes. Patient states that her last tetanus immunization was received approximately 3 years ago. Patient denies paresthesia or paralysis to right index finger and states she is able to flex and extend same without difficulty. Patient has no additional complaints of pain or injury. Patient is right-hand dominant. Laceration Review of Systems Skin: Positive for wound. Laceration Right Index Finger All other systems reviewed and are negative. Objective BP 121/73 Pulse 78 Temp 36.9 C (98.5 F) Resp 18 Wt 70 kg (154 lb 5.2 oz) SpO2 97% BMI 28.04 kg/m Physical Exam Vitals and nursing note reviewed. Constitutional: Appearance: Normal appearance. She is normal weight. HENT: Head: Normocephalic and atraumatic. Nose: Nose normal. Mouth/Throat: Mouth: Mucous membranes are moist. Pharynx: Oropharynx is clear. Eyes: Extraocular Movements: Extraocular movements intact. Conjunctiva/sclera: Conjunctivae normal. Pupils: Pupils are equal, round, and reactive to light. Cardiovascular: Rate and Rhythm: Normal rate. Pulses: Normal pulses. Pulmonary: Effort: Pulmonary effort is normal. Breath sounds: Normal breath sounds. Musculoskeletal: Cervical back: Normal range of motion and neck supple. Skin: General: Skin is warm and dry. Capillary Refill: Capillary refill takes less than 2 seconds. Comments: Superficial 0.5 cm curvilinear laceration is noted to the distal tip of the right and proximal finger. Fingernail to the right index finger is atraumatic and there is no evidence of subungual hematoma. Wound depth is superficial and the underlying fascial structures are fully intact. No bleeding, serous appearing fluid is noted. No foreign bodies present. MSP to the right index finger is fully intact and muscle strength is 5/5. Patient demonstrates full range of motion to the right index finger. Remainder of exam to the right fingers and hand is unremarkable. Neurological: General: No focal deficit present. Mental Status: She is alert and oriented to person, place, and time. Psychiatric: Mood and Affect: Mood normal. Behavior: Behavior normal. Thought Content: Thought content normal. Judgment: Judgment normal. Assessment and Plan Physical exam findings as noted above. Wound is superficial and no suture repair or other intervention is required. Wound care instructions were discussed the patient verbalizes good understanding of same. CLINICAL IMPRESSION: 0.5 cm Superficial Laceration Distal Right Index Finger ASSESSMENT/PLAN: 1. Laceration of right index finger without foreign body without damage to nail, initial encounter - ICD9: 883.0, ICD10: S61.210A (primary diagnosis) 2. Visit for wound check - ICD9: V58.89, ICD10: Z51.89 MDM Risk of Complications, Morbidity, and/or Mortality Presenting problems: low Diagnostic procedures: low Management options: angelita Devi PA-C documented in this encounter [facility] 08-15-2024 Note HNO ID: [id number] Author: FREDIS LUGO APRN.TONY Service: ? Author Type: Nurse Practitioner Type: Progress Notes Filed: 08/15/2024 10:47 Note Text: This note was created using [employer]. Subjective Laisha Sanderson is a 78 year old female. HPI Patient states she has a history of contact dermatitis. About 2 days ago she wore a T-shirt that she has not worn in the last 10 years and subsequently developed a diffuse urticarial rash over her chest and bilateral armpits. She otherwise denies any fever rash in her mouth difficulty swallowing or breathing. Review of Systems As above Objective BP 128/82 Pulse 80 Temp 37.3 ?C (99.1 ?F) (Tympanic) Resp 18 Wt 71.3 kg (157 lb 3 oz) SpO2 94% BMI 28.56 kg/m? Physical Exam Vitals and nursing note reviewed. Constitutional: General: She is not in acute distress. Appearance: Normal appearance. She is not ill-appearing. HENT: Head: Normocephalic. Mouth/Throat: Mouth: Mucous membranes are moist. Comments: No involvement of the mouth, lips, or tongue. Eyes: Conjunctiva/sclera: Conjunctivae normal. Cardiovascular: Rate and Rhythm: Normal rate and regular rhythm. Pulmonary: Effort: Pulmonary effort is normal. Breath sounds: Normal breath sounds. Musculoskeletal: General: Normal range of motion. Cervical back: Normal range of motion. Skin: General: Skin is warm and dry. Comments: Diffuse urticarial rash over the chest Neurological: General: No focal deficit present. Mental Status: She is alert. Psychiatric: Mood and Affect: Mood normal. Behavior: Behavior normal. Assessment and Plan ASSESSMENT/PLAN: 1. Irritant contact dermatitis due to other agents - ICD9: 692.89, ICD10: L24.89 Patient's presentation does appear consistent with contact dermatitis. She was given prescriptions as noted below. She will ensure that her clothing has been washed thoroughly and will follow-up with PCP if symptoms not improving. - PREDNISONE 20 MG TABLET - CETIRIZINE 10 MG TABLET Fredis Lugo APRN.BANQUET COORDINATOR [facility] 08-15-2024 History of Present illness Narrative This note was created using [employer]. Subjective Laisha Sanderson is a 78 year old female. HPI Patient states she has a history of contact dermatitis. About 2 days ago she wore a T-shirt that she has not worn in the last 10 years and subsequently developed a diffuse urticarial rash over her chest and bilateral armpits. She otherwise denies any fever rash in her mouth difficulty swallowing or breathing. Review of Systems As above Objective BP 128/82 Pulse 80 Temp 37.3 C (99.1 F) (Tympanic) Resp 18 Wt 71.3 kg (157 lb 3 oz) SpO2 94% BMI 28.56 kg/m Physical Exam Vitals and nursing note reviewed. Constitutional: General: She is not in acute distress. Appearance: Normal appearance. She is not ill-appearing. HENT: Head: Normocephalic. Mouth/Throat: Mouth: Mucous membranes are moist. Comments: No involvement of the mouth, lips, or tongue. Eyes: Conjunctiva/sclera: Conjunctivae normal. Cardiovascular: Rate and Rhythm: Normal rate and regular rhythm. Pulmonary: Effort: Pulmonary effort is normal. Breath sounds: Normal breath sounds. Musculoskeletal: General: Normal range of motion. Cervical back: Normal range of motion. Skin: General: Skin is warm and dry. Comments: Diffuse urticarial rash over the chest Neurological: General: No focal deficit present. Mental Status: She is alert. Psychiatric: Mood and Affect: Mood normal. Behavior: Behavior normal. Assessment and Plan ASSESSMENT/PLAN: 1. Irritant contact dermatitis due to other agents - ICD9: 692.89, ICD10: L24.89 Patient's presentation does appear consistent with contact dermatitis. She was given prescriptions as noted below. She will ensure that her clothing has been washed thoroughly and will follow-up with PCP if symptoms not improving. - PREDNISONE 20 MG TABLET - CETIRIZINE 10 MG TABLET Fredis Lugo APRN.TONY documented in this encounter [facility] 08-15-2024 Telephone encounter Note Patient calls and states that she has history of contact dermatitis. Patient has used a milder detergent because of this. Patient reports that she had pulled out an old t-shirt that she had not worn for a couple of years. Patient reports that she wore shirt which was previously washed by a different detergent. Patient now has a rash under her armpits and across her chest. Patient reports that rash auguste and stings. Advised patient that she should get rash looked at and that she can come into express care and they will look at rash. Patient voiced understanding. Nanette Hurst RN [facility] 08-15-2024 Miscellaneous Notes Patient calls and states that she has history of contact dermatitis. Patient has used a milder detergent because of this. Patient reports that she had pulled out an old t-shirt that she had not worn for a couple of years. Patient reports that she wore shirt which was previously washed by a different detergent. Patient now has a rash under her armpits and across her chest. Patient reports that rash auguste and stings. Advised patient that she should get rash looked at and that she can come into express care and they will look at rash. Patient voiced understanding. Nanette Hurst RN documented in this encounter [facility] 05-15-2024 History of Present illness Narrative Radiology Service Progress Note PATIENT NAME: Laisha Sanderson DATE OF SERVICE: May 15, 2024 TIME: 11:17 AM PATIENT IDENTITY VERIFICATION COMPLETED USING TWO (2) IDENTIFIERS: Name and Date of confirmed by patient verbally. FALL SCREENING: Has the patient had 2 falls in the last year or 1 fall with injury or currently using an Ambulatory Assistive Device (Walker, Cane, Wheelchair, Crutches, etc.)? No PATIENT GENDER DATA: Assigned female at . status: : No status: NO. PATIENT RELEVANT IMPLANT DATA REVIEWED: Not Applicable PATIENT PRESENTS WITH AN IMPLANTABLE OR ATTACHED CASHIER RECEPTIONIST: No RADIOLOGY DEPARTMENT: General X-ray: Exam(s) Completed: Chest X-Ray PERIPHERAL IV DATA: Not applicable SIGNED BY: Emiliana Bernal May 15, 2024 11:17 AM documented in this encounter [facility] 05-15-2024 Note HNO ID: [id number] Author: AZUL MATUTE Tech Service: ? Author Type: Technologist Type: Progress Notes Filed: 05/15/2024 11:17 Note Text: Radiology Service Progress Note PATIENT NAME: Laisha Sanderson DATE OF SERVICE: May 15, 2024 TIME: 11:17 AM PATIENT IDENTITY VERIFICATION COMPLETED USING TWO (2) IDENTIFIERS: Name and Date of confirmed by patient verbally. FALL SCREENING: Has the patient had 2 falls in the last year or 1 fall with injury or currently using an Ambulatory Assistive Device (Walker, Cane, Wheelchair, Crutches, etc.)? No PATIENT GENDER DATA: Assigned female at . status: : No status: NO. PATIENT RELEVANT IMPLANT DATA REVIEWED: Not Applicable PATIENT PRESENTS WITH AN IMPLANTABLE OR ATTACHED CASHIER RECEPTIONIST: No RADIOLOGY DEPARTMENT: General X-ray: Exam(s) Completed: Chest X-Ray PERIPHERAL IV DATA: Not applicable SIGNED BY: Emiliana Bernal May 15, 2024 11:17 AM [facility] 05-15-2024 Note HNO ID: [id number] Author: AJKE KAY PA Service: ? Author Type: Physician Supervisor Forming And Tempering Type: Progress Notes Filed: 05/15/2024 11:48 Note Text: This note was created using [employer]. Subjective Laisha Sanderson is a 78 year old female. HPI 78-year-old female presents for cough. Patient states that she has had a cough for the past 10 days. She was here on Saturday for cough and states that she was told it was viral. She states that cough has gotten worse. It seems like it is settled more into her chest. She states cough is dry. No chest pain or shortness of breath. No history of COPD or asthma. She has not had fevers. No nasal congestion. She has taken [place] DM [id number] with some improvement in symptoms. No other complaint. PAST MEDICAL HISTORY Diagnosis Date Abnormal mammogram, unspecified 05/2007 right breast, due for repeat 11/13 Degeneration of intervertebral disc, site unspecified 1999 cervical and lumbar; not having any pain now Disorder of bone and cartilage, unspecified osteopenia on DXA in 2001, but was normal in 2007 so bisphosphonates stopped Other and unspecified hyperlipidemia 2001 Other specified acquired hypothyroidism 2005 ?borderline Other specified gastritis without mention of hemorrhage 2007 found on EGD, symptom free on PPI Sleep apnea 10/02/2011 on CPAP Snoring Vitamin D deficiency 12/21/2009 PAST SURGICAL HISTORY Procedure Laterality Date COLONOSCOPY FLX DX W/COLLJ SPEC WHEN PFRMD 09/11/2017 Colonoscopy TRABECULOPLASTY BY LASER SURGERY 1995 vision correction VAGINAL HYSTERECTOMY UTERUS 250 GM/< 1986 precancerous pap smear - no cancer on path from surgery ALLERGIES Bee Sting, Topical Agent Combination No.1, and Amoxil [Amoxicillin] MEDICATIONS amLODIPine (NORVASC) 10 mg tablet Take 1 tablet by mouth once daily. EPINEPHrine (EPIPEN 2-TREMAYNE) 0.3 mg/0.3 mL auto-injector Inject 0.3 mL intramuscularly as needed. Miscellaneous Medical Supply (BLOOD PRESSURE CUFF) 1 Each once daily. FAMILY HISTORY Problem Relation Age of Onset Stroke Mother Hypertension Mother age 89 Heart Father CHF - age 63 other (impaired fasting glucose) Sister Lipids Sister Hypertension Sister Social History Tobacco Use Smoking status: Never Smokeless tobacco: Never Substance Use Topics Alcohol use: Yes Alcohol/week: 3.0 standard drinks of alcohol Types: 3 Glasses of Wine (5oz) per week Drug use: No Review of Systems Constitutional: Negative for chills and fever. HENT: Negative for congestion, ear pain and sore throat. Respiratory: Positive for cough. Negative for shortness of breath. Cardiovascular: Negative for chest pain. Gastrointestinal: Negative for diarrhea and vomiting. Objective BP 139/75 Pulse 70 Temp 36.5 ?C (97.7 ?F) Resp 18 Wt 71.1 kg (156 lb 12 oz) SpO2 97% BMI 28.48 kg/m? Physical Exam Vitals and nursing note reviewed. Constitutional: General: She is not in acute distress. Appearance: Normal appearance. She is not toxic-appearing. HENT: Right Ear: Tympanic membrane and ear canal normal. Left Ear: Ear canal normal. Nose: Nose normal. Mouth/Throat: Mouth: Mucous membranes are moist. Pharynx: Oropharynx is clear. Eyes: Conjunctiva/sclera: Conjunctivae normal. Cardiovascular: Rate and Rhythm: Normal rate and regular rhythm. Pulmonary: Effort: Pulmonary effort is normal. Breath sounds: Normal breath sounds. No wheezing, rhonchi or rales. Skin: General: Skin is warm and dry. Neurological: Mental Status: She is alert. Assessment and Plan ASSESSMENT/PLAN: 1. Acute cough - ICD9: 786.2, ICD10: R05.1 - XR CHEST 2V FRONTAL/LAT-no acute radiographic abnormality. -Rx for Tessalon Perles, Rx Medrol Dosepak -Advise chest x-ray clear, no pneumonia. No indication for antibiotics at this time. Follow-up with PCP for persistent symptoms Diagnosis and treatment plan were discussed and questions were answered to the patient's satisfaction. Pt acknowledged understanding of concepts and follow up plan. Specific signs and symptoms that would indicate the need for higher level of care were discussed in detail warranting prompt ER evaluation. YRIS Walker [facility] 05-15-2024 History of Present illness Narrative This note was created using [employer]. Subjective Laisha Sanderson is a 78 year old female. HPI 78-year-old female presents for cough. Patient states that she has had a cough for the past 10 days. She was here on Saturday for cough and states that she was told it was viral. She states that cough has gotten worse. It seems like it is settled more into her chest. She states cough is dry. No chest pain or shortness of breath. No history of COPD or asthma. She has not had fevers. No nasal congestion. She has taken [place] DM [id number] with some improvement in symptoms. No other complaint. PAST MEDICAL HISTORY Diagnosis Date Abnormal mammogram, unspecified 05/2007 right breast, due for repeat 11/13 Degeneration of intervertebral disc, site unspecified 1999 cervical and lumbar; not having any pain now Disorder of bone and cartilage, unspecified osteopenia on DXA in 2001, but was normal in 2007 so bisphosphonates stopped Other and unspecified hyperlipidemia 2001 Other specified acquired hypothyroidism 2005 ?borderline Other specified gastritis without mention of hemorrhage 2007 found on EGD, symptom free on PPI Sleep apnea 10/02/2011 on CPAP Snoring Vitamin D deficiency 12/21/2009 PAST SURGICAL HISTORY Procedure Laterality Date COLONOSCOPY FLX DX W/COLLJ SPEC WHEN PFRMD 09/11/2017 Colonoscopy TRABECULOPLASTY BY LASER SURGERY 1995 vision correction VAGINAL HYSTERECTOMY UTERUS 250 GM/< 1986 precancerous pap smear - no cancer on path from surgery ALLERGIES Bee Sting, Topical Agent Combination No.1, and Amoxil [Amoxicillin] MEDICATIONS amLODIPine (NORVASC) 10 mg tablet Take 1 tablet by mouth once daily. EPINEPHrine (EPIPEN 2-TREMAYNE) 0.3 mg/0.3 mL auto-injector Inject 0.3 mL intramuscularly as needed. Miscellaneous Medical Supply (BLOOD PRESSURE CUFF) 1 Each once daily. FAMILY HISTORY Problem Relation Age of Onset Stroke Mother Hypertension Mother age 89 Heart Father CHF - age 63 other (impaired fasting glucose) Sister Lipids Sister Hypertension Sister Social History Tobacco Use Smoking status: Never Smokeless tobacco: Never Substance Use Topics Alcohol use: Yes Alcohol/week: 3.0 standard drinks of alcohol Types: 3 Glasses of Wine (5oz) per week Drug use: No Review of Systems Constitutional: Negative for chills and fever. HENT: Negative for congestion, ear pain and sore throat. Respiratory: Positive for cough. Negative for shortness of breath. Cardiovascular: Negative for chest pain. Gastrointestinal: Negative for diarrhea and vomiting. Objective BP 139/75 Pulse 70 Temp 36.5 C (97.7 F) Resp 18 Wt 71.1 kg (156 lb 12 oz) SpO2 97% BMI 28.48 kg/m Physical Exam Vitals and nursing note reviewed. Constitutional: General: She is not in acute distress. Appearance: Normal appearance. She is not toxic-appearing. HENT: Right Ear: Tympanic membrane and ear canal normal. Left Ear: Ear canal normal. Nose: Nose normal. Mouth/Throat: Mouth: Mucous membranes are moist. Pharynx: Oropharynx is clear. Eyes: Conjunctiva/sclera: Conjunctivae normal. Cardiovascular: Rate and Rhythm: Normal rate and regular rhythm. Pulmonary: Effort: Pulmonary effort is normal. Breath sounds: Normal breath sounds. No wheezing, rhonchi or rales. Skin: General: Skin is warm and dry. Neurological: Mental Status: She is alert. Assessment and Plan ASSESSMENT/PLAN: 1. Acute cough - ICD9: 786.2, ICD10: R05.1 - XR CHEST 2V FRONTAL/LAT-no acute radiographic abnormality. -Rx for Tessalon Perles, Rx Medrol Dosepak -Advise chest x-ray clear, no pneumonia. No indication for antibiotics at this time. Follow-up with PCP for persistent symptoms Diagnosis and treatment plan were discussed and questions were answered to the patient's satisfaction. Pt acknowledged understanding of concepts and follow up plan. Specific signs and symptoms that would indicate the need for higher level of care were discussed in detail warranting prompt ER evaluation. YRIS Walkre documented in this encounter [facility] 05-09-2024 Note HNO ID: [id number] Author: MICHELE ALLEN APRN.BANQUET COORDINATOR Service: ? Author Type: Nurse Practitioner Type: Progress Notes Filed: 05/09/2024 13:01 Note Text: CC: Patient presents with: Cough: Sinus congestion x3 days HPI: Laisha Sanderson is a 78 year old female who presents to the office with complaint of head congestion and cough, nonproductive for 5 days. Symptoms are staying the same. Associated symptoms includes cough. Denies sore throat, ear pain, wheezing, dyspnea, fatigue, nausea, vomiting , and diarrhea. Treatments tried include nothing so far. with no relief of symptoms. Sick contacts: unknown. History of asthma, frequent episodes of bronchitis, chronic bronchitis, bronchiectasis or COPD: No Smoker: No Seasonal/environmental allergies: No The ROS is otherwise negative. The patient's pmh, medications, allergies, and past visits are reviewed. PHYSICAL EXAM: BP 126/77 Pulse 85 Temp 37.3 ?C (99.1 ?F) Resp 18 Wt 74 kg (163 lb 2.3 oz) SpO2 99% BMI 29.64 kg/m? General appearance: alert, cooperative, pleasant, in no acute distress Head: Normocephalic Eyes: EOM's intact, conjunctiva pink and moist, no icterus, sclera white, non-injected Ears: Right ear: External ear/canal- Normal, TM - clear with good landmarks. Left ear: External ear/canal- Normal, TM - clear with good landmarks Oropharynx:moist without lesions, No erythema, exudates or tonsillar hypertrophy. Heart: Negative. RRR without obvious murmur, gallop, or rubs. No ectopy. Lungs: clear to auscultation, without rales or wheeze, good air exchange PAST MEDICAL HISTORY Diagnosis Date Abnormal mammogram, unspecified 05/2007 right breast, due for repeat 11/13 Degeneration of intervertebral disc, site unspecified 1999 cervical and lumbar; not having any pain now Disorder of bone and cartilage, unspecified osteopenia on DXA in 2001, but was normal in 2007 so bisphosphonates stopped Other and unspecified hyperlipidemia 2001 Other specified acquired hypothyroidism 2005 ?borderline Other specified gastritis without mention of hemorrhage 2007 found on EGD, symptom free on PPI Sleep apnea 10/02/2011 on CPAP Snoring Vitamin D deficiency 12/21/2009 PAST SURGICAL HISTORY Procedure Laterality Date COLONOSCOPY FLX DX W/COLLJ SPEC WHEN PFRMD 09/11/2017 Colonoscopy TRABECULOPLASTY BY LASER SURGERY 1995 vision correction VAGINAL HYSTERECTOMY UTERUS 250 GM/< 1986 precancerous pap smear - no cancer on path from surgery ALLERGIES Bee Sting, Topical Agent Combination No.1, and Amoxil [Amoxicillin] MEDICATIONS amLODIPine (NORVASC) 10 mg tablet Take 1 tablet by mouth once daily. EPINEPHrine (EPIPEN 2-TREMAYNE) 0.3 mg/0.3 mL auto-injector Inject 0.3 mL intramuscularly as needed. Miscellaneous Medical Supply (BLOOD PRESSURE CUFF) 1 Each once daily. FAMILY HISTORY Problem Relation Age of Onset Stroke Mother Hypertension Mother age 89 Heart Father CHF - age 63 other (impaired fasting glucose) Sister Lipids Sister Hypertension Sister Social History Tobacco Use Smoking status: Never Smokeless tobacco: Never Substance Use Topics Alcohol use: Yes Alcohol/week: 3.0 standard drinks of alcohol Types: 3 Glasses of Wine (5oz) per week Drug use: No ASSESSMENT/PLAN: 1. URI, acute - ICD9: 465.9, ICD10: J06.9 Supportive care. Viral at this time. Out of window for treatment. Potential red flag symptoms discussed with the patient. Reviewed appropriate action plan to take if red flag symptoms occur. Patient agreeable to treatment plan. Michele Allen APRN.[facility] 05-09-2024 History of Present illness Narrative CC: Patient presents with: Cough: Sinus congestion x3 days HPI: Laisha Sanderson is a 78 year old female who presents to the office with complaint of head congestion and cough, nonproductive for 5 days. Symptoms are staying the same. Associated symptoms includes cough. Denies sore throat, ear pain, wheezing, dyspnea, fatigue, nausea, vomiting , and diarrhea. Treatments tried include nothing so far. with no relief of symptoms. Sick contacts: unknown. History of asthma, frequent episodes of bronchitis, chronic bronchitis, bronchiectasis or COPD: No Smoker: No Seasonal/environmental allergies: No The ROS is otherwise negative. The patient's pmh, medications, allergies, and past visits are reviewed. PHYSICAL EXAM: BP 126/77 Pulse 85 Temp 37.3 C (99.1 F) Resp 18 Wt 74 kg (163 lb 2.3 oz) SpO2 99% BMI 29.64 kg/m General appearance: alert, cooperative, pleasant, in no acute distress Head: Normocephalic Eyes: EOM's intact, conjunctiva pink and moist, no icterus, sclera white, non-injected Ears: Right ear: External ear/canal- Normal, TM - clear with good landmarks. Left ear: External ear/canal- Normal, TM - clear with good landmarks Oropharynx:moist without lesions, No erythema, exudates or tonsillar hypertrophy. Heart: Negative. RRR without obvious murmur, gallop, or rubs. No ectopy. Lungs: clear to auscultation, without rales or wheeze, good air exchange PAST MEDICAL HISTORY Diagnosis Date Abnormal mammogram, unspecified 05/2007 right breast, due for repeat 11/13 Degeneration of intervertebral disc, site unspecified 1999 cervical and lumbar; not having any pain now Disorder of bone and cartilage, unspecified osteopenia on DXA in 2001, but was normal in 2007 so bisphosphonates stopped Other and unspecified hyperlipidemia 2001 Other specified acquired hypothyroidism 2005 ?borderline Other specified gastritis without mention of hemorrhage 2007 found on EGD, symptom free on PPI Sleep apnea 10/02/2011 on CPAP Snoring Vitamin D deficiency 12/21/2009 PAST SURGICAL HISTORY Procedure Laterality Date COLONOSCOPY FLX DX W/COLLJ SPEC WHEN PFRMD 09/11/2017 Colonoscopy TRABECULOPLASTY BY LASER SURGERY 1995 vision correction VAGINAL HYSTERECTOMY UTERUS 250 GM/< 1986 precancerous pap smear - no cancer on path from surgery ALLERGIES Bee Sting, Topical Agent Combination No.1, and Amoxil [Amoxicillin] MEDICATIONS amLODIPine (NORVASC) 10 mg tablet Take 1 tablet by mouth once daily. EPINEPHrine (EPIPEN 2-TREMAYNE) 0.3 mg/0.3 mL auto-injector Inject 0.3 mL intramuscularly as needed. Miscellaneous Medical Supply (BLOOD PRESSURE CUFF) 1 Each once daily. FAMILY HISTORY Problem Relation Age of Onset Stroke Mother Hypertension Mother age 89 Heart Father CHF - age 63 other (impaired fasting glucose) Sister Lipids Sister Hypertension Sister Social History Tobacco Use Smoking status: Never Smokeless tobacco: Never Substance Use Topics Alcohol use: Yes Alcohol/week: 3.0 standard drinks of alcohol Types: 3 Glasses of Wine (5oz) per week Drug use: No ASSESSMENT/PLAN: 1. URI, acute - ICD9: 465.9, ICD10: J06.9 Supportive care. Viral at this time. Out of window for treatment. Potential red flag symptoms discussed with the patient. Reviewed appropriate action plan to take if red flag symptoms occur. Patient agreeable to treatment plan. Michele Allen APRN.CNP documented in this encounter [facility] 04-24-2024 Telephone encounter Note The patient has been identified by name and date of : Yes Caregiver verified no other encounters exist for this prescription request: Yes Caregiver confirmed with patient/requestor that no other refills are due, in the near future, with this provider at this time: Yes The last office visit in the department: 02/05/2024 Does the patient have a future office visit with this provider/department: No Requested Prescriptions Pending Prescriptions Disp Refills amLODIPine (NORVASC) 10 mg tablet 90 tablet 1 Sig: Take 1 tablet by mouth once daily. Marcelina Wright RN April 24, 2024 10:49 AM [facility] 04-24-2024 Miscellaneous Notes The patient has been identified by name and date of : Yes Caregiver verified no other encounters exist for this prescription request: Yes Caregiver confirmed with patient/requestor that no other refills are due, in the near future, with this provider at this time: Yes The last office visit in the department: 02/05/2024 Does the patient have a future office visit with this provider/department: No Requested Prescriptions Pending Prescriptions Disp Refills amLODIPine (NORVASC) 10 mg tablet 90 tablet 1 Sig: Take 1 tablet by mouth once daily. Marcelina Wright RN April 24, 2024 10:49 AM documented in this encounter [facility] 02-05-2024 Bryce Rojas APRN.CNP - 02/05/2024 12:26 PM EDT Probiotic for female urinary/ symptoms-saccharomyces or florigen documented in this encounter [facility] 02-05-2024 Note HNO ID: [id number] Author: BRYCE BRUMFIELD APRN.TONY Service: ? Author Type: Nurse Practitioner Type: Progress Notes Filed: 02/05/2024 12:42 Note Text: Chief Complaint Patient presents with: Urinary Problem: Urinary Urgency, frequency, itching x 5 days Hair/Scalp Problem HPI Laisha Sanderson is a 78 year old female who presents here today for Above Complaints.. Hair/scalp lesion-area to right side of her scalp, has had this frozen off by PCP Dr. Rai in the past and this goes away for a year or so and then seems to come back. Is dry and itchy. Wants to catch it before it gets too bad. Urine-frequency, urgency, itching x5 days. Getting up at least 2-3x/night and is pretty urgent. About 6 months ago did have some incontinence but was attributed to dehydration and has since resolved. No drainage. Strong odor but no foul odor. Taking amlodipine, started taking it at nighttime rather than the morning and her leg swelling doesn't happen anymore. Past medical history, appointments, medications, allergies reviewed. Previous Medical History PAST MEDICAL HISTORY Diagnosis Date Abnormal mammogram, unspecified 05/2007 right breast, due for repeat 11/13 Degeneration of intervertebral disc, site unspecified 1999 cervical and lumbar; not having any pain now Disorder of bone and cartilage, unspecified osteopenia on DXA in 2001, but was normal in 2007 so bisphosphonates stopped Other and unspecified hyperlipidemia 2001 Other specified acquired hypothyroidism 2005 ?borderline Other specified gastritis without mention of hemorrhage 2007 found on EGD, symptom free on PPI Sleep apnea 10/02/2011 on CPAP Snoring Vitamin D deficiency 12/21/2009 Previous Surgical History PAST SURGICAL HISTORY Procedure Laterality Date COLONOSCOPY FLX DX W/COLLJ SPEC WHEN PFRMD 09/11/2017 Colonoscopy TRABECULOPLASTY BY LASER SURGERY 1995 vision correction VAGINAL HYSTERECTOMY UTERUS 250 GM/< 1986 precancerous pap smear - no cancer on path from surgery Family History FAMILY HISTORY Problem Relation Age of Onset Stroke Mother Hypertension Mother age 89 Heart Father CHF - age 63 other (impaired fasting glucose) Sister Lipids Sister Hypertension Sister Patient Allergies ALLERGIES Allergen Reactions Amoxil [Amoxicillin] Rash gets bright red rash Bee Sting Anaphylaxis Topical Agent Combi* Rash Hair treatment - Current Medications Current Outpatient Medications on File Prior to Visit Medication Sig amLODIPine (NORVASC) 10 mg tablet Take 1 tablet by mouth once daily. EPINEPHrine (EPIPEN 2-TREMAYNE) 0.3 mg/0.3 mL auto-injector Inject 0.3 mL intramuscularly as needed. Miscellaneous Medical Supply (BLOOD PRESSURE CUFF) 1 Each once daily. No current facility-administered medications on file prior to visit. Social History Social History Tobacco Use Smoking status: Never Smokeless tobacco: Never Substance Use Topics Alcohol use: Yes Alcohol/week: 3.0 standard drinks of alcohol Types: 3 Glasses of Wine (5oz) per week Drug use: No Review of Symptoms REVIEW OF SYSTEMS See HPI, otherwise negative EXAM: BP 128/84 (BP Site: Left Arm, BP Position: Sitting, BP Cuff Size: Regular Adult) Pulse 73 Resp 16 Wt 74.5 kg (164 lb 3.2 oz) SpO2 95% BMI 29.83 kg/m? General Appearance: Well appearing, alert, in no acute distress, well-hydrated, well nourished.. Skin: small whitish scaly patch to right occipital scalp. Lungs: Lungs clear to auscultation. No wheezing, rhonchi, rales.. Heart: RRR without murmur, gallop, or rubs. No ectopy. Psychiatric: pleasant, cooperative. Health Maintenance List Depression Screening Never done Anxiety Screening Never done Shingrix Vaccine(1 of 2) Never done Pneumococcal Vaccine: 65+(2 of 2 - PCV) due on 06/14/2012 RSV Vaccine(1 - 1-dose 75+ series) Never done Influenza Vaccine(1) due on 12/08/2023 Covid-19 Vaccine( - 2023- season) Never done Annual PCP Team Chronic Disease Visit due on 09/17/2024 BP Controlled (<130/80) due on 09/17/2024 Diabetes Screening due on 09/17/2026 DTaP,Tdap,Td Vaccine(2 - Td or Tdap) due on 09/18/2031 Bone Density Screening Completed Mammogram Screening Discontinued Colorectal Cancer Screening Discontinued Advance Directive Discussion Discontinued Data reviewed Previous records, office notes ASSESSMENT/PLAN: 1. Urinary urgency - ICD9: 788.63, ICD10: R39.15 (primary diagnosis) Small protein present. Will send for culture. - UA DIP, URINE (POC) - URINE CULTURE 2. Urinary frequency - ICD9: 788.41, ICD10: R35.0 Small protein present. Will send for culture. - UA DIP, URINE (POC) - URINE CULTURE 3. Actinic keratosis - ICD9: 702.0, ICD10: L57.0 Informed consent: Discussed the risks (permanent scarring, light or dark discoloration, infection, pain, bleeding, bruising, redness, blister formation, and recurrence of the lesion) and the benefits of the procedur (more content not included)... [facility] 02-05-2024 History of Present illness Narrative Chief Complaint Patient presents with: Urinary Problem: Urinary Urgency, frequency, itching x 5 days Hair/Scalp Problem HPI Laisha Sanderson is a 78 year old female who presents here today for Above Complaints.. Hair/scalp lesion-area to right side of her scalp, has had this frozen off by PCP Dr. Rai in the past and this goes away for a year or so and then seems to come back. Is dry and itchy. Wants to catch it before it gets too bad. Urine-frequency, urgency, itching x5 days. Getting up at least 2-3x/night and is pretty urgent. About 6 months ago did have some incontinence but was attributed to dehydration and has since resolved. No drainage. Strong odor but no foul odor. Taking amlodipine, started taking it at nighttime rather than the morning and her leg swelling doesn't happen anymore. Past medical history, appointments, medications, allergies reviewed. Previous Medical History PAST MEDICAL HISTORY Diagnosis Date Abnormal mammogram, unspecified 05/2007 right breast, due for repeat 11/13 Degeneration of intervertebral disc, site unspecified 1999 cervical and lumbar; not having any pain now Disorder of bone and cartilage, unspecified osteopenia on DXA in 2001, but was normal in 2007 so bisphosphonates stopped Other and unspecified hyperlipidemia 2001 Other specified acquired hypothyroidism 2005 ?borderline Other specified gastritis without mention of hemorrhage 2007 found on EGD, symptom free on PPI Sleep apnea 10/02/2011 on CPAP Snoring Vitamin D deficiency 12/21/2009 Previous Surgical History PAST SURGICAL HISTORY Procedure Laterality Date COLONOSCOPY FLX DX W/COLLJ SPEC WHEN PFRMD 09/11/2017 Colonoscopy TRABECULOPLASTY BY LASER SURGERY 1995 vision correction VAGINAL HYSTERECTOMY UTERUS 250 GM/< 1986 precancerous pap smear - no cancer on path from surgery Family History FAMILY HISTORY Problem Relation Age of Onset Stroke Mother Hypertension Mother age 89 Heart Father CHF - age 63 other (impaired fasting glucose) Sister Lipids Sister Hypertension Sister Patient Allergies ALLERGIES Allergen Reactions Amoxil [Amoxicillin] Rash gets bright red rash Bee Sting Anaphylaxis Topical Agent Combi* Rash Hair treatment - Current Medications Current Outpatient Medications on File Prior to Visit Medication Sig amLODIPine (NORVASC) 10 mg tablet Take 1 tablet by mouth once daily. EPINEPHrine (EPIPEN 2-TREMAYNE) 0.3 mg/0.3 mL auto-injector Inject 0.3 mL intramuscularly as needed. Miscellaneous Medical Supply (BLOOD PRESSURE CUFF) 1 Each once daily. No current facility-administered medications on file prior to visit. Social History Social History Tobacco Use Smoking status: Never Smokeless tobacco: Never Substance Use Topics Alcohol use: Yes Alcohol/week: 3.0 standard drinks of alcohol Types: 3 Glasses of Wine (5oz) per week Drug use: No Review of Symptoms REVIEW OF SYSTEMS See HPI, otherwise negative EXAM: BP 128/84 (BP Site: Left Arm, BP Position: Sitting, BP Cuff Size: Regular Adult) Pulse 73 Resp 16 Wt 74.5 kg (164 lb 3.2 oz) SpO2 95% BMI 29.83 kg/m General Appearance: Well appearing, alert, in no acute distress, well-hydrated, well nourished.. Skin: small whitish scaly patch to right occipital scalp. Lungs: Lungs clear to auscultation. No wheezing, rhonchi, rales.. Heart: RRR without murmur, gallop, or rubs. No ectopy. Psychiatric: pleasant, cooperative. Health Maintenance List Depression Screening Never done Anxiety Screening Never done Shingrix Vaccine(1 of 2) Never done Pneumococcal Vaccine: 65+(2 of 2 - PCV) due on 06/14/2012 RSV Vaccine(1 - 1-dose 75+ series) Never done Influenza Vaccine(1) due on 12/08/2023 Covid-19 Vaccine( - 2023- season) Never done Annual PCP Team Chronic Disease Visit due on 09/17/2024 BP Controlled (<130/80) due on 09/17/2024 Diabetes Screening due on 09/17/2026 DTaP,Tdap,Td Vaccine(2 - Td or Tdap) due on 09/18/2031 Bone Density Screening Completed Mammogram Screening Discontinued Colorectal Cancer Screening Discontinued Advance Directive Discussion Discontinued Data reviewed Previous records, office notes ASSESSMENT/PLAN: 1. Urinary urgency - ICD9: 788.63, ICD10: R39.15 (primary diagnosis) Small protein present. Will send for culture. - UA DIP, URINE (POC) - URINE CULTURE 2. Urinary frequency - ICD9: 788.41, ICD10: R35.0 Small protein present. Will send for culture. - UA DIP, URINE (POC) - URINE CULTURE 3. Actinic keratosis - ICD9: 702.0, ICD10: L57.0 Informed consent: Discussed the risks (permanent scarring, light or dark discoloration, infection, pain, bleeding, bruising, redness, blister formation, and recurrence of the lesion) and the benefits of the procedure, as well as the alternatives. Informed consent was obtained. The lesion was destroyed with liquid nitrogen. It was frozen until the ice ball extended beyond the lesion. 2 freeze/thaw cycles were done. 4. Primary hypertension - ICD9: 401.9, ICD10: I10 - Controlled - Continue current medications - Recommend home blood pressure monitoring, to bring results to next visit - Encouraged sodium restriction, DASH or Mediterranean diet - Recommend regular aerobic exercise - ok to continue her amlodipine at nighttime as it is controlling her BP well and her leg edema has resolved with this dosing as well. 5. Bilateral leg edema - ICD9: 782.3, ICD10: R60.0 - Controlled - Continue current medications - Recommend home blood pressure monitoring, to bring results to next visit - Encouraged sodium restriction, DASH or Mediterranean diet - Recommend regular aerobic exercise - ok to continue her amlodipine at nighttime as it is controlling her BP well and her leg edema has resolved with this dosing as well. Bryce Brumfield APRN.TONY documented in this encounter [facility] 01-22-2024 Telephone encounter Note Spoke with pt gave information provided. Pt voices understanding. [facility] 01-22-2024 Miscellaneous Notes Spoke with pt gave information provided. Pt voices understanding. After reviewing notes. It looks like patient would benefit from a hearing aid evaluation. I would advise contacting the ENT office for guidance on being scheduled for this evaluation. Sherrill Grace PA-C 01/21/2024 Pt was evaluated regarding hearing loss and there were not further recommendations from them. Pt reports still has hearing loss. Where does she go from here. Please advise pt. Meghna Long LPN documented in this encounter [facility] 01-21-2024 Telephone encounter Note After reviewing notes. It looks like patient would benefit from a hearing aid evaluation. I would advise contacting the ENT office for guidance on being scheduled for this evaluation. Sherrill Grace PA-C 01/21/2024 [facility] 01-17-2024 Telephone encounter Note Pt was evaluated regarding hearing loss and there were not further recommendations from them. Pt reports still has hearing loss. Where does she go from here. Please advise pt. Meghna Long LPN [facility] 12-25-2023 History of Present illness Narrative Radiology Service Progress Note DATE OF SERVICE: December 25, 2023 TIME: 9:39 AM PATIENT IDENTITY VERIFICATION COMPLETED USING TWO (2) STANDARD IDENTIFIERS: Name and Date of confirmed by patient verbally. FALL SCREENING: Has the patient had 2 falls in the last year or 1 fall with injury or currently using an Ambulatory Assistive Device (Walker, Cane, Wheelchair, Crutches, etc.)? No PATIENT GENDER DATA: Female. status: : No status: NO. PATIENT RELEVANT IMPLANT DATA REVIEWED: Yes PATIENT PRESENTS WITH AN IMPLANTABLE OR ATTACHED CASHIER RECEPTIONIST: No ALLERGIES: Reviewed and unchanged CONTRAST ALLERGY: NO. EXAM: MRI - CONTRAST TYPE: GROUP II PERIPHERAL IV DATA: Ambulatory: A peripheral IV was started in the Right antecubital site with a Angio cath: 22 gauge. RADIOLOGY DEPARTMENT: MR; Exam(s) Completed: Head: IAC/CPA SIGNATURE: KIEL Nagy) PATIENT NAME: Laisha Sanderson DATE: December 25, 2023 TIME: 9:39 AM documented in this encounter [facility] 12-25-2023 Note HNO ID: [id number] Author: CHRISTIANNE FINN RT (R) Service: ? Author Type: Technologist Type: Progress Notes Filed: 12/25/2023 09:39 Note Text: Radiology Service Progress Note DATE OF SERVICE: December 25, 2023 TIME: 9:39 AM PATIENT IDENTITY VERIFICATION COMPLETED USING TWO (2) STANDARD IDENTIFIERS: Name and Date of confirmed by patient verbally. FALL SCREENING: Has the patient had 2 falls in the last year or 1 fall with injury or currently using an Ambulatory Assistive Device (Walker, Cane, Wheelchair, Crutches, etc.)? No PATIENT GENDER DATA: Female. status: : No status: NO. PATIENT RELEVANT IMPLANT DATA REVIEWED: Yes PATIENT PRESENTS WITH AN IMPLANTABLE OR ATTACHED CASHIER RECEPTIONIST: No ALLERGIES: Reviewed and unchanged CONTRAST ALLERGY: NO. EXAM: MRI - CONTRAST TYPE: GROUP II PERIPHERAL IV DATA: Ambulatory: A peripheral IV was started in the Right antecubital site with a Angio cath: 22 gauge. RADIOLOGY DEPARTMENT: MR; Exam(s) Completed: Head: IAC/CPA SIGNATURE: Christianne Finn, RT(R) PATIENT NAME: Laisha Sanderson DATE: December 25, 2023 TIME: 9:39 AM [facility] 12-02-2023 History of Present illness Narrative RADIOLOGY SERVICE PROGRESS NOTE SERVICE DATE: 12/02/2023 SERVICE TIME: 07:40 AM PATIENT IDENTITY VERIFICATION COMPLETED USING TWO (2) STANDARD IDENTIFIERS: Name and Date of confirmed by patient verbally FALL SCREENING: Has the patient had 2 falls in the last year or 1 fall with injury or currently using an Ambulatory Assistive Device (Walker, Cane, Wheelchair, Crutches, etc.)? Yes, Patient High Risk for Falls What interventions were put in place to prevent falls during this visit? Instructed Patient to Call for Help if Needed, Offered Assistance with Transfers/Clothing, Instructed Patient to Remain Seated (Not on Exam Table) Until Exam, Increased Observations by Caregivers, and Escorted to/from Restroom PATIENT GENDER DATA: .female : No ALLERGIES: Reviewed and unchanged MEDICATIONS REVIEWED: No PATIENT RELEVANT IMPLANT DATA REVIEWED: Not Applicable PATIENT PRESENTS WITH AN IMPLANTABLE OR ATTACHED CASHIER RECEPTIONIST: n/a CREATININE: Creatinine Date Value Ref Range Status 12/02/2023 0.61 0.58 - 0.96 mg/dL Final 09/18/2023 0.66 0.58 - 0.96 mg/dL Final 02/27/2023 0.63 0.58 - 0.96 mg/dL Final Estimated Glomerular Filtration Rate Date Value Ref Range Status 12/02/2023 92 >=60 mL/min/1.73m Final Comment: Estimated Glomerular Filtration Rate (eGFR) is calculated using the 2020 CKD-EPI creatinine equation. This equation utilizes serum creatinine, sex, and age as parameters. The creatinine assay has traceable calibration to isotope dilution-mass spectrometry. Refer to KDIGO guidelines for clinical interpretation. In patients with unstable renal function, e.g. those with acute kidney injury, the eGFR may not accurately reflect actual GFR. eGFR- Date Value Ref Range Status 12/31/2019 >60 Final P.O.C.T. RESULTS: N/A December 02, [address] PERFORMED: No IV SITE: Ambulatory: A peripheral IV was started in the Right antecubital site with a Angio cath: 22 gauge. POST EXAM PIV STATUS: Discontinued PROCEDURE TYPE: NM Stress: 13.3 mCi [id number] was administered IV for Rest Imaging at 07:55 by Geetha Roman. 34.4 mCi [id number] was administered IV for Stress Imaging at 09:25 by Geetha Roman. PATIENT DISCHARGED TO: Ambulatory patient, left MA department area. A Diagnostic radioactive procedure has taken place, with no further precautions necessary other than routine body substance precautions. More information regarding radiation safety can be found using this link: [email or web address] [email or web address] SIGNATURE: KIEL Estrada) PATIENT NAME: Laisha Sanderson DATE: December 02, 2023 TIME: 10:00 AM PAGER/CONTACT #: documented in this encounter [facility] 12-02-2023 Note HNO ID: [id number] Author: GEETHA ROMAN RT (R) Service: Nuclear Medicine Author Type: Technologist Type: Progress Notes Filed: 12/02/2023 14:14 Note Text: RADIOLOGY SERVICE PROGRESS NOTE SERVICE DATE: 12/02/2023 SERVICE TIME: 07:40 AM PATIENT IDENTITY VERIFICATION COMPLETED USING TWO (2) STANDARD IDENTIFIERS: Name and Date of confirmed by patient verbally FALL SCREENING: Has the patient had 2 falls in the last year or 1 fall with injury or currently using an Ambulatory Assistive Device (Walker, Cane, Wheelchair, Crutches, etc.)? Yes, Patient High Risk for Falls What interventions were put in place to prevent falls during this visit? Instructed Patient to Call for Help if Needed, Offered Assistance with Transfers/Clothing, Instructed Patient to Remain Seated (Not on Exam Table) Until Exam, Increased Observations by Caregivers, and Escorted to/from Restroom PATIENT GENDER DATA: .female : No ALLERGIES: Reviewed and unchanged MEDICATIONS REVIEWED: No PATIENT RELEVANT IMPLANT DATA REVIEWED: Not Applicable PATIENT PRESENTS WITH AN IMPLANTABLE OR ATTACHED CASHIER RECEPTIONIST: n/a CREATININE: Creatinine Date Value Ref Range Status 12/02/2023 0.61 0.58 - 0.96 mg/dL Final 09/18/2023 0.66 0.58 - 0.96 mg/dL Final 02/27/2023 0.63 0.58 - 0.96 mg/dL Final Estimated Glomerular Filtration Rate Date Value Ref Range Status 12/02/2023 92 >=60 mL/min/1.73m? Final Comment: Estimated Glomerular Filtration Rate (eGFR) is calculated using the 2020 CKD-EPI creatinine equation. This equation utilizes serum creatinine, sex, and age as parameters. The creatinine assay has traceable calibration to isotope dilution-mass spectrometry. Refer to KDIGO guidelines for clinical interpretation. In patients with unstable renal function, e.g. those with acute kidney injury, the eGFR may not accurately reflect actual GFR. eGFR- Date Value Ref Range Status 12/31/2019 >60 Final P.O.C.T. RESULTS: N/A December 02, [address] PERFORMED: No IV SITE: Ambulatory: A peripheral IV was started in the Right antecubital site with a Angio cath: 22 gauge. POST EXAM PIV STATUS: Discontinued PROCEDURE TYPE: MA Stress: 13.3 mCi [id number] was administered IV for Rest Imaging at 07:55 by Geetha Roman. 34.4 mCi [id number] was administered IV for Stress Imaging at 09:25 by Geetha Roman. PATIENT DISCHARGED TO: Ambulatory patient, left [place] department area. A Diagnostic radioactive procedure has taken place, with no further precautions necessary other than routine body substance precautions. More information regarding radiation safety can be found using this link: [email or web address]%20Medicine %[email or web address] SIGNATURE: RT Sean(R) PATIENT NAME: Laisha Sanderson DATE: December 02, 2023 TIME: 10:00 AM PAGER/CONTACT #: [facility] 11-27-2023 Telephone encounter Note I spoke to patient and explained that the Creatinine level has to be checked bofore an MRI with contrast is done to be sure the kidneys can handle the contrast. She understood. [facility] 11-27-2023 Miscellaneous Notes I spoke to patient and explained that the Creatinine level has to be checked bofore an MRI with contrast is done to be sure the kidneys can handle the contrast. She understood. Patient called into the office today and stated she had a completed appointment with Dr. Oro on 11/25/2023. Patient is stating that there was a problem with the progress notes. Progress notes are stated something about urine? Patient has question in regards to her progress notes and creatinine BLD that was ordered. Patient can be reached at [phone]. Thanks Cathy Mata documented in this encounter [facility] 11-27-2023 Telephone encounter Note Patient called into the office today and stated she had a completed appointment with Dr. Oro on 11/25/2023. Patient is stating that there was a problem with the progress notes. Progress notes are stated something about urine? Patient has question in regards to her progress notes and creatinine BLD that was ordered. Patient can be reached at [phone]. Thanks Cathy Mata [facility] 11-25-2023 History of Present illness Narrative JUAN JOSE Sanderson is a 77 year old female who presents with urine loss. Patient has noted hearing loss worse in the left ear that is gotten worse more recently patient is having moderate communication issues both at work and at home. ROS General Weight loss: No Fatigue: No Night sweats:No Cardiac Chest pain:No Fast heart rate:No Swelling in the feet:No Respiratory Short of breath:No Cough:No Wheezing:No Gastrointestinal Nausea:No Vomiting:No Indigestion:No Past medical history, family history, and social history reviewed. PE There were no vitals taken for this visit. General: Patient is awake, alert, NAD. Voice is normal. Skin: normal Eyes: Extraocular motion and Gaze is normal. Ears: Right external auditory canal is normal. TMJ: normal. Right tympanic membranes normal. Left external auditory canal is normal. Left tympanic membrane normal. Nose: Septum is normal. Turbinates are normal. Nasopharynx:normal Oral Cavity/Oropharynx: Lips normal Dentition normal Tongue normal. Tonsils normal. Palate and uvula normal. Pharynx posterior normal Hypopharynx: Base of tongue normal Pyriform sinus normal. Larynx: Vocal cords normal. Epiglottis normal. Post cricoid normal. Salivary glands: Parotid normal. Submandibular and sublingual normal. Thyroid: normal. Lymphatic/Neck: Lymph nodes normal. Neurologic: Facial nerve normal. Audiogram reviewed ASSESSMENT/PLAN: 1. Sensorineural hearing loss (SNHL) of left 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 - ICD9: 389.15, ICD10: H90.42 I recommend MRI will benefit from hearing aid evaluation Brandon Oro MD Findings will be communicated to the referring physician via mail or electronic medical record. documented in this encounter [facility] 11-25-2023 Instructions Camelia Bolanos AUD - 11/25/2023 1:13 PM EDT Images from the original note were not included. [facility] [place] [place] Section of Audiology Thank you for trusting the [facility] Audiology department with your hearing healthcare today. We appreciated the opportunity to meet with you today to assess your hearing status and needs. For you to be able to hear, the brain requires sound to travel through the entire auditory system which involves the outer ear, middle ear, inner ear, and auditory nerve. Symptoms of hearing loss, tinnitus, dizziness, or sensations in the ear may have many different causes. These symptoms may be due to problems associated with your ear, vision, brain, heart, medications, other health conditions, or history of exposure to loud noises. Today you completed a comprehensive evaluation of your auditory system. TEST SUMMARY: Based on today's evaluation, your results revealed sensorineural hearing loss left ear greater than right ear. No previous results available. Sensorineural Hearing Loss: Hearing loss means we had to turn the sound up, outside the range of normal, in order for you to be able to hear it. This type of hearing loss affects the inner ear (cochlea) or auditory nerve. Loud noises, diseases or the aging process often cause it. Children are prone to this type due to congenital conditions (present at ), trauma during childbirth, head injuries or infections. Sensorineural hearing loss is often permanent. Hearing aids and hearing assistive devices can help. Listed below are some communication strategies that help you hear others: 1) Facing communication partner. 2) Removing physical or visual barriers. 3) Maintaining a maximum distance for 6-10 feet from communication partner. 4) Encouraging communication partners to use clear speech and get their attention before speaking. 5) Reducing or removing background noise sources. 6) Taking turns speaking in conversation. 7) Ensuring the listener and speaker's voice are level with each other (both seated or both standing). Recommendations: * Continue medical follow-up with Galileo Rai, DO as needed. * The patient was counseled regarding the need to continue to monitor hearing and have regular hearing assessments. * The patient was counseled regarding effective communication strategies to enhance communication ability. * Call [phone] to schedule an appointment to assess your need for hearing aids. Request a HAE appointment. * Encouraged patient to reach out to insurance provider to determine if they are eligible for a hearing aid benefit. Patient was advised that if they return to [facility], the cost of hearing aids would likely be [id number]. * The patient was counseled about hearing conservation and use of noise protectors. Information about hearing protection devices was provided to the patient. If custom HPDs are desired, please call [phone] to schedule an [facility] appointment. Thank you for trusting and choosing [facility] with your hearing care needs. Please do not hesitate to reach out with any questions or concerns. Sincerely, James Sutherland, [facility] Clinical and Senior Hearing Implant Construction Project Manager documented in this encounter [facility] 11-25-2023 History of Present illness Narrative Head and Neck [place] AUDIOLOGIC EVALUATION REPORT Name: Laisha Sanderson [facility]#: [id number] Date of Service: 11/25/2023 Date of : 1945 Age: [age] year old Referred by: Bryce Brumfield CNP Referred for: Evaluation of suspected change in hearing, tinnitus, or balance. Referral documented: No referral is needed Patient's major complaints: Reduced hearing in both ears, History of noise exposure from either occupational or recreational sources Hearing loss: decreased hearing in each ear. 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 History of chemotherapy or radiation: denied History of head trauma: denied Family history of hearing loss: sister (aging) Laisha Sanderson was seen for an initial audiologic evaluation. See SmartForm Audiogram for additional reported history and symptoms. IMPRESSIONS RIGHT EAR: Sensorineural hearing loss LEFT EAR: Sensorineural hearing loss AUDIOLOGIC EVALUATION Following is a brief interpretation of the obtained findings from the audiologic evaluation. Refer to the Auditory Test Record for complete audiometric results. The patient was counseled about the test findings and appropriate audiologic recommendations were made. SUMMARY: Audiogram can be viewed under Forms/Audiology/SmartForm. OTOSCOPY RIGHT EAR: Otoscopic inspection revealed ear canal was clear with an identifiable cone of light. LEFT EAR: Otoscopic inspection revealed ear canal was clear with an identifiable cone of light. TYMPANOMETRY Description of procedure: This test is an objective evaluation of middle ear function. CPT code: 29395 RIGHT EAR: Did not test. LEFT EAR: Did not test. ACOUSTIC REFLEXES Description of procedure: This test is an objective measure of auditory and facial nerve pathways. CPT code: 48894, 71438 RIGHT EAR PROBE EAR: (ipsi right stimulus ear; contralateral left stimulus ear): Acoustic Reflex Pattern Did not test Acoustic Reflex Decay (left stimulus ear): Did not test. LEFT EAR PROBE EAR: (ipsi left stimulus ear; contralateral right stimulus ear): Acoustic Reflex Pattern Did not test Acoustic Reflex Decay (right stimulus ear):Did not test. PURE TONE AUDIOMETRY AND SPEECH TESTING Description of procedure: This test is an objective evaluation hearing sensitivity via air and bone conduction and speech recognition testing. CPT code:24685 RIGHT EAR: Hearing Sensitivity: WNL through 1000 Hz sloping mild to moderately severe SNHL Word Recognition Score: Excellent (100%). WRS is consistent with hearing sensitivity. Words were presented at 60 dB HL is above (greater than or equal to 60 dB HL) intensity level for average conversational speech. The NU-6 Ordered by Difficulty Word List (10 words) was used for testing. LEFT EAR: Hearing Sensitivity: WNL through 500 Hz sloping mild to severe SNHL Word Recognition Score: Excellent (92%). WRS is consistent with hearing sensitivity. Words were presented at 70 dB HL which is above (greater than or equal to 60 dB HL) intensity level for average conversational speech. The NU-6 Ordered by Difficulty Word List (25 words) was used for testing. RECOMMENDATIONS * Continue medical follow-up with Galileo Rai DO as needed. * The patient was counseled regarding the need to continue to monitor hearing and have regular hearing assessments. * The patient was counseled regarding effective communication strategies to enhance communication ability. * Call [phone] to schedule an appointment to assess your need for hearing aids. Request a HAE appointment. * Encouraged patient to reach out to insurance provider to determine if they are eligible for a hearing aid benefit. Patient was advised that if they return to [facility], the cost of hearing aids would likely be [id number]. * The patient was counseled about hearing conservation and use of noise protectors. Information about hearing protection devices was provided to the patient. If custom HPDs are desired, please call [phone] to schedule an [facility] appointment. James Sutherland, [facility] Clinical and Senior Hearing Implant Construction Project Manager copied to: Brandon Oro MD CLARK Abbrev- iation Definition Degree of hearing sensitivity dB range WNL within normal limits WNL 0 - 20 SNHL sensorineural hearing loss Mild 20-40 CHL conductive hearing loss Moderate 40-55 MHL mixed hearing loss Moderately-Severe 55-70 WRS word recognition score Severe 70-90 ME middle ear Profound 90 + TM tympanic membrane documented in this encounter [facility] 10-02-2023 Telephone encounter Note Patient notified. Monica Moeller RN [facility] 10-02-2023 Miscellaneous Notes Patient notified. Monica Moeller RN OK to complete tooth extraction. Thank you, Sarah Beth Samayoa APRN.CNP Patient calling and states her dentist reports she has a tooth infection at the root and it is recommended that the tooth be extracted. Pt reports she when she saw Bryce Brissa JIMENEZ on 09/17 that an Echo and a stress test were ordered. Pt will be having the echo on 10/10 and the stress test in November. Pt asking if she can proceed with her tooth extraction even though she hasn't had her cardiac testing completed yet? Please advise patient. Thank you. documented in this encounter [facility] 10-02-2023 Telephone encounter Note OK to complete tooth extraction. Thank you, Sarah Beth Samayoa APRN.BANQUET COORDINATOR [facility] 10-02-2023 Telephone encounter Note Patient calling and states her dentist reports she has a tooth infection at the root and it is recommended that the tooth be extracted. Pt reports she when she saw Bryce Brissa JIMENEZ on 09/17 that an Echo and a stress test were ordered. Pt will be having the echo on 10/10 and the stress test in November. Pt asking if she can proceed with her tooth extraction even though she hasn't had her cardiac testing completed yet? Please advise patient. Thank you. [facility] 09-18-2023 History of Present illness Narrative Radiology Service Progress Note PATIENT NAME: Laisha Sanderson DATE OF SERVICE: September 18, 2023 TIME: 1:10 PM PATIENT IDENTITY VERIFICATION COMPLETED USING TWO (2) IDENTIFIERS: Name and Date of confirmed by patient verbally. FALL SCREENING: Has the patient had 2 falls in the last year or 1 fall with injury or currently using an Ambulatory Assistive Device (Walker, Cane, Wheelchair, Crutches, etc.)? No PATIENT GENDER DATA: Female. status: : No status: NO. PATIENT RELEVANT IMPLANT DATA REVIEWED: Yes PATIENT PRESENTS WITH AN IMPLANTABLE OR ATTACHED CASHIER RECEPTIONIST: No RADIOLOGY DEPARTMENT: General X-ray: Exam(s) Completed: Chest X-Ray PERIPHERAL IV DATA: Not applicable SIGNED BY: RT Reji(R) September 18, 2023 1:10 PM documented in this encounter [facility] 09-18-2023 Instructions Bryce Brumfield APRN.TONY - 09/18/2023 12:23 PM EDT Check your blood pressure and heart rate a couple hours after taking your amlodipine. Have your labs drawn. Schedule your echocardiogram ultrasound of your heart. Schedule your stress test. Have your chest xray completed. documented in this encounter [facility] 09-18-2023 History of Present illness Narrative Chief Complaint Patient presents with: Edema HPI Laisha Sanderson is a 77 year old female who presents here today for Above Complaints.. Swelling to both ankles and all the way up into her thighs. For a couple months, but last 3 weeks has been more severe. Is a tightness. More of an irritation than a pain-skin feels stretched. This has never happened before. Fatigue-moreso than previously. Does take a half hour nap in the afternoons regularly. For the past couple weeks has found herself napping in the evening as well. Strong urine smell, constipation. Since increasing her fluid intake, these have improved. Denies blood in stool. Nocturnal urinary urgency. Increased heart rate when sitting still in rastafarian. This was alerted by her Apple watch. Has happened once per week for about the past month while in [employer]. Denies CP, palpitations. SOB with exertion. Has been clearing her throat for the past couple weeks. Past medical history, appointments, medications, allergies reviewed. Previous Medical History PAST MEDICAL HISTORY Diagnosis Date Abnormal mammogram, unspecified 05/2007 right breast, due for repeat 11/13 Degeneration of intervertebral disc, site unspecified 1999 cervical and lumbar; not having any pain now Disorder of bone and cartilage, unspecified osteopenia on DXA in 2001, but was normal in 2007 so bisphosphonates stopped Other and unspecified hyperlipidemia 2001 Other specified acquired hypothyroidism 2005 ?borderline Other specified gastritis without mention of hemorrhage 2007 found on EGD, symptom free on PPI Sleep apnea 10/02/2011 on CPAP Snoring Vitamin D deficiency 12/21/2009 Previous Surgical History PAST SURGICAL HISTORY Procedure Laterality Date COLONOSCOPY FLX DX W/COLLJ SPEC WHEN PFRMD 09/11/2017 Colonoscopy TRABECULOPLASTY BY LASER SURGERY 1995 vision correction VAGINAL HYSTERECTOMY UTERUS 250 GM/< 1986 precancerous pap smear - no cancer on path from surgery Family History FAMILY HISTORY Problem Relation Age of Onset Stroke Mother Hypertension Mother age 89 Heart Father CHF - age 63 other (impaired fasting glucose) Sister Lipids Sister Hypertension Sister Patient Allergies ALLERGIES Allergen Reactions Amoxil [Amoxicillin] Rash gets bright red rash Bee Sting Anaphylaxis Topical Agent Combi* Rash Hair treatment - Current Medications Current Outpatient Medications on File Prior to Visit Medication Sig amLODIPine (NORVASC) 10 mg tablet Take 1 tablet by mouth once daily. EPINEPHrine (EPIPEN 2-TREMAYNE) 0.3 mg/0.3 mL auto-injector Inject 0.3 mL intramuscularly as needed. Miscellaneous Medical Supply (BLOOD PRESSURE CUFF) 1 Each once daily. No current facility-administered medications on file prior to visit. Social History Social History Tobacco Use Smoking status: Never Smokeless tobacco: Never Substance Use Topics Alcohol use: Yes Alcohol/week: 3.0 standard drinks of alcohol Types: 3 Glasses of Wine (5oz) per week Drug use: No Review of Symptoms REVIEW OF SYSTEMS See HPI, otherwise negative EXAM: BP 124/78 (BP Site: Left Arm, BP Position: Sitting, BP Cuff Size: Regular Adult) Pulse 76 Resp 16 Wt 75.3 kg (166 lb) SpO2 96% BMI 30.16 kg/m General Appearance: Well appearing, alert, in no acute distress, well-hydrated, well nourished.. Head: Normocephalic, no masses, lesions, tenderness or abnormalities. Ears: External ears normal, canals clear. Nose/Sinuses: Nares normal, septum midline, mucosa normal, no drainage or sinus tenderness. Oropharynx: Lips, mucosa, and tongue normal, teeth and gums normal, oropharynx normal. Neck: Supple, no adenopathy; thyroid symmetric, normal size, no bruits. Lungs: Lungs clear to auscultation. No wheezing, rhonchi, rales.. Heart: RRR without murmur, gallop, or rubs. No ectopy. Extremities: No deformities, edema, skin discoloration, clubbing or cyanosis. Good capillary refill. . Peripheral Pulses: Normal. Neurologic: Gait normal. Reflexes normal and symmetric. Sensation grossly intact.. Lymph Nodes: No cervical lymphadenopathy and No supraclavicular lymphadenopathy. Psychiatric: pleasant, cooperative. Health Maintenance List Shingrix Vaccine(1 of 2) Never done RSV Vaccine(1 - 1-dose 60+ series) Never done Pneumococcal Vaccine: 65+(2 of 2 - PCV) due on 06/14/2012 Behavioral Health Screening Never done Covid-19 Vaccine( season) due on 02/28/2024 Influenza Vaccine(Season Ended) due on 12/08/2023 Annual PCP Team Chronic Disease Visit due on 02/28/2024 BP Controlled (<130/80) due on 02/28/2024 Diabetes Screening due on 02/27/2026 DTaP,Tdap,Td Vaccine(2 - Td or Tdap) due on 09/18/2031 Bone Density Screening Completed Hepatitis C Screening Completed Mammogram Screening Discontinued Colorectal Cancer Screening Discontinued Advance Directive Discussion Discontinued Data reviewed Previous records, office notes ASSESSMENT/PLAN: 1. Decreased hearing of both ears - ICD9: 389.9, ICD10: H91.93 (primary diagnosis) - CONSULT TO ENT 2. SOB (shortness of breath) on exertion - ICD9: 786.05, ICD10: R06.02 - ECG COMPLETE - XR CHEST 2V FRONTAL/LAT - COMPLETE BLOOD COUNT - COMPREHENSIVE METABOLIC PANEL - NT PRO BNP - UA DIP, URINE (POC) - HEMOGLOBIN A1C - CONSULT TO ENT - THYROID STIMULATING HORMONE - T4 FREE/FREE THYROXINE - ECHO - PERFLUTREN LIPID MICROSPHERES 1.1 MG/ML INJECTION IN NS 10 ML - SODIUM CHLORIDE 0.9 % (FLUSH) INJECTION SYRINGE - NM CARDIAC PERF STRESS/EXERCISE 3. Tachycardia - ICD9: 785.0, ICD10: R00.0 - ECG COMPLETE - XR CHEST 2V FRONTAL/LAT - COMPLETE BLOOD COUNT - COMPREHENSIVE METABOLIC PANEL - NT PRO BNP - UA DIP, URINE (POC) - HEMOGLOBIN A1C - CONSULT TO ENT - THYROID STIMULATING HORMONE - T4 FREE/FREE THYROXINE - ECHO - PERFLUTREN LIPID MICROSPHERES 1.1 MG/ML INJECTION IN NS 10 ML - SODIUM CHLORIDE 0.9 % (FLUSH) INJECTION SYRINGE - NM CARDIAC PERF STRESS/EXERCISE 4. Bilateral leg edema - ICD9: 782.3, ICD10: R60.0 - ECG COMPLETE - XR CHEST 2V FRONTAL/LAT - COMPLETE BLOOD COUNT - COMPREHENSIVE METABOLIC PANEL - NT PRO BNP - UA DIP, URINE (POC) - HEMOGLOBIN A1C - CONSULT TO ENT - THYROID STIMULATING HORMONE - T4 FREE/FREE THYROXINE - ECHO - PERFLUTREN LIPID MICROSPHERES 1.1 MG/ML INJECTION IN NS 10 ML - SODIUM CHLORIDE 0.9 % (FLUSH) INJECTION SYRINGE - NM CARDIAC PERF STRESS/EXERCISE 5. Urine frequency - ICD9: 788.41, ICD10: R35.0 - ECG COMPLETE - XR CHEST 2V FRONTAL/LAT - COMPLETE BLOOD COUNT - COMPREHENSIVE METABOLIC PANEL - NT PRO BNP - UA DIP, URINE (POC) - HEMOGLOBIN A1C - CONSULT TO ENT - THYROID STIMULATING HORMONE - T4 FREE/FREE THYROXINE - ECHO - PERFLUTREN LIPID MICROSPHERES 1.1 MG/ML INJECTION IN NS 10 ML - SODIUM CHLORIDE 0.9 % (FLUSH) INJECTION SYRINGE - NM CARDIAC PERF STRESS/EXERCISE 6. Urgency of urination - ICD9: 788.63, ICD10: R39.15 - ECG COMPLETE - XR CHEST 2V FRONTAL/LAT - COMPLETE BLOOD COUNT - COMPREHENSIVE METABOLIC PANEL - NT PRO BNP - UA DIP, URINE (POC) - HEMOGLOBIN A1C - CONSULT TO ENT - THYROID STIMULATING HORMONE - T4 FREE/FREE THYROXINE - ECHO - PERFLUTREN LIPID MICROSPHERES 1.1 MG/ML INJECTION IN NS 10 ML - SODIUM CHLORIDE 0.9 % (FLUSH) INJECTION SYRINGE - NM CARDIAC PERF STRESS/EXERCISE 7. Acute constipation - ICD9: 564.00, ICD10: K59.00 - ECG COMPLETE - XR CHEST 2V FRONTAL/LAT - COMPLETE BLOOD COUNT - COMPREHENSIVE METABOLIC PANEL - NT PRO BNP - UA DIP, URINE (POC) - HEMOGLOBIN A1C - CONSULT TO ENT - THYROID STIMULATING HORMONE - T4 FREE/FREE THYROXINE - ECHO - PERFLUTREN LIPID MICROSPHERES 1.1 MG/ML INJECTION IN NS 10 ML - SODIUM CHLORIDE 0.9 % (FLUSH) INJECTION SYRINGE - NM CARDIAC PERF STRESS/EXERCISE 8. Primary hypertension - ICD9: 401.9, ICD10: I10 - ECHO - PERFLUTREN LIPID MICROSPHERES 1.1 MG/ML INJECTION IN NS 10 ML - SODIUM CHLORIDE 0.9 % (FLUSH) INJECTION SYRINGE - NM CARDIAC PERF STRESS/EXERCISE 9. Premature beats - ICD9: 427.60, ICD10: I49.49 - ECHO - PERFLUTREN LIPID MICROSPHERES 1.1 MG/ML INJECTION IN NS 10 ML - SODIUM CHLORIDE 0.9 % (FLUSH) INJECTION SYRINGE - NM CARDIAC PERF STRESS/EXERCISE 10. Shortness of breath - ICD9: 786.05, ICD10: R06.02 - ECG COMPLETE - XR CHEST 2V FRONTAL/LAT - COMPLETE BLOOD COUNT - COMPREHENSIVE METABOLIC PANEL - NT PRO BNP - UA DIP, URINE (POC) - HEMOGLOBIN A1C - CONSULT TO ENT - THYROID STIMULATING HORMONE - T4 FREE/FREE THYROXINE - ECHO - PERFLUTREN LIPID MICROSPHERES 1.1 MG/ML INJECTION IN NS 10 ML - SODIUM CHLORIDE 0.9 % (FLUSH) INJECTION SYRINGE - NM CARDIAC PERF STRESS/EXERCISE Bryce Brumfield APRN.CNP documented in this encounter [facility] 09-13-2023 Telephone encounter Note Prescription Refill Information The patient has been identified by name and date of : Yes Caregiver verified no other encounters exist for this prescription request: Yes Caregiver confirmed with patient/requestor that no other refills are due, in the near future, with this provider at this time: Yes The last office visit in the department: 02-27-23 Does the patient have a future office visit with this provider/department: Yes Requested Prescriptions Pending Prescriptions Disp Refills amLODIPine (NORVASC) 10 mg tablet 90 tablet 1 Sig: Take 1 tablet by mouth once daily. EPINEPHrine (EPIPEN 2-TREMAYNE) 0.3 mg/0.3 mL auto-injector 1 Each 1 Sig: Inject 0.3 mL intramuscularly as needed. Joel Dias RN September 13, 2023 12:23 PM [facility] 09-13-2023 Miscellaneous Notes Prescription Refill Information The patient has been identified by name and date of : Yes Caregiver verified no other encounters exist for this prescription request: Yes Caregiver confirmed with patient/requestor that no other refills are due, in the near future, with this provider at this time: Yes The last office visit in the department: 02-27-23 Does the patient have a future office visit with this provider/department: Yes Requested Prescriptions Pending Prescriptions Disp Refills amLODIPine (NORVASC) 10 mg tablet 90 tablet 1 Sig: Take 1 tablet by mouth once daily. EPINEPHrine (EPIPEN 2-TREMAYNE) 0.3 mg/0.3 mL auto-injector 1 Each 1 Sig: Inject 0.3 mL intramuscularly as needed. Joel Dias RN September 13, 2023 12:23 PM documented in this encounter [facility] 03-21-2023 Miscellaneous Notes Patient notified of results, verbalizes understanding of instructions. Pilar Brown MA Please inform patient that her labs were overall great. Her A1c is improved to a normal range. Her cholesterol total and LDL are still high but slightly better. Continue to cut back on sugars and starches and fried/fast and fatty foods in her diet. aGlileo Rai DO documented in this encounter [facility] 03-01-2023 Miscellaneous Notes Requested Prescriptions Pending Prescriptions Disp Refills amLODIPine (NORVASC) 10 mg tablet 90 tablet 1 Sig: Take 1 tablet by mouth once daily. Marie- 02/27/2023 Raquel Babcock ma documented in this encounter [facility] 02-27-2023 Instructions Galileo Rai DO - 02/27/2023 9:38 AM EST Docusate 100-200 mg 1-2 times a day stool softener Can add on 4-5 prunes dried a day Can add on Miralax daily in AM if needed- start with 1/4 or 1/2 capful a day These can help prevent constipation as well' Can still take senna if needed for emergency for bowel function documented in this encounter [facility] 02-27-2023 History of Present illness Narrative Constipation, worse over the last 3 weeks, which is causing some weight gain and bloating. Tried a senna generic and stool softener last week with some benefit on last Saturday. Edema feet, occurred last month, also with numbness in toes. Seemed to improve and resolve. Skin lesion on scalp DAVE, using CPAP machine regularly. Was using nasal mask but caused her to breathe out of her mouth. Now on a full face mask. Oxygen levels at 98%, much improved. CC: Laisha Sanderson is a 77 year old female who presents to the office follow up HPI: Constipation, worse over the last 3 weeks, which is causing some weight gain and bloating. Tried a senna generic and stool softener last week with some benefit on last Saturday. She is concerned since has been going on a long time. No medication changes HTN, taking amlodipine 10 mg a day, tolerating well. No dyspnea or dizziness/LH or CP or syncope symptoms Edema feet, occurred last month, also with numbness in toes. Seemed to improve and resolve. Skin lesion on scalp, wondering if a precancer is present DAVE, using CPAP machine regularly. Was using nasal mask but caused her to breathe out of her mouth. Now on a full face mask. Oxygen levels at 98%, much improved. PAST MEDICAL HISTORY Diagnosis Date Abnormal mammogram, unspecified 05/2007 right breast, due for repeat 11/13 Degeneration of intervertebral disc, site unspecified 1999 cervical and lumbar; not having any pain now Disorder of bone and cartilage, unspecified osteopenia on DXA in 2001, but was normal in 2007 so bisphosphonates stopped Other and unspecified hyperlipidemia 2001 Other specified acquired hypothyroidism 2005 ?borderline Other specified gastritis without mention of hemorrhage 2007 found on EGD, symptom free on PPI Sleep apnea 10/02/2011 on CPAP Snoring Vitamin D deficiency 12/21/2009 PAST SURGICAL HISTORY Procedure Laterality Date COLONOSCOPY FLX DX W/COLLJ SPEC WHEN PFRMD 09/11/2017 Colonoscopy TRABECULOPLASTY BY LASER SURGERY 1995 vision correction VAGINAL HYSTERECTOMY UTERUS 250 GM/< 1986 precancerous pap smear - no cancer on path from surgery Social History: Social History Tobacco Use Smoking status: Never Smokeless tobacco: Never Substance Use Topics Alcohol use: Yes Alcohol/week: 3.0 standard drinks of alcohol Types: 3 Glasses of Wine (5oz) per week Drug use: No FAMILY HISTORY Problem Relation Age of Onset Stroke Mother Hypertension Mother age 89 Heart Father CHF - age 63 other (impaired fasting glucose) Sister Lipids Sister Hypertension Sister Current Outpatient prescriptions: amLODIPine (NORVASC) 10 mg tablet Take 1 tablet by mouth once daily. EPINEPHrine (EPIPEN 2-TREMAYNE) 0.3 mg/0.3 mL auto-injector Inject 0.3 mL intramuscularly as needed. Miscellaneous Medical Supply (BLOOD PRESSURE CUFF) 1 Each once daily. Allergies: ALLERGIES Allergen Reactions Amoxil [Amoxicillin] Rash gets bright red rash Bee Sting Anaphylaxis Topical Agent Combi* Rash Hair treatment - ROS: See HPI PE: 02/27/23 0849 BP: 118/60 Pulse: 64 Resp: 16 Temp: 36.1 C (97 F) TempSrc: Right Tympanic Weight: 73.9 kg (163 lb) Gen: A&O, NAD, non-toxic appearing, Pleasant, cooperative HEENT: NT/AC, PERRLA, wearing glasses, EOMs intact b/l, nares clear and patent b/l, pharynx without erythema, exudate or lesions. MMM, Uvula midline. EACs without erythema or debris. TMs pearly castro with intact landmarks b/l. Neck: supple, No cervical LAD, no thyromegaly, no carotid bruits CV: RRR, normal S1 and S2, 1/6 HSM RUSB soft blowing murmurs, no gallops, no rubs, Pulses 2+ and symmetric in UE and LE b/l Lungs: normal respiratory effort, CTA b/l, no wheezing or rhonchi or rales Abd: soft, slightly bloated, NT, ND, +BS, no hepatosplenomegaly MS: FROM all 4 extremities Neuro: CN II-XII intact b/l, strength 5/5 b/l UE and LE, DTRs 2/4 UE and LE, sensation intact. Skin: warm, dry, intact, actinic keratosis right mid scalp parietal region ASSESSMENT/PLAN: 1. Vitamin D deficiency - ICD9: 268.9, ICD10: E55.9 (primary diagnosis) Recheck labs, continue supplement 2. Essential hypertension - ICD9: 401.9, ICD10: I10 - Controlled - Continue current medications - Recommend home blood pressure monitoring, to bring results to next visit - Encouraged sodium restriction, DASH or Mediterranean diet - Recommend regular aerobic exercise - Discussed need for and benefit of weight loss. BMI 29.62 kg/(m^2) - TSH BLD - T4 FREE/FREE THYROX - T3 FREE BLD 3. Hyperlipidemia with target LDL less than 130 - ICD9: 272.4, ICD10: E78.5 - Control undetermined, due for labs - Counseled on healthy diet and regular exercise - Discussed need for and benefit of weight loss. BMI 29.62 kg/(m^2) - LIPID PANEL BASIC She refuses statin therapy, she is aware of risk 4. Chronic constipation - ICD9: 564.00, ICD10: K59.09 Start on stool softener and prunes, consider miralax as well, check labs, f/u if not improved. - TSH BLD - T4 FREE/FREE THYROX - T3 FREE BLD 5. IFG (impaired fasting glucose) - ICD9: 790.21, ICD10: R73.01 Recheck labs, would benefit from weight loss. - CBC + DIFF - COMP METABOLIC PANEL - TSH BLD - T4 FREE/FREE THYROX - T3 FREE BLD - HGB A1C 6. Actinic keratosis - ICD9: 702.0, ICD10: L57.0 Treated x 1 on scalp with cryotherapy, tolerated well, no complications. 7. Grade I diastolic dysfunction - ICD9: 429.9, ICD10: I51.89 Echo stable in 2021 Galileo Rai DO To ER if develops chest pain, shortness of breath, or severe worsening of symptoms. Discussed risks, benefits, alternatives, and potential side effects of medications. Patient expressed understanding and agreed with the plan. Galileo Rai DO [address] [place] [address] documented in this encounter [facility] 09-04-2022 Miscellaneous Notes Pt called and has only 2 pills of medication below. Please advise pt when prescription has been sent. Patient has been identified by name and date of : Yes, Provider Dr. Rai Date 09/04/22 Time 10:45 am Patient phones for refill(s): Requested Prescriptions Pending Prescriptions Disp Refills amLODIPine (NORVASC) 10 mg tablet 90 tablet 1 Sig: Take 1 tablet by mouth once daily. Date of last office visit in primary care: 02/28/22 next apt 02/27/23 Last 2 Encounter Wt Readings: Date: Wt: 02/28/2022 71.8 kg (158 lb 6.4 oz) 09/27/2021 0 kg () Previous labs/tests for medication: Blood Pressure: BUN (mg/dL) Date Value 07/19/2021 14 12/31/2019 16 Sodium (mmol/L) Date Value 07/19/2021 139 12/31/2019 142 Last 1 Encounter BP Readings: Date: BP: 02/28/2022 130/86 Please advise. Thank you. Meghna Long LPN documented in this encounter [facility] 02-28-2022 History of Present illness Narrative Chief Complaint Patient presents with: Medication Follow-up HPI Laisha Sanderson is a 76 year old female who presents here today for Above Complaints. Today: Feels good. Tolerating BP medication well. Denies any complaints or concerns today. Does monitor her BP at home. Past medical history, appointments, medications, allergies reviewed. Previous Medical History PAST MEDICAL HISTORY Diagnosis Date Abnormal mammogram, unspecified 05/2007 right breast, due for repeat 11/13 Degeneration of intervertebral disc, site unspecified 1999 cervical and lumbar; not having any pain now Disorder of bone and cartilage, unspecified osteopenia on DXA in 2001, but was normal in 2007 so bisphosphonates stopped Other and unspecified hyperlipidemia 2001 Other specified acquired hypothyroidism 2005 ?borderline Other specified gastritis without mention of hemorrhage 2007 found on EGD, symptom free on PPI Sleep apnea 10/02/2011 on CPAP Snoring Vitamin D deficiency 12/21/2009 Previous Surgical History PAST SURGICAL HISTORY Procedure Laterality Date COLONOSCOPY FLX DX W/COLLJ SPEC WHEN PFRMD 09/11/2017 Colonoscopy TRABECULOPLASTY BY LASER SURGERY 1995 vision correction VAGINAL HYSTERECTOMY UTERUS 250 GM/< 1986 precancerous pap smear - no cancer on path from surgery Family History FAMILY HISTORY Problem Relation Age of Onset Stroke Mother Hypertension Mother age 89 Heart Father CHF - age 63 other (impaired fasting glucose) Sister Lipids Sister Hypertension Sister Patient Allergies ALLERGIES Allergen Reactions Amoxil [Amoxicillin] Rash gets bright red rash Bee Sting Anaphylaxis Topical Agent Combi* Rash Hair treatment - Current Medications Current Outpatient Medications on File Prior to Visit Medication Sig EPINEPHrine (EPIPEN 2-TREMAYNE) 0.3 mg/0.3 mL auto-injector Inject 0.3 mL intramuscularly as needed. amLODIPine (NORVASC) 10 mg tablet Take 1 tablet by mouth once daily. Miscellaneous Medical Supply (BLOOD PRESSURE CUFF) 1 Each once daily. Current Facility-Administered Medications on File Prior to Visit Medication perflutren lipid microspheres 1.3 mL in NaCl (PF) 0.9% 10 mL injection (DEFINITY) sodium chloride 0.9 % (flush) 10 mL (BD POSIFLUSH) Social History Social History Tobacco Use Smoking status: Never Smokeless tobacco: Never Substance Use Topics Alcohol use: Yes Alcohol/week: 7.5 standard drinks Types: 3 Glasses of Wine (5oz) per week Drug use: No Review of Symptoms REVIEW OF SYSTEMS See HPI, otherwise negative EXAM: BP 130/86 (BP Site: Left Arm, BP Position: Sitting, BP Cuff Size: Regular Adult) Pulse 87 Resp 16 Wt 71.8 kg (158 lb 6.4 oz) SpO2 98% BMI 28.78 kg/m General Appearance: Well appearing, alert, in no acute distress, well-hydrated, well nourished.. Lungs: Lungs clear to auscultation. No wheezing, rhonchi, rales.. Heart: RRR without murmur, gallop, or rubs. No ectopy. Health Maintenance List SHINGRIX VACCINE(1 of 2) Never done PNEUMOCOCCAL: 65+(2 - PCV) due on 04/08/2008 ADVANCE DIRECTIVE DISCUSSION Never done DEPRESSION ASSESSMENT Never done BP CONTROLLED (<130/80) due on 10/12/2021 INFLUENZA(1) due on 12/07/2021 COVID-19 VACCINE(1) due on 07/26/2022 ANNUAL PCP TEAM CHRONIC DISEASE VISIT due on 09/27/2022 DIABETES SCREEN due on 07/19/2024 DTAP,TDAP,TD(2 - Td or Tdap) due on 09/18/2031 BONE DENSITY Completed HEPATITIS C SCREENING Completed Data reviewed Previous records, office notes ASSESSMENT/PLAN: 1. Essential hypertension - ICD9: 401.9, ICD10: I10 - good control - Continue current medication(s) - Recommended regular aerobic exercise. - Recommend home blood pressure monitoring, to bring results in on next visit - Goal of BP <130/80 - AMLODIPINE 10 MG TABLET Bryce Brumfield APRN.CNP documented in this encounter [facility] 10-03-2021 Miscellaneous Notes Leslie called asking if we could send Pts most recent ECHO for pre-surgical clearance. Faxed to # [phone]. documented in this encounter [facility] 09-27-2021 Instructions Bryce Brumfield APRN.CNP - 09/27/2021 11:45 AM EDT Ok to wash and pat dry with a gentle soap and towel. Ok for a little antibiotic ointment if you'd like, to moisten the scab. Please let the office know if for some reason the area would open again. documented in this encounter [facility] 09-27-2021 History of Present illness Narrative Chief Complaint Patient presents with: ED Follow-up: stitches removed HPI Laisha Sanderson is a 75 year old female who presents here today for Above Complaints.. Today: Tripped over her dog's cable that was across the sidewalk and fell forward, high her chin, right arm, twisted left ankle. Does have have some bruising to her left leg and right elbow. Broke her right arm/wrist in 3 [address]. No surgery is needed. Left ankle/foot has been bothering her, was placed in a walking boot by orthopedics. This is greatly reducing the pain. Chin was broken open and she had to get stiches. This seems to be healing well. Taking Aleve twice daily. This seems to be holding her over pain-bills. Past medical history, appointments, medications, allergies reviewed. Previous Medical History PAST MEDICAL HISTORY Diagnosis Date Abnormal mammogram, unspecified 05/2007 right breast, due for repeat 11/13 Degeneration of intervertebral disc, site unspecified 1999 cervical and lumbar; not having any pain now Disorder of bone and cartilage, unspecified osteopenia on DXA in 2001, but was normal in 2007 so bisphosphonates stopped Other and unspecified hyperlipidemia 2001 Other specified acquired hypothyroidism 2005 ?borderline Other specified gastritis without mention of hemorrhage 2007 found on EGD, symptom free on PPI Sleep apnea 10/02/2011 on CPAP Snoring Vitamin D deficiency 12/21/2009 Previous Surgical History PAST SURGICAL HISTORY Procedure Laterality Date COLONOSCOPY FLX DX W/COLLJ SPEC WHEN PFRMD 09/11/2017 Colonoscopy TRABECULOPLASTY BY LASER SURGERY 1995 vision correction VAGINAL HYSTERECTOMY UTERUS 250 GM/< 1986 precancerous pap smear - no cancer on path from surgery Family History FAMILY HISTORY Problem Relation Age of Onset Stroke Mother Hypertension Mother age 89 Heart Father CHF - age 63 other (impaired fasting glucose) Sister Lipids Sister Hypertension Sister Patient Allergies ALLERGIES Allergen Reactions Amoxil [Amoxicillin] Rash gets bright red rash Bee Sting Anaphylaxis Topical Agent Combi* Rash Hair treatment - Current Medications Current Outpatient Medications on File Prior to Visit Medication Sig amLODIPine (NORVASC) 10 mg tablet Take 1 tablet by mouth once daily. Miscellaneous Medical Supply (BLOOD PRESSURE CUFF) 1 Each once daily. EPINEPHrine (EPIPEN 2-TREMAYNE) 0.3 mg/0.3 mL auto-injector Inject 0.3 mL intramuscularly as needed. magnesium oxide 400 mg magnesium cap Take 1 capsule by mouth once daily. Cholecalciferol, Vitamin D3, (VITAMIN D-3) 2,000 unit cap Take 2,000 Units by mouth once daily. calcium carbonate-vitamin D (OS-EMMA 250 W/D) 250 (625)-125 mg-unit tab Take 1 tablet by mouth twice daily. Potassium 99 mg tab Take by mouth. LACTOBAC CMB #3/FOS/PANTETHINE (PROBIOTIC & ACIDOPHILUS ORAL) Take by mouth. CYCLOSPORINE (RESTASIS OPHTHALMIC) Use in eyes. ubidecarenone(COQ-10 100 MG CAP) one tablet daily OMEGA-3 FATTY ACIDS 1,250 MG CAP one tablet daily Current Facility-Administered Medications on File Prior to Visit Medication perflutren lipid microspheres 1.3 mL in NaCl (PF) 0.9% 10 mL injection (DEFINITY) sodium chloride 0.9 % (flush) 10 mL (BD POSIFLUSH) Social History Social History Tobacco Use Smoking status: Never Smoker Smokeless tobacco: Never Used Substance Use Topics Alcohol use: Yes Alcohol/week: 7.5 standard drinks Types: 3 Glasses of Wine (5oz) per week Drug use: No Review of Symptoms REVIEW OF SYSTEMS see HPI, otherwise negative EXAM: BP 134/86 (BP Site: Left Arm, BP Position: Sitting, BP Cuff Size: Regular Adult) Pulse 75 Resp 16 SpO2 97% General Appearance: Well appearing, alert, in no acute distress, well-hydrated, well nourished.. Skin: 2 sutures to lower chin removed without difficulty, wound well approximated, no drainage or erythema, positive for scabbing. Health Maintenance List DTAP,TDAP,TD(1 - Tdap) Never done SHINGRIX VACCINE(1 of 2) Never done PNEUMOCOCCAL: 65+(1 - PCV) due on 2009 ADVANCE DIRECTIVE DISCUSSION Never done COVID-19 VACCINE(1) due on 07/26/2022 BP CONTROLLED (<130/80) due on 10/12/2021 INFLUENZA(Season Ended) due on 12/07/2021 ANNUAL PCP TEAM CHRONIC DISEASE VISIT due on 07/26/2022 DEPRESSION SCREENING due on 07/26/2022 DIABETES SCREEN due on 07/19/2024 BONE DENSITY Completed HEPATITIS C SCREENING Completed Data reviewed Previous records, office notes ASSESSMENT/PLAN: 1. Visit for suture removal - ICD9: V58.32, ICD10: Z48.02 (primary diagnosis) 2 sutures to lower chin removed without difficulty, wound well approximated, no drainage or erythema, positive for scabbing. 2. Fall, initial encounter - ICD9: E888.9, ICD10: W19.XXXA 2 sutures to lower chin removed without difficulty, wound well approximated, no drainage or erythema, positive for scabbing. Bryce Brumfield APRN.TONY documented in this encounter [facility] 09-17-2021 Hospital Discharge instructions Additional Instructions Please take [place] for any severe pain. Keep the extremity elevated, you may ice. Use in a sling when ambulatory. The sutures on your chin need to come out in 5 to 7 days. He will follow-up with orthopedics. Please return here for any pain out of proportion, numbness or tingling. [facility] Work Phone: 07-28-2021 Miscellaneous Notes Patient notified via [email or web address] message. Please inform patient that her urinalysis and urine culture are normal Galileo Rai DO documented in this encounter [facility] 07-26-2021 Instructions Galileo Rai DO - 07/26/2021 1:32 PM EDT Ankle neoprene brace while up and walking Epsom salt soaks for foot and ankle twice a day for 10-15 minutes then dry off and place VOLTAREN 1% cream on ankle and bottom of foot for 2 weeks. If foot pain isn't improved, then will check labs and xray of foot. Start taking prunes daily to help with bowels Consider adding on Metamucil or daily fiber in water in the morning to help bowel functioning Please do your kegel exercises daily documented in this encounter [facility] 07-26-2021 History of Present illness Narrative CC: Laisha Sanderson is a 75 year old female who presents to the office to establish care. HPI: Left inner foot aching, present for the last 1 week, associated with mild swelling. No obvious redness, has been having electrical stimulation on the area by her whom is a chiroprator. No known injuries or falls, Does wear orthotics in her shoes with benefit Urinary incontinence or leakiness, mostly with sneezing or coughing, also has had a strong urinary odor recently. No recent history of known UTI, hasn't had urine checked, no fevers or chills or hematuria or flank pain Grade 1 diastolic dysfunction, last echo was 02/2019, occasional fatigue and dyspnea, no CP or pressure or palpitations. Chronic constipation, long standing, pellet like stools, no blood in stool. No abdominal pain Right hand carpal tunnel surgery- Dr. Crane orthopedics in the last 1 year, healed up well. HTN, BLOOD PRESSURE has been well controlled in 130/80s and pulse 80s most days, highest at 140/89 range. No new changes in symptoms. PAST MEDICAL HISTORY Diagnosis Date Abnormal mammogram, unspecified 05/2007 right breast, due for repeat 11/13 Degeneration of intervertebral disc, site unspecified 1999 cervical and lumbar; not having any pain now Disorder of bone and cartilage, unspecified osteopenia on DXA in 2001, but was normal in 2007 so bisphosphonates stopped Other and unspecified hyperlipidemia 2001 Other specified acquired hypothyroidism 2005 ?borderline Other specified gastritis without mention of hemorrhage 2007 found on EGD, symptom free on PPI Sleep apnea 10/02/2011 on CPAP Snoring Vitamin D deficiency 12/21/2009 PAST SURGICAL HISTORY Procedure Laterality Date COLONOSCOPY FLX DX W/COLLJ SPEC WHEN PFRMD 09/11/2017 Colonoscopy TRABECULOPLASTY BY LASER SURGERY 1995 vision correction VAGINAL HYSTERECTOMY UTERUS 250 GM/< 1986 precancerous pap smear - no cancer on path from surgery Social History: Social History Tobacco Use Smoking status: Never Smoker Smokeless tobacco: Never Used Substance Use Topics Alcohol use: Yes Alcohol/week: 7.5 standard drinks Types: 3 Glasses of Wine (5oz) per week Drug use: No FAMILY HISTORY Problem Relation Age of Onset Stroke Mother Hypertension Mother age 89 Heart Father CHF - age 63 other (impaired fasting glucose) Sister Lipids Sister Hypertension Sister Current Outpatient prescriptions: amLODIPine (NORVASC) 10 mg tablet Take 1 tablet by mouth once daily. Miscellaneous Medical Supply (BLOOD PRESSURE CUFF) 1 Each once daily. EPINEPHrine (EPIPEN 2-TREMAYNE) 0.3 mg/0.3 mL auto-injector Inject 0.3 mL intramuscularly as needed. magnesium oxide 400 mg magnesium cap Take 1 capsule by mouth once daily. Cholecalciferol, Vitamin D3, (VITAMIN D-3) 2,000 unit cap Take 2,000 Units by mouth once daily. calcium carbonate-vitamin D (OS-EMMA 250 W/D) 250 (625)-125 mg-unit tab Take 1 tablet by mouth twice daily. Potassium 99 mg tab Take by mouth. LACTOBAC CMB #3/FOS/PANTETHINE (PROBIOTIC & ACIDOPHILUS ORAL) Take by mouth. ubidecarenone(COQ-10 100 MG CAP) one tablet daily OMEGA-3 FATTY ACIDS 1,250 MG CAP one tablet daily CYCLOSPORINE (RESTASIS OPHTHALMIC) Use in eyes. Allergies: ALLERGIES Allergen Reactions Amoxil [Amoxicillin] Rash gets bright red rash Bee Sting Anaphylaxis Topical Agent Combi* Rash Hair treatment - ROS: See HPI PE: 07/26/21 1311 BP: 120/80 Pulse: 68 Resp: 20 Temp: 36.1 C (97 F) TempSrc: Right Tympanic Weight: 72.6 kg (160 lb) Height: 158 cm (5' 2.21) Gen: A&O, NAD, non-toxic appearing, Pleasant, cooperative HEENT: NT/AC, PERRLA, EOMs intact b/l, nares clear and patent b/l, pharynx without erythema, exudate or lesions. Uvula midline. EACs without erythema or debris. TMs pearly castro with intact landmarks b/l. Neck: supple, No cervical LAD, no thyromegaly, no carotid bruits CV: RRR, normal S1 and S2, 1/6 HSM RUSB soft blowing murmurs, no gallops, no rubs, Pulses 2+ and symmetric in UE and LE b/l Lungs: normal respiratory effort, CTA b/l, no wheezing or rhonchi or rales Abd: soft, NT, ND, +BS, no hepatosplenomegaly MS: FROM all 4 extremities Neuro: CN II-XII intact b/l, strength 5/5 b/l UE and LE, DTRs 2/4 UE and LE, sensation intact. Skin: warm, dry, intact, actinic keratosis left chest wall, actinic keratosis left mid cheek No edema, normal pulses Left ankle with mild edema medial>lateral, no skin color changes, normal ROM ankle and foot joints, mild discomfort plantar surface of MTP joints with thin foot ASSESSMENT/PLAN: 1. Stress incontinence of urine - ICD9: [id number], ICD10: N39.3 (primary diagnosis) Check urine to make sure no UTI beginning, needs to start KEGEL exercises and work on treating the constipation that can also affect bladder incontinence as d/w her today - UA DIP, URINE (POC) - URINE CULTURE 2. Essential hypertension - ICD9: 401.9, ICD10: I10 - good control - Continue current medication(s) - Encouraged dietary sodium restriction/DASH diet - Recommended regular aerobic exercise. - Recommend home blood pressure monitoring, to bring results in on next visit - Goal of BP <130/80 - AMLODIPINE 10 MG TABLET - ECHO - PERFLUTREN LIPID MICROSPHERES 1.1 MG/ML INJECTION IN NS 10 ML - SODIUM CHLORIDE 0.9 % (FLUSH) INJECTION SYRINGE 3. Actinic keratosis - ICD9: 702.0, ICD10: L57.0 - treated x 2 in office today with cryotherapy, tolerated well, no complications, aware of post procedure care 4. Vitamin D deficiency - ICD9: 268.9, ICD10: E55.9 - continue supplement 5. Hyperlipidemia with target LDL less than 130 - ICD9: 272.4, ICD10: E78.5 - good control - Continue current medication. - Encouraged following a low fat, low cholesterol diet. - ECHO - PERFLUTREN LIPID MICROSPHERES 1.1 MG/ML INJECTION IN NS 10 ML - SODIUM CHLORIDE 0.9 % (FLUSH) INJECTION SYRINGE 6. Chronic constipation - ICD9: 564.00, ICD10: K59.09 - add on daily prunes and fiber supplement, chronic 7. Grade I diastolic dysfunction - ICD9: 429.9, ICD10: I51.89 - recheck ECHO, no new changes in symptoms - ECHO - PERFLUTREN LIPID MICROSPHERES 1.1 MG/ML INJECTION IN NS 10 ML - SODIUM CHLORIDE 0.9 % (FLUSH) INJECTION SYRINGE 8. Acute left ankle pain - ICD9: 719.47, ICD10: M25.572 Use of ankle brace recommended, epsom salt soaks and twice a day topical Voltaren 1% ointment/cream, f/u in office with xrays and labs if not improved for gout or inflammation or arthritis. Galileo Rai DO To ER if develops chest pain, shortness of breath, or severe worsening of symptoms. Discussed risks, benefits, alternatives, and potential side effects of medications. Patient expressed understanding and agreed with the plan. Galileo Rai DO [address] [place] [address] THE LAST 2 WEEKS, HAVE YOU BEEN BOTHERED BY ANY OF THE FOLLOWING? - Little interest or pleasure in doing things 0 NOT AT ALL Feeling down, depressed, or hopeless 0 Trouble falling or staying asleep, or sleeping too much 0 Feeling tired or having little energy 1 Poor appetite or overeating 0 Feeling bad yourself-you are a failure or have let yourself or others 0 Trouble concentrating, like reading the paper or watching TV 0 Moving/speaking slowly (others notice) OR being more fidgety/restless 0 Thoughts that you would be better off or of hurting yourself 0 PHQ TOTAL SCORE = 1 PHQ problems effect on difficulty of work, home, and social activity: 1 - NOT DIFFICULT AT ALL documented in this encounter [facility] 06-28-2021 Miscellaneous Notes Pt notified and verbalized understanding Raquel Serrano Ma Yes, please inform patient that fasting labs are ordered Galileo Rai DO Pt is scheduled for a yearly exam on 07/26/21 & is asking if you want her to have labs prior to appt? Lab appt can be scheduled after orders are placed. Cookie Abraham LPN documented in this encounter [facility] 07-02-2020 History of Present illness Narrative Radiology Service Progress Note PATIENT NAME: Laisha Sanderson DATE OF SERVICE: July 02, 2020 TIME: 9:52 AM PATIENT IDENTITY VERIFICATION COMPLETED USING TWO (2) IDENTIFIERS: Name and Date of confirmed by patient verbally. FALL SCREENING: Has the patient had 2 falls in the last year or 1 fall with injury or currently using an Ambulatory Assistive Device (Walker, Cane, Wheelchair, Crutches, etc.)? No PATIENT GENDER DATA: Female. status: : No status: NO. PATIENT RELEVANT IMPLANT DATA REVIEWED: Not Applicable RADIOLOGY DEPARTMENT: General X-ray: Exam(s) Completed: Upper Extremity X-Ray(s): Hand, right : PERIPHERAL IV DATA: Not applicable SIGNED BY: RT Gautam July 02, 2020 9:52 AM documented in this encounter [facility] 10-02-2011 History of Past i llness Narrative Problem Noted Date Resolved Date Supraspinatus tendonitis 10/02/2011 014 documented as of this encounter (statuses as of 06/28/2021) [address]26-2012 History of Past illness Narrative* Problem Noted Date Resolved Date Supraspinatus tendonitis 10/02/2011 014 documented as of this encounter (statuses as of 07/26/2021) [facility] of Past illness Narrative* Problem Noted Date Resolved Date Supraspinatus tendonitis 10/02/2011 014 documented as of this encounter (statuses as of 07/28/2021) [facility] History of Past illness Narrative* Problem Noted Date Resolved Date Supraspinatus tendonitis 10/02/2011 014 documented as of this encounter (statuses as of 09/28/2021) [address]2012 History of Past illness Narrative* Problem Noted Date Resolved Date Supraspinatus tendonitis 10/02/2011 014 documented as of this encounter (statuses as of 10/03/2021) [facility] of Past illness Narrative* Problem Noted Date Resolved Date Supraspinatus tendonitis 10/02/2011 014 documented as of this encounter (statuses as of 02/28/2022) [facility] History of Past illness Narrative* Problem Noted Date Resolved Date Supraspinatus tendonitis 10/02/2011 014 documented as of this encounter (statuses as of 09/04/2022) [facility] History of Past illness Narrative* Problem Noted Date Diagnosed Date Resolved Date Supraspinatus tendonitis 10/02/201103/2014 documented as of this encounter (statuses as of 02/27/2023) [address]2012 History of Past illness Narrative* Problem Noted Date Diagnosed Date Resolved Date Supraspinatus tendonitis 10/02/201103/2014 documented as of this encounter (statuses as of 03/01/2023) [address]2012 History of Past illness Narrative* Problem Noted Date Diagnosed Date Resolved Date Supraspinatus tendonitis 10/02/201103/2014 documented as of this encounter (statuses as of 03/22/2023) [facility] Essential hypertension- Primary Unspecified essential hypertension Hyperlipidemia with target LDL less than 130 Other and unspecified hyperlipidemia Vitamin D deficiency Unspecified vitamin D deficiency Hyperglycemia Other abnormal glucose [facility] Diagnosis Stress incontinence of urine- Primary Essential hypertension Unspecified essential hypertension Actinic keratosis Vitamin D deficiency Unspecified vitamin D deficiency Hyperlipidemia with target LDL less than 130 Other and unspecified hyperlipidemia Chronic constipation Unspecified constipation Grade I diastolic dysfunction Acute left ankle pain documented in this encounter [facility] noteNo assessment information availableWFairfield Medical [facility] Work Phone: Evaluation note* Diagnosis Visit for suture removal- Primary Encounter for removal of sutures Fall, initial encounter documented in this encounter [facility] Diagnosis Essential hypertension Unspecified essential hypertension documented in this encounter [facility] Diagnosis Vitamin D deficiency- Primary Unspecified vitamin D deficiency Essential hypertension Unspecified essential hypertension Hyperlipidemia with target LDL less than 130 Other and unspecified hyperlipidemia Chronic constipation Unspecified constipation IFG (impaired fasting glucose) Impaired fasting glucose Actinic keratosis Grade I diastolic dysfunction documented in this encounter [facility] Diagnosis Essential hypertension Unspecified essential hypertension documented in this [facility] Diagnosis Essential hypertension Unspecified essential hypertension documented in this encounter [facility]* Diagnosis Decreased hearing of both ears- Primary SOB (shortness of breath) on exertion Shortness of breath Tachycardia Tachycardia, unspecified Bilateral leg edema Edema Urine frequency Urinary frequency Urgency of urination Acute constipation Unspecified constipation Primary hypertension Unspecified essential hypertension Premature beats Premature beats, unspecified Shortness of breath documented in this encounter [facility]* Diagnosis Sensorineural hearing loss (SNHL) of left 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- Primary documented in this [facility]* Diagnosis Sensorineural hearing loss, asymmetrical- Primary Decreased hearing of both ears SOB (shortness of breath) on exertion Shortness of breath Tachycardia Tachycardia, unspecified Bilateral leg edema Edema Urine frequency Urinary frequency Urgency of urination Acute constipation Unspecified constipation documented [facility] this [facility] Diagnosis SOB (shortness of breath) on exertion Shortness of breath Tachycardia Tachycardia, unspecified Bilateral leg edema Edema Urine frequency Urinary frequency Urgency of urination Acute constipation Unspecified constipation Primary hypertension Unspecified essential hypertension Premature beats Premature beats, unspecified documented in this [facility]* Diagnosis SOB (shortness of breath) on exertion Shortness of breath Tachycardia Tachycardia, unspecified Bilateral leg edema Edema Urine frequency Urinary frequency Urgency of urination Acute constipation Unspecified constipation [facility] Diagnosis Sensorineural hearing loss (SNHL) of left 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 [facility]* Diagnosis Right hand pain Pain in limb [facility]* Diagnosis Urinary urgency- Primary Urgency of urination Urinary frequency Actinic keratosis Primary hypertension Unspecified essential hypertension Bilateral leg edema Edema [facility]* Diagnosis Essential hypertension Unspecified essential hypertension [facility]* Diagnosis URI, acute- Primary Acute upper respiratory infections of unspecified site [facility] this [facility]* Diagnosis Acute cough- Primary Acute cough documented in this encounter [facility] note* Diagnosis Acute cough [facility]* Diagnosis Irritant contact dermatitis due to other agents- Primary [facility]* Diagnosis Laceration of right index finger without foreign body without damage to nail, initial encounter- Primary Visit for wound check Encounter for other specified aftercare documented in this encounter [facility] note* Diagnosis Well adult exam- Primary Routine general medical examination at a health care facility Essential hypertension Unspecified essential hypertension Actinic keratosis IFG (impaired fasting glucose) Impaired fasting glucose Vitamin D deficiency Unspecified vitamin D deficiency Hyperlipidemia with target LDL less than 130 Other and unspecified hyperlipidemia Screening for thyroid disorder Encounter for screening examination for other mental health and behavioral disorders Screening for depression [facility] Additional Instructions Follow preprinted instructions from your surgeons office. Implant Used?: [facility]Wooer [facility] Work Phone: Reason for referral (narrative)* Outpatient Procedure (Routine) - Authorized Specialty Diagnoses / Procedures Referred By Coreen harp Referred To [facility] Diagnoses Essential hypertension Hyperlipidemia with target LDL less than 130 Grade I diastolic dysfunction Procedures ECHO ECHO TTHRC R-T 2D W/WOM-MODE COMPL SPEC&COLR D Galileo Rai L, DO [address] [place] [address] [facility] [address] [place] [address] Referral ID Status Reason Start Date Expiration Date Visits Requested Visits Authorized [id number] Authorized Auto-Generat ed Referral 07/26/2021 07/26/2022 1 1 [facility] for referral (narrative)* Diagnostic Procedure Only (Routine) - Pending Review Specialty Diagnoses / Procedures Referred By Contac t Referred To Contact [facility] Diagnoses SOB (shortness of breath) on exertion Tachycardia Bilateral leg edema Urine frequency Urgency of urination Acute constipation Primary hypertension Premature beats Procedures NM CARDIAC PERF STRESS/EXERCISE MYOCARDIAL SPECT MULTIPLE STUDIES Bryce Brumfield APRN.BANQUET COORDINATOR [address] [place] [address] [facility] [address] [place] [address] Referral ID Status Reason Start Date Expiration Date Visits Requested Visits Authorized [id number] Pending Review Auto-Generat ed Referral 09/18/2023 10/17/2024 1 1 * Outpatient Procedure (Routine) - Authorized Specialty Diagnoses / Procedures Referred By Coreen t Referred To [facility] Diagnoses SOB (shortness of breath) on exertion Tachycardia Bilateral leg edema Urine frequency Urgency of urination Acute constipation Primary hypertension Premature beats Procedures ECHO ECHO TTHRC R-T 2D W/WOM-MODE COMPL SPEC&COLR D Bryce Brumfield APRN.BANQUET COORDINATOR [address] [place] [address] [facility] [address] [place] [address] Referral ID Status Reason Start Date Expiration Date Visits Requested Visits Authorized [id number] Authorized Auto-Generat ed Referral 09/18/2023 09/17/2024 1 1 * Consult, Test, Treat (Routine) - Authorized Specialty Diagnoses / Procedures Referred By Coreen harp Referred To Contact Ent - Otolaryngology Diagnoses Decreased hearing of both ears SOB (shortness of breath) on exertion Tachycardia Bilateral leg edema Urine frequency Urgency of urination Acute constipation Procedures CONSULT TO ENT OFFICE/OUTPATIENT [facility] MDM 60 MINUTES Bryce Brumfield APRN.CNP [address] [place] [address] Referral ID Status Reason Start Date Expiration Date Visits Requested Visits Authorized [id number] Authorized PCP Requested Referral 09/18/2023 09/17/2024 1 1 * Outpatient Procedure (Routine) - Pending Review Specialty Diagnoses / Procedures Referred By Coreen harp Referred To [facility] Diagnoses SOB (shortness of breath) on exertion Tachycardia Bilateral leg edema Urine frequency Urgency of urination Acute constipation Procedures ECG COMPLETE ECG ROUTINE ECG W/LEAST 12 LDS W/I&R Bryce Brumfield APRN.BANQUET COORDINATOR [address] [place] [address] [facility] [address] [place] [address] Referral ID Status Reason Start Date Expiration Date Visits Requested Visits Authorized [id number] Pending Review Auto-Generat ed Referral 09/18/2023 09/17/2024 1 1 [facility] for referral (narrative)* Diagnostic Procedure Only (Routine) - Closed Specialty Diagnoses / Procedures Referred By Coreen harp Referred To Contact [facility] Diagnoses SOB (shortness of breath) on exertion Tachycardia Bilateral leg edema Urine frequency Urgency of urination Acute constipation Primary hypertension Premature beats Procedures NM CARDIAC PERF STRESS/EXERCISE MYOCARDIAL SPECT MULTIPLE STUDIES Bryce Brumfield APRN.BANQUET COORDINATOR [address] [place] [address] [facility] [address] [place] [address] Referral ID Status Reason Start Date Expiration Date V isits Requested Visits Authorized [id number] Closed Auto-Generate d Referral 11/06/2023 01/05/2024 1 1 [facility] Diagnostic Procedure Only (Routine) - Closed Specialty Diagnoses / Procedures Referred By Coreen harp Referred To Contact [facility] Diagnoses SOB (shortness of breath) on exertion Tachycardia Bilateral leg edema Urine frequency Urgency of urination Acute constipation Primary hypertension Premature beats Procedures NM CARDIAC PERF STRESS/EXERCISE MYOCARDIAL SPECT MULTIPLE STUDIES Bryce Brumfield APRN.CNP [address] [place] [address] [facility] [address] [place] [address] Referral ID Status Reason Start Date Expiration Date V isits Requested Visits Authorized [id number] Closed Auto-Generate d Referral 11/06/2023 01/05/2024 1 1 [facility] Advance Directives No Advanced Directives Records FoundDocuments on File Type Date Recorded 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 Advance Directive(s) 09/11/2017 6:37 AM Documents on File Type Date Recorded 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 Advance Directive(s) 09/11/2017 6:37 AM Advance Directive Response Recorded Date/ Time Living Will Yes September 17, 2021 3:44pm Power of Plastics Patternmaker Yes September 17 3:44pm Advance Directive Response Recorded Date/ Time Name of Medical Power of Plastics Patternmaker KELLY STONER( SISTER) September 17, 2021 3:44pm Name of Medical Power of Plastics Patternmaker SISTER October 03, 2021 2:36pm Living Will Yes October 03, 2021 2:36pm Power of Plastics Patternmaker Yes October 03 2:36pm Chief Complaint and Reason for Visit Chief Complaint fall Chief Complaint fall PREOP Reason for Referral Specialty Diagnoses / Procedures Referred By Coreen harp Referred To Contact [facility] Diagnoses Sensorineural hearing loss (SNHL) of left 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 Procedures MRI BRAIN WO/W IVCON MRI BRAIN BRAIN STEM W/O W/CONTRAST MATERIAL Brandon Oro MD [address] [address] [place] [address] Referral ID Status Reason Start Date Expiration Date Visits Requested Visits Authorized [id number] Pending Review Auto-Generat ed Referral 11/25/2023 12/24/2024 1 1 Specialty Diagnoses / Procedures Referred By Contac t Referred To Contact Diagnoses Decreased hearing of both ears Procedures HEARING TEST/AUDIOGRAM COMPRE AUDIOMETRY THRESHOLD EVAL Camelia Phillips, AUD [address] [place] [address] [facility] [address] [place] [address] Referral ID Status Reason Start Date Expiration Date Visits Requested Visits Authorized [id number] New Request Auto-Generat ed Referral 11/25/2023 11/25/2024 1 1 Referral ID Status Reason Start Date Expiration Date V isits Requested Visits Authorized [id number] Closed Auto-Generate d Referral 12/02/2023 01/31/2024 1 1 Summary Purpose Family History No Family History Records FoundNo Family History Records Found Additional Source Comments Source Comments (unrecognize d section and content) In the event this informatio n is protected by the Federal Confidentiality of Alcohol and Drug Abuse Patient Records regulations: The Federal rules restrict any use of the information to criminally investigate or prosecute any alcohol or drug abuse patient.[facility] the event this information is protected by the Federal Confidentiality of Alcohol and Drug Abuse Patient Records regulations: The Federal rules restrict any use of the information to criminally investigate or prosecute any alcohol or drug abuse patient.[facility] CenterIn the event this information is protected by the Federal Confidentiality of Alcohol and Drug Abuse Patient Records regulations: The Federal rules restrict any use of the information to criminally investigate or prosecute any alcohol or drug abuse patient.[facility]In the event this information is protected by the Federal Confidentiality of Alcohol and Drug Abuse Patient Records regulations: The Federal rules restrict any use of the information to criminally investigate or prosecute any alcohol or drug abuse patient.[facility] CenterIn the event this information is protected by the Federal Confidentiality of Alcohol and Drug Abuse Patient Records regulations: The Federal rules restrict any use of the information to criminally investigate or prosecute any alcohol or drug abuse patient.[facility] the event this information is protected by the Federal Confidentiality of Alcohol and Drug Abuse Patient Records regulations: The Federal rules restrict any use of the information to criminally investigate or prosecute any alcohol or drug abuse patient.[facility] CenterIn the event this information is protected by the Federal Confidentiality of Alcohol and Drug Abuse Patient Records regulations: The Federal rules restrict any use of the information to criminally investigate or prosecute any alcohol or drug abuse patient.[facility] CenterIn the event this information is protected by the Federal Confidentiality of Alcohol and Drug Abuse Patient Records regulations: The Federal rules restrict any use of the information to criminally investigate or prosecute any alcohol or drug abuse patient.[facility] CenterIn the event this information is protected by the Federal Confidentiality of Alcohol and Drug Abuse Patient Records regulations: The Federal rules restrict any use of the information to criminally investigate or prosecute any alcohol or drug abuse patient.[facility] CenterIn the event this information is protected by the Federal Confidentiality of Alcohol and Drug Abuse Patient Records regulations: The Federal rules restrict any use of the information to criminally investigate or prosecute any alcohol or drug abuse patient.[facility] CenterIn the event this information is protected by the Federal Confidentiality of Alcohol and Drug Abuse Patient Records regulations: The Federal rules restrict any use of the information to criminally investigate or prosecute any alcohol or drug abuse patient.[facility] CenterIn the event this information is protected by the Federal Confidentiality of Alcohol and Drug Abuse Patient Records regulations: The Federal rules restrict any use of the information to criminally investigate or prosecute any alcohol or drug abuse patient.[facility] CenterIn the event this information is protected by the Federal Confidentiality of Alcohol and Drug Abuse Patient Records regulations: The Federal rules restrict any use of the information to criminally investigate or prosecute any alcohol or drug abuse patient.[facility] CenterIn the event this information is protected by the Federal Confidentiality of Alcohol and Drug Abuse Patient Records regulations: The Federal rules restrict any use of the information to criminally investigate or prosecute any alcohol or drug abuse patient.[facility] CenterIn the event this information is protected by the Federal Confidentiality of Alcohol and Drug Abuse Patient Records regulations: The Federal rules restrict any use of the information to criminally investigate or prosecute any alcohol or drug abuse patient.[facility] CenterIn the event this information is protected by the Federal Confidentiality of Alcohol and Drug Abuse Patient Records regulations: The Federal rules restrict any use of the information to criminally investigate or prosecute any alcohol or drug abuse patient.[facility] CenterIn the event this information is protected by the Federal Confidentiality of Alcohol and Drug Abuse Patient Records regulations: The Federal rules restrict any use of the information to criminally investigate or prosecute any alcohol or drug abuse patient.[facility] CenterIn the event this information is protected by the Federal Confidentiality of Alcohol and Drug Abuse Patient Records regulations: The Federal rules restrict any use of the information to criminally investigate or prosecute any alcohol or drug abuse patient.[facility] CenterIn the event this information is protected by the Federal Confidentiality of Alcohol and Drug Abuse Patient Records regulations: The Federal rules restrict any use of the information to criminally investigate or prosecute any alcohol or drug abuse patient.[facility] CenterIn the event this information is protected by the Federal Confidentiality of Alcohol and Drug Abuse Patient Records regulations: The Federal rules restrict any use of the information to criminally investigate or prosecute any alcohol or drug abuse patient.[facility] CenterIn the event this information is protected by the Federal Confidentiality of Alcohol and Drug Abuse Patient Records regulations: The Federal rules restrict any use of the information to criminally investigate or prosecute any alcohol or drug abuse patient.[facility] CenterIn the event this information is protected by the Federal Confidentiality of Alcohol and Drug Abuse Patient Records regulations: The Federal rules restrict any use of the information to criminally investigate or prosecute any alcohol or drug abuse patient.[facility] CenterIn the event this information is protected by the Federal Confidentiality of Alcohol and Drug Abuse Patient Records regulations: The Federal rules restrict any use of the information to criminally investigate or prosecute any alcohol or drug abuse patient.[facility] CenterIn the event this information is protected by the Federal Confidentiality of Alcohol and Drug Abuse Patient Records regulations: The Federal rules restrict any use of the information to criminally investigate or prosecute any alcohol or drug abuse patient.[facility] CenterIn the event this information is protected by the Federal Confidentiality of Alcohol and Drug Abuse Patient Records regulations: The Federal rules restrict any use of the information to criminally investigate or prosecute any alcohol or drug abuse patient.[facility] CenterIn the event this information is protected by the Federal Confidentiality of Alcohol and Drug Abuse Patient Records regulations: The Federal rules restrict any use of the information to criminally investigate or prosecute any alcohol or drug abuse patient.[facility] CenterIn the event this information is protected by the Federal Confidentiality of Alcohol and Drug Abuse Patient Records regulations: The Federal rules restrict any use of the information to criminally investigate or prosecute any alcohol or drug abuse patient.[facility] CenterIn the event this information is protected by the Federal Confidentiality of Alcohol and Drug Abuse Patient Records regulations: The Federal rules restrict any use of the information to criminally investigate or prosecute any alcohol or drug abuse patient.[facility] CenterIn the event this information is protected by the Federal Confidentiality of Alcohol and Drug Abuse Patient Records regulations: The Federal rules restrict any use of the information to criminally investigate or prosecute any alcohol or drug abuse patient.[facility] CenterIn the event this information is protected by the Federal Confidentiality of Alcohol and Drug Abuse Patient Records regulations: The Federal rules restrict any use of the information to criminally investigate or prosecute any alcohol or drug abuse patient.[facility] CenterIn the event this information is protected by the Federal Confidentiality of Alcohol and Drug Abuse Patient Records regulations: The Federal rules restrict any use of the information to criminally investigate or prosecute any alcohol or drug abuse patient.[facility] CenterIn the event this information is protected by the Federal Confidentiality of Alcohol and Drug Abuse Patient Records regulations: The Federal rules restrict any use of the information to criminally investigate or prosecute any alcohol or drug abuse patient.[facility] CenterIn the event this information is protected by the Federal Confidentiality of Alcohol and Drug Abuse Patient Records regulations: The Federal rules restrict any use of the information to criminally investigate or prosecute any alcohol or drug abuse patient.[facility] Reason for Visit (unrecogniz ed section and content) Reason Comments Lab Orders Reason Comments Physical Reason Comments Results Reason Comments ED Follow-up stitches removed Reason Comments Fax ECHO report for Pre-surgical clearan ce Reason Comments Medication Follow-up Reason Onset Date Comments Refill Request 09/04/2022 Reason Comments Follow Up Reason Onset Date Comments Refill Request 02/28/2023 Reason Onset Date Comments Refill Request 09/13/2023 Reason Comments Edema [place] feet/ankles x 2 weeks, tachycardia, SOB with activity Reason Comments Patient Question Patient Update Reason Comments follow up after audio Hearing Loss Mostly the left ear. Specialty Diagnoses / Procedures Referred By Coreen harp Referred To Contact Ent - Otolaryngology Diagnoses Decreased hearing of both ears SOB (shortness of breath) on exertion Tachycardia Bilateral leg edema Urine frequency Urgency of urination Acute constipation Procedures CONSULT TO ENT OFFICE/OUTPATIENT [facility] ([facility]) 60 MINUTES Bryce Brumfield, METROLOGY MANAGER.BANQUET COORDINATOR [address] [place] [address] Referral ID Status Reason Start Date Expiration Date V isits Requested Visits Authorized [id number] Closed PCP Requested Referral 09/18/2023 09/17/2024 1 1 Reason Comments Radiology NM Specialty Diagnoses / Procedures Referred By Coreen harp Referred To Contact MOLECULAR & FUNCTIONAL IMAGING Diagnoses SOB (shortness of breath) on exertion Tachycardia Bilateral leg edema Urine frequency Urgency of urination Acute constipation Primary hypertension Premature beats Procedures NM CARDIAC PERF STRESS/EXERCISE MYOCARDIAL SPECT MULTIPLE STUDIES Bryce Brumfield, METROLOGY MANAGER.BANQUET COORDINATOR [address] [place] [address] Molecular & Functional Imaging [address] [place] [address] Referral ID Status Reason Start Date Expiration Date V isits Requested Visits Authorized [id number] Closed Auto-Generate d Referral 11/06/2023 01/05/2024 1 1 Specialty Diagnoses / Procedures Referred By Coreen harp Referred To Contact MR IMAGING Diagnoses Sensorineural hearing loss (SNHL) of left 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 Procedures MRI BRAIN WO/W IVCON MRI BRAIN BRAIN STEM W/O W/CONTRAST MATERIAL Brandon Oro MD [address] [address] [place] [address] Referral ID Status Reason Start Date Expiration Date V isits Requested Visits Authorized [id number] Closed Auto-Generate d Referral 12/02/2023 01/31/2024 1 1 Reason Comments Hearing Problem Reason Comments Urinary Problem Urinary Urgency, brendon quency, itching x 5 days Hair/Scalp Problem Reason Onset Date Comments Refill Request 04/24/2024 Reason Comments Cough Sinus congestion x3 days Reason Comments Cough Chest congestion x11 days, seen 2 for same Reason Comments Patient Update Reason Comments Rash Rash on chest x 2 da ys Reason Comments Laceration R index finger x 5pm last night Reason Comments Medicare Wellness Exam Care Teams (unrecognized sec tion and content) Yard Associate Relationship Specialty Start Date End Date Galileo Rai, DO [address] [place] [address] PCP - General Family Practice 10/30/14 Yard Associate Relationship Specialty Start Date End Date Galileo Rai DO [address] [place] [address] PCP - General Family Practice 10/30/14 Yard Associate Relationship Specialty Start Date End Date Galileo Rai DO [address] [place] [address] PCP - General Family Practice 10/30/14 Yard Associate Relationship Specialty Start Date End Date Galileo Rai DO [address] [place] [address] PCP - General Family Practice 10/30/14 Yard Associate Relationship Specialty Start Date End Date Galileo Rai DO [address] [place] [address] PCP - General Family Practice 10/30/14 Yard Associate Relationship Specialty Start Date End Date Galileo Rai, DO [address] [place] [address] PCP - General Family Medicine 10/30/14 Yard Associate Relationship Specialty Start Date End Date Galileo Rai DO [address] [place] [address] PCP - General Family Medicine 10/30/14 Yard Associate Relationship Specialty Start Date End Date Galileo Rai, [address] [place] [address] PCP - General Family Medicine 10/30/14 Yard Associate Relationship Specialty Start Date End Date Galileo Rai DO [address] [place] [address] PCP - General Family Medicine 10/30/14 Yard Associate Relationship Specialty Start Date End Date Galileo Rai DO [address] [place] [address] PCP - General Family Medicine 10/30/14 Yard Associate Relationship Specialty Start Date End Date Galileo Rai DO [address] [facility] [place] [address] PCP - General Family Medicine 10/30/14 Yard Associate Relationship Specialty Start Date End Date Galileo Rai DO [address] [facility] [place] [address] PCP - General Family Medicine 10/30/14 Yard Associate Relationship Specialty Start Date End Date Galileo Rai DO [address] [facility] [place] [address] PCP - General Family Medicine 10/30/14 Yard Associate Relationship Specialty Start Date End Date Galileo Rai, DO [address] [facility] [address] PCP - General Family Medicine 10/30/14 Yard Associate Relationship Specialty Start Date End Date Galileo Rai, DO [address] [place] [address] PCP - General Family Medicine 10/30/14 Yard Associate Relationship Specialty Start Date End Date Galileo Rai, DO [address] [place] [address] PCP - General Family Medicine 10/30/14 Yard Associate Relationship Specialty Start Date End Date Galileo Rai DO [address] [place] [address] PCP - General Family Medicine 10/30/14 Yard Associate Relationship Specialty Start Date End Date Galileo Rai, [address] [place] [address] PCP - General Family Medicine 10/30/14 Yard Associate Relationship Specialty Start Date End Date Galileo Rai, [address] [place] [address] PCP - General Family Medicine 10/30/14 Yard Associate Relationship Specialty Start Date End Date Galileo Rai DO [address] [place] [address] PCP - General Family Medicine 10/30/14 Yard Associate Relationship Specialty Start Date End Date Galileo Rai, DO [address] [place] [address] PCP - General Family Medicine 10/30/14 Yard Associate Relationship Specialty Start Date End Date Galileo Rai DO [address] [place] [address] PCP - General Family Medicine 10/30/14 Yard Associate Relationship Specialty Start Date End Date Galileo Rai DO [address] [place] [address] PCP - General Family Medicine 10/30/14 Sarah Beth Samayoa, METROLOGY MANAGER.BANQUET COORDINATOR [address] [place] [address] [facility] Bryce Brumfield, METROLOGY MANAGER.BANQUET COORDINATOR [address] [place] [address] [facility] Yard Associate Relationship Specialty Start Date End Date Galileo Rai DO [address] [place] [address] PCP - General Family Medicine 10/30/14 Sarah Beth Samayoa, METROLOGY MANAGER.BANQUET COORDINATOR [address] [place] [address] [facility] 03/[facility]/24 BrissaBryce, METROLOGY MANAGER.BANQUET COORDINATOR [address] [place] [address] [facility] 03/15/24 Yard Associate Relationship Specialty Start Date End Date Galileo Rai DO [address] [place] [address] PCP - General Family Medicine 10/30/14 Sarah Beth Samayoa, METROLOGY MANAGER.BANQUET COORDINATOR [address] [facility] [address] [facility] 03/[facility]/24 Bryce Brumfield, METROLOGY MANAGER.BANQUET COORDINATOR [address] [place] [address] [facility] 03/15/[facility] Yard Associate Relationship Specialty Start Date End Date Galileo Rai DO [address] [place] [address] PCP - General Family Medicine 10/30/14 Sarah Beth Samayoa, METROLOGY MANAGER.BANQUET COORDINATOR [address] [facility] [address] [facility] 03/15/24 BrissaBryce, METROLOGY MANAGER.BANQUET COORDINATOR [address] [place] [address] [facility] 03/15/24 Yard Associate Relationship Specialty Start Date End Date Galileo Rai DO [address] [place] [address] PCP - General Family Medicine 10/30/14 BrissaBryce, METROLOGY MANAGER.BANQUET COORDINATOR [address] [place] [address] [facility] 03/15/24 Yard Associate Relationship Specialty Start Date End Date Galileo Rai DO [address] [place] [address] PCP - General Family Medicine 10/30/14 Bryce Brumfield, METROLOGY MANAGER.BANQUET COORDINATOR [address] [place] [address] [facility] 03/[facility] Yard Associate Relationship Specialty Start Date End Date Galileo Rai DO [address] [place] [address] PCP - General Family Medicine 10/30/14 Bryce Brumfield, METROLOGY MANAGER.BANQUET COORDINATOR [address] [place] [address] [facility] 03/15/24 Claudia Patricia, METROLOGY MANAGER.BANQUET COORDINATOR [address] [place] [address] [facility] 09/21/24 Yard Associate Relationship Specialty Start Date End Date Galileo Rai DO [address] [place] [address] PCP - General Family Medicine 10/30/14 Bryce Brumfield, METROLOGY MANAGER.BANQUET COORDINATOR [address] [place] [address] [facility] 03/15/24 Claudia Patricia, METROLOGY MANAGER.BANQUET COORDINATOR [address] [place] [address] [facility] 09/21/24 Goals (unrecognized section and content) Goals may be documented in a n alternate section INFORMATION SOURCE (unrecogn ized section and content) DATE CREATED AUTHOR 02/29/2024 [facility] DATE CREATED AUTHOR ORTEGA BLANK 11/29/2024 [facility] FOR RECORDS PERTAINING TO PATIENTS WHO ARE OR HAVE BEEN ENROLLED IN A CHEMICAL DEPENDENCY/SUBSTANCEABUSE PROGRAM, SOME INFORMATION MAY BE OMITTED. This clinical summary was aggregated from multiple sources. Caution should be exercised in using it in the provision of clinical care. This summary normalizes information from multiple sources, and as a consequence, information in this document may materially change the coding, format and clinical context of patient data. In addition, data may be omitted in some cases. CLINICAL DECISIONS SHOULD BE BASED ON THE PRIMARY CLINICAL RECORDS. [facility]. provides no warranty or guarantee of the accuracy or completeness of information in this document.
[2024-12-27 13:26] VITALS: BP 135/72; PULSE 67; RESP 16; TEMP 36.7; O2SAT 100
== END 2024-12-27 13:44 | disposition home or self-care (01) ==
PROVIDERS: Emergency Provider Emergency Medicine; PCP Student in an Organized Health Care Education/Training Program; Visit Provider Emergency Medicine
DX: S62.390A Other fracture of second metacarpal bone, right hand, initial encounter for closed fracture (principal); S01.81XA Laceration without foreign body of other part of head, initial encounter; W01.190A Fall on same level from slipping, tripping and stumbling with subsequent striking against furniture, initial encounter; I10 Essential (primary) hypertension; Z79.899 Other long term (current) drug therapy
CPT/HCPCS: 29125; 73130; 99282